=== PATIENT | male | born 1960 | race Caucasian/White ===

== ENCOUNTER 2019-08-08 23:38 | Emergency (ER) | payer MEDICAID, SELFPAY ==
[2019-08-08 23:39] VITALS: BP 172/105; PULSE 100; RESP 15; TEMP 36.2; O2SAT 97; BMI 26.2
--- NOTE | 2019-08-08 23:48 | ED.DCSUM_ITS ---
- ER Visit Summary Date of Service: 08/08/19 Chief Complaint: Fall History of Present Illness: The patient is a 59 M who presents after a fall that occurred tonight. EMS was called to the [facility] where his a found him laying on the floor between 2 sets of stairs. EMS did not see any signs of trauma. E MS reports that the patient reportedly had a lot of alcohol to drink tonight. EMS reports that the patient started vomiting soon after they started to get him up. EMS states that patient was feeling better and was more awake and alert after vomiting. Patient currently denies any symptoms. Patient denies any paresthesias or weakness. Patient denies any abdominal pain or chest pain. Patient denies any shortness of breath. Physical Examination: Vital signs are stable except for an elevated blood pressure of 172/105. Patient is afebrile. Patient is in no acute distress. Pupils are equal, round, and reactive to light bilaterally. Extraocular muscles are intact. Conjunctiva is clear. Oral mucosa is pink and moist. Head is normocephalic. There are no outward signs of trauma. Strength is 5/5 bilateral knee upper and lower extremities. There are no sensory deficits noted. Cranial nerves II through XII are grossly intact. Heart was regular rate and rhythm. Lungs are clear and equal bilaterally. Abdomen is soft. Bowel sounds are normal. There is no tenderness. Emergency Department Course and Treatment: Patient was ordered IV fluids and Zofran here. Patient is refusing any treatment. Patient just wants his sister to come pick him up. His sister was contacted and she is here to grape picker the patient and care for him tonight. She understands and accepts responsibility for the patient. Patient will be discharged. Disposition: Discharge home Impression: 1. Fall 2. Alcohol intoxication This note was generated with [employer] dictation software. It may contain incorrect words, spelling, and punctuation that were not noted in review of the chart prior to signing ED Disposition - Plan for ED Patient: Disposition: Home or Assisted Living Diagnosis: Fall, Alcohol intoxication Instructions: FALL, Mechanical, Alcohol Intoxication Referrals: Clifford Gomez MD [Primary Care Provider] - 3-5 Days
--- NOTE | 2019-08-09 00:06 | ED.RN ---
PT REFUSING IV, BLOOD WORK & MEDICATION. WANTS US TO CALL SISTER TO COME AND GET HIM. DR GRACIA AWARE
--- NOTE | 2019-08-09 00:12 | ED.RN ---
SISTER IS HERE TO TAKE PATIENT HOME. PAPER SCRUBS PROVIDED TO PATIENT
--- NOTE | 2019-08-09 00:32 | ED.RN ---
PT REFUSED CARE.
[2019-08-09 00:35] VITALS: BP 160/75; PULSE 98; RESP 18; O2SAT 96
== END 2019-08-09 00:37 | disposition home or self-care (01) ==
PROVIDERS: Emergency Provider Emergency Medicine; PCP Family Medicine; Referring Provider Family Medicine
DX: Z04.3 Encounter for examination and observation following other accident (principal); W19.XXXA Unspecified fall, initial encounter; F10.129 Alcohol abuse with intoxication, unspecified; Y90.9 Presence of alcohol in blood, level not specified; Z72.0 Tobacco use
CPT/HCPCS: 99284; J2405

== ENCOUNTER → 2020-05-17 15:22 | Outpatient (CLI) | payer MEDICAID, SELFPAY | PROVIDERS: PCP Family Medicine; Referring Provider Physician Assistant; Visit Provider Physician Assistant | DX: L72.0 Epidermal cyst (principal) | CPT/HCPCS: 87070; 87075; 87077; 87186; 87205 ==

== ENCOUNTER 2022-05-08 08:15 | Outpatient (RCR) | payer OTHER, MEDICAID, SELFPAY ==
[2022-04-24 08:03] VITALS: BP 147/94; PULSE 83; RESP 20; TEMP 36.6; BMI 25.9
--- NOTE | 2022-04-24 18:47 | PCM.WC.HP ---
History of Present Illness Date of Service: 04/24/22 Chief Complaint: Thermal burn on the plantar aspect of the left foot History of Wound: This is a 61-year-old diabetic male who presents with a thermal burn on the plantar aspect of his left foot. Approximately 2 weeks ago, while in [facility], he was walking barefoot on concrete. The concrete was extremely hot due to its exposure to the sun. The patient experienced a thermal burn to the plantar aspect of the left foot, which appears to be second-degree in nature. He presents with a large burn eschar on the plantar aspect of his distal left foot, extending up to the the toes, but not involving them. He is currently on a prescription for cephalexin as prescribed by his primary care physician. He is a smoker. His history indicates that he has peripheral arterial occlusive disease with intermittent claudication. His medical history suggests poor control of his diabetes with a history of noncompliance. [facility] Medical History Burn of foot, second degree Hyperlipidemia associated with type 2 diabetes mellitus Intermittent claudication Peripheral arterial occlusive disease Poorly controlled diabetes mellitus Tobacco abuse Tobacco abuse counseling Home Medications cephalexin 500 mg capsule 500 mg PO BID 04/24/22 [History Last Taken Unknown] gabapentin 300 mg tablet 300 mg PO TID 04/24/22 [History Last Taken Unknown] insulin lispro 100 unit/mL subcutaneous solution (Humalog U-100 Insulin) 52 unit subcut DAILY 04/24/22 [History Last Taken Unknown] Allergy/AdvReac Type Severity Reaction Status Date / Time No Known Allergies Allergy Verified 04/24/22 08:30 Social History Smoking Status: Current every day smoker Vital Signs Vital Signs Vital Signs: 04/24/22 08:03 Temperature 97.9 F Temperature Source Temporal Pulse Rate 83 Respiratory Rate 20 H Blood Pressure 147/94 H Blood Pressure Mean 111 Weight Weight: 180 lb 13.313 oz Body Mass Index (BMI) 25.9 Physical Exam Const alert, oriented x3, no apparent distress, average body habitus and well nourished General Appearance: cooperative, comfortable, well kempt and well developed Orientation / Consciousness: awake, oriented to person, oriented to place and oriented to time Exam Limitations: no limitations HEENT normocephalic, head/scalp atraumatic and hearing grossly normal bilaterally Head and Scalp: normal to inspection, normocephalic and atraumatic External Ear: external ears normal Eyes PERRL and EOMs intact bilaterally General Eye: normal appearance of both eyes Resp normal respiratory effort, normal air movement, no retractions and no use of accessory muscles Effort and Inspection: able to speak in complete sentences Extremity no calf tenderness General Extremity: Negative for clubbing or cyanosis Skin Wound Narrative: Internal burn wound is noted on the plantar aspect of the patient's left foot. Dimensions are documented elsewhere. The burn is located distally, extending up to the base of the toes, but not involving the toes themselves. It appears to be a secondary wound, with sensation intact. The wound appearance is that of a large, thick, black eschar. There is no obvious sign of infection or cellulitis. Nails: other Neuro oriented x3, CN's II-XII intact bilaterally and moves all extremities Sensorium / Orientation: awake, alert, oriented to person, oriented to place and oriented to time Psych Appearance: grossly normal and appropriate Attitude: calm Activity / Motor Behavior: appropriate eye contact Speech: normal speech Mood & Affect: euthymic mood Thought Process: normal thought process Thought Content: normal thought content Attention / Concentration: attention grossly intact Debridement Note Debridement Note Wound debrided: Left foot burn wound Laterality: Left Type of Debridement: Excisional debridement Anesthesia Used: 5% Lidocaine Gel and Cetacaine Depth: Down to and including healthy tissue and in the subcutaneous layer Percentage of wound debrided: 100 Instrument Used: 5mm curette, #15 blade and Forceps Tissue Removed: Eschar and nonviable, devitalized tissue Severity: Fat Layer Exposed Amount of bleeding with debridement: Mild Bleeding Controlled with: Compression and gauze Patient tolerated procedure: Patient tolerated procedure well Debridement Free Text: The burn wound eschar was initially debrided using a 5 mm curette. However, due to the resistant and tenacious nature of the thick eschar, removal of the eschar proved to be extremely difficult. To assist in the debridement process, a 15 scalpel blade and forceps were utilized. In this manner, a large portion of the extremely adherent eschar was removed. Approximately 60 to 70% of the eschar was removed in this manner. The remaining eschar was scored using the scalpel blade, in an effort to enhance the effects of collagenase Santyl which is to be used topically. The procedure was well-tolerated. The burn wound appears to be second-degree in nature, as the patient demonstrated some discomfort during the course of the debridement. Post-Debridement Measurements and Additional Note: Post-Debridement Measurements/Treatment WC - Nurse 1 - General Ulcer Assessment Start: 04/24/22 07:51 Freq: Status: Active Protocol: DARWIN.HERI Activity Type Activity Date Activity User E-sign Co-sign Detail Recorded Client Recorded Date Recorded By Document 04/24/22 08:03 DL [id number] 04/24/22 08:27 DL 04/24/22 08:03 - Today's Visit Information Type of service Initial Visit Arrival Mode Ambulatory Transfer Assistance None Patient Identification Verified (Name & Yes ) Patient Requires Transmission-Based No Precautions Finger Stick Blood Sugar(mg/dl) (if not checked indicated): Blood Sugar Stated by Patient Height and Weight Height 5 ft 10 in Weight 180 lb 13.313 oz Weight in Pounds 180.8 lbs Body Mass Index (BMI) 25.9 BMI Classification Overweight BSA - Sophy 2.00 Vital Signs Temperature (97.8 F-99.1 F) 97.9 F Temperature Source Temporal Pulse Rate (60-100) 83 Pulse Location Monitor Respiratory Rate (12-18) 20 H Respiratory rate source Observation Blood Pressure (90/60-120/80) 147/94 H Blood Pressure Mean 111 Pain Scale: 0-10 Numeric Is Patient Pain Free? Yes Lower Extremity Assessment/ Foot Assessment/ Toe Nail Assessment Left -Posterior Tibial Palpable No -Posterior Tibial Doppler Monophasic -Dorsalis Pedis Palpable No -Dorsalis Pedis Doppler Monophasic -Extremity Color Normal -Hair Growth on Legs No -Hair Growth on Toes No -Temperature of Extremity Warm -Capillary Refill Greater than 3 Seconds -Dependent Rubor No -Blanched when Elevated No -Lipodermatosclerosis No -Other Deformity No -Prior Foot Ulcer No -Charcot Joint No -Prior Amputation No -Thick No -Discolored No -Deformed No -Improper Length & Hygeine No Right -Popliteal Doppler Monophasic -Posterior Tibial Palpable No -Posterior Tibial Doppler Monophasic -Dorsalis Pedis Palpable No -Dorsalis Pedis Doppler Monophasic -Extremity Color Normal -Hair Growth on Legs No -Hair Growth on Toes No -Temperature of Extremity Warm -Capillary Refill Greater than 3 Seconds -Dependent Rubor No -Blanched when Elevated No -Lipodermatosclerosis No -Other Deformity No -Prior Foot Ulcer No -Charcot Joint No -Prior Amputation No -Thick No -Discolored No -Deformed No -Improper Length & Hygeine No Neuropathy Assessment Feet - Top Side and Bottom <Entered> (a) Communication Assessment Preferred language [place]er Able to Read Yes Able to Write Yes Right Hearing Abillity Normal Left Hearing Abillity Normal Visual Assistive Devices Glasses Teaching Assessment Preferences Verbal,Written, Demonstration Readiness To Learn Good Willingness to Engage in Self Management Med Activies Readiness to Engage in Self Management Med Activities Anxiety Level Calm Cooperation Cooperative Perception Coherent Interest in Health Problem Asks Questions Does Patient Smoke tobacco or other Yes substances Smoking Status Current every day smoker Is Patient Diabetic Yes Functional Assessment Recent Decline in Ability to Perform Denies Any Declines 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 to contact place of restoration No Teaching: Wound Center Discharge Instructions -Person Taught Patient Dressing Your Wound -Person Taught Patient *Welcome to the Wound Center -Person Taught Patient (a) 1 - + WC - Nurse 1 - General Ulcer Measurement Start: 04/24/22 07:51 Freq: Status: Active Protocol: Activity Type Activity Date Activity User E-sign Co-sign Detail Recorded Client Recorded Date Recorded By Document 04/24/22 08:03 DL [id number] 04/24/22 08:27 DL 04/24/22 08:03 Wound Center Nurse 1 #1 L Plantar -Current Size (cm) - Length 2.3 -Current Size (cm) - Width 5 -Current Size (cm) - Depth 0.1 -Total Square Cm 11.5 -Photo Taken Yes -Classification - Thickness Unclassifiable (Eschar Covered ) -Exudate Amt Small -Exudate Type Serosanguineous -Wound Margin Distinct, Outline Attached -Granulation Amt None Present (0 %) -Granulation Quality N/A -Necrosis Amt Large (67-100%) -Necrotic Tissue Type Eschar -Structure Exposed N/A -Texture (Elizabeth-wound Skin Appearance) Localized Edema -Moisture (Elizabeth-wound Skin Appearance) No Abnormality -Color (Elizabeth-wound Skin Appearance) Erythema -Temperature (Elizabeth-wound Skin No Abnormality Appearance) (Pt Warm) -Tenderness on Palpation (Elizabeth-wound No Skin Appearance) -Ulcer Cleansing Rinsed/ Irrigated with Saline -Foul Odor after Cleansing No -Anesthetic Used 4% Lidocaine Solution WC - Nurse 2 - General Ulcer CM Notes Start: 04/24/22 07:51 Freq: Status: Active Protocol: Activity Type Activity Date Activity User E-sign Co-sign Detail Recorded Client Recorded Date Recorded By Document 04/24/22 11:59 PL [id number] 04/24/22 12:01 PL 04/24/22 11:59 Wound Center Nurse 2 -Time 08:44 -Correct Patient Yes -Correct Side, Site, Position Yes -Correct Procedure Yes -Procedure Performed Yes -Type of Procedure Debridement -Clinical Debridement Subcutaneous -Tissue Removed Subcutaneous -Post Debridement (cm) - Length 2.3 -Post Debridement (cm) - Width 5.0 -Post Debridement (cm) - Depth 0.1 -Total Square (Post) (cm) 11.50 -Area of Debridement (cm) - Length 2.3 -Area of Debridement (cm) - Width 5.0 -Total Square (Area) (cm) 11.50 -Tunneling No -Undermining/Tunneling No -Circular Undermining No -Wound/Ulcer Outcome Not Healed -Ulcer Cleansing Rinsed/ Irrigated with Saline -Foul Odor after Cleansing No -Bioengineered Tissue No -Bleeding Controlled with Pressure -Treatment Response Procedure Tolerated Well -Debridement - Subq, 1st 20sq cm Yes Pain Scale: 0-10 Numeric Is Patient Pain Free? Yes - Nurse 3 - General Ulcer D/C NN Start: 04/24/22 07:51 Freq: Status: Active Protocol: Activity Type Activity Date Activity User E-sign Co-sign Detail Recorded Client Recorded Date Recorded By Document 04/24/22 13:23 KR [id number] 04/24/22 13:24 KR 04/24/22 13:23 Wound Care Nurse 3 #1 L Plantar -Ulcer Cleansing Rinsed/ Irrigated with Saline -Primary Dressing Applied C Hydrogel ($) -Primary Dressing Covered/Secured with Dry Gauze,Dry Gauze & Roll Gauze,Secured with Tape Pain Scale: 0-10 Numeric Is Patient Pain Free? Yes WC - Visit Discharge Discharge Condition Stable Ambulatory Status Ambulatory Transportation Private Auto Assessment/Plan Assessment/Plan (1) Burn of foot, second degree: CODE(S): T25.229A - Burn of second degree of unspecified foot, initial encounter (2) Poorly controlled diabetes mellitus: CODE(S): E11.65 - Type 2 diabetes mellitus with hyperglycemia (3) Peripheral arterial occlusive disease: CODE(S): I77.9 - Disorder of arteries and arterioles, unspecified (4) Hyperlipidemia associated with type 2 diabetes mellitus: CODE(S): E11.69 - Type 2 diabetes mellitus with other specified complication; E78.5 - Hyperlipidemia, unspecified (5) Intermittent claudication: CODE(S): I73.9 - Peripheral vascular disease, unspecified (6) Tobacco abuse: CODE(S): Z72.0 - Tobacco use (7) Tobacco abuse counseling: CODE(S): Z71.6 - Tobacco abuse counseling PLAN: Plan This is a 61-year-old diabetic male who presents with a burn wound on the plantar aspect of his left foot. The burn occurred while walking barefoot on the hot concrete surface while vacationing in [facility]. The burn wound occurred approximately 2 weeks ago. It appears to be a second-degree burn. There is no obvious sign of infection or cellulitis. However, patient is currently on cephalexin as prescribed by his primary care physician, and has been advised to complete the prescription. He is currently generally non-weightbearing, and this has been encouraged to continue. When necessary, he is to ambulate using a cam walker. We are to implement the use of collagenase Santyl topically on a daily basis, to assist in the further debridement of the devitalized and nonviable tissue at the surface of the burn wound. Patient has been instructed in the appropriate means of application, and has been provided a prescription for the medication. He has been encouraged to stop smoking, and counseled appropriately. Good nutrition has been encouraged, and optimization of the patient's glycemic control has been recommended. We are to obtain routine laboratory evaluation, including a CBC, comprehensive metabolic profile, serum prealbumin, and a hemoglobin A1c. We will also obtain a noninvasive lower extremity arterial study to assess the patient's arterial circulation. The patient is to return in 1 week for reevaluation. Total time: 65 minutes
[2022-05-01 08:01] VITALS: BP 142/91; PULSE 85; RESP 20; TEMP 36.4; BMI 25.9
--- NOTE | 2022-05-01 08:27 | PCM.WC.HP ---
History of Present Illness Date of Service: 05/01/22 Chief Complaint: Thermal burn on the plantar aspect of the left foot History of Wound: This is a 61-year-old diabetic male who presented with a thermal burn on the plantar aspect of his left foot. Approximately 2 weeks prior to presentation, while in [facility], he was walking barefoot on concrete. The concrete was extremely hot due to its exposure to the sun. The patient experienced a thermal burn to the plantar aspect of the left foot, which appears to be second-degree in nature. He presented with a large burn eschar on the plantar aspect of his distal left foot, extending up to the the toes, but not involving them. He was on cephalexin as prescribed by his primary care physician. He is a smoker. His history indicates that he has peripheral arterial occlusive disease with intermittent claudication. His medical history suggests poor control of his diabetes with a history of noncompliance. [facility] Medical History Burn of foot, second degree Hyperlipidemia associated with type 2 diabetes mellitus Intermittent claudication Peripheral arterial occlusive disease Poorly controlled diabetes mellitus Tobacco abuse Tobacco abuse counseling Home Medications gabapentin 300 mg tablet 300 mg PO TID 04/24/22 [History Last Taken Unknown] insulin lispro 100 unit/mL subcutaneous solution (Humalog U-100 Insulin) 52 unit subcut DAILY 04/24/22 [History Last Taken Unknown] aspirin 81 mg tablet,delayed release 81 mg PO DAILY 05/01/22 [History Last Taken Unknown] atorvastatin 80 mg tablet 80 mg PO TID 05/01/22 [History Last Taken Unknown] duloxetine 20 mg capsule,delayed release 20 mg PO DAILY 05/01/22 [History Last Taken Unknown] fukul-pygqmygxb-lltdl-caf tablet tab PO 05/01/22 [History Last Taken Unknown] glimepiride 2 mg tablet 2 mg PO DAILY 05/01/22 [History Last Taken Unknown] Allergy/AdvReac Type Severity Reaction Status Date / Time No Known Allergies Allergy Verified 04/24/22 08:30 Social History Smoking Status: Current every day smoker Vital Signs Vital Signs Vital Signs: 05/01/22 08:01 Temperature 97.6 F L Temperature Source Temporal Pulse Rate 85 Respiratory Rate 20 H Blood Pressure 142/91 H Blood Pressure Mean 108 Blood Pressure Source Monitor Weight Weight: 180 lb 13.313 oz Body Mass Index (BMI) 25.9 Physical Exam Const alert, oriented x3, no apparent distress, average body habitus and well nourished General Appearance: cooperative, comfortable, well kempt and well developed Orientation / Consciousness: awake, oriented to person, oriented to place and oriented to time Exam Limitations: no limitations HEENT normocephalic, head/scalp atraumatic and hearing grossly normal bilaterally Head and Scalp: normal to inspection, normocephalic and atraumatic External Ear: external ears normal Eyes PERRL and EOMs intact bilaterally General Eye: normal appearance of both eyes Resp normal respiratory effort, normal air movement, no retractions and no use of accessory muscles Effort and Inspection: able to speak in complete sentences Extremity no calf tenderness General Extremity: Negative for clubbing or cyanosis Skin Wound Narrative: A thermal burn wound is noted on the plantar aspect of the patient's left foot. Dimensions are documented elsewhere. The burn is located distally, extending up to the base of the toes, but not involving the toes themselves. It appears to be a secondary degree burn wound, with sensation intact. The wound appears half pink, healthy granulation tissue, and half necrotic, gangrenous, nonviable eschar. There is no obvious sign of infection or cellulitis. Nails: other Neuro oriented x3, CN's II-XII intact bilaterally and moves all extremities Sensorium / Orientation: awake, alert, oriented to person, oriented to place and oriented to time Psych Appearance: grossly normal and appropriate Attitude: calm Activity / Motor Behavior: appropriate eye contact Speech: normal speech Mood & Affect: euthymic mood Thought Process: normal thought process Thought Content: normal thought content Attention / Concentration: attention grossly intact Debridement Note Debridement Note Wound debrided: Plantar aspect of the left foot Laterality: Left Wound Grade/Stage: Second-degree thermal burn Type of Debridement: Excisional debridement Anesthesia Used: 5% Lidocaine Gel Depth: Down to and including healthy tissue and in the subcutaneous layer Percentage of wound debrided: 100 Instrument Used: 5mm curette, #15 blade and Forceps Tissue Removed: Bioburden and nonviable, necrotic, burn eschar Severity: Fat Layer Exposed Amount of bleeding with debridement: Mild Bleeding Controlled with: Compression and gauze Patient tolerated procedure: Patient tolerated procedure well Debridement Free Text: Upon initial inspection, approximately half of the patient's left foot burn wound appeared to be pink, healthy granulation tissue. The other half of the wound was comprised of residual burn eschar. Due to a prior week of collagenase Santyl, the remaining nonviable tissue/eschar had softened, and was relatively easy to remove by means of a 5 mm curette and a 15 scalpel blade. The procedure was well-tolerated by the patient. A small amount of bleeding was encountered, which was easily controlled with manual pressure. Operative Diagnosis: Second-degree burn wound of the left foot, plantar surface Post-Debridement Measurements and Additional Note: Post-Debridement Measurements/Treatment - Nurse 1 - General Ulcer Assessment Start: 04/24/22 07:51 Freq: Status: Active Protocol: ANDRIA Activity Type Activity Date Activity User E-sign Co-sign Detail Recorded Client Recorded Date Recorded By Document 04/24/22 08:03 DL [id number] 04/24/22 08:27 DL Document 05/01/22 08:01 DL [id number] 05/01/22 08:06 DL 04/24/22 05/01/22 08:03 08:01 - Today's Visit Information Type of service Initial Visit Follow-up Visit (Physician/GENERAL COUNSELOR ) Arrival Mode Ambulatory Ambulatory Transfer Assistance None None Patient Identification Verified (Name & Yes Yes ) Patient Requires Transmission-Based No No Precautions Finger Stick Blood Sugar(mg/dl) (if not checked indicated): Blood Sugar Stated by Patient Height and Weight Height 5 ft 10 in Weight 180 lb 13.313 oz Weight in Pounds 180.8 lbs Body Mass Index (BMI) 25.9 25.9 BMI Classification Overweight Overweight BSA - Sophy 2.00 Vital Signs Temperature (97.8 F-99.1 F) 97.9 F 97.6 F L Temperature Source Temporal Temporal Pulse Rate (60-100) 83 85 Pulse Location Monitor Monitor Respiratory Rate (12-18) 20 H 20 H Respiratory rate source Observation Observation Blood Pressure (90/60-120/80) 147/94 H 142/91 H Blood Pressure Mean 111 108 Source Monitor History Since Last Visit- (Skip if this is Patient's initial visit) Have you changed medications since your No last visit? Any new allergies or adverse reactions No Had a fall/change in ADL's that may No increase risk of falls Signs or symptoms of abuse and/or No neglect since last visit Have you been in the hospital since your No last visit? Has dressing in place as prescribed Yes Has compression in place as prescribed N/A Has offloadiing in place as prescribed Yes Experienced any changes in pain level or No management Pain Scale: 0-10 Numeric Is Patient Pain Free? Yes Yes Lower Extremity Assessment/ Foot Assessment/ Toe Nail Assessment Left -Posterior Tibial Palpable No -Posterior Tibial Doppler Monophasic -Dorsalis Pedis Palpable No -Dorsalis Pedis Doppler Monophasic -Extremity Color Normal -Hair Growth on Legs No -Hair Growth on Toes No -Temperature of Extremity Warm -Capillary Refill Greater than 3 Seconds -Dependent Rubor No -Blanched when Elevated No -Lipodermatosclerosis No -Other Deformity No -Prior Foot Ulcer No -Charcot Joint No -Prior Amputation No -Thick No -Discolored No -Deformed No -Improper Length & Hygeine No Right -Popliteal Doppler Monophasic -Posterior Tibial Palpable No -Posterior Tibial Doppler Monophasic -Dorsalis Pedis Palpable No -Dorsalis Pedis Doppler Monophasic -Extremity Color Normal -Hair Growth on Legs No -Hair Growth on Toes No -Temperature of Extremity Warm -Capillary Refill Greater than 3 Seconds -Dependent Rubor No -Blanched when Elevated No -Lipodermatosclerosis No -Other Deformity No -Prior Foot Ulcer No -Charcot Joint No -Prior Amputation No -Thick No -Discolored No -Deformed No -Improper Length & Hygeine No Neuropathy Assessment Feet - Top Side and Bottom <Entered> (a) Communication Assessment Preferred language Bangladeshi Able to Read Yes Able to Write Yes Right Hearing Abillity Normal Left Hearing Abillity Normal Visual Assistive Devices Glasses Teaching Assessment Preferences Verbal,Written, Demonstration Readiness To Learn Good Willingness to Engage in Self Management Med Activies Readiness to Engage in Self Management Med Activities Anxiety Level Calm Cooperation Cooperative Perception Coherent Interest in Health Problem Asks Questions Does Patient Smoke tobacco or other Yes substances Smoking Status Current every day smoker Is Patient Diabetic Yes Functional Assessment Recent Decline in Ability to Perform Denies Any Declines Culture/Church/Certified Ophthalmic Medical Technician Cultural/Church Needs that may affect No Treatment Plan Would you allow our hospital tailor women's garment alteration to No meet you for the purpose of spiritual/ emotional support? Certified Ophthalmic Medical Technician to contact place of amish No Teaching: Wound Center Discharge Instructions -Person Taught Patient Dressing Your Wound -Person Taught Patient *Welcome to the Wound Center -Person Taught Patient (a) 1 - + WC - Nurse 1 - General Ulcer Measurement Start: 04/24/22 07:51 Freq: Status: Active Protocol: Activity Type Activity Date Activity User E-sign Co-sign Detail Recorded Client Recorded Date Recorded By Document 04/24/22 08:03 DL [id number] 04/24/22 08:27 DL Document 05/01/22 08:01 DL [id number] 05/01/22 08:06 DL 04/24/22 05/01/22 08:03 08:01 Wound Center Nurse 1 #1 L Plantar -Current Size (cm) - Length 2.3 2 -Current Size (cm) - Width 5 5 -Current Size (cm) - Depth 0.1 0.2 -Total Square Cm 11.5 10 -Photo Taken Yes Yes -Classification - Thickness Unclassifiable (Eschar Covered ) -Exudate Amt Small Medium -Exudate Type Serosanguineous Serosanguineous -Wound Margin Distinct, Distinct, Outline Outline Attached Attached -Granulation Amt None Present (0 Large (67-100%) %) -Granulation Quality N/A Red -Necrosis Amt Large (67-100%) Medium (34-66%) -Necrotic Tissue Type Eschar Adherent Slough -Structure Exposed N/A N/A -Texture (Elizabeth-wound Skin Appearance) Localized Edema Scarring -Moisture (Elizabeth-wound Skin Appearance) No Abnormality Maceration -Color (Elizabeth-wound Skin Appearance) Erythema No Abnormality -Temperature (Elizabeth-wound Skin No Abnormality No Abnormality Appearance) (Pt Warm) (Pt Warm) -Tenderness on Palpation (Elizabeth-wound No No Skin Appearance) -Ulcer Cleansing Rinsed/ Rinsed/ Irrigated with Irrigated with Saline Saline -Foul Odor after Cleansing No No -Anesthetic Used 4% Lidocaine 5% Lidocaine Solution Gel WC - Nurse 2 - General Ulcer CM Notes Start: 04/24/22 07:51 Freq: Status: Active Protocol: Activity Type Activity Date Activity User E-sign Co-sign Detail Recorded Client Recorded Date Recorded By Document 04/24/22 11:59 PL [id number] 04/24/22 12:01 PL 04/24/22 11:59 Wound Center Nurse 2 -Time 08:44 -Correct Patient Yes -Correct Side, Site, Position Yes -Correct Procedure Yes -Procedure Performed Yes -Type of Procedure Debridement -Clinical Debridement Subcutaneous -Tissue Removed Subcutaneous -Post Debridement (cm) - Length 2.3 -Post Debridement (cm) - Width 5.0 -Post Debridement (cm) - Depth 0.1 -Total Square (Post) (cm) 11.50 -Area of Debridement (cm) - Length 2.3 -Area of Debridement (cm) - Width 5.0 -Total Square (Area) (cm) 11.50 -Tunneling No -Undermining/Tunneling No -Circular Undermining No -Wound/Ulcer Outcome Not Healed -Ulcer Cleansing Rinsed/ Irrigated with Saline -Foul Odor after Cleansing No -Bioengineered Tissue No -Bleeding Controlled with Pressure -Treatment Response Procedure Tolerated Well -Debridement - Subq, 1st 20sq cm Yes Pain Scale: 0-10 Numeric Is Patient Pain Free? Yes - Nurse 3 - General Ulcer D/C NN Start: 04/24/22 07:51 Freq: Status: Active Protocol: Activity Type Activity Date Activity User E-sign Co-sign Detail Recorded Client Recorded Date Recorded By Document 04/24/22 13:23 OLAF [id number] 04/24/22 13:24 OLAF 04/24/22 13:23 Wound Care Nurse 3 #1 L Plantar -Ulcer Cleansing Rinsed/ Irrigated with Saline -Primary Dressing Applied C Hydrogel ($) -Primary Dressing Covered/Secured with Dry Gauze,Dry Gauze & Roll Gauze,Secured with Tape Pain Scale: 0-10 Numeric Is Patient Pain Free? Yes - Visit Discharge Discharge Condition Stable Ambulatory Status Ambulatory Transportation Private Auto Assessment/Plan Assessment/Plan (1) Burn of foot, second degree: CODE(S): T25.229A - Burn of second degree of unspecified foot, initial encounter QUALIFIERS: Encounter type: subsequent encounter Laterality: left Qualified Code(s): T25.222D - Burn of second degree of left foot, subsequent encounter (2) Poorly controlled diabetes mellitus: CODE(S): E11.65 - Type 2 diabetes mellitus with hyperglycemia (3) Peripheral arterial occlusive disease: CODE(S): I77.9 - Disorder of arteries and arterioles, unspecified (4) Hyperlipidemia associated with type 2 diabetes mellitus: CODE(S): E11.69 - Type 2 diabetes mellitus with other specified complication; E78.5 - Hyperlipidemia, unspecified (5) Intermittent claudication: CODE(S): I73.9 - Peripheral vascular disease, unspecified (6) Tobacco abuse: CODE(S): Z72.0 - Tobacco use (7) Tobacco abuse counseling: CODE(S): Z71.6 - Tobacco abuse counseling PLAN: Plan This is a 61-year-old diabetic male who presented with a burn wound on the plantar aspect of his left foot. The burn occurred while walking barefoot on the hot concrete surface while vacationing in [facility]. The burn wound occurred approximately 2 weeks prior to presentation. It appears to be a second-degree burn. There is no obvious sign of infection or cellulitis. At this juncture, following debridement, the burn wound is generally pink and healthy in appearance, with nearly all of the burn eschar having been eliminated. The patient has completed his course of cephalexin as prescribed by his primary care physician. He is currently generally non-weightbearing, and this has been encouraged to continue. When necessary, he is to ambulate using a cam walker. We are to continue the use of collagenase Santyl topically on a daily basis. The nonviable burn eschar and necrotic tissue has largely been eliminated, and it is anticipated that we may be able to transition to a collagen product within the next week or 2. The patient has been instructed in the appropriate means of application of the collagenase Santyl. He has been encouraged to stop smoking, and counseled appropriately. Good nutrition has been encouraged, and optimization of the patient's glycemic control has been recommended. We are to obtain routine laboratory evaluation, including a CBC, comprehensive metabolic profile, serum prealbumin, and a hemoglobin A1c. We will also obtain a noninvasive lower extremity arterial study to assess the patient's arterial circulation. The patient is to return in 1 week for reevaluation. Total time: 29 minutes
[2022-05-08 08:21] VITALS: BP 185/113; PULSE 74; RESP 18; TEMP 36.1; BMI 25.9
--- NOTE | 2022-05-08 08:39 | HP.PCM_ITS ---
History of Present Illness Date of Service: 05/08/22 Chief Complaint: Thermal burn on the plantar aspect of the left foot History of Wound: This is a 61-year-old diabetic male who presented with a thermal burn on the plantar aspect of his left foot. Approximately 2 weeks prior to presentation, while in [facility], he was walking barefoot on concrete. The concrete was extremely hot due to its exposure to the sun. The patient experienced a thermal burn to the plantar aspect of the left foot, which appears to be second-degree in nature. He presented with a large burn eschar on the plantar aspect of his distal left foot, extending up to the the toes, but not involving them. He was on cephalexin as prescribed by his primary care physician. He is a smoker. His history indicates that he has peripheral arterial occlusive disease with intermittent claudication. His medical history suggests poor control of his diabetes with a history of noncompliance. [facility]LY [facility] Medical History Burn of foot, second degree Hyperlipidemia associated with type 2 diabetes mellitus Intermittent claudication Peripheral arterial occlusive disease Poorly controlled diabetes mellitus Tobacco abuse Tobacco abuse counseling Home Medications gabapentin 300 mg tablet 300 mg PO TID 04/24/22 [History Last Taken Unknown] insulin lispro 100 unit/mL subcutaneous solution (Humalog U-100 Insulin) 52 unit subcut DAILY 04/24/22 [History Last Taken Unknown] aspirin 81 mg tablet,delayed release 81 mg PO DAILY 05/01/22 [History Last Taken Unknown] atorvastatin 80 mg tablet 80 mg PO TID 05/01/22 [History Last Taken Unknown] duloxetine 20 mg capsule,delayed release 20 mg PO DAILY 05/01/22 [History Last Taken Unknown] eqazp-clectffyw-nelhz-caf tablet tab PO 05/01/22 [History Last Taken Unknown] glimepiride 2 mg tablet 2 mg PO DAILY 05/01/22 [History Last Taken Unknown] Allergy/AdvReac Type Severity Reaction Status Date / Time No Known Allergies Allergy Verified 04/24/22 08:30 Social History Smoking Status: Current every day smoker Vital Signs Vital Signs Vital Signs: 05/08/22 08:21 Temperature 96.9 F L Temperature Source Temporal Pulse Rate 74 Respiratory Rate 18 Blood Pressure 185/113 H Blood Pressure Mean 137 Blood Pressure Source Monitor Blood Pressure Position Supine Blood Pressure Location Left Arm Weight Weight: 180 lb 13.313 oz Body Mass Index (BMI) 25.9 Physical Exam Const alert, oriented x3, no apparent distress, average body habitus and well nourished General Appearance: cooperative, comfortable, well kempt and well developed Orientation / Consciousness: awake, oriented to person, oriented to place and oriented to time Exam Limitations: no limitations HEENT normocephalic, head/scalp atraumatic and hearing grossly normal bilaterally Head and Scalp: normal to inspection, normocephalic and atraumatic External Ear: external ears normal Eyes PERRL and EOMs intact bilaterally General Eye: normal appearance of both eyes Resp normal respiratory effort, normal air movement, no retractions and no use of accessory muscles Effort and Inspection: able to speak in complete sentences Extremity no calf tenderness General Extremity: Negative for clubbing or cyanosis Skin Wound Narrative: A thermal burn wound is noted on the plantar aspect of the patient's left foot. Dimensions are documented elsewhere. The burn is located distally, extending up to the base of the toes, but not involving the toes themselves. It appears to be a secondary degree burn wound, with sensation intact. The wound appears pink and healthy in appearance with evidence of granulation tissue. The size of the wound has diminished since the patient's last visit 1 week ago. There is no obvious sign of infection or cellulitis. Nails: other Neuro oriented x3, CN's II-XII intact bilaterally, moves all extremities and no focal motor deficits Sensorium / Orientation: awake, alert, oriented to person, oriented to place and oriented to time Psych Appearance: grossly normal and appropriate Attitude: calm Activity / Motor Behavior: appropriate eye contact Speech: normal speech Mood & Affect: euthymic mood Thought Process: normal thought process Thought Content: normal thought content Attention / Concentration: attention grossly intact Debridement Note Debridement Note Wound debrided: Plantar aspect of the left foot Laterality: Left Wound Grade/Stage: Second-degree thermal burn Type of Debridement: Excisional debridement Anesthesia Used: 5% Lidocaine Gel Depth: Down to and including healthy tissue and in the subcutaneous layer Percentage of wound debrided: 100 Instrument Used: 5mm curette, #15 blade and Forceps Tissue Removed: Bioburden and nonviable, necrotic, burn eschar Severity: Fat Layer Exposed Amount of bleeding with debridement: Mild Bleeding Controlled with: Compression and gauze Patient tolerated procedure: Patient tolerated procedure well Debridement Free Text: The nonviable tissue on the surface of the burn wound is now eliminated. The patient's burn wound is now smaller in size, showing considerable progress over the last several weeks. The base of the wound is pink and healthy in appearance with active granulation tissue. Callus appears to surround the remaining portion of the wound. Operative Diagnosis: Second-degree burn wound of the left foot, plantar surface Post-Debridement Measurements and Additional Note: Post-Debridement Measurements/Treatment - Nurse 1 - General Ulcer Assessment Start: 04/24/22 07:51 Freq: Status: Active Protocol: DARWIN.LOWEXT Activity Type Activity Date Activity User E-sign Co-sign Detail Recorded Client Recorded Date Recorded By Document 04/24/22 08:03 DL [id number] 04/24/22 08:27 DL Document 05/01/22 08:01 DL [id number] 05/01/22 08:06 DL Document 05/08/22 08:21 ML [id number] 05/08/22 08:28 ML 04/24/22 05/01/22 05/08/22 08:03 08:01 08:21 - Today's Visit Information Type of service Initial Visit Follow-up Visit Follow-up Visit (Physician/PROPERTY ECONOMIST (Physician/PROPERTY ECONOMIST ) ) Arrival Mode Ambulatory Ambulatory Ambulatory Transfer Assistance None None None Patient Identification Verified (Name & Yes Yes Yes ) Patient Requires Transmission-Based No No No Precautions Safety Precautions NA Finger Stick Blood Sugar(mg/dl) (if not checked indicated): Blood Sugar Stated by Patient Height and Weight Height 5 ft 10 in Weight 180 lb 13.313 oz Weight in Pounds 180.8 lbs Body Mass Index (BMI) 25.9 25.9 25.9 BMI Classification Overweight Overweight Overweight BSA - Sophy 2.00 Vital Signs Temperature (97.8 F-99.1 F) 97.9 F 97.6 F L 96.9 F L Temperature Source Temporal Temporal Temporal Pulse Rate (60-100) 83 85 74 Pulse Location Monitor Monitor Monitor Respiratory Rate (12-18) 20 H 20 H 18 Respiratory rate source Observation Observation Ausculation Blood Pressure (90/60-120/80) 147/94 H 142/91 H 185/113 H Blood Pressure Mean 111 108 137 Source Monitor Monitor Position Supine Blood Pressure Location Left Arm History Since Last Visit- (Skip if this is Patient's initial visit) Have you changed medications since your No No last visit? Any new allergies or adverse reactions No No Had a fall/change in ADL's that may No No increase risk of falls Signs or symptoms of abuse and/or No No neglect since last visit Have you been in the hospital since your No No last visit? Has dressing in place as prescribed Yes Yes Has compression in place as prescribed N/A Yes Has offloadiing in place as prescribed Yes Yes Experienced any changes in pain level or No No management Left Footwear Removable Cast Walker/Walking Boot Right Footwear Regular Shoe Pain Scale: 0-10 Numeric Is Patient Pain Free? Yes Yes Yes Lower Extremity Assessment/ Foot Assessment/ Toe Nail Assessment Left -Posterior Tibial Palpable No -Posterior Tibial Doppler Monophasic -Dorsalis Pedis Palpable No -Dorsalis Pedis Doppler Monophasic -Extremity Color Normal -Hair Growth on Legs No -Hair Growth on Toes No -Temperature of Extremity Warm -Capillary Refill Greater than 3 Seconds -Dependent Rubor No -Blanched when Elevated No -Lipodermatosclerosis No -Other Deformity No -Prior Foot Ulcer No -Charcot Joint No -Prior Amputation No -Thick No -Discolored No -Deformed No -Improper Length & Hygeine No Right -Popliteal Doppler Monophasic -Posterior Tibial Palpable No -Posterior Tibial Doppler Monophasic -Dorsalis Pedis Palpable No -Dorsalis Pedis Doppler Monophasic -Extremity Color Normal -Hair Growth on Legs No -Hair Growth on Toes No -Temperature of Extremity Warm -Capillary Refill Greater than 3 Seconds -Dependent Rubor No -Blanched when Elevated No -Lipodermatosclerosis No -Other Deformity No -Prior Foot Ulcer No -Charcot Joint No -Prior Amputation No -Thick No -Discolored No -Deformed No -Improper Length & Hygeine No Neuropathy Assessment Feet - Top Side and Bottom <Entered> (a) Communication Assessment Preferred language [place] Able to Read Yes Able to Write Yes Right Hearing Abillity Normal Left Hearing Abillity Normal Visual Assistive Devices Glasses Teaching Assessment Preferences Verbal,Written, Demonstration Readiness To Learn Good Willingness to Engage in Self Management Med Activies Readiness to Engage in Self Management Med Activities Anxiety Level Calm Cooperation Cooperative Perception Coherent Interest in Health Problem Asks Questions Does Patient Smoke tobacco or other Yes substances Smoking Status Current every day smoker Is Patient Diabetic Yes Functional Assessment Recent Decline in Ability to Perform Denies Any Declines Culture/Scientologist/Charge Accounts Audit Clerk Cultural/Scientologist Needs that may affect No Treatment Plan Would you allow our hospital communications field technician to No meet you for the purpose of spiritual/ emotional support? Charge Accounts Audit Clerk to contact place of orthodoxy No Teaching: Wound Center Discharge Instructions -Person Taught Patient Dressing Your Wound -Person Taught Patient *Welcome to the Wound Center -Person Taught Patient (a) 1 - + WC - Nurse 1 - General Ulcer Measurement Start: 04/24/22 07:51 Freq: Status: Active Protocol: Activity Type Activity Date Activity User E-sign Co-sign Detail Recorded Client Recorded Date Recorded By Document 04/24/22 08:03 DL [id number] 04/24/22 08:27 DL Document 05/01/22 08:01 DL [id number] 05/01/22 08:06 DL Document 05/08/22 08:21 ML [id number] 05/08/22 08:28 ML 04/24/22 05/01/22 05/08/22 08:03 08:01 08:21 Wound Center Nurse 1 #1 L Plantar -Combined with other wound No -Current Size (cm) - Length 2.3 2 2.5 -Current Size (cm) - Width 5 5 2 -Current Size (cm) - Depth 0.1 0.2 0.1 -Total Square Cm 11.5 10 5.0 -Photo Taken Yes Yes -Classification - Thickness Unclassifiable (Eschar Covered ) -Exudate Amt Small Medium Small -Exudate Type Serosanguineous Serosanguineous Serous -Wound Margin Distinct, Distinct, Distinct, Outline Outline Outline Attached Attached Attached -Granulation Amt None Present (0 Large (67-100%) Small (1-33%) %) -Granulation Quality N/A Red -Slough/Fibrin Yes -Necrosis Amt Large (67-100%) Medium (34-66%) Small (1-33%) -Necrotic Tissue Type Eschar Adherent Slough Adherent Slough -Structure Exposed N/A N/A -Texture (Elizabeth-wound Skin Appearance) Localized Edema Scarring Assessed -Moisture (Elizabeth-wound Skin Appearance) No Abnormality Maceration Assessed -Color (Elizabeth-wound Skin Appearance) Erythema No Abnormality Assessed -Temperature (Elizabeth-wound Skin No Abnormality No Abnormality No Abnormality Appearance) (Pt Warm) (Pt Warm) (Pt Warm) -Tenderness on Palpation (Elizabeth-wound No No No Skin Appearance) -Ulcer Cleansing Rinsed/ Rinsed/ Rinsed/ Irrigated with Irrigated with Irrigated with Saline Saline Saline -Foul Odor after Cleansing No No No -Anesthetic Used 4% Lidocaine 5% Lidocaine 5% Lidocaine Solution Gel Gel - Nurse 2 - General Ulcer CM Notes Start: 04/24/22 07:51 Freq: Status: Active Protocol: Activity Type Activity Date Activity User E-sign Co-sign Detail Recorded Client Recorded Date Recorded By Document 04/24/22 11:59 PL [id number] 04/24/22 12:01 PL Document 05/01/22 10:57 PL [id number] 05/01/22 10:58 PL 04/24/22 05/01/22 11:59 10:57 Wound Center Nurse 2 #1 L Plantar -Time 08:44 08:18 -Correct Patient Yes Yes -Correct Side, Site, Position Yes Yes -Correct Procedure Yes Yes -Procedure Performed Yes Yes -Type of Procedure Debridement Debridement -Clinical Debridement Subcutaneous Subcutaneous -Tissue Removed Subcutaneous Subcutaneous -Post Debridement (cm) - Length 2.3 2.0 -Post Debridement (cm) - Width 5.0 5.0 -Post Debridement (cm) - Depth 0.1 0.1 -Total Square (Post) (cm) 11.50 10.00 -Area of Debridement (cm) - Length 2.3 2.0 -Area of Debridement (cm) - Width 5.0 5.0 -Total Square (Area) (cm) 11.50 10.00 -Tunneling No No -Undermining/Tunneling No No -Circular Undermining No No -Wound/Ulcer Outcome Not Healed Not Healed -Ulcer Cleansing Rinsed/ Rinsed/ Irrigated with Irrigated with Saline Saline -Foul Odor after Cleansing No No -Bioengineered Tissue No No -Bleeding Controlled with Pressure Pressure -Treatment Response Procedure Procedure Tolerated Well Tolerated Well -Debridement - Subq, 1st 20sq cm Yes Yes Pain Scale: 0-10 Numeric Is Patient Pain Free? Yes Yes - Nurse 3 - General Ulcer D/C NN Start: 04/24/22 07:51 Freq: Status: Active Protocol: Activity Type Activity Date Activity User E-sign Co-sign Detail Recorded Client Recorded Date Recorded By Document 04/24/22 13:23 KR [id number] 04/24/22 13:24 KR Document 05/01/22 08:36 DL [id number] 05/01/22 08:37 DL 04/24/22 05/01/22 13:23 08:36 Wound Care Nurse 3 #1 L Plantar -Ulcer Cleansing Rinsed/ Rinsed/ Irrigated with Irrigated with Saline Saline -Foul Odor after Cleansing No -Primary Dressing Applied C Hydrogel ($) -Other Dressing hydrogel -Primary Dressing Covered/Secured with Dry Gauze,Dry Dry Gauze & Gauze & Roll Roll Gauze, Gauze,Secured Secured with with Tape Tape Treatment Response Procedure Tolerated Well Pain Scale: 0-10 Numeric Is Patient Pain Free? Yes Yes WC - Visit Discharge Discharge Condition Stable Stable Ambulatory Status Ambulatory Ambulatory Transportation Private Auto Private Auto Assessment/Plan Assessment/Plan (1) Burn of foot, second degree: CODE(S): T25.229A - Burn of second degree of unspecified foot, initial encounter QUALIFIERS: Encounter type: subsequent encounter Laterality: left Qualified Code(s): T25.222D - Burn of second degree of left foot, subsequent encounter (2) Poorly controlled diabetes mellitus: CODE(S): E11.65 - Type 2 diabetes mellitus with hyperglycemia (3) Peripheral arterial occlusive disease: CODE(S): I77.9 - Disorder of arteries and arterioles, unspecified (4) Hyperlipidemia associated with type 2 diabetes mellitus: CODE(S): E11.69 - Type 2 diabetes mellitus with other specified complication; E78.5 - Hyperlipidemia, unspecified (5) Intermittent claudication: CODE(S): I73.9 - Peripheral vascular disease, unspecified (6) Tobacco abuse: CODE(S): Z72.0 - Tobacco use (7) Tobacco abuse counseling: CODE(S): Z71.6 - Tobacco abuse counseling PLAN: Plan This is a 61-year-old diabetic male who presented with a burn wound on the plantar aspect of his left foot. The burn occurred while walking barefoot on the hot concrete surface while vacationing in [facility]. The burn wound occurred approximately 2 weeks prior to presentation. It appears to be a second-degree burn. There is no obvious sign of infection or cellulitis. At this juncture, the necrotic and nonviable tissue at the surface of the wound has been eliminated. The wound is much smaller in size, showing very progressive healing. The current wound demonstrates a satisfactory wound bed with pink, healthy granulation tissue. The patient has completed his course of cephalexin as prescribed by his primary care physician. He is currently generally non-weightbearing, and this has been encouraged to continue. When necessary, he is to ambulate using a cam walker. We are to continue the use of collagenase Santyl topically on a daily basis. The patient has been instructed in the appropriate means of application of the collagenase Santyl. Consideration has been given to the use of a collagen product, which would be appropriate, though the patient has shown very significant and satisfactory progress with current management using collagenase Santyl. Due to surrounding callus, the patient has been instructed to use a topical moisturizing skin lotion on the area about the wound itself. He has been encouraged to stop smoking, and counseled appropriately. Good nutrition has been encouraged, and optimization of the patient's glycemic control has been recommended. We are to obtain routine laboratory evaluation, including a CBC, comprehensive metabolic profile, serum prealbumin, and a hemoglobin A1c. We will also obtain a noninvasive lower ext remity arterial study to assess the patient's arterial circulation. The patient is to return in 1 week for reevaluation. Healing has been relatively rapid, and it is anticipated that the patient may be completely healed within the next several weeks. Total time: 28 minutes
== END 2022-05-14 23:59 | disposition home or self-care (01) ==
LOC: WC 08:15
PROVIDERS: PCP Internal Medicine; Visit Provider Surgery
DX: T25.222A Burn of second degree of left foot, initial encounter (principal); E11.51 Type 2 diabetes mellitus with diabetic peripheral angiopathy without gangrene; E11.65 Type 2 diabetes mellitus with hyperglycemia; E11.69 Type 2 diabetes mellitus with other specified complication; Z79.4 Long term (current) use of insulin; F17.200 Nicotine dependence, unspecified, uncomplicated; Z79.82 Long term (current) use of aspirin; E78.5 Hyperlipidemia, unspecified; Z79.899 Other long term (current) drug therapy
CPT/HCPCS: 11042; 99213; G0463

== ENCOUNTER 2022-05-15 08:05 | Outpatient (RCR) | payer OTHER, MEDICAID, SELFPAY ==
[2022-05-15 00:41] VITALS: BP 185/113; PULSE 74; RESP 18; TEMP 36.1; BMI 25.9
[2022-05-15 08:07] VITALS: BP 121/84; PULSE 89; RESP 16; TEMP 35.8; BMI 25.9
--- NOTE | 2022-05-15 08:25 | PCM.WC.HP ---
History of Present Illness Date of Service: 05/15/22 Chief Complaint: Thermal burn on the plantar aspect of the left foot History of Wound: This is a 61-year-old diabetic male who presented with a thermal burn on the plantar aspect of his left foot. Approximately 2 weeks prior to presentation, while in [facility], he was walking barefoot on concrete. The concrete was extremely hot due to its exposure to the sun. The patient experienced a thermal burn to the plantar aspect of the left foot, which appears to be second-degree in nature. He presented with a large burn eschar on the plantar aspect of his distal left foot, extending up to the the toes, but not involving them. He was on cephalexin as prescribed by his primary care physician. He is a smoker. His history indicates that he has peripheral arterial occlusive disease with intermittent claudication. His medical history suggests poor control of his diabetes with a history of noncompliance. [facility] Medical History Burn of foot, second degree Hyperlipidemia associated with type 2 diabetes mellitus Intermittent claudication Peripheral arterial occlusive disease Poorly controlled diabetes mellitus Tobacco abuse Tobacco abuse counseling Home Medications gabapentin 300 mg tablet 300 mg PO TID 04/24/22 [History Last Taken Unknown] insulin lispro 100 unit/mL subcutaneous solution (Humalog U-100 Insulin) 52 unit subcut DAILY 04/24/22 [History Last Taken Unknown] aspirin 81 mg tablet,delayed release 81 mg PO DAILY 05/01/22 [History Last Taken Unknown] atorvastatin 80 mg tablet 80 mg PO TID 05/01/22 [History Last Taken Unknown] duloxetine 20 mg capsule,delayed release 20 mg PO DAILY 05/01/22 [History Last Taken Unknown] vhedq-cqncbrzft-aamst-caf tablet tab PO 05/01/22 [History Last Taken Unknown] glimepiride 2 mg tablet 2 mg PO DAILY 05/01/22 [History Last Taken Unknown] Allergy/AdvReac Type Severity Reaction Status Date / Time No Known Allergies Allergy Verified 04/24/22 08:30 Social History Smoking Status: Current every day smoker Vital Signs Vital Signs Vital Signs: 05/15/22 08:07 05/15/22 00:41 Temperature 96.5 F L 96.9 F L Temperature Source Temporal Pulse Rate 89 74 Respiratory Rate 16 18 Blood Pressure 121/84 H 185/113 H Blood Pressure Mean 96 137 Blood Pressure Source Monitor Blood Pressure Position Sitting Blood Pressure Location Left Arm Left Arm Oxygen Delivery Method Room Air Weight Weight: 180 lb 13.313 oz Body Mass Index (BMI) 25.9 Physical Exam Const alert, oriented x3, no apparent distress, average body habitus and well nourished General Appearance: cooperative, comfortable, well kempt and well developed Orientation / Consciousness: awake, oriented to person, oriented to place and oriented to time Exam Limitations: no limitations HEENT normocephalic, head/scalp atraumatic and hearing grossly normal bilaterally Head and Scalp: normal to inspection, normocephalic and atraumatic External Ear: external ears normal Eyes PERRL and EOMs intact bilaterally General Eye: normal appearance of both eyes Resp normal respiratory effort, normal air movement, no retractions and no use of accessory muscles Effort and Inspection: able to speak in complete sentences Extremity no calf tenderness General Extremity: Negative for clubbing or cyanosis Skin Wound Narrative: The thermal burn wound on the plantar aspect of the patient's left foot is now completely healed and epithelialized. There are no open wounds. Areas of callus are noted. There is no sign of infection or cellulitis. No swelling or edema are noted. Nails: other Neuro oriented x3, CN's II-XII intact bilaterally, moves all extremities and no focal motor deficits Sensorium / Orientation: awake, alert, oriented to person, oriented to place and oriented to time Psych Appearance: grossly normal and appropriate Attitude: calm Activity / Motor Behavior: appropriate eye contact Speech: normal speech Mood & Affect: euthymic mood Thought Process: normal thought process Thought Content: normal thought content Attention / Concentration: attention grossly intact Debridement Note Debridement Note No debridement was completed: No debridement was completed today (There are no open wounds or ulcerations. The patient is completely healed.) Post-Debridement Measurements and Additional Note: Post-Debridement Measurements/Treatment WC - Nurse 1 - General Ulcer Assessment Start: 05/15/22 08:07 Freq: Status: Active Protocol: DARWIN.HERI Activity Type Activity Date Activity User E-sign Co-sign Detail Recorded Client Recorded Date Recorded By Document 05/15/22 08:07 FER [id number] 05/15/22 08:11 05/15/22 08:07 - Today's Visit Information Type of service Follow-up Visit (Physician/[employer] ) Arrival Mode Ambulatory Transfer Assistance None Accompanied by self Patient Identification Verified (Name & Yes ) Patient Requires Transmission-Based No Precautions Height and Weight Body Mass Index (BMI) 25.9 BMI Classification Overweight Vital Signs Temperature (97.8 F-99.1 F) 96.5 F L Temperature Source Temporal Pulse Rate (60-100) 89 Pulse Location Monitor Respiratory Rate (12-18) 16 Respiratory rate source Observation Oxygen Delivery Method Room Air Blood Pressure (90/60-120/80) 121/84 H Blood Pressure Mean 96 Source Monitor Position Sitting Blood Pressure Location Left Arm History Since Last Visit- (Skip if this is Patient's initial visit) Have you changed medications since your No last visit? Any new allergies or adverse reactions No Had a fall/change in ADL's that may No increase risk of falls Signs or symptoms of abuse and/or No neglect since last visit Have you been in the hospital since your No last visit? Has dressing in place as prescribed Yes Has compression in place as prescribed Yes Has offloadiing in place as prescribed Yes Experienced any changes in pain level or No management Left Footwear Removable Cast Walker/Walking Boot Right Footwear Regular Shoe Pain Scale: 0-10 Numeric Is Patient Pain Free? Yes - Nurse 1 - General Ulcer Measurement Start: 05/15/22 08:07 Freq: Status: Active Protocol: Activity Type Activity Date Activity User E-sign Co-sign Detail Recorded Client Recorded Date Recorded By Document 05/15/22 08:07 [id number] 05/15/22 08:11 05/15/22 08:07 Wound Center Nurse 1 #1 L Plantar -Combined with other wound No -Current Size (cm) - Length 0.1 -Current Size (cm) - Width 0.1 -Current Size (cm) - Depth 0.1 -Total Square Cm 0.01 -Photo Taken No -Epithelialization Large 67-100% -Undermining/Tunneling No -Circular Undermining No -Exudate Amt None Present -Wound Margin Flat & Intact -Granulation Amt None Present (0 %) -Granulation Quality N/A -Slough/Fibrin Yes -Necrosis Amt Large (67-100%) -Necrotic Tissue Type Eschar -Structure Exposed N/A -Texture (Elizabeth-wound Skin Appearance) Assessed,Callus -Moisture (Elizabeth-wound Skin Appearance) Assessed,Dry/ Scaly -Color (Elizabeth-wound Skin Appearance) No Abnormality, Assessed -Temperature (Elizabeth-wound Skin No Abnormality Appearance) (Pt Warm) -Tenderness on Palpation (Elizabeth-wound No Skin Appearance) -Ulcer Cleansing Rinsed/ Irrigated with Saline -Foul Odor after Cleansing No -Anesthetic Used 4% Lidocaine Solution Lower Limb Edema Present No Assessment/Plan Assessment/Plan (1) Burn of foot, second degree: CODE(S): T25.229A - Burn of second degree of unspecified foot, initial encounter QUALIFIERS: Encounter type: subsequent encounter Laterality: left Qualified Code(s): T25.222D - Burn of second degree of left foot, subsequent encounter (2) Poorly controlled diabetes mellitus: CODE(S): E11.65 - Type 2 diabetes mellitus with hyperglycemia (3) Peripheral arterial occlusive disease: CODE(S): I77.9 - Disorder of arteries and arterioles, unspecified (4) Hyperlipidemia associated with type 2 diabetes mellitus: CODE(S): E11.69 - Type 2 diabetes mellitus with other specified complication; E78.5 - Hyperlipidemia, unspecified (5) Intermittent claudication: CODE(S): I73.9 - Peripheral vascular disease, unspecified (6) Tobacco abuse: CODE(S): Z72.0 - Tobacco use (7) Tobacco abuse counseling: CODE(S): Z71.6 - Tobacco abuse counseling PLAN: Plan This is a 61-year-old diabetic male who presented with a burn wound on the plantar aspect of his left foot. The burn occurred while walking barefoot on the hot concrete surface while vacationing in [facility]. The burn wound occurred approximately 2 weeks prior to presentation. It appears to be a second-degree burn. At the time of the patient's visit today, the burn wound on the plantar aspect of his left foot is completely healed and epithelialized. He is to be discharged, with follow-up on an as-needed basis. There is some callus in the area of the recent burn, and the patient has been advised to use moisturizing skin lotion topically once or twice a day until the callus resolves. Is a diabetic, he has been reminded to exercise good foot care, and to wear appropriately fitted shoes. He is to inspect his feet regularly. He is return to his normal footwear, and may now bear weight. He has been encouraged to stop smoking, and counseled appropriately. Total time: 22 minutes
== END 2022-05-17 11:35 | disposition home or self-care (01) ==
LOC: WC 08:05
PROVIDERS: PCP Internal Medicine; Visit Provider Surgery
DX: T25.222A Burn of second degree of left foot, initial encounter (principal); E11.51 Type 2 diabetes mellitus with diabetic peripheral angiopathy without gangrene; E11.65 Type 2 diabetes mellitus with hyperglycemia; E11.69 Type 2 diabetes mellitus with other specified complication; F17.200 Nicotine dependence, unspecified, uncomplicated; E78.5 Hyperlipidemia, unspecified; Z79.82 Long term (current) use of aspirin
CPT/HCPCS: 99213; G0463

== ENCOUNTER 2023-04-02 06:36 | Inpatient (IN) | payer OTHER, MEDICAID, SELFPAY ==
[2023-04-02 06:36] VITALS: BP 133/84; PULSE 85; RESP 16; TEMP 35.7; O2SAT 94; BMI 23.5
--- NOTE | 2023-04-02 07:10 | EDS_ITS ---
HPI History of Present Illness Chief Complaint: Abscess PFSH PFS Medical History Burn of foot, second degree Hyperlipidemia associated with type 2 diabetes mellitus Intermittent claudication Peripheral arterial occlusive disease Poorly controlled diabetes mellitus Tobacco abuse Tobacco abuse counseling Home Medications gabapentin 300 mg tablet 300 mg PO TID nerve pain 04/24/22 [History Last Taken Unknown] insulin lispro 100 unit/mL subcutaneous solution (Humalog U-100 Insulin) 52 unit subcut DAILY diabetes 04/24/22 [History Last Taken Unknown] aspirin 81 mg tablet,delayed release 81 mg PO DAILY blood thinner 05/01/22 [History Last Taken Unknown] atorvastatin 80 mg tablet 80 mg PO TID cholesterol 05/01/22 [History Last Taken Unknown] glimepiride 2 mg tablet 2 mg PO DAILY diabetes 05/01/22 [History Last Taken Unknown] cephalexin 500 mg capsule 500 mg PO Q6H atb 04/02/23 [History Last Taken 04/02/23 06:00 500 mg] sulfamethoxazole 800 mg-trimethoprim 160 mg tablet (Bactrim DS) 1 tab PO BID atb 04/02/23 [History Last Taken 04/02/23 06:00 1 TAB] Allergy/AdvReac Type Severity Reaction Status Date / Time No Known Allergies Allergy Verified 04/02/23 06:43 Social History Smoking Status: Current every day smoker tobacco type: cigarettes EXAM Physical Exam Const Vital Signs: 04/02/23 06:36 Temperature 96.3 F L Temperature Source Temporal Pulse Rate 85 Respiratory Rate 16 Blood Pressure 133/84 H Blood Pressure Mean 100 Pulse Ox 94 Oxygen Delivery Method Room Air MDM MDM MDM Narrative Medical decision making narrative: HISTORY OF PRESENT ILLNESS: 62-year-old male here with concern for groin abscess. States he is on oral antibiotics but symptoms have been getting worse. He further states he was seen at [facility] on Saturday prescribed Keflex and Bactrim. States he took 1 day of this. States pain is worsening. Denies any fever chills nausea vomiting but notes exquisite pain mostly in the left groin area. Denies any urinary complaints. Denies any fever. REVIEW OF SYSTEMS: Pertinent positives: Redness, swelling Pertinent negatives: Fever, urinary complaints PHYSICAL EXAM: Nursing triage notes reviewed, Vital signs reviewed Constitutional: please see mdm HENT: MMM Eyes: Pupils equal round and reactive to light, Extraocular muscles intact Neck: No stridor, no JVD, full neck ROM Lungs: Clear to auscultation, No wheezing or rales. No increased work of breathing, no conversational dyspnea, no accessory muscle use, no nasal flaring. No respiratory distress noted Heart: Regular rate and rhythm, No murmurs, No rubs and No gallops, 2+ distal pulses (radial, femoral, posterior tibial) in all extremities Abdomen: Soft, there is no tenderness, rigidity, rebound or guarding, no obvious peritoneal signs, no palpable pulsatile abdominal masses, no auscultated abdominal bruit : No CVAT, normal appearing penis. Scrotum erythematous Extremities: No edema Neuro: No focal neurological deficits, cranial nerves II through XII intact, 5/5 strength in all extremities. Intact sensation to light touch in all extremities, 2+ reflexes bilateral patella tendons. Normal gait. No ataxia. Skin: Erythema noted to the scrotum as well as the perineum, there is a focal area of fluctuance noted most in the left perineum, no obvious crepitus bullae or pain on proportion to exam to suggest Gaudencio's gangrene MEDICAL DECISION MAKING: Chief Complaint: Abscess External records reviewed: No recent ED visits Factors affecting care: Peripheral artery disease, hyperlipidemia, type 2 diabetes Social determinants of health: History of tobacco abuse History obtained from others: Consults: Neurology, internal medicine ALL IMAGES (IF OBTAINED) HAVE BEEN PERSONALLY REVIEWED AND INTERPRETED BY EARLENE REBOLLEDO. CBC with leukocytosis suggestive of systemic inflammation, no severe anemia or thrombocytopenia noted UA without evidence of UTI BMP with pseudohyponatremia, no other significant electrolyte abnormalities, borderline high anion gap as well as decreasing bicarb suggestive of impending metabolic acidosis, no MARILYN Lactate is wnl indicating no end-organ hypoperfusion and/or hypoxia. [facility] Narrative: The patient was hemodynamically stable, afebrile, nontoxic-appearing. Exam consistent with likely scrotal/perineal abscess I considered the following differential diagnosis: Cellulitis, abscess, Gaudencio's gangrene, hernia Obtained a CT scan to further investigate size and extent of physical exam findings are concerning for scrotal/pelvic abscess. CT scan showed evidence of a scrotal abscess. Plan ultrasound scrotum rule out any evidence of testicular involvement such as orchitis epididymitis or testicular mass. Testicular ultrasound was negative. Labs with leukocytosis concerning for systemic inflammation. Lactic acid was negative. Notes of endorgan hypoperfusion. Given location of the patient's scrotal abscess I did consult urology spoke with Dr. Nieto agreed to evaluate the patient in the emergency department and/or as an inpatient. I gave the patient broad-spectrum antibiotics to cover gram- positive and gram-negative causative organisms. I discussed patient case with hospitalist who accepted his case. The patient and/or family, caregivers express understanding. The patient and/or family, caregivers agrees with the plan. Shared decision making: I will have a discussion with the patient and or visitors regarding risk/benefits of further testing or admission. They will be made aware of of the risk/benefits inherent in this decision they will be given the opportunity to voice understanding. Total critical care time today provided was at least 0 [] minutes. This excludes separately billable procedures. Critical care time (if documented) is secondary to the patient having high probability of clinically significant/life threatening deterioration in the patient's condition which required my urgent intervention. Impression: 1. Scrotal abscess 2. Poorly controlled diabetes 3. Hyperglycemia 4. Mild anemia 5. Leukocytosis Dispo: Admit to [facility] Lab Data Labs: Laboratory Results - last 24 hr 04/02/23 04/02/23 06:47 07:42 WBC 12.0 H RBC 5.26 Hgb 15.6 Hct 47.0 MCV 89.4 MCH 29.7 MCHC 33.2 RDW Std Deviation 38.6 RDW Coeff of Charlene 11.9 Plt Count 295 MPV 9.9 Immature Gran % (Auto) 0.600 Neut % (Auto) 77.2 H Lymph % (Auto) 11.3 L Chase % (Auto) 9.3 Eos % (Auto) 1.0 Baso % (Auto) 0.6 Absolute Neuts (auto) 9.3 H Absolute Lymphs (auto) 1.36 Nucleated RBC % 0 Sodium 134 L Potassium 4.1 Chloride 100 Carbon Dioxide 19.0 L Anion Gap 15 BUN 16 Creatinine 1.07 Estim Creat Clear Calc 74.86 Est GFR (MDRD) Af Amer 90 Est GFR (MDRD) Non-Af 75 BUN/Creatinine Ratio 15.0 Glucose 303 H Lactic Acid 1.6 Calcium 9.7 Urine Color Yellow Urine Clarity Clear Urine pH 6.0 Ur Specific [place] 1.020 Urine Protein 30 H Urine Glucose (UA) 1000 H Urine Ketones 150 A* Urine Occult Blood 10 H Urine Nitrite Negative Urine Bilirubin Negative Urine Urobilinogen Normal Ur Leukocyte Esterase Negative Urine RBC 0 SEEN Urine WBC 0-5 SEEN Ur Squamous Epith Cells 0-5 SEEN Urine Bacteria 0 SEEN Urine Mucus 0 SEEN Radiography Diagnostic Testing: Clinical Impression(s) from Imaging Studies Abdomen/Pelvis CT 04/02/23 07:19 IMPRESSION: Increased soft tissue densities with fluid in the inferior aspect of the scrotum in the midline. Focal abscess should be ruled out. Fatty infiltration of the liver. Minimally dilated central intrahepatic biliary ducts. Electronically Signed: Matty Jordan MD at 9:01 EDT , Testicular Ultrasound 04/02/23 07:19 IMPRESSION: Small right epididymal cyst and small right hydrocele. Electronically Signed: Matty Jordan MD at 9:03 EDT , Discharge Plan Disposition Disposition: Acute Care Hospital [facility] Discharge Date/Time: 04/02/23 12:55
--- NOTE | 2023-04-02 07:19 | CT_ITS ---
STUDY: CT ABDOMEN AND PELVIS WITH CONTRAST REASON FOR EXAM: Male, 62 years old. Pelvic pain/perineal abscess RADIATION DOSAGE (If Supplied By Facility): CTDIvol = ( 14.63 ) mGy, DLP = ( 1112.40 ) mGycm TECHNIQUE: Transaxial images were obtained from the dome of the diaphragm to the symphysis pubis without oral contrast. IV 100mL Isovue-300 was administered. Sagittal and coronal images were reconstructed. Individualized dose optimization techniques were used for this CT. COMPARISON: None. FINDINGS: Mild increased linear markings at the lung bases slightly more prominent on the right side in keeping with atelectasis and/or scarring. Coronary artery calcification. There is decreased attenuation of the liver consistent with steatosis. Minimal dilatation of central intrahepatic biliary ducts. Normal gallbladder and extrahepatic biliary system. Normal spleen. Normal pancreas. Normal bilateral adrenal glands. Normal right kidney. Normal left kidney. There is a small hiatal hernia. Normal small intestine. Normal colon. The appendix is visualized and appears normal. There is scattered atherosclerotic calcification of the abdominal aorta, without a demonstrated aneurysm. Normal inferior vena cava. Normal retroperitoneum. Mild degree of diffuse urinary bladder wall thickening. Prostatic calcifications. Increased markings in the soft tissues along the inferior aspect of the scrotum. Low density seen within the suggestive of possible fluid collection. Mild increased interstitial markings are seen in the subcutaneous fat in the medial aspect of both buttocks. There is a right-sided inguinal hernia containing adipose tissue. There are mild degenerative changes of the visualized lumbar spine. CT/Abdomen/Pelvis W IV Cont ONLY IMPRESSION: Increased soft tissue densities with fluid in the inferior aspect of the scrotum in the midline. Focal abscess should be ruled out. Fatty infiltration of the liver. Minimally dilated central intrahepatic biliary ducts. Electronically Signed: Matty Jordan MD at 9:01 EDT ,
--- NOTE | 2023-04-02 07:19 | US_ITS ---
STUDY: SCROTUM ULTRASOUND REASON FOR EXAM: Male, 62 years old. Scrotal erythema r/o orchitis, epididymitis TECHNIQUE: Ultrasound evaluation of the scrotum was performed with color Doppler and static almazan-scale imaging. COMPARISON: None. FINDINGS: RIGHT TESTICLE INTRATESTICULAR: There is a normal size of the right testicle. The right testicle measures 3.4 cm x 2.8 cm x 2.1 cm. There is a homogenous echotexture. There is normal arterial and normal venous vascularity. There is no demonstrated right testicular mass or cyst. EXTRATESTICULAR: The epididymis is normal in size. The epididymis head measures 0.9 cm x 1.3 cm x 1 cm. There is normal vascularity of the epididymis. There is a 5 mm x 10 mm x 7 mm epididymal cyst. There is a small hydrocele. There is no demonstrated varicocele. There is no demonstrated extratesticular mass or cyst. LEFT TESTICLE INTRATESTICULAR: There is a normal size of the left testicle. The left testicle measures 3.6 cm x 2.6 cm x 1.8 cm. There is a homogenous echotexture. There is normal arterial and normal venous vascularity. There is no demonstrated left testicular mass or cyst. EXTRATESTICULAR: The epididymis is normal in size. The epididymis head measures 0.9 cm x 1.1 cm x 1.1 cm. There is normal vascularity of the epididymis. There is no demonstrated epididymal cystic structure. There is no demonstrated hydrocele. There is no demonstrated varicocele. There is no demonstrated extratesticular mass or cyst. US/Testicular with Arterial Flow IMPRESSION: Small right epididymal cyst and small right hydrocele. Electronically Signed: Matty Jordan MD at 9:03 EDT ,
[2023-04-02] MEDS: Ondansetron 4 MG/2 ML Vial IV (07:31)
[2023-04-02] MEDS: Morphine 4 MG/ML Syringe IV (07:32)
[2023-04-02] MEDS: 0.9% Normal Saline (1000mL) 1,000 ML 1000 ML IV (07:32)
[2023-04-02] MEDS: Ketorolac 15 MG/ML Vial IV (07:32)
[2023-04-02] MEDS: Piperacil/Tazobactam 4.5 GM in 0.9% Normal Saline (100mL MB+) 100 ML IV (07:39)
[2023-04-02 07:42] LABS: Absolute Lymphocyte Count 1.36 X10^3/uL (0.83-4.51); Absolute Neutrophil Count 9.3 X10^3/uL (2.0-7.7); Basophil# 0.07 X10^3/uL; Basophil% 0.6 % (0-1); Eosinophil# 0.12 X10^3/uL; Hemoglobin 15.6 g/dL (13.0-16.5); Lymphocyte # 1.36 X10^3/ul (0.83-4.51); Lymphocyte % 11.3 % (19-41); Mean Corp Hgb Conc 33.2 g/dL (32-36); Mean Corpuscular Hgb 29.7 pg (27.0-32.0); Mean Corpuscular Volume 89.4 fL (80-94); Mean Platelet Vol. 9.9 fl (6.2-12.0); Monocyte# 1.11 X10^3/uL; Monocyte% 9.3 % (0-10); NRBC Flagged by Analyzer 0 % (0-5); Neutrophil # 9.27 X10^3/uL (2.7-7.7); Neutrophil % 77.2 % (47-70); Platelet Count 295 K/mm3 (150-450); RBC Distribution Width CV 11.9 % (11.6-14.6); RBC Distribution Width SD 38.6 fl (35.1-43.9); Red Blood Count 5.26 M/mm3 (4.6-6.2)
[2023-04-02 07:53] LABS: Anion Gap 15 (5-15); BUN 16 mg/dL (7-18); Calcium,Total 9.7 mg/dL (8.5-10.1); Chloride 100 mmol/L (98-107); Creatinine, Serum 1.07 mg/dL (0.70-1.30); EST Glomerular Filtration Rate 75 mL/min (>60); Est Glom Filt Rate - Afr Amer 90 mL/min (>60); Estimated Creatinine Clearance 74.86 ml/min; Glucose 303 mg/dL (74-106); Potassium 4.1 mmol/L (3.5-5.1); Sodium Level 134 mmol/L (136-145)
[2023-04-02 07:54] LABS: Bacteria 0 SEEN /hpf (None Seen); Mucous, Urine 0 SEEN /hpf (<or=2+); Red Blood Cells-Urine 0 SEEN /hpf (0-5)
[2023-04-02 07:59] LABS: Color, Urine Yellow (Yellow); Glucose, Dipstick 1000 mg/dl (Normal); Leukocyte Esterase-Dipstick Negative /ul (Negative); Nitrite-Dipstick Negative (Negative); Occult Blood-Urine 10 /ul (Negative); Protein-Dipstick 30 mg/dl (Negative); Urine Bilirubin Dipstick Negative (Negative); Urine Clarity Clear (Clear); Urine Urobilinogen Normal (Normal)
[2023-04-02 08:01] LABS: Ketone-Dipstick 150 mg/dl (Negative)
[2023-04-02 08:01] LABS: Lactic Acid 1.6 mmol/L (0.4-1.9)
[2023-04-02 08:04] LABS: Squamous Epithelial Cells - UA 0-5 SEEN /hpf (0-5); White Blood Cells 0-5 SEEN /hpf (0-5)
[2023-04-02] MEDS: Vancomycin IV 1,000 MG/200 ML BAG 200 MG IV (08:53)
--- NOTE | 2023-04-02 10:42 | NURSING ---
[id number] PAGED JUNIOR [phone] PAGED JUNIOR [phone] LEFT MESSAGE ON CELL [id number] LEFT MESSAGE AT OFFICE
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
[2023-04-02 13:39] VITALS: BP 136/89; PULSE 78; RESP 16; TEMP 36.2; O2SAT 100
[2023-04-02 13:46] LABS: Bedside Glucose 278 mg/dL (74-106)
[2023-04-02 14:00] VITALS: BMI 23.0
--- NOTE | 2023-04-02 14:36 | PCM.RX.CS ---
Consult Antibiotic Management Pharmacy has been consulted to manage selected antiobiotic: Vancomycin Type of Intervention Type of Consult: New start Suspected Infection Suspected Infection: Skin/Soft tissue Labs Labs: Sodium 134 mmol/L (136-145) L 04/02/23 06:47 Potassium 4.1 mmol/L (3.5-5.1) 04/02/23 06:47 Chloride 100 mmol/L (98-107) 04/02/23 06:47 Carbon Dioxide 19.0 mmol/L (21.0-32.0) L 04/02/23 06:47 Anion Gap 15 (5-15) 04/02/23 06:47 BUN 16 mg/dL (7-18) 04/02/23 06:47 Creatinine 1.07 mg/dL (0.70-1.30) 04/02/23 06:47 Est GFR (MDRD) Af Amer 90 mL/min (>60) 04/02/23 06:47 Est GFR (MDRD) Non-Af 75 mL/min (>60) 04/02/23 06:47 BUN/Creatinine Ratio 15.0 RATIO (10-20) 04/02/23 06:47 Glucose 303 mg/dL (74-106) H 04/02/23 06:47 Estimated Creatinine Clearance Estimated Creatinine Clearance: 75mls/min Goal Trough Goal Trough: 10-15 mcg/mL Pharmacy Plan for Drug Dosing Pharmacy Plan for Drug Dosing: NEW START IV VANCOMYCIN Consulting Physician: Dr. Carey Indication: Cellulitis Goal Trough: 10-15 SrCr: 1.07 CrCl: 75 mls/min Comments: pt received a 1000mg dose of Vancomycin in the ER on 04/02/23 at 0853 Vancomycin Dose: based on pts weight and renal function, recommend an initial dose of 750mg q12h starting 04/02/23 at 2100. Trough prior to the 4th dose Pending Level: 04/03/23 at 2030 Pharmacy Service will continue to monitor and adjust dosing as required. Follow-Up Labs Follow-Up Labs: Trough: Vancomycin (04/03/23 @ 2030)
[2023-04-02] MEDS: Ampicillin/Sulbactam 3 GM in 0.9% Normal Saline (100mL MB+) 100 ML IV ×3 (14:40→23:14)
[2023-04-02] MEDS: 0.9% Normal Saline (1000mL) 1,000 ML 150 ML IV ×2 (14:40→21:03)
[2023-04-02 14:44] VITALS: O2SAT 99
[2023-04-02] MEDS: Gabapentin 300 MG Capsule PO ×2 (14:46→23:15)
[2023-04-02] MEDS: Acetaminophen 500 MG Tablet 1000 MG PO ×2 (14:47→23:15)
[2023-04-02] MEDS: Insulin Lispro 100 UNIT/ML INSULN.PEN SC ×2 (16:29→23:13)
[2023-04-02 17:04] LABS: Bedside Glucose 395 mg/dL (74-106)
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
--- NOTE | 2023-04-02 17:14 | PCM.OPRPT ---
Report of Operation Date of Procedure: 04/02/23 Pre-Operative Diagnosis: Scrotal abscess Post-Operative Diagnosis: Scrotal abscess Surgery/Procedure Performed:: Incision and drainage of scrotal abscess Description of Surgical Findings:: Penis and testicles were prepped and draped in usual sterile fashion I shaved the area in the midline of the scrotum I then infiltrated the skin with lidocaine Xylocaine 2% and then made an incision. Medial incision, I went deep until I got to an area that was brownish necrotic fluid and brown smelling fluid cultures were done of this fluid and then the area was packed with dry Kerlix. Gave instructions to the nurses about the change the Curlex 3 times a day with wet-to-dry dressing. And I will come by tomorrow to monitor. Told the patient at this point we just did a drainage of the abscess hopefully will need a deeper drainage of that the possibility want to do this in the operating room but hopefully with just a drainage to the abdomen this will help drain the fluid out and drain this abscess and then we can culture and antibiotics and tailor antibiotics based on the culture results. Surgeon: Winston Nieto Type of Anesthesia: Local
[2023-04-02] MEDS: Insulin Glargine-YFGN 100 UNIT/ML Pen 40 UNIT SC ×2 (17:22→23:14)
[2023-04-02 20:44] VITALS: BP 161/89; PULSE 91; RESP 16; TEMP 37; O2SAT 99
[2023-04-02] MEDS: Vancomycin HCl 750 MG in 0.9% Normal Saline (250mL Bag) 250 ML 250 MG IV (20:59)
[2023-04-02] MEDS: HYDROmorphone 1 MG/ML Syringe IV (21:00)
[2023-04-02] MEDS: Atorvastatin Calcium 80 MG Tablet PO (23:16)
[2023-04-02 23:40] LABS: Bedside Glucose 374 mg/dL (74-106)
[2023-04-03 02:39] VITALS: BP 141/85; PULSE 90; RESP 16; TEMP 36.6; O2SAT 98
[2023-04-03] MEDS: HYDROmorphone 1 MG/ML Syringe IV ×3 (02:42→21:46)
[2023-04-03] MEDS: 0.9% Normal Saline (1000mL) 1,000 ML 150 ML IV (05:27)
[2023-04-03] MEDS: Acetaminophen 500 MG Tablet 1000 MG PO ×3 (05:28→21:40)
[2023-04-03] MEDS: Gabapentin 300 MG Capsule PO ×3 (06:17→21:39)
[2023-04-03] MEDS: Ampicillin/Sulbactam 3 GM in 0.9% Normal Saline (100mL MB+) 100 ML IV ×3 (06:17→18:02)
[2023-04-03 06:46] LABS: Absolute Lymphocyte Count 0.93 X10^3/uL (0.83-4.51); Absolute Neutrophil Count 6.1 X10^3/uL (2.0-7.7); Basophil# 0.03 X10^3/uL; Basophil% 0.4 % (0-1); Eosinophil# 0.08 X10^3/uL; Hematocrit 36.1 % (40-54); Hemoglobin 12.4 g/dL (13.0-16.5); Lymphocyte # 0.93 X10^3/ul (0.83-4.51); Lymphocyte % 11.7 % (19-41); Mean Corp Hgb Conc 34.3 g/dL (32-36); Mean Corpuscular Hgb 30.5 pg (27.0-32.0); Mean Corpuscular Volume 88.7 fL (80-94); Mean Platelet Vol. 9.5 fl (6.2-12.0); Monocyte# 0.81 X10^3/uL; Monocyte% 10.2 % (0-10); NRBC Flagged by Analyzer 0 % (0-5); Neutrophil # 6.05 X10^3/uL (2.7-7.7); Neutrophil % 76.4 % (47-70); Platelet Count 212 K/mm3 (150-450); RBC Distribution Width CV 11.9 % (11.6-14.6); RBC Distribution Width SD 38.6 fl (35.1-43.9); Red Blood Count 4.07 M/mm3 (4.6-6.2); White Blood Count 7.9 K/mm3 (4.4-11.0)
[2023-04-03 07:44] VITALS: BP 138/86; PULSE 77; RESP 16; TEMP 36.5; O2SAT 99
[2023-04-03 07:44] LABS: Anion Gap 5 (5-15); BUN 10 mg/dL (7-18); BUN/Creat Ratio 13.8 RATIO (10-20); Calcium,Total 8.3 mg/dL (8.5-10.1); Chloride 107 mmol/L (98-107); Creatinine, Serum 0.73 mg/dL (0.70-1.30); EST Glomerular Filtration Rate 116 mL/min (>60); Est Glom Filt Rate - Afr Amer 141 mL/min (>60); Estimated Creatinine Clearance 109.42 ml/min; Glucose 211 mg/dL (74-106); Magnesium 1.9 mg/dL (1.6-2.6); Phosphorus 1.6 mg/dL (2.5-4.9); Potassium 3.5 mmol/L (3.5-5.1); Sodium Level 136 mmol/L (136-145)
--- NOTE | 2023-04-03 07:47 | PN.HOSP_ITS ---
Reason for Visit Reason for Visit: Diagnoses Inflammatory disorders of scrotum (04/02/23) Subjective Subjective Patient admitted with scrotal wall cellulitis and abscess. Seen in consultation by Dr Nieto with urology he did perform bedside I&D cultures sent results pending Objective Data Objective Data Vital Signs: Vital Signs Temp Pulse Resp BP Pulse Ox O2 Del Method 98 F 90 16 141/85 H 98 Room Air 04/03/23 02:39 04/03/23 02:39 04/03/23 02:39 04/03/23 02:39 04/03/23 02:39 04/03/23 02:39 Oxygen Delivery Method Room Air Weight: 72.8 kg Body Mass Index (BMI) 23.0 Intake & Output: Intake and Output for Last 24 Hours 04/01/23 04/02/23 04/03/23 23:59 23:59 23:59 Intake Total 2746.5 / 2746.5 3224 / 3224 Output Total 1100 / 1100 Balance 2746.5 / 2746.5 2124 / 2124 Lab / Micro Data 04/03/23 06:05 04/03/23 06:05 Labs: Laboratory Results - last 24 hr 04/02/23 06:47: Sodium 134 L, Potassium 4.1, Chloride 100, Carbon Dioxide 19.0 L , Anion Gap 15, BUN 16, Creatinine 1.07, Estim Creat Clear Calc 74.86, Est GFR (MDRD) Af Amer 90, Est GFR (MDRD) Non-Af 75, BUN/Creatinine Ratio 15.0, Glucose 303 H, Lactic Acid 1.6, Calcium 9.7 04/02/23 07:42: Urine Color Yellow, Urine Clarity Clear, Urine pH 6.0, Ur Specific [place] 1.020, Urine Protein 30 H, Urine Glucose (UA) 1000 H, Urine Ketones 150 A*, Urine Occult Blood 10 H, Urine Nitrite Negative, Urine Bilirubin Negative, Urine Urobilinogen Normal, Ur Leukocyte Esterase Negative, Urine RBC 0 SEEN, Urine WBC 0-5 SEEN, Ur Squamous Epith Cells 0-5 SEEN, Urine Bacteria 0 SEEN, Urine Mucus 0 SEEN 04/02/23 13:24: POC Glucose 278 H 04/02/23 16:17: POC Glucose 395 H 04/02/23 23:13: POC Glucose 374 H 04/03/23 06:05: WBC 7.9, RBC 4.07 L, Hgb 12.4 L, Hct 36.1 L, MCV 88.7, MCH 30.5, MCHC 34.3, RDW Std Deviation 38.6, RDW Coeff of Charlene 11.9, Plt Count 212, MPV 9.5, Immature Gran % (Auto) 0.300, Neut % (Auto) 76.4 H, Lymph % (Auto) 11.7 L, [place] % (Auto) 10.2 H, Eos % (Auto) 1.0, Baso % (Auto) 0.4, Absolute Neuts (auto) 6.1, Absolute Lymphs (auto) 0.93, Nucleated RBC % 0, Sodium 136, Potassium 3.5, Chloride 107, Carbon Dioxide 24.0, Anion Gap 5, BUN 10, Creatinine 0.73, Estim Creat Clear Calc 109.42, Est GFR (MDRD) Af Amer 141, Est GFR (MDRD) Non-Af 116, BUN/Creatinine Ratio 13.8, Glucose 211 H, Calcium 8.3 L, Phosphorus 1.6 L, Magnesium 1.9 Radiography Diagnostic Testing: Radiology Impression Abdomen/Pelvis CT 04/02/23 07:19 IMPRESSION: Increased soft tissue densities with fluid in the inferior aspect of the scrotum in the midline. Focal abscess should be ruled out. Fatty infiltration of the liver. Minimally dilated central intrahepatic biliary ducts. Electronically Signed: Matty Jordan MD at 9:01 EDT , Testicular Ultrasound 04/02/23 07:19 IMPRESSION: Small right epididymal cyst and small right hydrocele. Electronically Signed: Matty Jordan MD at 9:03 EDT , Physical Exam Narrative GENERAL: cooperative HEENT: Atraumatic; normocephalic EYES; Anicteric, Normal Conjunctiva NECK; supple, normal thyroid, RESPIRATORY: Diminished to auscultation CARDIOVASCULAR: Regular S1 S2, GI: soft, normoactive bowel sounds, : An area of induration at the base of the scrotum with surrounding areas of erythema and warmth EXTREMITIES: No edema, no clubbing, MUSCULOSKELETAL: no muscle wasting NEURO: Awake; no lateralizing signs. SKIN: As described above PSYCH; Flat affect Assessment & Plan Assessment/Plan (1) Cellulitis of scrotum: PLAN: Plan ROCHELLE WOOD, is a 62 M who presents with scrotal wall swelling pain and redness.. CT of the abdomen and pelvis did show Increased soft tissue densities with fluid in the inferior aspect of the scrotum in the midline consistent with a focal abscess. 1. Scrotal wall cellulitis with abscess ? Patient did fail outpatient treatment with Bactrim and cephalexin. Admitted to regular nursing floor started on vancomycin as well as Unasyn with consultation placed to urology ? 04/03/2023 Patient admitted with scrotal wall cellulitis and abscess. Seen in consultation by Dr Nieto with urology he did perform bedside I&D cultures sent results pending patient still has significant pain we will continue with current regimen including antibiotic therapy as well as pain regimen 2. Diabetes mellitus type 2 ? Patient presented with hyperglycemia oral agent held please on Accu-Cheks before meals and at bedtime with sliding scale coverage in addition to continuation of patient long-acting insulin. Patient was placed on 1800 ADA diet 3. Dyslipidemia -Patient is on statin therapy, continued at home dose 4. Tobacco dependence - Counseled on cessation, offered nicotine patch for tobacco cravings 5. DVT prophylaxis - On enoxaparin Time spent in the patient's overall evaluation,decision-making process, review of diagnostic data, adjustment of management, discussion with other providers, nursing nursing and ancillary staff involved in patient's care documentation, 50 Minutes Charges/Coding Visit Charges Inpatient E&M: 59701 [facility] Hosp L3
[2023-04-03] MEDS: Insulin Lispro 100 UNIT/ML INSULN.PEN SC ×4 (07:56→21:41)
[2023-04-03] MEDS: Insulin Glargine-YFGN 100 UNIT/ML Pen 40 UNIT SC ×2 (07:57→21:40)
[2023-04-03] MEDS: Aspirin E.C. 81 MG Tablet PO (07:58)
[2023-04-03 08:12] VITALS: O2SAT 96
[2023-04-03 08:17] LABS: Bedside Glucose 182 mg/dL (74-106)
[2023-04-03] MEDS: Vancomycin HCl 750 MG in 0.9% Normal Saline (250mL Bag) 250 ML 250 MG IV (09:07)
[2023-04-03] MEDS: Enoxaparin 40 MG/0.4 ML Syringe SC (09:10)
--- NOTE | 2023-04-03 11:32 | CASEMGMT ---
RN AMARJIT Face to Face with patient for initial transition planning/care coordination assessment. RN CM introduced self and role at [facility]. Patient sitting up in bed with sig other at bedside, Lori, alert and oriented. Patient willing to participate in assessment and is able to answer all questions appropriately.? Care providers, pharmacy, and demographics verified. Patient wishes to discharge home, denies need for home health at this time.?Pt states his sister is a nurse and he will dc to her home or his girlfriend's home. Lori is willing to learn wound care upon dc if needed. Patient states he has no further needs or concerns at this time. CM to follow for discharge planning needs that may arise. PCP:Darío Specialists:Denies Preferred [facility]acy:[facility] Insurance:MMO Prescription Benefit:yes? LNOK:Iveth Romeo, Living Arrangements:Pt lives alone in a single story home with no steps to enter. Pt reports he is I in ADL's and denies concerns at home. Transportation:Pt drives self and denies concerns with transportation. DME/HHC/SNF: Pt has a BGM with sufficient supply of strips and lancets. Pt has sufficient supply of insulin and needles as well. Pt denies hx of HHC or SNF stays. Disposition Plan:Home vs to sister or girlfriend's home in which they will provide wound care if needed.
[2023-04-03 12:18] LABS: Bedside Glucose 189 mg/dL (74-106)
[2023-04-03] MEDS: Lidocaine 1% (20 ml mdv) 20 ML Vial INFILT (12:30)
--- NOTE | 2023-04-03 12:31 | OP.PCM_ITS ---
Report of Operation Date of Procedure: 04/03/23 Pre-Operative Diagnosis: Scrotal abscess Post-Operative Diagnosis: The same Surgery/Procedure Performed:: Incision and drainage of scrotal abscess on the right side Description of Surgical Findings:: Yesterday we drained the scrotal abscess on the left side but it looks like it is going past midline so today and exam is very tender and developing abscess on the right side so I did an incision and drainage of an abscess in the right hemiscrotum yesterday we did the left hemiscrotum. I applied anesthesia to the area with lidocaine and made an incision about 3 cm in size in the lower depen dent portion of the scrotum encountered pus I did not send another culture since this was sent yesterday we will see what the cultures show I then gently probed the area with a Q-tip to the to break up any loculations there was foul-smelling and purulent material coming from the right side I then packed it with gauze and the nurses will continue to pack both sides were wet to dry dressings. The left side looks like it is much better and is less tender and is starting to heal. Surgeon: Winston Nieto
--- NOTE | 2023-04-03 12:33 | PCM.CONS.B ---
Consult Date of Consult: 04/03/23 Reason for Consult Status post incision of a scrotal abscess on the patient's left side yesterday today I did during the abscess on the right side that was loculated on the right side as well hopefully now with both sides drained this would drain out completely no continue to heal we will continue with antibiotics continue to monitor.
--- NOTE | 2023-04-03 12:59 | CHAPLAIN ---
Type of Pastoral Visit _x__ Initial Visit ___ Follow-up Visit ___ On-call Visit ___ General Patient Visit ___ Spiritual Assessment ___ Family Conference ___ Bereavement ___ Rapid Response ___ Code Blue ___ Other (describe below) Pastoral Care Referral From _x__ Patient ___ Family ___ Nurse ___ Physician ___ Painter And Decorator Apprentice ___ Attending Urologist ___ Other (describe below) Sacrament/Intervention ___ Active listening ___ Anointing ___ Yarsanism ___ Bereavement ___ Communion ___ Haylee exploration ___ ___ Life review ___ Prayer ___ Reconciliation ___ Sacrament of Sick _x__ Supportive presence ___ Wedding ___ Other (describe below) Pastoral Comments offer of support given but patient states that he is fine, doing custodial better than yesterday, and not needing any other support
[2023-04-03 14:52] VITALS: BP 138/91; PULSE 82; RESP 17; TEMP 36.4; O2SAT 95
[2023-04-03 19:46] VITALS: BP 177/101; PULSE 88; RESP 18; TEMP 36.6; O2SAT 99
[2023-04-03 20:38] LABS: Bedside Glucose 223 mg/dL (74-106)
[2023-04-03 21:15] LABS: Vancomycin, Trough Level 4.4 ug/mL (5.0-15.0)
[2023-04-03] MEDS: Atorvastatin Calcium 80 MG Tablet PO (21:40)
[2023-04-03] MEDS: Vancomycin HCl 1,250 MG in 0.9% Normal Saline (250mL Bag) 250 ML 167 MG IV (21:46)
[2023-04-03 22:14] LABS: Bedside Glucose 236 mg/dL (74-106)
[2023-04-04] VITALS (9 sets, daily range): BP systolic 114–179; BP diastolic 76–99; PULSE 76–93; RESP 15–18; TEMP 36.3–36.9; O2SAT 96–100
[2023-04-04] MEDS: HYDROmorphone 1 MG/ML Syringe IV ×2 (00:50→09:31)
[2023-04-04] MEDS: Ampicillin/Sulbactam 3 GM in 0.9% Normal Saline (100mL MB+) 100 ML IV ×4 (00:54→18:38)
[2023-04-04] MEDS: Gabapentin 300 MG Capsule PO ×3 (06:42→21:07)
[2023-04-04] MEDS: Acetaminophen 500 MG Tablet 1000 MG PO ×3 (06:42→21:02)
[2023-04-04] MEDS: Insulin Lispro 100 UNIT/ML INSULN.PEN SC ×4 (06:43→21:09)
[2023-04-04 06:53] LABS: Absolute Lymphocyte Count 1.32 X10^3/uL (0.83-4.51); Absolute Neutrophil Count 4.8 X10^3/uL (2.0-7.7); Basophil# 0.03 X10^3/uL; Basophil% 0.4 % (0-1); Eosinophil# 0.13 X10^3/uL; Eosinophils% 1.8 % (0-5); Hemoglobin 12.2 g/dL (13.0-16.5); Lymphocyte # 1.32 X10^3/ul (0.83-4.51); Lymphocyte % 18.8 % (19-41); Mean Corp Hgb Conc 33.9 g/dL (32-36); Mean Corpuscular Hgb 30.2 pg (27.0-32.0); Mean Corpuscular Volume 89.1 fL (80-94); Mean Platelet Vol. 9.3 fl (6.2-12.0); Monocyte# 0.79 X10^3/uL; Monocyte% 11.2 % (0-10); NRBC Flagged by Analyzer 0 % (0-5); Neutrophil # 4.76 X10^3/uL (2.7-7.7); Neutrophil % 67.7 % (47-70); Platelet Count 220 K/mm3 (150-450); RBC Distribution Width CV 11.9 % (11.6-14.6); RBC Distribution Width SD 38.5 fl (35.1-43.9); Red Blood Count 4.04 M/mm3 (4.6-6.2)
[2023-04-04 07:07] LABS: Bedside Glucose 185 mg/dL (74-106)
[2023-04-04 07:24] LABS: Anion Gap 2 (5-15); BUN 10 mg/dL (7-18); BUN/Creat Ratio 17.5 RATIO (10-20); Calcium,Total 8.4 mg/dL (8.5-10.1); Chloride 106 mmol/L (98-107); Creatinine, Serum 0.57 mg/dL (0.70-1.30); EST Glomerular Filtration Rate 154 mL/min (>60); Est Glom Filt Rate - Afr Amer 186 mL/min (>60); Estimated Creatinine Clearance 140.14 ml/min; Glucose 150 mg/dL (74-106); Potassium 3.8 mmol/L (3.5-5.1); Sodium Level 138 mmol/L (136-145)
--- NOTE | 2023-04-04 07:26 | PN.HOSP_ITS ---
Reason for Visit Reason for Visit: Diagnoses Inflammatory disorders of scrotum (04/02/23) Subjective Subjective Patient underwent incision and drainage of his right scrotal wall abscess by Dr Nieto the day prior. Cultures so far positive for 3+ Gram positive diplococci 2+ Gram positive cocci in clusters Rare Gram negative rods Objective Data Objective Data Vital Signs: Vital Signs Temp Pulse Resp BP Pulse Ox O2 Del Method 98.5 F 92 16 156/99 H 98 Room Air 04/04/23 03:25 04/04/23 03:25 04/04/23 03:25 04/04/23 03:25 04/04/23 03:25 04/04/23 03:25 Oxygen Delivery Method Room Air Weight: 72.8 kg Body Mass Index (BMI) 23.0 Intake & Output: Intake and Output for Last 24 Hours 04/02/23 04/03/23 04/04/23 23:59 23:59 23:59 Intake Total 2746.5 / 2746.5 6288 / 6288 2287 / 2287 Output Total 1450 / 1450 1400 / 1400 Balance 2746.5 / 2746.5 4838 / 4838 887 / 887 Lab / Micro Data 04/04/23 06:10 04/04/23 06:10 Labs: Laboratory Results - last 24 hr 04/03/23 06:05: Sodium 136, Potassium 3.5, Chloride 107, Carbon Dioxide 24.0, Anion Gap 5, BUN 10, Creatinine 0.73, Estim Creat Clear Calc 109.42, Est GFR (MDRD) Af Amer 141, Est GFR (MDRD) Non-Af 116, BUN/Creatinine Ratio 13.8, Glucose 211 H, Calcium 8.3 L, Phosphorus 1.6 L, Magnesium 1.9 04/03/23 07:53: POC Glucose 182 H 04/03/23 11:49: POC Glucose 189 H 04/03/23 18:01: POC Glucose 223 H 04/03/23 20:27: Vancomycin Trough 4.4 L 04/03/23 21:39: POC Glucose 236 H 04/04/23 06:10: WBC 7.0, RBC 4.04 L, Hgb 12.2 L, Hct 36.0 L, MCV 89.1, MCH 30.2, MCHC 33.9, RDW Std Deviation 38.5, RDW Coeff of Charlene 11.9, Plt Count 220, MPV 9.3 , Immature Gran % (Auto) 0.100, Neut % (Auto) 67.7, Lymph % (Auto) 18.8 L, [place] % (Auto) 11.2 H, Eos % (Auto) 1.8, Baso % (Auto) 0.4, Absolute Neuts (auto) 4.8, Absolute Lymphs (auto) 1.32, Nucleated RBC % 0, Sodium 138, Potassium 3.8, Chloride 106, Carbon Dioxide 30.0, Anion Gap 2 L, BUN 10, Creatinine 0.57 L, Estim Creat Clear Calc 140.14, Est GFR (MDRD) Af Amer 186, Est GFR (MDRD) Non-Af 154, BUN/Creatinine Ratio 17.5, Glucose 150 H, Calcium 8.4 L 04/04/23 06:41: POC Glucose 185 H Micro: Microbiology 04/02/23 07:42 Blood Culture (Wb) - Right Wrist Blood Culture - Preliminary No growth in 48 hours. 04/02/23 06:47 Blood Culture (Wb) - Anticubital Left Blood Culture - Preliminary No growth in 48 hours. 04/02/23 17:10 Scrotal Abcess Gram Stain - Final Physical Exam Narrative GENERAL: cooperative HEENT: Atraumatic; normocephalic EYES; Anicteric, Normal Conjunctiva NECK; supple, normal thyroid, RESPIRATORY: Diminished to auscultation CARDIOVASCULAR: Regular S1 S2, GI: soft, normoactive bowel sounds, : An area of induration at the base of the scrotum with surrounding areas of erythema and warmth EXTREMITIES: No edema, no clubbing, MUSCULOSKELETAL: no muscle wasting NEURO: Awake; no lateralizing signs. SKIN: As described above PSYCH; Flat affect Assessment & Plan Assessment/Plan (1) Cellulitis of scrotum: PLAN: Plan ROCHELLE WOOD, is a 62 M who presents with scrotal wall swelling pain and redness.. CT of the abdomen and pelvis did show Increased soft tissue densities with fluid in the inferior aspect of the scrotum in the midline consistent with a focal abscess. 1. Scrotal wall cellulitis with abscess ? Patient did fail outpatient treatment with Bactrim and cephalexin. Admitted to regular nursing floor started on vancomycin as well as Unasyn with consultation placed to urology ? 04/03/2023 Patient admitted with scrotal wall cellulitis and abscess. Seen in consultation by Dr Nieto with urology he did perform bedside I&D cultures sent results pending patient still has significant pain we will continue with current regimen including antibiotic therapy as well as pain regimen 04/04/2023: Patient underwent incision and drainage of his right scrotal wall a bscess by Dr Nieto the day prior. Cultures so far positive for 3+ Gram positive diplococci 2+ Gram positive cocci in clusters Rare Gram negative rods 2. Diabetes mellitus type 2 ? Patient presented with hyperglycemia oral agent held please on Accu-Cheks before meals and at bedtime with sliding scale coverage in addition to continuation of patient long-acting insulin. Patient was placed on 1800 ADA diet 3. Dyslipidemia -Patient is on statin therapy, continued at home dose 4. Tobacco dependence - Counseled on cessation, offered nicotine patch for tobacco cravings 5. DVT prophylaxis - On enoxaparin Time spent in the patient's overall evaluation,decision-making process, review of diagnostic data, adjustment of management, discussion with other providers, nursing nursing and ancillary staff involved in patient's care documentation, 35 Minutes Charges/Coding Visit Charges Inpatient E&M: 97263 Subs Hosp L2
[2023-04-04] MEDS: Insulin Glargine-YFGN 100 UNIT/ML Pen 40 UNIT SC ×2 (08:48→21:09)
[2023-04-04] MEDS: Aspirin E.C. 81 MG Tablet PO (08:49)
[2023-04-04] MEDS: Vancomycin HCl 1,250 MG in 0.9% Normal Saline (250mL Bag) 250 ML 167 MG IV ×2 (09:22→20:58)
[2023-04-04] MEDS: Enoxaparin 40 MG/0.4 ML Syringe SC (09:23)
[2023-04-04] MEDS: 0.9% Saline Lock 10 ML Syringe IV (09:31)
[2023-04-04 11:49] LABS: Bedside Glucose 282 mg/dL (74-106)
[2023-04-04] MEDS: oxyCODONE 5 MG Tablet 10 MG PO ×3 (12:06→21:07)
[2023-04-04 16:39] LABS: Bedside Glucose 179 mg/dL (74-106)
[2023-04-04] MEDS: Atorvastatin Calcium 80 MG Tablet PO (21:01)
[2023-04-04 21:43] LABS: Bedside Glucose 171 mg/dL (74-106)
[2023-04-05] MEDS: Ampicillin/Sulbactam 3 GM in 0.9% Normal Saline (100mL MB+) 100 ML IV ×2 (00:07→05:06)
[2023-04-05] MEDS: oxyCODONE 5 MG Tablet 10 MG PO ×2 (04:28→10:06)
[2023-04-05 04:39] VITALS: BP 158/89; PULSE 79; RESP 17; TEMP 36.6; O2SAT 98
[2023-04-05] MEDS: Acetaminophen 500 MG Tablet 1000 MG PO (05:06)
[2023-04-05] MEDS: Gabapentin 300 MG Capsule PO (05:06)
[2023-04-05] MEDS: 0.9% Saline Lock 10 ML Syringe IV (05:56)
--- NOTE | 2023-04-05 06:04 | NURSING ---
dressing changed on scrotum. 2 open area packed with wet to dry. emelia pad appilied.
[2023-04-05 07:52] LABS: Absolute Lymphocyte Count 1.07 X10^3/uL (0.83-4.51); Absolute Neutrophil Count 3.6 X10^3/uL (2.0-7.7); Basophil# 0.04 X10^3/uL; Basophil% 0.7 % (0-1); Eosinophil# 0.13 X10^3/uL; Eosinophils% 2.4 % (0-5); Hematocrit 37.9 % (40-54); Hemoglobin 12.5 g/dL (13.0-16.5); Lymphocyte # 1.07 X10^3/ul (0.83-4.51); Lymphocyte % 19.7 % (19-41); Mean Corpuscular Hgb 29.3 pg (27.0-32.0); Mean Corpuscular Volume 88.8 fL (80-94); Mean Platelet Vol. 9.5 fl (6.2-12.0); Monocyte# 0.58 X10^3/uL; Monocyte% 10.7 % (0-10); NRBC Flagged by Analyzer 0 % (0-5); Neutrophil # 3.59 X10^3/uL (2.7-7.7); Neutrophil % 66.1 % (47-70); Platelet Count 230 K/mm3 (150-450); RBC Distribution Width CV 12.1 % (11.6-14.6); RBC Distribution Width SD 38.9 fl (35.1-43.9); Red Blood Count 4.27 M/mm3 (4.6-6.2); White Blood Count 5.4 K/mm3 (4.4-11.0)
[2023-04-05 08:12] LABS: Anion Gap 4 (5-15); BUN 11 mg/dL (7-18); BUN/Creat Ratio 19.5 RATIO (10-20); Calcium,Total 8.7 mg/dL (8.5-10.1); Chloride 103 mmol/L (98-107); Creatinine, Serum 0.56 mg/dL (0.70-1.30); EST Glomerular Filtration Rate 156 mL/min (>60); Est Glom Filt Rate - Afr Amer 188 mL/min (>60); Estimated Creatinine Clearance 142.64 ml/min; Glucose 118 mg/dL (74-106); Potassium 3.6 mmol/L (3.5-5.1); Sodium Level 138 mmol/L (136-145)
--- NOTE | 2023-04-05 08:14 | DS.PCM_ITS ---
Providers Date of Admission: 04/02/23 Date of Discharge: 04/05/23 Primary Care Physician: Dr. Mario Chanel MD Consultations 04/02/23 12:56 Consult: Urology Routine Consulting Provider: Winston Nieto Reason for Consult: Scrotal wall cellulitis EMERGENT Consult: No MD Notified: Yes Date Notified: 04/02/23 Time Notified: 11:52 Method of Notification: ED Physician Initiated Reason For Visit: SCROTAL WALL CELLULITIS Diagnosis Discharge Diagnosis (1) Cellulitis of scrotum: Status: Acute Code(s): N49.2 - Inflammatory disorders of scrotum Plan ROCHELLE WOOD, is a 62 M who presents with scrotal wall swelling pain and redness.. CT of the abdomen and pelvis did show Increased soft tissue densities with fluid in the inferior aspect of the scrotum in the midline consistent with a focal abscess. 1. Scrotal wall cellulitis with abscess ? Patient did fail outpatient treatment with Bactrim and cephalexin. Admitted to regular nursing floor started on vancomycin as well as Unasyn with consultation placed to urology ? 04/03/2023 Patient admitted with scrotal wall cellulitis and abscess. Seen in consultation by Dr Nieto with urology he did perform bedside I&D cultures sent results pending patient still has significant pain we will continue with current regimen including antibiotic therapy as well as pain regimen 04/04/2023: Patient underwent incision and drainage of his right scrotal wall abscess by Dr Nieto the day prior. Cultures so far positive for 3+ Gram positive diplococci 2+ Gram positive cocci in clusters Rare Gram negative rods 2. Diabetes mellitus type 2 ? Patient presented with hyperglycemia oral agent held please on Accu-Cheks before meals and at bedtime with sliding scale coverage in addition to continuation of patient long-acting insulin. Patient was placed on 1800 ADA diet 3. Dyslipidemia -Patient is on statin therapy, continued at home dose 4. Tobacco dependence - Counseled on cessation, offered nicotine patch for tobacco cravings 5. DVT prophylaxis - On enoxaparin Time spent in the patient's overall evaluation,decision-making process, review of diagnostic data, adjustment of management, discussion with other providers, nursing nursing and ancillary staff involved in patient's care documentation, 35 Minutes Medications at Discharge Home Medications gabapentin 300 mg tablet 300 mg PO TID nerve pain 10/11/22 insulin lispro 100 unit/mL subcutaneous solution (Humalog U-100 Insulin) 52 unit subcut DAILY diabetes 04/24/22 aspirin 81 mg tablet,delayed release 81 mg PO DAILY blood thinner 05/01/22 atorvastatin 80 mg tablet 80 mg PO TID cholesterol 05/01/22 glimepiride 2 mg tablet 2 mg PO DAILY diabetes 05/01/22 amoxicillin 875 mg-potassium clavulanate 125 mg tablet 1 tab PO BID #14 tabs 04/05/23 oxycodone 5 mg tablet 10 mg (2 x 5 mg) PO Q6H PRN PRN Pain Score 4-10 4 days #12 tabs 04/05/23 sulfamethoxazole 800 mg-trimethoprim 160 mg tablet (Bactrim DS) 1 tab PO BID atb #14 tabs 04/05/23 Hospital Course Summary of Care Provided Minutes Spent on Discharge: 35 Physical Exam Narrative GENERAL: cooperative HEENT: Atraumatic; normocephalic EYES; Anicteric, Normal Conjunctiva NECK; supple, normal thyroid, RESPIRATORY: Diminished to auscultation CARDIOVASCULAR: Regular S1 S2, GI: soft, normoactive bowel sounds, EXTREMITIES: No edema, no clubbing, MUSCULOSKELETAL: no muscle wasting NEURO: Awake; no lateralizing signs. SKIN: As described above PSYCH; Flat affect Weight / BMI Weight Weight: 72.8 kg Body Mass Index (BMI) 23.0 ABG / Lab / Microbiology Data 04/05/23 07:20 04/05/23 07:20 Laboratory: Laboratory Results - last 24 hr 04/04/23 11:27: POC Glucose 282 H 04/04/23 16:12: POC Glucose 179 H 04/04/23 21:08: POC Glucose 171 H 04/05/23 07:20: WBC 5.4, RBC 4.27 L, Hgb 12.5 L, Hct 37.9 L, MCV 88.8, MCH 29.3, MCHC 33.0, RDW Std Deviation 38.9, RDW Coeff of Charlene 12.1, Plt Count 230, MPV 9.5, Immature Gran % (Auto) 0.400, Neut % (Auto) 66.1, Lymph % (Auto) 19.7, [place] % (Auto) 10.7 H, Eos % (Auto) 2.4, Baso % (Auto) 0.7, Absolute Neuts (auto) 3.6, Absolute Lymphs (auto) 1.07, Nucleated RBC % 0, Sodium 138, Potassium 3.6, Chloride 103, Carbon Dioxide 31.0, Anion Gap 4 L, BUN 11, Creatinine 0.56 L, Estim Creat Clear Calc 142.64, Est GFR (MDRD) Af Amer 188, Est GFR (MDRD) Non-Af 156, BUN/Creatinine Ratio 19.5, Glucose 118 H, Calcium 8.7 Microbiology: Microbiology 04/02/23 17:10 Scrotal Abcess Gram Stain - Final 04/02/23 17:10 Scrotal Abcess Wound Culture - Final Staphylococcus epidermidis 04/02/23 07:42 Blood Culture (Wb) - Right Wrist Blood Culture - Preliminary No growth in 48 hours. 04/02/23 06:47 Blood Culture (Wb) - Anticubital Left Blood Culture - Preliminary No growth in 48 hours. D/C Instructions Discharge Diet: No restrictions Discharge Activity: Return to Normal Activity Call your doctor if you observe: Fever of 101 or Higher, Shortness of breath, Fainting spells and Chest pain Meaningful Use Info Meaningful Use Diagnoses (Choose all that apply): None applicable Discharge Plan Admission Admit Date/Time: 04/02/23 11:40 Attending Provider: Dylan Carey Primary Care Provider: Mario Chanel Consulting Providers: Winston Nieto Discharge Orders/Prescriptions Prescriptions: New oxycodone 5 mg Tablet 10 mg PO Q6H PRN PRN (Reason: Pain Score 4-10) 4 Days Qty: 12 0RF amoxicillin-pot clavulanate 875-125 mg tablet 1 tab PO BID Qty: 14 0RF Continued insulin lispro [Humalog U-100 Insulin] 100 unit/mL Solution 52 unit SUBCUT DAILY gabapentin 300 mg Tablet 300 mg PO TID atorvastatin 80 mg Tablet 80 mg PO TID aspirin 81 mg Tablet,Delayed Release (Dr/Ec) 81 mg PO DAILY glimepiride 2 mg Tablet 2 mg PO DAILY sulfamethoxazole-trimethoprim [Bactrim DS] 800-160 mg tablet 1 tab PO BID Qty: 14 0RF Discontinued cephalexin 500 mg capsule 500 mg PO Q6H Referrals / Follow Up: Winston Nieto MD [Med Staff - Active Staff] - Within 1 Week Mario Chanel MD [Primary Care Provider] - In 1 Week Disposition Disposition (needs filled in before D/C Order can be placed): Home, Self Care Charges/Coding Visit Charges Inpatient E&M: 14990 Disch Hosp >30min
[2023-04-05 08:19] VITALS: BP 120/77; PULSE 99; RESP 18; TEMP 36.6; O2SAT 93
[2023-04-05] MEDS: Insulin Glargine-YFGN 100 UNIT/ML Pen 40 UNIT SC (08:55)
[2023-04-05] MEDS: Aspirin E.C. 81 MG Tablet PO (08:55)
--- NOTE | 2023-04-05 09:17 | NURSING ---
no vanc for this pt on unit
--- NOTE | 2023-04-05 09:37 | CASEMGMT ---
RN CM into pt room, pt sig other at bedside. She reports she feels comfortable performing dressing changes. She was instructed by the nurse. Pt is comfortable with this plan. Pt is ready for dc.
[2023-04-05 09:47] LABS: Vancomycin, Trough Level 9.1 ug/mL (5.0-15.0)
--- NOTE | 2023-04-05 10:07 | PCM.RX.CS ---
Consult Antibiotic Management Pharmacy has been consulted to manage selected antiobiotic: Vancomycin Type of Intervention Type of Consult: Follow-up Suspected Infection Suspected Infection: Skin/Soft tissue Prior Doses of Antibiotics Prior Doses of Antibiotics Received/Current Regimen: 1250MG IV Q12H Labs Labs: Sodium 138 mmol/L (136-145) 04/05/23 07:20 Potassium 3.6 mmol/L (3.5-5.1) 04/05/23 07:20 Chloride 103 mmol/L (98-107) 04/05/23 07:20 Carbon Dioxide 31.0 mmol/L (21.0-32.0) 04/05/23 07:20 Anion Gap 4 (5-15) L 04/05/23 07:20 BUN 11 mg/dL (7-18) 04/05/23 07:20 Creatinine 0.56 mg/dL (0.70-1.30) L 04/05/23 07:20 Est GFR (MDRD) Af Amer 188 mL/min (>60) 04/05/23 07:20 Est GFR (MDRD) Non-Af 156 mL/min (>60) 04/05/23 07:20 BUN/Creatinine Ratio 19.5 RATIO (10-20) 04/05/23 07:20 Glucose 118 mg/dL (74-106) H 04/05/23 07:20 Vancomycin Trough 9.1 ug/mL (5.0-15.0) 04/05/23 09:07 Microbiology Microbiology: Microbiology 04/02/23 17:10 Scrotal Abcess Gram Stain - Final 04/02/23 17:10 Scrotal Abcess Wound Culture - Final Staphylococcus epidermidis 04/02/23 17:10 Scrotal Abcess Anaerobic Culture - Preliminary 04/02/23 07:42 Blood Culture (Wb) - Right Wrist Blood Culture - Preliminary No growth in 48 hours. 04/02/23 06:47 Blood Culture (Wb) - Anticubital Left Blood Culture - Preliminary No growth in 48 hours. Dosing Weight Weight used for dosin kg Estimated Creatinine Clearance Estimated Creatinine Clearance: >100 Goal Trough Goal Trough: 10-15 mcg/mL Pharmacy Plan for Drug Dosing Pharmacy Plan for Drug Dosing: Tr 9.1. 12hrs post dose.Recommend increasing dose to 1500mg iv q12h. Trough level ordered for 04.06.23 before 3rd dose of new regimen. Pharmacy Service will continue to monitor and adjust dosing as required. Follow-Up Labs Follow-Up Labs: Trough: Vancomycin ([id number])
== END 2023-04-05 10:45 | disposition home or self-care (01) | DRG 718 ==
LOC: ED 07:26 → MS3 12:31
PROVIDERS: Admitting Provider Internal Medicine; Emergency Provider Emergency Medicine; PCP Internal Medicine; Visit Provider Internal Medicine
DX: N49.2 Inflammatory disorders of scrotum (principal); E11.51 Type 2 diabetes mellitus with diabetic peripheral angiopathy without gangrene; E11.65 Type 2 diabetes mellitus with hyperglycemia; E78.5 Hyperlipidemia, unspecified; B95.7 Other staphylococcus as the cause of diseases classified elsewhere; Z79.4 Long term (current) use of insulin; F17.210 Nicotine dependence, cigarettes, uncomplicated; Z79.82 Long term (current) use of aspirin; Z79.84 Long term (current) use of oral hypoglycemic drugs; Z79.899 Other long term (current) drug therapy
CPT/HCPCS: 36415; 74177; 76870; 80048; 80202; 81001; 82962; 83605; 83735; 84100; 85025; 87040; 87070; 87075; 87077; 87186; 87205; 93976; 99252; 99282; J7030; J7050; Q9967; A4216; G0463; J0295; J2405

== ENCOUNTER 2023-04-24 16:44 | Inpatient (IN) | payer OTHER, SELFPAY ==
[2023-04-24] VITALS (13 sets, daily range): BP systolic 77–142; BP diastolic 63–122; PULSE 76–91; RESP 14–21; TEMP 36.7–36.8; O2SAT 95–100; BMI 23.8; BMI 23.9
--- NOTE | 2023-04-24 17:42 | EKG12_ITS ---
Test Reason : Blood Pressure : / mmHG Vent. Rate : 085 BPM Atrial Rate : 085 BPM P-R Int : 180 ms QRS Dur : 088 ms QT Int : 392 ms P-R-T Axes : 042 -36 076 degrees QTc Int : 466 ms Normal sinus rhythm Left axis deviation Minimal voltage criteria for LVH, may be normal variant ( R in aVL ) Anteroseptal infarct , age undetermined Abnormal ECG Confirmed by AIDA ESTRADA MD ([id number]), editorial project manager YURI ANGUIANO ([id number]) on 04/29/2023 2:01:35 PM Referred By: Confirmed By:AIDA ESTRADA MD
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
[2023-04-24] MEDS: 0.9% Normal Saline (1000mL) 1,000 ML 999 ML IV ×2 (18:02→20:07)
[2023-04-24 18:04] LABS: Absolute Lymphocyte Count 1.93 X10^3/uL (0.83-4.51); Absolute Neutrophil Count 4.4 X10^3/uL (2.0-7.7); Basophil# 0.05 X10^3/uL; Basophil% 0.7 % (0-1); Eosinophil# 0.19 X10^3/uL; Eosinophils% 2.7 % (0-5); Hematocrit 45.2 % (40-54); Hemoglobin 15.3 g/dL (13.0-16.5); Lymphocyte # 1.93 X10^3/ul (0.83-4.51); Lymphocyte % 27.3 % (19-41); Mean Corp Hgb Conc 33.8 g/dL (32-36); Mean Corpuscular Volume 88.6 fL (80-94); Mean Platelet Vol. 10.6 fl (6.2-12.0); Monocyte# 0.51 X10^3/uL; Monocyte% 7.2 % (0-10); NRBC Flagged by Analyzer 0 % (0-5); Neutrophil # 4.36 X10^3/uL (2.7-7.7); Neutrophil % 61.7 % (47-70); Platelet Count 283 K/mm3 (150-450); RBC Distribution Width CV 11.8 % (11.6-14.6); RBC Distribution Width SD 37.7 fl (35.1-43.9); White Blood Count 7.1 K/mm3 (4.4-11.0)
[2023-04-24 18:10] LABS: Bacteria 0 SEEN /hpf (None Seen); Mucous, Urine 0 SEEN /hpf (<or=2+); Red Blood Cells-Urine 0 SEEN /hpf (0-5)
[2023-04-24 18:13] LABS: Color, Urine Yellow (Yellow); Glucose, Dipstick 1000 mg/dl (Normal); Ketone-Dipstick Negative (Negative); Leukocyte Esterase-Dipstick Negative /ul (Negative); Nitrite-Dipstick Negative (Negative); Occult Blood-Urine Negative /ul (Negative); Protein-Dipstick Negative (Negative); Urine Bilirubin Dipstick Negative (Negative); Urine Clarity Clear (Clear); Urine Urobilinogen Normal (Normal); Urine pH 6.5 (5.0 - 8.0)
[2023-04-24 18:14] LABS: International Normalized Ratio 0.9; Prothrombin Time (Protime)PT. 12.1 SECONDS (11.7-14.9)
[2023-04-24 18:15] LABS: Partial Thromboplast Time 27.7 Seconds (24.1-36.2)
[2023-04-24 18:27] LABS: Squamous Epithelial Cells - UA 0-5 SEEN /hpf (0-5); White Blood Cells 0-5 SEEN /hpf (0-5)
[2023-04-24 18:31] LABS: ALB/GLOB Ratio 0.9 RATIO (0.9-2.4); AST(SGOT) 7 U/L (15-37); Alanine Aminotransfer ALT/SGPT 26 U/L (16-61); Albumin, Serum 3.5 g/dL (3.2-5.0); Alkaline Phosphatase 176 U/L (45-117); Anion Gap 10 (5-15); BUN 27 mg/dL (7-18); BUN/Creat Ratio 19.7 RATIO (10-20); Calcium,Total 9.3 mg/dL (8.5-10.1); Chloride 91 mmol/L (98-107); Creatinine, Serum 1.37 mg/dL (0.70-1.30); EST Glomerular Filtration Rate 56 mL/min (>60); Est Glom Filt Rate - Afr Amer 68 mL/min (>60); Estimated Creatinine Clearance 58.47 ml/min; Globulin 3.7 g/dL (2.2-4.2); Glucose 632 mg/dL (74-106); Potassium 4.4 mmol/L (3.5-5.1); Protein, Total 7.2 g/dL (6.4-8.2); Sodium Level 127 mmol/L (136-145)
[2023-04-24] MEDS: Vancomycin HCl 2,000 MG in 0.9% Normal Saline (500mL Bag) 500 ML 250 MG IV (18:38)
[2023-04-24 18:44] LABS: Lactic Acid 2.4 mmol/L (0.4-1.9)
--- NOTE | 2023-04-24 19:29 | HP.PCM.HOS_ITS ---
HPI - General General Date of Admission: 04/24/23 Date of Service: 04/24/23 Chief Complaint: Lump under scrotum HPI Narrative ROCHELLE WOOD, is a 62 M with a significant history of former smoker (last time smoke was around April 01, 2023); diabetes mellitus type 2 with polyneuropathy who was admitted from April 01, 2023 to April 05, 2023 with bilateral scrotal abscess that was drained by urology now presenting to the emergency department with a new lump underneath and midline of his scrotum that was concerning to him and his girlfriend. Of note patient has an appointment to see on April 29, 2023. However he thinks that he cannot wait that long. Patient was recently admitted he was placed on IV antibiotics and discharge home on p.o. Levaquin that he took for 5 days. He has noticed increased drainage from his I&D site. He denies any fever. He reports that chronically he feels cold. He reports polyuria; increased frequency of urination and polydipsia. Patient is a diabetic who hardly takes his p.o. and subcutaneous insulin. At the emergency department his blood glucose was severely elevated. Patient s tated that he is not taking his regimen for a while. FORMERLY [facility] Medical History Aftercare following left ankle joint replacement surgery Burn of foot, second degree Hyperlipidemia associated with type 2 diabetes mellitus Intermittent claudication Peripheral arterial occlusive disease Poorly controlled diabetes mellitus Tobacco abuse Tobacco abuse counseling Home Medications gabapentin 300 mg tablet 300 mg PO TID nerve pain 04/24/22 [History Last Taken Unknown] insulin lispro 100 unit/mL subcutaneous solution (Humalog U-100 Insulin) See Pr otocol subcut DAILY diabetes 04/24/22 [History Last Taken Unknown] aspirin 81 mg tablet,delayed release 81 mg PO DAILY blood thinner 05/01/22 [History Last Taken Unknown] atorvastatin 80 mg tablet 80 mg PO TID cholesterol 05/01/22 [History Last Taken Unknown] glimepiride 2 mg tablet 2 mg PO DAILY diabetes 05/01/22 [History Last Taken Unknown] insulin glargine 100 unit/mL (3 mL) subcutaneous pen (Lantus Solostar U-100 Insulin) 52 unit subcut DAILY diabetes 04/24/23 [History Last Taken Unknown] Allergy/AdvReac Type Severity Reaction Status Date / Time No Known Allergies Allergy Verified 04/24/23 16:45 Family History Other Diabetes Heart disease Hypertension Family History no significant family his Surgical History History of ankle surgery History of tonsillectomy Sonya's syndrome Social History household members: spouse current occupational status: employed Smoking Status: Current every day smoker tobacco type: cigarettes ROS ROS Narrative Pertinent positives and pertinent negatives as noted in HPI. All other systems were reviewed and are negative Vital Signs Vital Signs Vital Signs: 04/24/23 16:45 04/24/23 16:48 04/24/23 17:42 Temperature 98.1 F Temperature Source Temporal Pulse Rate 91 Respiratory Rate 16 Blood Pressure 77/63 L 90/73 Blood Pressure Mean 67 78 Pulse Ox 100 98 Oxygen Delivery Method Room Air Room Air 04/24/23 18:46 Temperature 98.1 F Temperature Source Temporal Pulse Rate 80 Respiratory Rate 15 Blood Pressure 138/84 H Blood Pressure Mean 102 Pulse Ox 98 Oxygen Delivery Method Room Air Weight Weight: 75.478 kg Body Mass Index (BMI) 23.8 Physical Exam Narrative Physical exam: General: Well-nourished, well-developed. Head: Normocephalic, atraumatic, no tenderness Eyes: Vision is grossly intact. EOMI ENT, no trauma, moist mucous membranes, no rhinorrhea Neck: Nontender, No thyromegaly. CVS: Regular rate and rhythm. S1-S2 present. No murmur, gallop or rub. Respiratory : clear to auscultation bilaterally, chest wall nontender Abdomen: Soft, nontender, nondistended, normal bowel sounds, no masses : Left-sided scrotum with incised area and quigley pus; right side of scrotum with incised area and pus; lump underneath midline scrotum. Back: Nontender, no CVA tenderness, no midline spinal tenderness, deformities, step-offs Extremities: Nontender full range of motion, no trauma Skin: Normal color, no trauma, abrasions Neuro: Alert, oriented, cranial nerves II through XII grossly intact. Psychiatry: Normal mood. Normal affect. Not depressed. Not anxious. Results Lab / Micro Data 04/25/23 04:30 04/25/23 04:30 Labs: Laboratory Results - last 24 hr 04/24/23 17:30: WBC 7.1, RBC 5.10, Hgb 15.3, Hct 45.2, MCV 88.6, MCH 30.0, MCHC 33.8, RDW Std Deviation 37.7, RDW Coeff of Charlene 11.8, Plt Count 283, MPV 10.6, Immature Gran % (Auto) 0.400, Neut % (Auto) 61.7, Lymph % (Auto) 27.3, [place] % (Auto) 7.2, Eos % (Auto) 2.7, Baso % (Auto) 0.7, Absolute Neuts (auto) 4.4, Absolute Lymphs (auto) 1.93, Nucleated RBC % 0, PT 12.1, INR 0.9, APTT 27.7, Sodium 127 L, Potassium 4.4, Chloride 91 L, Carbon Dioxide 26.0, Anion Gap 10, BUN 27 H, Creatinine 1.37 H, Estim Creat Clear Calc 58.47, Est GFR (MDRD) Af Amer 68, Est GFR (MDRD) Non-Af 56 L, BUN/Creatinine Ratio 19.7, Glucose 632 H*, Lactic Acid 2.4 H*, Calcium 9.3, Total Bilirubin 0.30, AST 7 L, ALT 26, Alkaline Phosphatase 176 H, Total Protein 7.2, Albumin 3.5, Globulin 3.7, Albumin/Globulin Ratio 0.9 04/24/23 18:06: Urine Color Yellow, Urine Clarity Clear, Urine pH 6.5, Ur Specific [place] 1.010, Urine Protein Negative, Urine Glucose (UA) 1000 H, Urine Ketones Negative, Urine Occult Blood Negative, Urine Nitrite Negative, Urine Bilirubin Negative, Urine Urobilinogen Normal, Ur Leukocyte Esterase Negative, Urine RBC 0 SEEN, Urine WBC 0-5 SEEN, Ur Squamous Epith Cells 0-5 SEEN, Urine Bacteria 0 SEEN, Urine Mucus 0 SEEN Rhythm Strip Rhythm Strip: Sinus Rhythm Rate: 85 Ectopy: None Assessment & Plan Assessment/Plan (1) Hyperglycemia due to diabetes mellitus: (2) Acute kidney injury: (3) Cellulitis of scrotum: (4) Scrotal abscess: PLAN: Plan Scrotal abscess/cellulitis Wound culture of scalp on 05/17/2020 showed MRSA. Scrotal abscess on 04/02/2023 showed Staphylococcus epidermis and anaerobic cocci. Started on vancomycin and metronidazole. Urology consult. White count showed normal white counts. Trend. White count of 6.0; trend. Diabetes mellitus with hyperglycemia Glucose of 632 on presentation. Insulin drip started at the emergency department and continued. N.p.o while on insulin drip. Glimepiride and basal insulin held following insulin drip. Serial Accu-Cheks. Hyponatremia Sodium of 127 on CMP. Glucose of 632. Corrected sodium of 136. Trend BMP. Treat hyperglycemia as above. MARILYN Creatinine of 1.37 on presentation. Review of records shows baseline creatinine of less than 1. IV hydration as above. Trend BMP. Avoid nephrotoxics. Time spent in the patient's overall evaluation,decision-making process, review of diagnostic data, adjustment of management, discussion with other providers, nursing nursing and ancillary staff involved in patient's care documentation, 65 minutes. Charges/Coding Visit Charges Inpatient E&M: 25789 Init Hosp L3
[2023-04-24] MEDS: Insulin Lispro 100 UNIT in 0.9% Normal Saline (100mL Bag) 99 ML 7.5 UNIT CONT INF (20:07)
[2023-04-24 20:38] LABS: Bedside Glucose > 500 mg/dL (74-106)
--- NOTE | 2023-04-24 20:49 | PCM.RX.CS ---
Consult Antibiotic Management Pharmacy has been consulted to manage selected antiobiotic: Vancomycin Type of Intervention Type of Consult: New start Suspected Infection Suspected Infection: Skin/Soft tissue Labs Labs: Sodium 127 mmol/L (136-145) L 04/24/23 17:30 Potassium 4.4 mmol/L (3.5-5.1) 04/24/23 17:30 Chloride 91 mmol/L (98-107) L 04/24/23 17:30 Carbon Dioxide 26.0 mmol/L (21.0-32.0) 04/24/23 17:30 Anion Gap 10 (5-15) 04/24/23 17:30 BUN 27 mg/dL (7-18) H 04/24/23 17:30 Creatinine 1.37 mg/dL (0.70-1.30) H 04/24/23 17:30 Est GFR (MDRD) Af Amer 68 mL/min (>60) 04/24/23 17:30 Est GFR (MDRD) Non-Af 56 mL/min (>60) L 04/24/23 17:30 BUN/Creatinine Ratio 19.7 RATIO (10-20) 04/24/23 17:30 Glucose 632 mg/dL (74-106) H* 04/24/23 17:30 Goal Trough Goal Trough: 15-20 mcg/mL Pharmacy Plan for Drug Dosing Pharmacy Plan for Drug Dosing: NEW IV VANCOMYCIN Consulting Physician: Dr. Vicente Indication: Abscess Goal Trough: 15-20 SrCr: 1.37 CrCl: 58 mL/min Comments: Patient had initial ED dose 2000mg IV x1 04/24/23 @1838 Vancomycin Dose: 750mg IV Q12hr to start 04/25/23 @0600 Pending Level: 04/26/23 @0530, prior to 4th total dose of vancomycin per protocol Pharmacy Service will continue to monitor and adjust dosing as required.
[2023-04-24] MEDS: Atorvastatin Calcium 80 MG Tablet PO (21:08)
[2023-04-24] MEDS: metroNIDAZOLE 500 MG/100 ML BAG 100 MG IV (21:08)
[2023-04-24] MEDS: KCL 20MEQ in 0.45%NS 20 MEQ/1,000 ML IV.SOLN. 125 MEQ IV (21:15)
[2023-04-24 22:01] LABS: Reflex Lactate? Y
[2023-04-24 23:18] LABS: Bedside Glucose 307 mg/dL (74-106)
[2023-04-24 23:18] LABS: Bedside Glucose 360 mg/dL (74-106)
[2023-04-24 23:42] LABS: Lactic Acid 1.1 mmol/L (0.4-1.9)
[2023-04-25] VITALS (21 sets, daily range): BP systolic 92–174; BP diastolic 57–93; PULSE 69–92; RESP 12–18; TEMP 36.3–37.3; O2SAT 94–100
--- NOTE | 2023-04-25 | ABS_PTH ---
PATIENT: ROCHELLE WOOD LOC: [facility] U#:[id number] AGE/SX: 62/M ROOM: [facility] RE04/24/[address]: Dr. Dylan Carey MD : 1960 BED: 1 DIS: 04/29/2023 SPEC #: [id number] RECD: 04/25/23 14:10 STATUS: GABRIELLE RENDON #: [id number] JOSLYN: 04/25/23 00:[address]: Winston Nieto DEPT: SURGICAL PATHOLOGY RECD BY: Kevin Willoughby ENTERED: 04/26/23 10:22 SP TYPE: Abscess OTHR DR: MD Dr. Winston Gipson MD Dr. Paige Pierce, MD Dr. Robert Leininger, MD Dr. Victor Velasquez, MD Tissues: Scrotum, NOS Procedures: Surgery Specimen Level III Comments: @ Ordering doctor for SUIII edited from to @ by TAMMI at 04/26/23 1452 @ Submitting doctor edited from to @ by RGOOD at 04/26/23 1453 HEADER OPERATION: Scrotal abscess I & D, rectal exam, cysto, urethral stricture PRE-OP DIAGNOSIS: Cellulitis of scrotum, scrotal abscess TISSUE SUBMITTED: Necrotic tissue MICROSCOPIC DIAGNOSIS Necrotic tissue: Marked acute inflammation and abscess formation. TRISTAN:naomy 04/29/2023 MICROSCOPIC DESCRIPTION Slides are reviewed. GROSS DESCRIPTION Received in fixative is one container labeled with the patient's name and designated necrotic tissue. The specimen consists of two irregular fragments of light to dark quigley soft tissue ranging in size from 1.0 to 2.5 cm. Serial sections do not reveal mass lesions. Machine Heddle Cleaner sections are submitted in one cassette. / AM:naomy 04/26/2023 TC:2 CPT: 19719
[2023-04-25] MEDS: Potassium Chloride 40 MEQ in Dext 5%-0.45% NS 1,000 ML 125 MEQ IV (00:30)
[2023-04-25] MEDS: Insulin Glargine-YFGN 100 UNIT/ML Pen 52 UNIT SC (00:31)
[2023-04-25 04:41] LABS: Absolute Neutrophil Count 3.3 X10^3/uL (2.0-7.7); Basophil# 0.04 X10^3/uL; Basophil% 0.7 % (0-1); Eosinophil# 0.25 X10^3/uL; Eosinophils% 4.2 % (0-5); Hematocrit 36.4 % (40-54); Hemoglobin 12.8 g/dL (13.0-16.5); Lymphocyte % 31.6 % (19-41); Mean Corp Hgb Conc 35.2 g/dL (32-36); Mean Corpuscular Hgb 30.5 pg (27.0-32.0); Mean Corpuscular Volume 86.9 fL (80-94); Mean Platelet Vol. 9.8 fl (6.2-12.0); Monocyte# 0.56 X10^3/uL; Monocyte% 9.3 % (0-10); NRBC Flagged by Analyzer 0 % (0-5); Neutrophil # 3.26 X10^3/uL (2.7-7.7); Platelet Count 222 K/mm3 (150-450); RBC Distribution Width CV 11.9 % (11.6-14.6); RBC Distribution Width SD 37.7 fl (35.1-43.9); Red Blood Count 4.19 M/mm3 (4.6-6.2)
[2023-04-25] MEDS: Vancomycin HCl 750 MG in 0.9% Normal Saline (250mL Bag) 250 ML 250 MG IV (05:00)
[2023-04-25 05:18] LABS: ALB/GLOB Ratio 0.9 RATIO (0.9-2.4); AST(SGOT) 5 U/L (15-37); Alanine Aminotransfer ALT/SGPT 17 U/L (16-61); Albumin, Serum 2.7 g/dL (3.2-5.0); Alkaline Phosphatase 112 U/L (45-117); Anion Gap 2 (5-15); BUN 18 mg/dL (7-18); BUN/Creat Ratio 22.4 RATIO (10-20); Calcium,Total 8.5 mg/dL (8.5-10.1); Chloride 106 mmol/L (98-107); EST Glomerular Filtration Rate 103 mL/min (>60); Est Glom Filt Rate - Afr Amer 125 mL/min (>60); Estimated Creatinine Clearance 100.12 ml/min; Glucose 375 mg/dL (74-106); Potassium 4.5 mmol/L (3.5-5.1); Protein, Total 5.7 g/dL (6.4-8.2); Sodium Level 135 mmol/L (136-145)
[2023-04-25] MEDS: metroNIDAZOLE 500 MG/100 ML BAG 100 MG IV ×3 (06:11→20:19)
--- NOTE | 2023-04-25 07:05 | PCM.CONS.U ---
Assessment & Plan Assessment/Plan (1) Scrotal abscess: PLAN: Plan for surgery to washout scrotal abscess he is got recurrent scrotal abscess poorly controlled diabetes. (2) Sepsis: HPI Consult Data Date of Consult: 04/25/23 HPI Narrative Reason for Consultation: Recurrent scrotal abscess HPI Narrative: ROCHELLE WOOD, is a 62 M who presents back to the hospital we saw him for scrotal abscess and he underwent incision and drainage I saw him in the office and it completely resolved but he does have poorly controlled diabetes came in with blood sugars very high hypotensive with acute hypotension and sepsis he developed an another abscess in the scrotal area below the original area so plan to taken to surgery later today for incision and drainage and washout of the scrotal abscess in the operating room n.p.o. for now nothing to eat he is on the schedule for later this morning [facility] Medical History Aftercare following left ankle joint replacement surgery Burn of foot, second degree Hyperlipidemia associated with type 2 diabetes mellitus Intermittent claudication Peripheral arterial occlusive disease Poorly controlled diabetes mellitus Tobacco abuse Tobacco abuse counseling Home Medications gabapentin 300 mg tablet 300 mg PO TID nerve pain 04/24/22 [History Last Taken Unknown] insulin lispro 100 unit/mL subcutaneous solution (Humalog U-100 Insulin) See Protocol subcut DAILY diabetes 04/24/22 [History Last Taken Unknown] aspirin 81 mg tablet,delayed release 81 mg PO DAILY blood thinner 05/01/22 [History Last Taken Unknown] atorvastatin 80 mg tablet 80 mg PO TID cholesterol 05/01/22 [History Last Taken Unknown] glimepiride 2 mg tablet 2 mg PO DAILY diabetes 05/01/22 [History Last Taken Unknown] insulin glargine 100 unit/mL (3 mL) subcutaneous pen (Lantus Solostar U-100 Insulin) 52 unit subcut DAILY diabetes 04/24/23 [History Last Taken Unknown] Allergy/AdvReac Type Severity Reaction Status Date / Time No Known Allergies Allergy Verified 04/24/23 16:45 Family History Other Diabetes Heart disease Hypertension Family History no significant family his Surgical History History of ankle surgery History of tonsillectomy Sonya's syndrome Social History household members: spouse current occupational status: employed Smoking Status: Current every day smoker tobacco type: cigarettes ROS Eyes Eyes: Denies blurry vision or change in vision ENT HEENT: Reports none Cardiovascular Cardiovascular: Denies chest pain or palpitations Respiratory/Chest Respiratory/Chest: Denies cough or shortness of breath with exertion Gastrointestinal Gastrointestinal: Denies abdominal pain, constipation or diarrhea Musculoskeletal Musculoskeletal: Denies back pain, joint stiffness or joint swelling Integumentary Integumentary: Denies dry skin, jaundice, lesions or rash Neurologic Neurologic: Denies confusion, syncope or weakness Psychiatric Psychiatric: Reports none; Denies anxiety or depression Endocrine Endocrinology: Denies excessive sweating, fatigue or flushing Hematologic/Lymphatic Hematologic/Lymphatic: Denies anemia, easy bleeding or easy bruising Physical Exam Const alert and oriented x3 General Appearance: cooperative HEENT normocephalic, head/scalp atraumatic, EAC's normal and TM's normal bilaterally Eyes PERRL and EOMs intact bilaterally Pupil: sluggish Neck no lymphadenopathy, supple and no JVD General: trachea midline Lymph Lymphatic: no lymphadenopathy noted, lymphedema and lymphadenopathy Resp normal respiratory effort, normal air movement and clear to auscultation bilaterally Cardio regular rate, regular rhythm and peripheral pulses 2+ throughout GI soft to palpation, non-tender and non-distended Extremity normal capillary refill and no clubbing, cyanosis or edema General Extremity: no tenderness to palpation of joints or extremities Skin no rashes or lesions noted General Skin Exam: turgor normal Lesions: no lesions Rashes: no rashes Neuro CN's II-XII intact bilaterally Speech: speech normal Motor Exam: strength 5/5 throughout; Negative for general weakness Psych thought process normal, cooperative and affect normal Appearance: appropriate Lab / Micro Data 04/25/23 04:30 04/25/23 04:30 Labs: Laboratory Results - last 24 hr 04/24/23 17:30: WBC 7.1, RBC 5.10, Hgb 15.3, Hct 45.2, MCV 88.6, MCH 30.0, MCHC 33.8, RDW Std Deviation 37.7, RDW Coeff of Charlene 11.8, Plt Count 283, MPV 10.6, Immature Gran % (Auto) 0.400, Neut % (Auto) 61.7, Lymph % (Auto) 27.3, [place] % (Auto) 7.2, Eos % (Auto) 2.7, Baso % (Auto) 0.7, Absolute Neuts (auto) 4.4, Absolute Lymphs (auto) 1.93, Nucleated RBC % 0, PT 12.1, INR 0.9, APTT 27.7, Sodium 127 L, Potassium 4.4, Chloride 91 L, Carbon Dioxide 26.0, Anion Gap 10, BUN 27 H, Creatinine 1.37 H, Estim Creat Clear Calc 58.47, Est GFR (MDRD) Af Amer 68, Est GFR (MDRD) Non-Af 56 L, BUN/Creatinine Ratio 19.7, Glucose 632 H*, Lactic Acid 2.4 H*, Calcium 9.3, Total Bilirubin 0.30, AST 7 L, ALT 26, Alkaline Phosphatase 176 H, Total Protein 7.2, Albumin 3.5, Globulin 3.7, Albumin/Globulin Ratio 0.9 04/24/23 18:06: Urine Color Yellow, Urine Clarity Clear, Urine pH 6.5, Ur Specific [place] 1.010, Urine Protein Negative, Urine Glucose (UA) 1000 H, Urine Ketones Negative, Urine Occult Blood Negative, Urine Nitrite Negative, Urine Bilirubin Negative, Urine Urobilinogen Normal, Ur Leukocyte Esterase Negative, Urine RBC 0 SEEN, Urine WBC 0-5 SEEN, Ur Squamous Epith Cells 0-5 SEEN, Urine Bacteria 0 SEEN, Urine Mucus 0 SEEN 04/24/23 20:11: POC Glucose > 500 H* 04/24/23 20:59: POC Glucose 360 H 04/24/23 22:03: POC Glucose 307 H 04/24/23 23:05: Lactic Acid 1.1 04/25/23 04:30: WBC 6.0, RBC 4.19 L, Hgb 12.8 L, Hct 36.4 L, MCV 86.9, MCH 30.5, MCHC 35.2, RDW Std Deviation 37.7, RDW Coeff of Charlene 11.9, Plt Count 222, MPV 9.8, Immature Gran % (Auto) 0.200, Neut % (Auto) 54.0, Lymph % (Auto) 31.6, [place] % (Auto) 9.3, Eos % (Auto) 4.2, Baso % (Auto) 0.7, Absolute Neuts (auto) 3.3, Absolute Lymphs (auto) 1.90, Nucleated RBC % 0, Sodium 135 L, Potassium 4.5, Chloride 106, Carbon Dioxide 27.0, Anion Gap 2 L, BUN 18, Creatinine 0.80, Estim Creat Clear Calc 100.12, Est GFR (MDRD) Af Amer 125, Est GFR (MDRD) Non-Af 103, BUN/Creatinine Ratio 22.4 H, Glucose 375 H, Calcium 8.5, Total Bilirubin 0.30, AST 5 L, ALT 17, Alkaline Phosphatase 112, Total Protein 5.7 L, Albumin 2.7 L, Globulin 3.0, Albumin/Globulin Ratio 0.9 Rhythm Strip Rhythm Strip: Sinus Rhythm Rate: 85 Ectopy: None
[2023-04-25] MEDS: Insulin Lispro 100 UNIT/ML INSULN.PEN SC ×3 (08:01→20:27)
[2023-04-25] MEDS: 0.9% Normal Saline (1000mL) 1,000 ML 75 ML IV ×2 (08:02→18:44)
[2023-04-25 08:18] LABS: Bedside Glucose 395 mg/dL (74-106)
--- NOTE | 2023-04-25 08:33 | PCM.PN.HOSP ---
Reason for Visit Reason for Visit: Diagnoses Sepsis, unspecified organism (04/24/23) Type 2 diabetes mellitus with hyperglycemia (04/24/23) Acute kidney failure, unspecified (04/24/23) Inflammatory disorders of scrotum (04/24/23) Subjective Subjective Seen after surgery, reports feeling sore and very hungry no other acute complaints Objective Data Objective Data Vital Signs: Vital Signs Temp Pulse Resp BP Pulse Ox O2 Del Method 98.1 F 73 14 125/81 H 99 Room Air 04/25/23 08:00 04/25/23 08:00 04/25/23 08:00 04/25/23 08:00 04/25/23 08:00 04/25/23 08:00 Oxygen Delivery Method Room Air Weight: 75.6 kg Body Mass Index (BMI) 23.9 Intake & Output: Intake and Output for Last 24 Hours 04/23/23 04/24/23 04/25/23 23:59 23:59 23:59 Intake Total 2650.67 / 2650.67 1425.63 / 1425.63 Output Total 2150 / 2150 Balance 2650.67 / 2175.67 -724.37 / -724.37 Lab / Micro Data 04/25/23 04:30 04/25/23 04:30 Labs: Laboratory Results - last 24 hr 04/24/23 17:30: WBC 7.1, RBC 5.10, Hgb 15.3, Hct 45.2, MCV 88.6, MCH 30.0, MCHC 33.8, RDW Std Deviation 37.7, RDW Coeff of Charlene 11.8, Plt Count 283, MPV 10.6, Immature Gran % (Auto) 0.400, Neut % (Auto) 61.7, Lymph % (Auto) 27.3, [place] % (Auto) 7.2, Eos % (Auto) 2.7, Baso % (Auto) 0.7, Absolute Neuts (auto) 4.4, Absolute Lymphs (auto) 1.93, Nucleated RBC % 0, PT 12.1, INR 0.9, APTT 27.7, Sodium 127 L, Potassium 4.4, Chloride 91 L, Carbon Dioxide 26.0, Anion Gap 10, BUN 27 H, Creatinine 1.37 H, Estim Creat Clear Calc 58.47, Est GFR (MDRD) Af Amer 68, Est GFR (MDRD) Non-Af 56 L, BUN/Creatinine Ratio 19.7, Glucose 632 H*, Lactic Acid 2.4 H*, Calcium 9.3, Total Bilirubin 0.30, AST 7 L, ALT 26, Alkaline Phosphatase 176 H, Total Protein 7.2, Albumin 3.5, Globulin 3.7, Albumin/Globulin Ratio 0.9 04/24/23 18:06: Urine Color Yellow, Urine Clarity Clear, Urine pH 6.5, Ur Specific [place] 1.010, Urine Protein Negative, Urine Glucose (UA) 1000 H, Urine Ketones Negative, Urine Occult Blood Negative, Urine Nitrite Negative, Urine Bilirubin Negative, Urine Urobilinogen Normal, Ur Leukocyte Esterase Negative, Urine RBC 0 SEEN, Urine WBC 0-5 SEEN, Ur Squamous Epith Cells 0-5 SEEN, Urine Bacteria 0 SEEN, Urine Mucus 0 SEEN 04/24/23 20:11: POC Glucose > 500 H* 04/24/23 20:59: POC Glucose 360 H 04/24/23 22:03: POC Glucose 307 H 04/24/23 23:05: Lactic Acid 1.1 04/25/23 04:30: WBC 6.0, RBC 4.19 L, Hgb 12.8 L, Hct 36.4 L, MCV 86.9, MCH 30.5, MCHC 35.2, RDW Std Deviation 37.7, RDW Coeff of Charlene 11.9, Plt Count 222, MPV 9.8, Immature Gran % (Auto) 0.200, Neut % (Auto) 54.0, Lymph % (Auto) 31.6, [place] % (Auto) 9.3, Eos % (Auto) 4.2, Baso % (Auto) 0.7, Absolute Neuts (auto) 3.3, Absolute Lymphs (auto) 1.90, Nucleated RBC % 0, Sodium 135 L, Potassium 4.5, Chloride 106, Carbon Dioxide 27.0, Anion Gap 2 L, BUN 18, Creatinine 0.80, Estim Creat Clear Calc 100.12, Est GFR (MDRD) Af Amer 125, Est GFR (MDRD) Non-Af 103, BUN/Creatinine Ratio 22.4 H, Glucose 375 H, Calcium 8.5, Total Bilirubin 0.30, AST 5 L, ALT 17, Alkaline Phosphatase 112, Total Protein 5.7 L, Albumin 2.7 L, Globulin 3.0, Albumin/Globulin Ratio 0.9 04/25/23 07:56: POC Glucose 395 H Rhythm Strip Rhythm Strip: Sinus Rhythm Rate: 85 Ectopy: None Physical Exam Narrative General: Alert, oriented, no apparent distress HEENT: Atraumatic, normocephalic Eyes: Anicteric, normal conjunctiva, extraocular movements grossly intact Neck: Supple Respiratory: Clear to auscultation bilaterally, normal respiratory effort Cardiovascular: Regular rate and rhythm GI: Soft, nontender, nondistended : Deferred as pt just back from I&D/surgery and presently wound dressed Extremities: No edema Musculoskeletal: Moving all extremities Neuro: No overt focal neurological deficits Skin: No rashes appreciated Psych: Cooperative Assessment & Plan Assessment/Plan (1) Hyperglycemia due to diabetes mellitus: (2) Acute kidney injury: (3) Cellulitis of scrotum: (4) Scrotal abscess: PLAN: Plan #Scrotal abscess/cellulitis -Wound culture of scalp on 05/17/2020 showed MRSA. Scrotal abscess on 04/02/2023 showed Staphylococcus epidermis and anaerobic cocci. Started on vancomycin and metronidazole. Urology consult. -White count showed normal white counts. Trend. -04/25: Urology evaluated, he had been seen in the hospital and underwent I&D and was subsequently followed in the office and found to have abscess completely resolved however he has developed another abscess in the scrotal area so plan today is for I&D and washout in the OR. S/p washout, continue vanc and zosyn and await cx #Diabetes mellitus with hyperglycemia -Glucose of 632 on presentation. -Insulin drip started at the emergency department and continued. -N.p.o while on insulin drip. Glimepiride and basal insulin held following insulin drip. Serial Accu-Cheks. -04/25: Glucose 395, patient started on 52 units of glargine and sliding scale insulin, did report today that hasn't used his insulin in months, will split large into 25 BID so this can be better adjusted acutely in increased sliding scale factor, carb control diet #Pseudo hyponatremia -Sodium of 127 on CMP. Glucose of 632. Corrected sodium of 136. -Trend BMP. Treat hyperglycemia as above. -04/25: Sodium 135 but still hyperglycemic so this would be in normal range #MARILYN?resolved -Creatinine of 1.37 on presentation. Review of records shows baseline creatinine of less than 1. IV hydration as above. Trend BMP. Avoid nephrotoxics. -04/25: Creatinine 0.8 with hydration, continue supportive care #DVT ppx: SCDs Porsche Delaney MD Time spent in the patient's overall evaluation,decision-making process, review of diagnostic data, adjustment of management, discussion with other providers, nursing nursing and ancillary staff involved in patient's care documentation, 37 minutes Charges/Coding Visit Charges Inpatient E&M: 99358 Subs Hosp L2
--- NOTE | 2023-04-25 08:54 | PCM.RX.CS ---
Consult Antibiotic Management Pharmacy has been consulted to manage selected antiobiotic: Vancomycin Type of Intervention Type of Consult: Follow-up Suspected Infection Suspected Infection: Skin/Soft tissue Prior Doses of Antibiotics Prior Doses of Antibiotics Received/Current Regimen: Received 2000mg iv x 1 as loading dose on 04.24.23. Currently on 750mg iv q12h and has received one dose today @0500. Labs Labs: Sodium 135 mmol/L (136-145) L 04/25/23 04:30 Potassium 4.5 mmol/L (3.5-5.1) 04/25/23 04:30 Chloride 106 mmol/L (98-107) 04/25/23 04:30 Carbon Dioxide 27.0 mmol/L (21.0-32.0) 04/25/23 04:30 Anion Gap 2 (5-15) L 04/25/23 04:30 BUN 18 mg/dL (7-18) 04/25/23 04:30 Creatinine 0.80 mg/dL (0.70-1.30) 04/25/23 04:30 Est GFR (MDRD) Af Amer 125 mL/min (>60) 04/25/23 04:30 Est GFR (MDRD) Non-Af 103 mL/min (>60) 04/25/23 04:30 BUN/Creatinine Ratio 22.4 RATIO (10-20) H 04/25/23 04:30 Glucose 375 mg/dL (74-106) H 04/25/23 04:30 Dosing Weight Weight used for dosin kg Estimated Creatinine Clearance Estimated Creatinine Clearance: 103ml/min Goal Trough Goal Trough: 15-20 mcg/mL Pharmacy Plan for Drug Dosing Pharmacy Plan for Drug Dosing: Renal function improved with Cr from 1.37 to 0.80 today. CrCl 58 (10.11) and ~103 today. Recommend a dose change to 1250mg iv q12h starting ~6 hrs from 750mg dose. Trough level ordered for tomorrow. Pharmacy Service will continue to monitor and adjust dosing as required. Follow-Up Labs Follow-Up Labs: Trough: Vancomycin (04.26.23 @1230)
[2023-04-25 09:51] LABS: Hemoglobin A1c 13.5 % (3.8-5.6)
[2023-04-25] MEDS: Lactated Ringers 1,000 ML 15 ML IV (10:22)
--- NOTE | 2023-04-25 12:38 | OP.PCM_ITS ---
Report of Operation Date of Procedure: 04/25/23 Pre-Operative Diagnosis: Scrotal abscess Post-Operative Diagnosis: Scrotal abscess and urethral stricture Surgery/Procedure Performed:: Incision and drainage of a large scrotal abscess and irrigation with Pulsavac, cystoscopy and dilation of a bulbar urethral stricture and placement of Worrell catheter Description of Surgical Findings:: This is a 62-year-old male who recently presented to the hospital with scrotal abscess at the bedside the scrotal abscess was drained and look that he had cured I saw him in the office about a week and a half ago and there was no pain no tenderness no redness whatsoever in my office look like it cleared up completely he is a known diabetic he then presented to the hospital with sepsis hypotension and worsening infection and drainage again from the scrotal abscess so today working to taken the surgery to do a wide debridement and then do a cystoscopy Patient was taken back to the operating room at a smooth induction of general anesthesia he was placed in dorsolithotomy position. Penis testicle perineum and rectal area were prepped and draped in usual sterile fashion using Betadine on inspection he had 2 small 1 cm incisions in the base of the of the scrotum on both sides I then used an 11 blade knife and connected these in the midline and then explored with digital palpation and immediately encountered a large deep pocket of pus that was on the patient's right side of the scrotum with purulent material cultures were taken from this I then had a lot of fibrinous exudate and also a lot of granulomatous and necrotic tissue this was all debrided to remove all this necrotic tissue down to fat. I then did a cystoscopy and the urethra meatus was open the pendulous urethra was clear in the bulbar urethra he had a pinpoint stricture a photograph was taken and printed I then dilated the stricture with sounds over a wire and then we did a cystoscopy and he had minimal obstruction of the prostate was able to go through with the scope thro [facility] the stricture after was dilated and then we placed a 18 [place] catheter [place] tip into the bladder to allow the stricture to heal after dilation. We then back to the scrotum and then with a catheter in place I did more debridement to get all the necrotic tissue out and then I have Pulsavac the area with 3 L of normal saline to 2 irrigated extensively for this infection. After it was widely debrided Pulsavac to then we packed it with Betadine soaked gauze fluffs were placed on top of this and mesh panties patient was taken back to the PACU in good condition and will have to start wet-to-dry dressings tomorrow. Surgeon: Winston Nieto Type of Anesthesia: General Drains: worrell 18 fr [place] tip Admit VTE Documentation VTE Present on Admission: No VTE Mechan Device Prophylaxis: SCD's VTE Pharm Prophylaxis ordered?: No
[2023-04-25 13:23] LABS: Bedside Glucose 248 mg/dL (74-106)
[2023-04-25] MEDS: Acetaminophen 325 MG Tablet 650 MG PO ×2 (13:51→20:19)
[2023-04-25] MEDS: Vancomycin HCl 1,250 MG in 0.9% Normal Saline (250mL Bag) 250 ML 167 MG IV (13:51)
[2023-04-25] MEDS: oxyCODONE 5 MG Tablet PO ×2 (15:56→20:20)
[2023-04-25 16:07] LABS: Bedside Glucose 238 mg/dL (74-106)
[2023-04-25 16:07] LABS: Bedside Glucose 248 mg/dL (74-106)
--- NOTE | 2023-04-25 16:10 | CASEMGMT ---
TROY OCASIO chart review: Patient was admitted 03/28-04/05/23 for scrotal wall cellulitis and abscess. See TROY CM assessment from 04/03/23. Patient was discharged to home with family assisting with wound care, follow-up plans in place, and oral antibiotic. Patient returned on 04/24/23 for increase in scrotal abscess drainage. Patient was also hyperglycemic and started on insulin gtt. TROY CM in to discuss readmission and discharge needs. Patient states that he had follow-up with urologist on 04/11/23, patient has not seen PCP. Patient states he completed his course of ATB, Linezolid. Significant other at bedside and states that dressing changes were going well. RN AMARJIT inquired if patient was taking his DM medications as prescribed and checking blood sugar. Patient states he does not take DM medication consistently as he doesn't feel a difference when he takes it. RN CM educated patient on importance of taking DM medications to maintain blood sugars to promote wound healing. RN CM educated patient importance of checking blood sugar regularly. Patient states he hate poking himself and was denied continuous glucose monitor. Patient voiced understanding of importance of checking blood sugar and taking medications. TROY OCASIO discussed possbility of IV ATBs at discharge, will follow ID recommendation. Patient wishes to discharge home with support from significant other with dressing changes. Will monitor possible IV ATBs and HHC pending course of treatment. CM will continue to follow this patient and plan for a safe discharge.
[2023-04-25 16:11] LABS: Bedside Glucose 215 mg/dL (74-106)
[2023-04-25] MEDS: MELATONIN 3 MG TABLET PO (20:19)
[2023-04-25] MEDS: Atorvastatin Calcium 80 MG Tablet PO (20:20)
[2023-04-25] MEDS: Insulin Glargine-YFGN 100 UNIT/ML Pen 25 UNIT SC (20:28)
[2023-04-26 00:50] LABS: Bedside Glucose 327 mg/dL (74-106)
[2023-04-26] MEDS: oxyCODONE 5 MG Tablet PO ×5 (00:57→23:00)
[2023-04-26] MEDS: Vancomycin HCl 1,250 MG in 0.9% Normal Saline (250mL Bag) 250 ML 167 MG IV ×2 (00:57→14:55)
[2023-04-26 01:00] VITALS: BP 151/82; PULSE 80; RESP 16; TEMP 36.9; O2SAT 96
[2023-04-26 03:49] VITALS: BMI 23.8
[2023-04-26] MEDS: metroNIDAZOLE 500 MG/100 ML BAG 100 MG IV ×3 (05:36→21:04)
[2023-04-26 06:15] LABS: Absolute Lymphocyte Count 0.99 X10^3/uL (0.83-4.51); Absolute Neutrophil Count 6.6 X10^3/uL (2.0-7.7); Basophil# 0.03 X10^3/uL; Basophil% 0.4 % (0-1); Eosinophil# 0.18 X10^3/uL; Eosinophils% 2.1 % (0-5); Hematocrit 42.1 % (40-54); Lymphocyte # 0.99 X10^3/ul (0.83-4.51); Lymphocyte % 11.8 % (19-41); Mean Corp Hgb Conc 33.3 g/dL (32-36); Mean Corpuscular Hgb 29.3 pg (27.0-32.0); Mean Corpuscular Volume 88.1 fL (80-94); Monocyte# 0.56 X10^3/uL; Monocyte% 6.7 % (0-10); NRBC Flagged by Analyzer 0 % (0-5); Neutrophil # 6.61 X10^3/uL (2.7-7.7); Neutrophil % 78.6 % (47-70); Platelet Count 265 K/mm3 (150-450); RBC Distribution Width CV 11.9 % (11.6-14.6); RBC Distribution Width SD 38.1 fl (35.1-43.9); Red Blood Count 4.78 M/mm3 (4.6-6.2); White Blood Count 8.4 K/mm3 (4.4-11.0)
[2023-04-26] MEDS: Insulin Lispro 100 UNIT/ML INSULN.PEN SC ×4 (06:34→21:53)
[2023-04-26 06:40] LABS: Anion Gap 2 (5-15); BUN 13 mg/dL (7-18); BUN/Creat Ratio 16.2 RATIO (10-20); Calcium,Total 8.5 mg/dL (8.5-10.1); Chloride 103 mmol/L (98-107); EST Glomerular Filtration Rate 104 mL/min (>60); Est Glom Filt Rate - Afr Amer 126 mL/min (>60); Estimated Creatinine Clearance 100.12 ml/min; Glucose 238 mg/dL (74-106); Potassium 3.9 mmol/L (3.5-5.1); Sodium Level 134 mmol/L (136-145)
[2023-04-26 06:58] LABS: Bedside Glucose 244 mg/dL (74-106)
--- NOTE | 2023-04-26 07:13 | PCM.CONS.B ---
Consult Date of Consult: 04/26/23 Reason for Consult Status post incision and drainage of scrotal abscess also dilation of urethral stricture and Ledbetter placement He will need to go home with a catheter to let the stricture heal up that was dilated and Ledbetter was placed a half to go home the Ledbetter and leg bag He is got a scrotal abscess and he will need wet-to-dry dressings with Kerlix 3 times a day.
--- NOTE | 2023-04-26 07:57 | PCM.PN.HOSP ---
Reason for Visit Reason for Visit: Diagnoses Sepsis, unspecified organism (04/24/23) Type 2 diabetes mellitus with hyperglycemia (04/24/23) Acute kidney failure, unspecified (04/24/23) Inflammatory disorders of scrotum (04/24/23) Subjective Subjective Still having pain, finally got some rest overnight and pain meds are helpful Objective Data Objective Data Vital Signs: Vital Signs Temp Pulse Resp BP Pulse Ox O2 Del Method O2 Flow Rate 98.5 F 80 16 151/82 H 96 Room Air 2 04/26/23 01:00 04/26/23 01:00 04/26/23 01:00 04/26/23 01:00 04/26/23 01:00 04/26/23 02:00 04/25/23 13:34 Oxygen Flow Rate (L/min) 2 Oxygen Delivery Method Room Air Weight: 75.2 kg Body Mass Index (BMI) 23.8 Intake & Output: Intake and Output for Last 24 Hours 04/24/23 04/25/23 04/26/23 23:59 23:59 23:59 Intake Total 2650.67 / 2650.67 2821.63 / 4021.63 2556.25 / 2556.25 Output Total 3725 / 5525 2300 / 2300 Balance 2650.67 / 2175.67 -903.37 / -1503.37 256.25 / 256.25 Lab / Micro Data 04/26/23 05:38 04/26/23 05:38 Labs: Laboratory Results - last 24 hr 04/24/23 23:09: POC Glucose 238 H 04/25/23 00:29: POC Glucose 248 H 04/25/23 04:30: Hemoglobin A1c 13.5 H 04/25/23 07:56: POC Glucose 395 H 04/25/23 13:05: POC Glucose 248 H 04/25/23 15:51: POC Glucose 215 H 04/25/23 20:25: POC Glucose 327 H 04/26/23 05:38: WBC 8.4, RBC 4.78, Hgb 14.0, Hct 42.1, MCV 88.1, MCH 29.3, MCHC 33.3 D, RDW Std Deviation 38.1, RDW Coeff of Charlene 11.9, Plt Count 265, MPV 10.0, Immature Gran % (Auto) 0.400, Neut % (Auto) 78.6 H, Lymph % (Auto) 11.8 L, [place] % (Auto) 6.7, Eos % (Auto) 2.1, Baso % (Auto) 0.4, Absolute Neuts (auto) 6.6, Absolute Lymphs (auto) 0.99, Nucleated RBC % 0, Sodium 134 L, Potassium 3.9, Chloride 103, Carbon Dioxide 29.0, Anion Gap 2 L, BUN 13, Creatinine 0.80, Estim Creat Clear Calc 100.12, Est GFR (MDRD) Af Amer 126, Est GFR (MDRD) Non-Af 104, BUN/Creatinine Ratio 16.2, Glucose 238 H, Calcium 8.5 04/26/23 06:32: POC Glucose 244 H Rhythm Strip Rhythm Strip: Sinus Rhythm Rate: 85 Ectopy: None Physical Exam Narrative General: Alert, oriented, no apparent distress HEENT: Atraumatic, normocephalic Eyes: Anicteric, normal conjunctiva, extraocular movements grossly intact Neck: Supple Respiratory: Clear to auscultation bilaterally, normal respiratory effort Cardiovascular: Regular rate and rhythm GI: Soft, nontender, nondistended Extremities: No edema Musculoskeletal: Moving all extremities Neuro: No overt focal neurological deficits Skin: No rashes appreciated Psych: Cooperative Assessment & Plan Assessment/Plan (1) Hyperglycemia due to diabetes mellitus: (2) Acute kidney injury: (3) Cellulitis of scrotum: (4) Scrotal abscess: PLAN: Plan #Scrotal abscess/cellulitis and urethral stricture -Wound culture of scalp on 05/17/2020 showed MRSA. Scrotal abscess on 04/02/2023 showed Staphylococcus epidermis and anaerobic cocci. Started on vancomycin and metronidazole. Urology consult. -White count showed normal white counts. Trend. -04/25: Urology evaluated, he had been seen in the hospital and underwent I&D and was subsequently followed in the office and found to have abscess completely resolved however he has developed another abscess in the scrotal area so plan today is for I&D and washout in the OR. S/p washout, continue vanc and zosyn and await cx -04/26: Status post incision and drainage of scrotal abscess also dilation of urethral stricture and Ledbetter placement. Patient will need to go home with Ledbetter catheter due to stricture and follow-up as outpatient. He will need wet-to-dry dressings with Kerlix 3 times a day for his scrotal abscess. Looking at his last culture he grew anaerobic cocci and staph epi and now has had recurrent scrotal abscess, will consult infectious disease. Glucose control moving forward will be imperative for healing and decreasing chances of recurrence #Diabetes mellitus with hyperglycemia -Glucose of 632 on presentation. -Insulin drip started at the emergency department and continued. -N.p.o while on insulin drip. Glimepiride and basal insulin held following insulin drip. Serial Accu-Cheks. -04/25: Glucose 395, patient started on 52 units of glargine and sliding scale insulin, did report today that hasn't used his insulin in months, will split large into 25 BID so this can be better adjusted acutely in increased sliding scale factor, carb control diet -04/26: Increase glargine and increase sliding scale factor. If patient will not take insulin on discharge he may need to discuss with his primary care physician about alternative options like maybe once weekly injections or otherwise #Pseudo hyponatremia -Sodium of 127 on CMP. Glucose of 632. Corrected sodium of 136. -Trend BMP. Treat hyperglycemia as above. -04/25: Sodium 135 but still hyperglycemic so this would be in normal range #MARILYN?resolved -Creatinine of 1.37 on presentation. Review of records shows baseline creatinine of less than 1. IV hydration as above. Trend BMP. Avoid nephrotoxics. -04/25: Creatinine 0.8 with hydration, continue supportive care #DVT ppx: SCDs Porsche Delaney MD Time spent in the patient's overall evaluation,decision-making process, review of diagnostic data, adjustment of management, discussion with other providers, nursing nursing and ancillary staff involved in patient's care documentation, 37 minutes Charges/Coding Visit Charges Inpatient E&M: 65368 Subs Hosp L2
[2023-04-26 08:14] VITALS: BP 140/87; PULSE 85; RESP 18; TEMP 37; O2SAT 97
[2023-04-26 08:16] VITALS: O2SAT 96
[2023-04-26] MEDS: Acetaminophen 325 MG Tablet 650 MG PO ×3 (08:23→22:59)
[2023-04-26] MEDS: Aspirin E.C. 81 MG Tablet PO (08:23)
[2023-04-26] MEDS: Enoxaparin 40 MG/0.4 ML Syringe SC (10:06)
[2023-04-26] MEDS: Insulin Glargine-YFGN 100 UNIT/ML Pen 30 UNIT SC ×2 (10:07→21:52)
[2023-04-26 10:26] VITALS: BP 124/78; PULSE 80; RESP 18; TEMP 36.7; O2SAT 97
[2023-04-26 12:00] LABS: Bedside Glucose 228 mg/dL (74-106)
--- NOTE | 2023-04-26 12:02 | CON.PCM.ID_ITS ---
Assessment & Plan Assessment/Plan (1) Scrotal abscess: PLAN: Surg cx pending s/p I&D by Dr. Nieto. On vanc, will change flagyl to unasyn. Recommend glucose control to help decrease chance of recurrence. A1c is 13.5. Tentative plan for discharge will be one week po linezolid 600mg bid and augmentin 875mg bid, but may need to adjust as cx data comes in. May be able to leave this weekend. Will follow, thank you (2) Hyperglycemia due to diabetes mellitus: HPI Consult Data Date of Consult: 04/26/23 HPI Narrative Reason for Consultation: abscess HPI Narrative: ROCHELLE WOOD, is a 62 M with uncontrolled DM, had scrotal abscess a month ago required I&D, now back with 2 days focal swelling on scrotum, became tender, admitted, taken to OR by Dr. Nieto for I&D. Scrotum is sore, no fever, no n/v/d. On vanc/flagyl. Full ROS performed and neg except as noted above. FORMERLY [facility], [facility] Medical History Aftercare following left ankle joint replacement surgery Burn of foot, second degree Hyperlipidemia associated with type 2 diabetes mellitus Intermittent claudication Peripheral arterial occlusive disease Poorly controlled diabetes mellitus Tobacco abuse Tobacco abuse counseling Home Medications gabapentin 300 mg tablet 300 mg PO TID nerve pain 04/24/22 [History Last Taken Unknown] insulin lispro 100 unit/mL subcutaneous solution (Humalog U-100 Insulin) See Protocol subcut DAILY diabetes 04/24/22 [History Last Taken Unknown] aspirin 81 mg tablet,delayed release 81 mg PO DAILY blood thinner 05/01/22 [History Last Taken Unknown] atorvastatin 80 mg tablet 80 mg PO TID cholesterol 05/01/22 [History Last Taken Unknown] glimepiride 2 mg tablet 2 mg PO DAILY diabetes 05/01/22 [History Last Taken Unkn own] insulin glargine 100 unit/mL (3 mL) subcutaneous pen (Lantus Solostar U-100 Insulin) 52 unit subcut DAILY diabetes 04/24/23 [History Last Taken Unknown] Allergy/AdvReac Type Severity Reaction Status Date / Time No Known Allergies Allergy Verified 04/24/23 16:45 Family History Other Diabetes Heart disease Hypertension Family History no significant family his Surgical History History of ankle surgery History of tonsillectomy Sonya's syndrome Social History household members: spouse current occupational status: employed Smoking Status: Current every day smoker tobacco type: cigarettes Physical Exam Const alert, oriented x3 and no apparent distress General Appearance: cooperative HEENT normocephalic and head/scalp atraumatic Eyes PERRL and EOMs intact bilaterally Neck supple and No nodes Resp normal air movement and clear to auscultation bilaterally Cardio regular rate and regular rhythm GI soft to palpation, non-tender and non-distended Extremity General Extremity: Negative for edema Skin Skin Narrative: scrotal dressing in place, no drainage Neuro CN's II-XII intact bilaterally Lab / Micro Data Attestation: I reviewed the patient's lab results. 04/26/23 05:38 04/26/23 05:38 Labs: Laboratory Results - last 24 hr 04/24/23 23:09: POC Glucose 238 H 04/25/23 00:29: POC Glucose 248 H 04/25/23 13:05: POC Glucose 248 H 04/25/23 15:51: POC Glucose 215 H 04/25/23 20:25: POC Glucose 327 H 04/26/23 05:38: WBC 8.4, RBC 4.78, Hgb 14.0, Hct 42.1, MCV 88.1, MCH 29.3, MCHC 33.3 D, RDW Std Deviation 38.1, RDW Coeff of Charlene 11.9, Plt Count 265, MPV 10.0, Immature Gran % (Auto) 0.400, Neut % (Auto) 78.6 H, Lymph % (Auto) 11.8 L, [place] % (Auto) 6.7, Eos % (Auto) 2.1, Baso % (Auto) 0.4, Absolute Neuts (auto) 6.6, Absolute Lymphs (auto) 0.99, Nucleated RBC % 0, Sodium 134 L, Potassium 3.9, Chloride 103, Carbon Dioxide 29.0, Anion Gap 2 L, BUN 13, Creatinine 0.80, Estim Creat Clear Calc 100.12, Est GFR (MDRD) Af Amer 126, Est GFR (MDRD) Non-Af 104, BUN/Creatinine Ratio 16.2, Glucose 238 H, Calcium 8.5 04/26/23 06:32: POC Glucose 244 H 04/26/23 11:38: POC Glucose 228 H Rhythm Strip Rhythm Strip: Sinus Rhythm Rate: 85 Ectopy: None
--- NOTE | 2023-04-26 14:08 | PHA.PHARE_ITS ---
Consult Antibiotic Management Pharmacy has been consulted to manage selected antiobiotic: Vancomycin Type of Intervention Type of Consult: Follow-up Suspected Infection Suspected Infection: Skin/Soft tissue Prior Doses of Antibiotics Prior Doses of Antibiotics Received/Current Regimen: [place] order [place] 1250mg iv q12h. Labs Labs: Sodium 134 mmol/L (136-145) L 04/26/23 05:38 Potassium 3.9 mmol/L (3.5-5.1) 04/26/23 05:38 Chloride 103 mmol/L (98-107) 04/26/23 05:38 Carbon Dioxide 29.0 mmol/L (21.0-32.0) 04/26/23 05:38 Anion Gap 2 (5-15) L 04/26/23 05:38 BUN 13 mg/dL (7-18) 04/26/23 05:38 Creatinine 0.80 mg/dL (0.70-1.30) 04/26/23 05:38 Est GFR (MDRD) Af Amer 126 mL/min (>60) 04/26/23 05:38 Est GFR (MDRD) Non-Af 104 mL/min (>60) 04/26/23 05:38 BUN/Creatinine Ratio 16.2 RATIO (10-20) 04/26/23 05:38 Glucose 238 mg/dL (74-106) H 04/26/23 05:38 Microbiology Microbiology: Microbiology 04/25/23 12:53 Wound - Other Wound 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 Continue same dose. Trough level ordered for before next dose on 04.27.23. Pharmacy Service will continue to monitor and adjust dosing as required. Follow-Up Labs Follow-Up Labs: Trough: Vancomycin (04.27.23 @0030)
[2023-04-26] MEDS: Ampicillin/Sulbactam 3 GM in 0.9% Normal Saline (100mL MB+) 100 ML IV ×2 (14:54→19:59)
[2023-04-26 15:01] VITALS: BP 174/95; PULSE 88; RESP 18; TEMP 36.7; O2SAT 97
[2023-04-26 16:56] LABS: Bedside Glucose 243 mg/dL (74-106)
[2023-04-26] MEDS: 0.9% Saline Lock 10 ML Syringe IV (19:59)
[2023-04-26 21:50] VITALS: BP 148/85; PULSE 88; RESP 18; TEMP 37.7; O2SAT 98
[2023-04-26] MEDS: Atorvastatin Calcium 80 MG Tablet PO (21:54)
[2023-04-26 22:11] LABS: Bedside Glucose 199 mg/dL (74-106)
[2023-04-27] VITALS (8 sets, daily range): BP systolic 147–168; BP diastolic 80–94; PULSE 74–80; RESP 16–18; TEMP 36.6–37; O2SAT 96–100; BMI 24.7
[2023-04-27 01:37] LABS: Vancomycin, Trough Level 11.5 ug/mL (5.0-15.0)
--- NOTE | 2023-04-27 01:55 | PHA.PHARE_ITS ---
Consult Antibiotic Management Pharmacy has been consulted to manage selected antiobiotic: Vancomycin Type of Intervention Type of Consult: Follow-up Labs Labs: Sodium 134 mmol/L (136-145) L 04/26/23 05:38 Potassium 3.9 mmol/L (3.5-5.1) 04/26/23 05:38 Chloride 103 mmol/L (98-107) 04/26/23 05:38 Carbon Dioxide 29.0 mmol/L (21.0-32.0) 04/26/23 05:38 Anion Gap 2 (5-15) L 04/26/23 05:38 BUN 13 mg/dL (7-18) 04/26/23 05:38 Creatinine 0.80 mg/dL (0.70-1.30) 04/26/23 05:38 Est GFR (MDRD) Af Amer 126 mL/min (>60) 04/26/23 05:38 Est GFR (MDRD) Non-Af 104 mL/min (>60) 04/26/23 05:38 BUN/Creatinine Ratio 16.2 RATIO (10-20) 04/26/23 05:38 Glucose 238 mg/dL (74-106) H 04/26/23 05:38 Vancomycin Trough 11.5 ug/mL (5.0-15.0) 04/27/23 00:43 Microbiology Microbiology: Microbiology 04/25/23 12:53 Wound - Other Gram Stain - Final 04/25/23 12:53 Wound - 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 This was drawn just 9.75hrs post-dose. Per aminoglycoside dosing calculator, a new dose of 2000mg q12h will give an estimated new trough of 15.3. This will be initiated now, and another trough will be drawn prior to fourth dose. Pharmacy Service will continue to monitor and adjust dosing as required. Follow-Up Labs Follow-Up Labs: Trough: Vancomycin Date/Time Labs Ordered Labs to be done on [date and time ordered]: 04/28/23 @3033
[2023-04-27] MEDS: Vancomycin HCl 2,000 MG in 0.9% Normal Saline (500mL Bag) 500 ML 250 MG IV ×2 (02:00→15:07)
[2023-04-27] MEDS: 0.9% Saline Lock 10 ML Syringe IV (03:54)
[2023-04-27] MEDS: hydrALAZINE 20 MG/ML Vial 5 MG IV (03:54)
[2023-04-27] MEDS: Ampicillin/Sulbactam 3 GM in 0.9% Normal Saline (100mL MB+) 100 ML IV ×3 (05:01→21:20)
--- NOTE | 2023-04-27 06:22 | PCM.CONS.B ---
Consult Date of Consult: 04/27/23 Reason for Consult Status post open incision and drainage of scrotal abscess and washout. Less redness around the wound he has been tolerating wet-to-dry dressings dressing okay continue with a diet dressing also had to place a Ledbetter catheter for urethral stricture he will need to go home with a catheter but looks like everything is healing up nicely continue wet-to-dry dressings and antibiotics
[2023-04-27] MEDS: metroNIDAZOLE 500 MG/100 ML BAG 100 MG IV ×3 (06:29→21:20)
[2023-04-27] MEDS: Insulin Lispro 100 UNIT/ML INSULN.PEN SC ×4 (06:32→21:24)
[2023-04-27 06:34] LABS: Absolute Lymphocyte Count 1.17 X10^3/uL (0.83-4.51); Absolute Neutrophil Count 3.4 X10^3/uL (2.0-7.7); Basophil# 0.03 X10^3/uL; Basophil% 0.5 % (0-1); Eosinophil# 0.18 X10^3/uL; Eosinophils% 3.3 % (0-5); Hematocrit 39.2 % (40-54); Hemoglobin 13.6 g/dL (13.0-16.5); Lymphocyte # 1.17 X10^3/ul (0.83-4.51); Lymphocyte % 21.4 % (19-41); Mean Corp Hgb Conc 34.7 g/dL (32-36); Mean Corpuscular Hgb 30.2 pg (27.0-32.0); Mean Corpuscular Volume 86.9 fL (80-94); Mean Platelet Vol. 9.5 fl (6.2-12.0); Monocyte# 0.64 X10^3/uL; Monocyte% 11.7 % (0-10); NRBC Flagged by Analyzer 0 % (0-5); Neutrophil # 3.43 X10^3/uL (2.7-7.7); Neutrophil % 62.7 % (47-70); Platelet Count 218 K/mm3 (150-450); RBC Distribution Width SD 38.4 fl (35.1-43.9); Red Blood Count 4.51 M/mm3 (4.6-6.2); White Blood Count 5.5 K/mm3 (4.4-11.0)
[2023-04-27 07:05] LABS: Bedside Glucose 211 mg/dL (74-106)
[2023-04-27 07:08] LABS: Anion Gap 6 (5-15); BUN 14 mg/dL (7-18); BUN/Creat Ratio 21.9 RATIO (10-20); Calcium,Total 8.4 mg/dL (8.5-10.1); Chloride 107 mmol/L (98-107); Creatinine, Serum 0.64 mg/dL (0.70-1.30); EST Glomerular Filtration Rate 135 mL/min (>60); Est Glom Filt Rate - Afr Amer 163 mL/min (>60); Estimated Creatinine Clearance 125.15 ml/min; Glucose 233 mg/dL (74-106); Potassium 3.9 mmol/L (3.5-5.1); Sodium Level 139 mmol/L (136-145)
[2023-04-27] MEDS: oxyCODONE 5 MG Tablet PO ×3 (07:44→22:44)
[2023-04-27] MEDS: Acetaminophen 325 MG Tablet 650 MG PO ×3 (07:45→22:45)
--- NOTE | 2023-04-27 07:57 | PCM.PN.HOSP ---
Reason for Visit Reason for Visit: Diagnoses Sepsis, unspecified organism (04/24/23) Type 2 diabetes mellitus with hyperglycemia (04/24/23) Acute kidney failure, unspecified (04/24/23) Inflammatory disorders of scrotum (04/24/23) Subjective Subjective Patient is a 62-year-old gentleman with recent hospitalization for scrotal wall cellulitis with abscess who underwent bedside I&D discharged on antibiotics based on cultures presented back with worsening symptoms. Patient was found to have recurrent scrotal wall abscess admitted for subsequent inpatient management Objective Data Objective Data Vital Signs: Vital Signs Temp Pulse Resp BP Pulse Ox O2 Del Method O2 Flow Rate 98.6 F 80 16 168/94 H 96 Room Air 2 04/27/23 03:40 04/27/23 03:54 04/27/23 03:40 04/27/23 03:54 04/27/23 07:32 04/27/23 07:32 04/25/23 13:34 Oxygen Flow Rate (L/min) 2 Oxygen Delivery Method Room Air Weight: 78.4 kg Body Mass Index (BMI) 24.7 Intake & Output: Intake and Output for Last 24 Hours 04/25/23 04/26/23 04/27/23 23:59 23:59 23:59 Intake Total 2821.63 / 4021.63 3855.25 / 4255.25 1652 / 1652 Output Total 3725 / 5525 3100 / 5250 3625 / 3625 Balance -903.37 / -1503.37 755.25 / -994.75 -1972 / Lab / Micro Data 04/27/23 06:21 04/27/23 06:21 Labs: Laboratory Results - last 24 hr 04/26/23 11:38: POC Glucose 228 H 04/26/23 16:36: POC Glucose 243 H 04/26/23 21:52: POC Glucose 199 H 04/27/23 00:43: Vancomycin Trough 11.5 04/27/23 06:21: WBC 5.5, RBC 4.51 L, Hgb 13.6, Hct 39.2 L, MCV 86.9, MCH 30.2, MCHC 34.7, RDW Std Deviation 38.4, RDW Coeff of Charlene 12.0, Plt Count 218, MPV 9.5, Immature Gran % (Auto) 0.400, Neut % (Auto) 62.7, Lymph % (Auto) 21.4, [place] % (Auto) 11.7 H, Eos % (Auto) 3.3, Baso % (Auto) 0.5, Absolute Neuts (auto) 3.4, Absolute Lymphs (auto) 1.17, Nucleated RBC % 0, Sodium 139, Potassium 3.9, Chloride 107, Carbon Dioxide 26.0, Anion Gap 6, BUN 14, Creatinine 0.64 L, Estim Creat Clear Calc 125.15, Est GFR (MDRD) Af Amer 163, Est GFR (MDRD) Non-Af 135, BUN/Creatinine Ratio 21.9 H, Glucose 233 H, Calcium 8.4 L 04/27/23 06:31: POC Glucose 211 H Micro: Microbiology 04/25/23 12:53 Wound - Other Gram Stain - Final 04/25/23 12:53 Wound - Other Wound Culture - Preliminary Escherichia coli Alpha hemolytic organism Gram positive organism Presumptive C albicans Rhythm Strip Rhythm Strip: Sinus Rhythm Rate: 85 Ectopy: None Physical Exam Narrative GENERAL: cooperative HEENT: Atraumatic; normocephalic EYES; Anicteric, Normal Conjunctiva NECK; supple, normal thyroid, RESPIRATORY: Diminished to auscultation CARDIOVASCULAR: Regular S1 S2, GI: soft, normoactive bowel sounds, : Ledbetter catheter in place, patient incision clean and granulating EXTREMITIES: No edema, no clubbing, MUSCULOSKELETAL: no muscle wasting NEURO: Awake; no lateralizing signs. SKIN: As described above PSYCH; Flat affect appreciated Psych: Cooperative Assessment & Plan Assessment/Plan (1) Hyperglycemia due to diabetes mellitus: (2) Acute kidney injury: (3) Cellulitis of scrotum: (4) Scrotal abscess: PLAN: Plan Patient is a 62-year-old gentleman with recent hospitalization for scrotal wall cellulitis with abscess who underwent bedside I&D discharged on antibiotics based on cultures presented back with worsening symptoms. Patient was found to have recurrent scrotal wall abscess admitted for subsequent inpatient management 1. Scrotal wall abscess/cellulitis ? Status postIncision and drainage of a large scrotal abscess and irrigation with Pulsavac on 04/25/2023. Cultures so far positive for E. coli in addition to alphahemolytic organism, gram-positive organism and presented C. albicans. Patient remains on vancomycin and ampicillin. Also seen by ID notes and recommendations reviewed 2. Urethral stricture ? Status post cystoscopy and dilation of a bulbar urethral stricture and placement of Ledbetter catheter on 04/25/2023 3. Diabetes mellitus type 2 ? Patient presented with hyperglycemia oral agent held placed on Accu-Cheks before meals and at bedtime with sliding scale coverage in addition to continuation of patient long-acting insulin. Patient was placed on 1800 ADA diet 4. Dyslipidemia -Patient is on statin therapy, continued at home dose 5. Pseudo hyponatremia -Sodium of 127 on CMP. Glucose of 632. Corrected sodium of 136. 6. MARILYN?resolved -Creatinine of 1.37 on presentation. Review of records shows baseline creatinine of less than 1. IV hydration as above. Trend BMP. Avoid nephrotoxics. -04/25: Creatinine 0.8 with hydration, continue supportive care 7. Tobacco dependence - Counseled on cessation, offered nicotine patch for tobacco cravings 6. DVT prophylaxis - On enoxaparin Time spent in the patient's overall evaluation,decision-making process, review of diagnostic data, adjustment of management, discussion with other providers, nursing nursing and ancillary staff involved in patient's care documentation, 50 Minutes Charges/Coding Visit Charges Inpatient E&M: 88232 [facility] Hosp L3
[2023-04-27] MEDS: Aspirin E.C. 81 MG Tablet PO (08:40)
[2023-04-27] MEDS: Enoxaparin 40 MG/0.4 ML Syringe SC (08:41)
[2023-04-27] MEDS: Insulin Glargine-YFGN 100 UNIT/ML Pen 30 UNIT SC ×2 (08:41→21:23)
[2023-04-27 11:48] LABS: Bedside Glucose 220 mg/dL (74-106)
[2023-04-27 16:58] LABS: Bedside Glucose 251 mg/dL (74-106)
[2023-04-27] MEDS: Atorvastatin Calcium 80 MG Tablet PO (21:24)
[2023-04-27 21:51] LABS: Bedside Glucose 311 mg/dL (74-106)
[2023-04-28] VITALS (7 sets, daily range): BP systolic 142–178; BP diastolic 90–92; PULSE 72–82; RESP 16–18; TEMP 36.2–36.7; O2SAT 96–99; BMI 24.5
[2023-04-28] MEDS: Vancomycin HCl 2,000 MG in 0.9% Normal Saline (500mL Bag) 500 ML 250 MG IV ×2 (02:30→15:50)
[2023-04-28 06:02] LABS: Absolute Lymphocyte Count 1.76 X10^3/uL (0.83-4.51); Absolute Neutrophil Count 3.3 X10^3/uL (2.0-7.7); Basophil# 0.05 X10^3/uL; Basophil% 0.8 % (0-1); Eosinophil# 0.38 X10^3/uL; Eosinophils% 5.9 % (0-5); Hematocrit 39.5 % (40-54); Hemoglobin 13.1 g/dL (13.0-16.5); Lymphocyte # 1.76 X10^3/ul (0.83-4.51); Lymphocyte % 27.3 % (19-41); Mean Corp Hgb Conc 33.2 g/dL (32-36); Mean Corpuscular Hgb 29.3 pg (27.0-32.0); Mean Corpuscular Volume 88.4 fL (80-94); Mean Platelet Vol. 9.9 fl (6.2-12.0); Monocyte# 0.91 X10^3/uL; Monocyte% 14.1 % (0-10); NRBC Flagged by Analyzer 0 % (0-5); Neutrophil # 3.33 X10^3/uL (2.7-7.7); Neutrophil % 51.7 % (47-70); Platelet Count 225 K/mm3 (150-450); RBC Distribution Width CV 11.9 % (11.6-14.6); RBC Distribution Width SD 38.3 fl (35.1-43.9); Red Blood Count 4.47 M/mm3 (4.6-6.2); White Blood Count 6.4 K/mm3 (4.4-11.0)
[2023-04-28] MEDS: metroNIDAZOLE 500 MG/100 ML BAG 100 MG IV ×3 (06:11→21:52)
[2023-04-28] MEDS: Ampicillin/Sulbactam 3 GM in 0.9% Normal Saline (100mL MB+) 100 ML IV ×3 (06:11→21:51)
[2023-04-28] MEDS: Insulin Lispro 100 UNIT/ML INSULN.PEN SC ×4 (06:11→21:53)
[2023-04-28 07:06] LABS: Bedside Glucose 243 mg/dL (74-106)
[2023-04-28 07:07] LABS: Anion Gap 7 (5-15); BUN 13 mg/dL (7-18); BUN/Creat Ratio 22.4 RATIO (10-20); Calcium,Total 8.5 mg/dL (8.5-10.1); Chloride 108 mmol/L (98-107); Creatinine, Serum 0.58 mg/dL (0.70-1.30); EST Glomerular Filtration Rate 151 mL/min (>60); Est Glom Filt Rate - Afr Amer 182 mL/min (>60); Glucose 236 mg/dL (74-106); Potassium 3.9 mmol/L (3.5-5.1); Sodium Level 138 mmol/L (136-145)
[2023-04-28] MEDS: Aspirin E.C. 81 MG Tablet PO (07:36)
[2023-04-28] MEDS: Acetaminophen 325 MG Tablet 650 MG PO ×3 (07:37→23:11)
[2023-04-28] MEDS: oxyCODONE 5 MG Tablet PO ×3 (07:37→23:12)
[2023-04-28] MEDS: Insulin Glargine-YFGN 100 UNIT/ML Pen 30 UNIT SC ×2 (07:38→21:53)
[2023-04-28] MEDS: Enoxaparin 40 MG/0.4 ML Syringe SC (07:38)
--- NOTE | 2023-04-28 07:55 | PCM.PN.HOSP ---
Reason for Visit Reason for Visit: Diagnoses Sepsis, unspecified organism (04/24/23) Type 2 diabetes mellitus with hyperglycemia (04/24/23) Acute kidney failure, unspecified (04/24/23) Inflammatory disorders of scrotum (04/24/23) Subjective Subjective Patient final wound cultures as below. Plan is to continue with current antibiotic therapy in anticipation of possible discharge on 04/29/2023 Escherichia coli Amount Growth 1+ Organism 2 Streptococcus sanguinis Amount Growth 2+ Organism 3 Enterococcus faecalis Amount Growth 2+ Organism 4 Presumptive C albicans Amount Growth Rare Objective Data Objective Data Vital Signs: Vital Signs Temp Pulse Resp BP Pulse Ox O2 Del Method O2 Flow Rate 98.0 F 79 18 157/91 H 98 Room Air 2 04/28/23 04:15 04/28/23 04:15 04/28/23 04:15 04/28/23 04:15 04/28/23 04:15 04/28/23 04:15 04/25/23 13:34 Oxygen Flow Rate (L/min) 2 Oxygen Delivery Method Room Air Weight: 77.7 kg Body Mass Index (BMI) 24.5 Intake & Output: Intake and Output for Last 24 Hours 04/26/23 04/27/23 04/28/23 23:59 23:59 23:59 Intake Total 3855.25 / 4255.25 3876 / 4116 1472 / 1472 Output Total 3100 / 5250 7475 / 8975 2150 / 2150 Balance 755.25 / -994.75 -3599 / -4859 -678 / -678 Lab / Micro Data 04/28/23 05:02 04/28/23 05:02 Labs: Laboratory Results - last 24 hr 04/27/23 11:18: POC Glucose 220 H 04/27/23 16:27: POC Glucose 251 H 04/27/23 21:22: POC Glucose 311 H 04/28/23 05:02: WBC 6.4, RBC 4.47 L, Hgb 13.1, Hct 39.5 L, MCV 88.4, MCH 29.3, MCHC 33.2, RDW Std Deviation 38.3, RDW Coeff of Charlene 11.9, Plt Count 225, MPV 9.9, Immature Gran % (Auto) 0.200, Neut % (Auto) 51.7, Lymph % (Auto) 27.3, Collin % (Auto) 14.1 H, Eos % (Auto) 5.9 H, Baso % (Auto) 0.8, Absolute Neuts (auto) 3.3, Absolute Lymphs (auto) 1.76, Nucleated RBC % 0, Sodium 138, Potassium 3.9, Chloride 108 H, Carbon Dioxide 23.0, Anion Gap 7, BUN 13, Creatinine 0.58 L, Estim Creat Clear Calc 138.10, Est GFR (MDRD) Af Amer 182, Est GFR (MDRD) Non-Af 151, BUN/Creatinine Ratio 22.4 H, Glucose 236 H, Calcium 8.5 04/28/23 06:10: POC Glucose 243 H Micro: Microbiology 04/25/23 12:53 Wound - Other Gram Stain - Final 04/25/23 12:53 Wound - Other Wound Culture - Final Escherichia coli Streptococcus sanguinis Enterococcus faecalis Presumptive C albicans 04/24/23 18:03 Blood Culture (Wb) - Right Forearm Blood Culture - Preliminary No growth in 48 hours. 04/24/23 17:30 Blood Culture (Wb) - Venous Blood Culture - Preliminary No growth in 48 hours. Rhythm Strip Rhythm Strip: Sinus Rhythm Rate: 85 Ectopy: None Physical Exam Narrative GENERAL: cooperative HEENT: Atraumatic; normocephalic EYES; Anicteric, Normal Conjunctiva NECK; supple, normal thyroid, RESPIRATORY: Diminished to auscultation CARDIOVASCULAR: Regular S1 S2, GI: soft, normoactive bowel sounds, : Ledbetter catheter in place, patient incision clean and granulating EXTREMITIES: No edema, no clubbing, MUSCULOSKELETAL: no muscle wasting NEURO: Awake; no lateralizing signs. SKIN: As described above PSYCH; Flat affect appreciated Psych: Cooperative Assessment & Plan Assessment/Plan (1) Scrotal abscess: PLAN: Plan Patient is a 62-year-old gentleman with recent hospitalization for scrotal wall cellulitis with abscess who underwent bedside I&D discharged on antibiotics based on cultures presented back with worsening symptoms. Patient was found to have recurrent scrotal wall abscess admitted for subsequent inpatient management 1. Scrotal wall abscess/cellulitis ? Status postIncision and drainage of a large scrotal abscess and irrigation with Pulsavac on 04/25/2023. Cultures so far positive for E. coli in addition to alphahemolytic organism, gram-positive organism and presented C. albicans. Patient remains on vancomycin and ampicillin. Also seen by ID notes and recommendations reviewed -04/28/2023 7 patient final wound cultures as below. Plan is to continue with current antibiotic therapy in anticipation of possible discharge on 04/29/2023 Escherichia coli Amount Growth 1+ Organism 2 Streptococcus sanguinis Amount Growth 2+ Organism 3 Enterococcus faecalis Amount Growth 2+ Organism 4 Presumptive C albicans Amount Growth Rare 2. Urethral stricture ? Status post cystoscopy and dilation of a bulbar urethral stricture and placement of Ledbetter catheter on 04/25/2023 3. Diabetes mellitus type 2 ? Patient presented with hyperglycemia oral agent held placed on Accu-Cheks before meals and at bedtime with sliding scale coverage in addition to continuation of patient long-acting insulin. Patient was placed on 1800 ADA diet 4. Dyslipidemia -Patient is on statin therapy, continued at home dose 5. Pseudo hyponatremia -Sodium of 127 on CMP. Glucose of 632. Corrected sodium of 136. 6. MARILYN?resolved -Creatinine of 1.37 on presentation. Review of records shows baseline creatinine of less than 1. IV hydration as above. Trend BMP. Avoid nephrotoxics. -04/25: Creatinine 0.8 with hydration, continue supportive care 7. Tobacco dependence - Counseled on cessation, offered nicotine patch for tobacco cravings 6. DVT prophylaxis - On enoxaparin Time spent in the patient's overall evaluation,decision-making process, review of diagnostic data, adjustment of management, discussion with other providers, nursing nursing and ancillary staff involved in patient's care documentation, 35 Minutes Charges/Coding Visit Charges Inpatient E&M: 00829 Subs Hosp L2
[2023-04-28 11:34] LABS: Bedside Glucose 207 mg/dL (74-106)
[2023-04-28 14:27] LABS: Vancomycin, Trough Level 16.5 ug/mL (5.0-15.0)
--- NOTE | 2023-04-28 14:54 | PCM.RX.CS ---
Consult Antibiotic Management Pharmacy has been consulted to manage selected antiobiotic: Vancomycin Type of Intervention Type of Consult: Follow-up Labs Labs: Sodium 138 mmol/L (136-145) 04/28/23 05:02 Potassium 3.9 mmol/L (3.5-5.1) 04/28/23 05:02 Chloride 108 mmol/L (98-107) H 04/28/23 05:02 Carbon Dioxide 23.0 mmol/L (21.0-32.0) 04/28/23 05:02 Anion Gap 7 (5-15) 04/28/23 05:02 BUN 13 mg/dL (7-18) 04/28/23 05:02 Creatinine 0.58 mg/dL (0.70-1.30) L 04/28/23 05:02 Est GFR (MDRD) Af Amer 182 mL/min (>60) 04/28/23 05:02 Est GFR (MDRD) Non-Af 151 mL/min (>60) 04/28/23 05:02 BUN/Creatinine Ratio 22.4 RATIO (10-20) H 04/28/23 05:02 Glucose 236 mg/dL (74-106) H 04/28/23 05:02 Vancomycin Trough 16.5 ug/mL (5.0-15.0) H 04/28/23 13:20 Microbiology Microbiology: Microbiology 04/25/23 12:53 Wound - Other Gram Stain - Final 04/25/23 12:53 Wound - Other Wound Culture - Final Escherichia coli Streptococcus sanguinis Enterococcus faecalis Presumptive C albicans 04/24/23 18:03 Blood Culture (Wb) - Right Forearm Blood Culture - Preliminary No growth in 48 hours. 04/24/23 17:30 Blood Culture (Wb) - Venous Blood Culture - Preliminary No growth in 48 hours. Pharmacy Plan for Drug Dosing Pharmacy Plan for Drug Dosing: VANCOMYCIN LEVEL RECEIVED Current Vancomycin Dose: 2000mg IV Q12hr Number of Doses Received: 3 (of current regimen) Vancomycin Level: 16.5 Hours Since Last Dose: 11.25hr Renal Function: 0.58 Renal Function Trend: stable Lab/Micro: Cultures growing multiple organisms, including enterococcus Vancomycin Plan/Comments: Patient had a trough drawn which resulted in a value of 16.5 (goal 15-20). patient is within therapeutic goal. Will continue current dose and recheck a trough in 2 days to assess dosing at that time. Pending Level: 04/30/23 @4848 Pharmacy Service will continue to monitor and adjust dosing as required.
[2023-04-28 16:48] LABS: Bedside Glucose 173 mg/dL (74-106)
[2023-04-28] MEDS: 0.9% Saline Lock 10 ML Syringe IV (18:24)
[2023-04-28] MEDS: hydrALAZINE 20 MG/ML Vial 5 MG IV (18:24)
[2023-04-28] MEDS: Atorvastatin Calcium 80 MG Tablet PO (21:52)
[2023-04-28 21:57] LABS: Bedside Glucose 167 mg/dL (74-106)
[2023-04-29] MEDS: Vancomycin HCl 2,000 MG in 0.9% Normal Saline (500mL Bag) 500 ML 250 MG IV (01:35)
[2023-04-29 03:32] VITALS: BMI 24.6
[2023-04-29 03:45] VITALS: BP 145/82; PULSE 74; RESP 18; TEMP 36.7; O2SAT 97
[2023-04-29] MEDS: Ampicillin/Sulbactam 3 GM in 0.9% Normal Saline (100mL MB+) 100 ML IV ×2 (06:05→14:07)
[2023-04-29] MEDS: metroNIDAZOLE 500 MG/100 ML BAG 100 MG IV ×2 (06:06→14:07)
[2023-04-29] MEDS: Insulin Lispro 100 UNIT/ML INSULN.PEN SC ×3 (06:06→16:57)
[2023-04-29 06:44] LABS: Bedside Glucose 198 mg/dL (74-106)
[2023-04-29 06:46] LABS: Absolute Lymphocyte Count 1.79 X10^3/uL (0.83-4.51); Absolute Neutrophil Count 2.9 X10^3/uL (2.0-7.7); Basophil# 0.03 X10^3/uL; Basophil% 0.5 % (0-1); Eosinophil# 0.47 X10^3/uL; Hematocrit 39.6 % (40-54); Hemoglobin 13.2 g/dL (13.0-16.5); Lymphocyte # 1.79 X10^3/ul (0.83-4.51); Lymphocyte % 30.4 % (19-41); Mean Corp Hgb Conc 33.3 g/dL (32-36); Mean Corpuscular Hgb 29.5 pg (27.0-32.0); Mean Corpuscular Volume 88.6 fL (80-94); Mean Platelet Vol. 9.6 fl (6.2-12.0); Monocyte# 0.71 X10^3/uL; Monocyte% 12.1 % (0-10); NRBC Flagged by Analyzer 0 % (0-5); Neutrophil # 2.86 X10^3/uL (2.7-7.7); Neutrophil % 48.7 % (47-70); Platelet Count 256 K/mm3 (150-450); RBC Distribution Width CV 12.3 % (11.6-14.6); RBC Distribution Width SD 39.7 fl (35.1-43.9); Red Blood Count 4.47 M/mm3 (4.6-6.2); White Blood Count 5.9 K/mm3 (4.4-11.0)
[2023-04-29 07:11] LABS: Anion Gap 5 (5-15); BUN 21 mg/dL (7-18); BUN/Creat Ratio 32.2 RATIO (10-20); Calcium,Total 8.5 mg/dL (8.5-10.1); Chloride 108 mmol/L (98-107); Creatinine, Serum 0.65 mg/dL (0.70-1.30); EST Glomerular Filtration Rate 132 mL/min (>60); Est Glom Filt Rate - Afr Amer 160 mL/min (>60); Estimated Creatinine Clearance 123.23 ml/min; Glucose 197 mg/dL (74-106); Potassium 4.2 mmol/L (3.5-5.1); Sodium Level 138 mmol/L (136-145)
[2023-04-29 09:05] VITALS: BP 159/86; PULSE 72; RESP 16; TEMP 36.6; O2SAT 98
[2023-04-29] MEDS: Acetaminophen 325 MG Tablet 650 MG PO ×2 (09:09→16:15)
[2023-04-29] MEDS: oxyCODONE 5 MG Tablet PO ×2 (09:09→16:14)
[2023-04-29] MEDS: Enoxaparin 40 MG/0.4 ML Syringe SC (09:11)
[2023-04-29] MEDS: Aspirin E.C. 81 MG Tablet PO (09:11)
--- NOTE | 2023-04-29 10:00 | CASEMGMT ---
TROY OCASIO in to discuss needs at discharge. Patient and significant other concerned about third dressing change tomorrow evening as significant other will be out of town. RN CM encouraged patient to discuss with Dr. Nieto about missing dressing change. Patient and significant other had no further questions or concerns.
[2023-04-29] MEDS: Insulin Glargine-YFGN 100 UNIT/ML Pen 30 UNIT SC (11:24)
[2023-04-29 11:46] LABS: Bedside Glucose 281 mg/dL (74-106)
--- NOTE | 2023-04-29 13:33 | PCM.DC.SUM ---
Providers Date of Admission: 04/24/23 Date of Discharge: 04/29/23 Primary Care Physician: Dr. Mario Chanel MD Consultations 04/24/23 20:39 Consult: Urology Routine Consulting Provider: Winston Nieto Reason for Consult: Infected draining abscess of scrotum EMERGENT Consult: No MD Notified: Yes Date Notified: 04/24/23 Time Notified: 19:24 Method of Notification: ED Physician Initiated 04/26/23 07:50 Consult: Infectious Disease Routine Consulting Provider: Sam To Reason for Consult: recurrent scrotal abscesses, recently w/ staph epi and anaerobic cocci EMERGENT Consult: No MD Notified: Yes Date Notified: 04/26/23 Time Notified: 07:50 Method of Notification: Text Comments:: Repeat I&D and repeat cx pending Reason For Visit: DRAINING ABSCESS OF SCROTUM Diagnosis Discharge Diagnosis (1) Scrotal abscess: Status: Acute Code(s): N49.2 - Inflammatory disorders of scrotum Plan Patient is a 62-year-old gentleman with recent hospitalization for scrotal wall cellulitis with abscess who underwent bedside I&D discharged on antibiotics based on cultures presented back with worsening symptoms. Patient was found to have recurrent scrotal wall abscess admitted for subsequent inpatient management 1. Scrotal wall abscess/cellulitis ? Status postIncision and drainage of a large scrotal abscess and irrigation with Pulsavac on 04/25/2023. Cultures so far positive for E. coli in addition to alphahemolytic organism, gram-positive organism and presented C. albicans. Patient remains on vancomycin and ampicillin. Also seen by ID notes and recommendations reviewed -04/28/2023 7 patient final wound cultures as below. Plan is to continue with current antibiotic therapy in anticipation of possible discharge on 04/29/2023 Escherichia coli Amount Growth 1+ Organism 2 Streptococcus sanguinis Amount Growth 2+ Organism 3 Enterococcus faecalis Amount Growth 2+ Organism 4 Presumptive C albicans Amount Growth Rare -Discharge antibiotics as recommended by infectious disease-discharged on Augmentin 2. Urethral stricture ? Status post cystoscopy and dilation of a bulbar urethral stricture and placement of Ledbetter catheter on 04/25/2023 3. Diabetes mellitus type 2 ? Patient presented with hyperglycemia oral agent held placed on Accu-Cheks before meals and at bedtime with sliding scale coverage in addition to continuation of patient long-acting insulin. Patient was placed on 1800 ADA diet 4. Dyslipidemia -Patient is on statin therapy, continued at home dose 5. Pseudo hyponatremia -Sodium of 127 on CMP. Glucose of 632. Corrected sodium of 136. 6. MARILYN?resolved -Creatinine of 1.37 on presentation. Review of records shows baseline creatinine of less than 1. IV hydration as above. Trend BMP. Avoid nephrotoxics. -04/25: Creatinine 0.8 with hydration, continue supportive care 7. Tobacco dependence - Counseled on cessation, offered nicotine patch for tobacco cravings 6. DVT prophylaxis - On enoxaparin Time spent in the patient's overall evaluation,decision-making process, review of diagnostic data, adjustment of management, discussion with other providers, nursing nursing and ancillary staff involved in patient's care documentation, 35 Minutes Medications at Discharge Home Medications gabapentin 300 mg tablet 300 mg PO TID nerve pain 04/24/22 insulin lispro 100 unit/mL subcutaneous solution (Humalog U-100 Insulin) See Protocol subcut DAILY diabetes 04/24/22 aspirin 81 mg tablet,delayed release 81 mg PO DAILY blood thinner 05/01/22 atorvastatin 80 mg tablet 80 mg PO TID cholesterol 05/01/22 glimepiride 2 mg tablet 2 mg PO DAILY diabetes 05/01/22 insulin glargine 100 unit/mL (3 mL) subcutaneous pen (Lantus Solostar U-100 Insulin) 52 unit subcut DAILY diabetes 04/24/23 amoxicillin 875 mg-potassium clavulanate 125 mg tablet 1 tab PO BID #10 tabs 04/29/23 Hospital Course Summary of Care Provided Minutes Spent on Discharge: 35 Physical Exam Narrative GENERAL: cooperative HEENT: Atraumatic; normocephalic EYES; Anicteric, Normal Conjunctiva NECK; supple, normal thyroid, RESPIRATORY: Diminished to auscultation CARDIOVASCULAR: Regular S1 S2, GI: soft, normoactive bowel sounds, : Ledbetter catheter in place, patient incision clean and granulating EXTREMITIES: No edema, no clubbing, MUSCULOSKELETAL: no muscle wasting NEURO: Awake; no lateralizing signs. SKIN: As described above PSYCH; Flat affect appreciated Psych: Cooperative Weight / BMI Weight Weight: 77.9 kg Body Mass Index (BMI) 24.6 ABG / Lab / Microbiology Data 04/29/23 05:27 04/29/23 05:27 Laboratory: Laboratory Results - last 24 hr 04/28/23 13:20: Vancomycin Trough 16.5 H 04/28/23 16:26: POC Glucose 173 H 04/28/23 21:11: POC Glucose 167 H 04/29/23 05:27: WBC 5.9, RBC 4.47 L, Hgb 13.2, Hct 39.6 L, MCV 88.6, MCH 29.5, MCHC 33.3, RDW Std Deviation 39.7, RDW Coeff of Charlene 12.3, Plt Count 256, MPV 9.6, Immature Gran % (Auto) 0.300, Neut % (Auto) 48.7, Lymph % (Auto) 30.4, Haskell % (Auto) 12.1 H, Eos % (Auto) 8.0 H, Baso % (Auto) 0.5, Absolute Neuts (auto) 2.9, Absolute Lymphs (auto) 1.79, Nucleated RBC % 0, Sodium 138, Potassium 4.2, Chloride 108 H, Carbon Dioxide 25.0, Anion Gap 5, BUN 21 H, Creatinine 0.65 L, Estim Creat Clear Calc 123.23, Est GFR (MDRD) Af Amer 160, Est GFR (MDRD) Non-Af 132, BUN/Creatinine Ratio 32.2 H, Glucose 197 H, Calcium 8.5 04/29/23 06:04: POC Glucose 198 H 04/29/23 11:23: POC Glucose 281 H Microbiology: Microbiology 04/25/23 12:53 Wound - Other Gram Stain - Final 04/25/23 12:53 Wound - Other Wound Culture - Final Escherichia coli Streptococcus sanguinis Enterococcus faecalis Presumptive C albicans 04/25/23 12:53 Wound - Other Anaerobic Culture - Preliminary Gram positive brian 04/24/23 18:03 Blood Culture (Wb) - Right Forearm Blood Culture - Preliminary No growth in 48 hours. 04/24/23 17:30 Blood Culture (Wb) - Venous Blood Culture - Preliminary No growth in 48 hours. D/C Instructions Discharge Diet: 1800 Calorie Control Diet Discharge Activity: Return to Normal Activity Call your doctor if your incision/area has: Continuous Slow Oozing, Sudden Increased Bleeding, Increased Pain/ Swelling, Increased Redness, Foul Smelling Discharge and Swelling at the incision site Call your doctor if you observe: Fever of 101 or Higher, Shortness of breath, Fainting spells and Chest pain Meaningful Use Info Meaningful Use Diagnoses (Choose all that apply): None applicable Discharge Plan Admission Admit Date/Time: 04/24/23 19:15 Attending Provider: Dylan Carey Primary Care Provider: Mario Chanel Consulting Providers: Jabari Vicente; Winston Nieto; Sam To; Porsche Delaney Discharge Orders/Prescriptions Prescriptions: New amoxicillin-pot clavulanate 875-125 mg tablet 1 tab PO BID Qty: 10 0RF Continued insulin lispro [Humalog U-100 Insulin] 100 unit/mL Solution See Protocol SUBCUT DAILY Protocol: 1. Sliding Scale Insulin Low Dosing Condition: 150-224 mg/dl = 1 unit Condition: 225-299 mg/dl = 2 units Condition: 300-374 mg/dl = 3 units Condition: 375-499 mg/dl = 4 units Condition: Greater than 449 call physician Protocol Text: - Use for Total Daily Dose of Insulin 15-27 units - Thin, elderly, renal patients LOW DOSING ALGORITHM gabapentin 300 mg Tablet 300 mg PO TID Hold Instructions: product no longer available atorvastatin 80 mg Tablet 80 mg PO TID aspirin 81 mg Tablet,Delayed Release (Dr/Ec) 81 mg PO DAILY glimepiride 2 mg Tablet 2 mg PO DAILY insulin glargine [Lantus Solostar U-100 Insulin] 100 unit/mL (3 mL) insulin pen 52 unit SUBCUT DAILY Referrals / Follow Up: Mario Chanel MD [Primary Care Provider] - 05/06/23 2:20 am (Please arrive at 2:05. Bring insurance cards and ID.) Disposition Disposition (needs filled in before D/C Order can be placed): Home, Self Care Charges/Coding Visit Charges Inpatient E&M: 86838 Disch Hosp >30min
[2023-04-29 13:54] VITALS: BP 150/85; PULSE 77; RESP 16; TEMP 36.4; O2SAT 98
[2023-04-29 16:09] VITALS: BP 144/81; PULSE 69; RESP 16; TEMP 36.7; O2SAT 95
--- NOTE | 2023-04-29 16:57 | PCM.PN.ID ---
Physical Exam Narrative Feeling better, no fever, no n/v/d. Const alert and no apparent distress General Appearance: cooperative Resp normal air movement and clear to auscultation bilaterally Cardio regular rate and regular rhythm Skin no rashes or lesions noted ID ID: Route of nutrition/ use of supplements: [] Nutritional Intake: [] IV Site: [] Ledbetter Catheter: [] Assessment & Plan Assessment/Plan (1) Scrotal abscess: PLAN: Surg cx with polymicrobial growth s/p I&D by Dr. Nieto. On vanc, will change flagyl to unasyn. Recommend glucose control to help decrease chance of recurrence. A1c is 13.5. Ok for home with 5 more days po augmentin, wrote rx. Will sign off (2) Hyperglycemia due to diabetes mellitus:
[2023-04-29 17:49] LABS: Bedside Glucose 180 mg/dL (74-106)
== END 2023-04-29 18:11 | disposition home or self-care (01) | DRG 717 ==
LOC: ED 19:23 → ICU 19:41 → PCU 04-25 20:17
PROVIDERS: Internal Medicine; Urology; Admitting Provider Hospitalist; Emergency Provider Emergency Medicine; PCP Internal Medicine; Visit Provider Internal Medicine
PROC: 0V950ZZ Drainage of Scrotum, Open Approach (ICD-10-PCS; principal; 2023-04-25 10:40)
DX: N49.2 Inflammatory disorders of scrotum (principal); N17.9 Acute kidney failure, unspecified; E87.1 Hypo-osmolality and hyponatremia; E11.42 Type 2 diabetes mellitus with diabetic polyneuropathy; B95.7 Other staphylococcus as the cause of diseases classified elsewhere; B95.2 Enterococcus as the cause of diseases classified elsewhere; E11.51 Type 2 diabetes mellitus with diabetic peripheral angiopathy without gangrene; I95.9 Hypotension, unspecified; E11.65 Type 2 diabetes mellitus with hyperglycemia; Z79.4 Long term (current) use of insulin; F17.210 Nicotine dependence, cigarettes, uncomplicated; E78.5 Hyperlipidemia, unspecified; B96.89 Other specified bacterial agents as the cause of diseases classified elsewhere; N35.912 Unspecified bulbous urethral stricture, male; Z79.82 Long term (current) use of aspirin; Z79.899 Other long term (current) drug therapy; Z79.84 Long term (current) use of oral hypoglycemic drugs; B96.20 Unspecified Escherichia coli [E. coli] as the cause of diseases classified elsewhere; Z86.14 Personal history of Methicillin resistant Staphylococcus aureus infection
CPT/HCPCS: 36415; 80048; 80053; 80202; 81001; 82962; 83036; 83605; 85025; 85610; 85730; 87040; 87070; 87075; 87077; 87186; 87205; 88304; 93005; 94762; 97803; 99285; J7030; J7040; J7050; J7120; A4216; C1769; J0295; J2405; J7799

== ENCOUNTER → 2024-04-30 | Outpatient (CLI) | payer OTHER, SELFPAY ==
[2024-04-30 08:12] LABS: ALB/GLOB Ratio 1.1 RATIO (0.9-2.4); AST(SGOT) 21 U/L (15-37); Alanine Aminotransfer ALT/SGPT 25 U/L (16-61); Albumin, Serum 3.8 g/dL (3.2-5.0); Alkaline Phosphatase 107 U/L (45-117); Anion Gap 5 (5-15); BUN 17 mg/dL (7-18); BUN/Creat Ratio 15.6 RATIO (10-20); Calcium,Total 9.4 mg/dL (8.5-10.1); Chloride 105 mmol/L (98-107); Cholesterol 121 mg/dL (200); Creatinine, Serum 1.09 mg/dL (0.70-1.30); EST Glomerular Filtration Rate 73 mL/min (>60); Est Glom Filt Rate - Afr Amer 88 mL/min (>60); Globulin 3.6 g/dL (2.2-4.2); Glucose 124 mg/dL (74-106); High Density Lipoprotein 43 mg/dL; Potassium 3.9 mmol/L (3.5-5.1); Protein, Total 7.4 g/dL (6.4-8.2); Sodium Level 139 mmol/L (136-145); Triglycerides 122 mg/dL; Very Low Density Lipoprotein 24 mg/dL (5-40)
[2024-04-30 10:27] LABS: Microalbumin:Creatinine Ratio 216.8 mg/g CRE (<30 mg/g CRE)
== END | disposition home or self-care (01) ==
LOC: LAB 06:46
PROVIDERS: PCP Internal Medicine; Referring Provider Nurse Practitioner Family; Visit Provider Nurse Practitioner Family
DX: E11.65 Type 2 diabetes mellitus with hyperglycemia (principal); Z79.4 Long term (current) use of insulin; E11.42 Type 2 diabetes mellitus with diabetic polyneuropathy
CPT/HCPCS: 36415; 80053; 80061; 82043; 82306; 82570; 82607; 84443

== ENCOUNTER 2024-07-25 09:21 | Emergency (ER) | payer OTHER, SELFPAY ==
[2024-07-25 09:21] VITALS: BP 81/60; PULSE 93; RESP 20; TEMP 36.7; O2SAT 95
[2024-07-25 09:23] VITALS: BMI 27.3
[2024-07-25 09:35] VITALS: BMI 27.3
--- NOTE | 2024-07-25 09:36 | ED.VIS.FALL ---
HPI HPI - Fall History of Present Illness Chief Complaint: Fall Informant: patient Occured/Mechanism Occurred: Today Mechanism/Context: Yes same level fall and Yes slip Pain/Injury Pain Location: chest (Left posterior ribs) and back Quality of Pain: Stabbing (With movement) and Throbbing Worsened by: Movement, deep breathing Relieved by: Rest Associated Symptoms Associated Symptoms: Negative for Parasthesias, Weakness, Loss of function, Inability to ambulate, Loss of consciousness or Amnesia Narrative Narrative: Patient presents with left posterior rib pain that began after a fall this morning. Patient states he slipped and fell. Patient states he landed on the edge of the bathtub. Patient states his pain is mainly over the left posterior lower ribs. Patient states it is worse with any movement or deep breathing. Patient states nothing seems to help with it. Patient states he used ice. Patient states he took 1 oxycodone at home this morning. The patient denies any head injury or loss of consciousness. Patient denies any other injuries. [facility] Medical History Aftercare following left ankle joint replacement surgery Burn of foot, second degree Tobacco abuse counseling Tobacco abuse Intermittent claudication Peripheral arterial occlusive disease Hyperlipidemia associated with type 2 diabetes mellitus Poorly controlled diabetes mellitus Home Medications ?Medication ?Instructions ?Recorded ?Last Taken ?Type gabapentin 300 mg tablet 300 mg PO TID nerve pain 04/24/22 Unknown History insulin glargine 100 unit/mL (3 52 unit subcut DAILY diabetes 04/24/23 Unknown History mL) subcutaneous pen (Lantus Solostar U-100 Insulin) atorvastatin 80 mg tablet 80 mg PO DAILY cholesterol 07/24/23 Unknown History duloxetine 20 mg capsule,delayed 20 mg PO DAILY 07/24/23 Unknown History release blood-glucose sensor (FreeStyle #2 ea 08/05/23 Unknown Rx Silvina 3 Sensor device) cilostazol 50 mg tablet 50 mg PO DAILY 01/23/24 Unknown History ergocalciferol (vitamin D2) 1,250 1,250 mcg PO QWEEK 01/23/24 Unknown History mcg (50,000 unit) capsule semaglutide 2 mg/dose (8 mg/3 mL) 2 mg (0.75 mL) subcut QWEEK #3 mL 04/23/24 Unknown Rx subcutaneous pen injector (Ozempic) desipramine 50 mg tablet 50 mg PO QHS #90 tabs 05/05/24 Unknown Rx oxycodone-acetaminophen 5 mg-325 1 tab PO Q6H PRN PRN Pain 3 days 07/25/24 Unknown Rx mg tablet #12 TABLETS Allergy/AdvReac Type Severity Reaction Status Date / Time No Known Allergies Allergy Verified 07/25/24 09:55 Family History Other Diabetes Heart disease Hypertension Surgical History Sonya's syndrome History of ankle surgery History of tonsillectomy Social History household members: spouse current occupational status: employed Smoking Status: Former smoker alcohol intake: current details: socially what type of physical activity do you participate in: walking ROS ROS ED Constitutional Constitutional ED: Denies chills or fever(s) Eyes Eyes: Denies blurry vision or change in vision ENT ENT ED: Reports rhinorrhea; Denies sore throat Cardiovascular Cardiovascular: Reports chest pain; Denies palpitations Respiratory/Chest Respiratory/Chest: Denies cough or dyspnea Gastrointestinal Gastrointestinal: Denies nausea or vomiting Genitourinary Genitourinary ED: Denies dysuria or hematuria Musculoskeletal Musculoskeletal: Reports back pain; Denies neck pain Integumentary Denies abscess or rash Neurologic Neurologic: Denies headache(s) or weakness Allergic/Immunologic Allergic/Immunologic ED: Denies mouth swelling or urticaria EXAM Physical Exam Const Vital Signs: 07/25/24 09:21 07/25/24 09:52 07/25/24 11:21 Temperature 98.0 F Temperature Source Temporal Pulse Rate 93 Respiratory Rate 20 H Respiratory Effort Normal Splinting Respiratory Depth Normal Respiratory Pattern Normal Blood Pressure 81/60 L 119/79 Blood Pressure Mean 67 92 Pulse Ox 95 Oxygen Delivery Method Room Air Room Air Positive well nourished and well developed General Appearance ED: well developed and NAD HEENT Reports normocephalic atraumatic Chest Wall Chest Narrative: There is tenderness over the left posterior ribs. There is no bony crepitance or step-off. There is no subcutaneous emphysema noted. Resp clear to auscultation bilaterally Resp Narrative: Respiratory effort was limited due to pain. Effort and Inspection: pain with movement Cardio regular rate and regular rhythm GI non-tender and non-distended Neuro oriented x3, CN's II-XII intact bilaterally, moves all extremities, no focal motor deficits and no sensory deficits noted [place] Coma Scale: document GCS findings Spontaneous Obeys Commands Oriented 15 Sensorium / Orientation: alert Motor Exam: strength 5/5 throughout Psych mental status grossly normal and thought process normal MDM MDM MDM Narrative Medical decision making narrative: Differential diagnosis includes rib fracture, contusion, and pneumothorax. X-rays of the ribs and chest will be obtained to assess for rib fracture and pneumothorax. Radiography Diagnostic Testing: Clinical Impression(s) from Imaging Studies Ribs w/Chest X-Ray 07/25/24 10:15 IMPRESSION: RIBS: Normal x-ray examination of the ribs. CHEST: Normal x-ray examination of the chest. Electronically Signed: Brian Vides MD at 11:20 EST Reading Location ID and State: [facility] / [place] , Service support , X-rays of the left ribs were obtained. There are 5 views. On my independent interpretation, there is no acute fracture. There is no pneumothorax. There is no acute cardiopulmonary process. Radiologist also interpreted the x-rays and agrees. Treatment and Re-Evaluation Narrative: Patient was given IV fluids. Patient was given a dose of fentanyl here. Patient was feeling better on reevaluation. Patient's blood pressure improved after IV fluids. Patient was given a prescription for Percocet. Patient was instructed to take 10-15 deep breaths every hour while awake to prevent atelectasis and pneumonia. Patient was instructed to follow-up with his primary care physician in 5 to 7 days. Patient understood and was agreeable with the plan. All questions were answered. Discharge Plan Triage Chief Complaint: Fall ED Provider: Tacho Rodriguez Dx/Rx/DC Orders Clinical Impression: Chest wall contusion, Fall Instructions: ED Chest Wall Contusion, ED Bruise, Rib Prescriptions: New oxycodone-acetaminophen 5-325 mg tablet 1 tab PO Q6H PRN PRN (Reason: Pain) 3 Days Qty: 12 0RF No Action duloxetine 20 mg capsule,delayed release(DR/EC) 20 mg PO DAILY ergocalciferol (vitamin D2) 1,250 mcg (50,000 unit) capsule 1,250 mcg PO QWEEK cilostazol 50 mg tablet 50 mg PO DAILY Ozempic 2 mg/dose (8 mg/3 mL) pen injector 2 mg subcut QWEEK Qty: 3 5RF gabapentin 300 mg Tablet 300 mg PO TID atorvastatin 80 mg tablet 80 mg PO DAILY insulin glargine [Lantus Solostar U-100 Insulin] 100 unit/mL (3 mL) insulin pen 52 unit SUBCUT DAILY (DME) FreeStyle Silvina 3 Sensor Device See Rx Instructions .Route Qty: 2 5RF Rx Instructions: 1 sensor q 14 days desipramine 50 mg tablet 50 mg PO QHS Qty: 90 1RF Primary Care Provider: Mario Chanel Referrals: Mario Chanel MD [Primary Care Provider] - 5-7 Days Print Language: Indonesian Disposition Disposition: Home, Self Care
[2024-07-25] MEDS: 0.9% Normal Saline (1000mL) 1,000 ML 1000 ML IV (09:50)
[2024-07-25] MEDS: fentaNYL 100 MCG/2 ML Ampul 50 MCG IV (10:07)
--- NOTE | 2024-07-25 10:15 | RAD_ITS ---
STUDY: X-RAY - UNILATERAL RIBS ( LEFT ) WITH CHEST REASON FOR EXAM: Male, 64 years old. Chest pain after trauma TECHNIQUE - RIBS: 4 view(s) of the ribs. TECHNIQUE - CHEST: Single PA view of the chest. COMPARISON: None. FINDINGS - RIBS: Normal visualized ribs without a demonstrated fracture. FINDINGS - CHEST: The lungs are clear and expanded. There is no demonstrated pleural abnormality. Normal size heart. Normal mediastinum and carter. Normal visualized pulmonary arteries. Normal visualized aortic arch and descending thoracic aorta. Normal visualized thoracic spine. Normal visualized ribs, clavicles, and shoulders. There is no demonstrated abnormality of the visualized soft tissue structures of the upper abdomen. RAD/Ribs Uni Min 3V w/PA Chest IMPRESSION: RIBS: Normal x-ray examination of the ribs. CHEST: Normal x-ray examination of the chest. Electronically Signed: Brian Vides MD at 11:20 EST ,
[2024-07-25 11:21] VITALS: BP 119/79
[2024-07-25 11:57] VITALS: BP 108/73; PULSE 84; RESP 16; TEMP 36.6; O2SAT 100
== END 2024-07-25 11:58 | disposition home or self-care (01) ==
PROVIDERS: Emergency Provider Emergency Medicine; PCP Internal Medicine; Visit Provider Emergency Medicine
DX: S20.212A Contusion of left front wall of thorax, initial encounter (principal); E11.69 Type 2 diabetes mellitus with other specified complication; Z79.4 Long term (current) use of insulin; W01.190A Fall on same level from slipping, tripping and stumbling with subsequent striking against furniture, initial encounter; I73.9 Peripheral vascular disease, unspecified; E78.5 Hyperlipidemia, unspecified; Z79.899 Other long term (current) drug therapy; Z87.891 Personal history of nicotine dependence
CPT/HCPCS: 71101; 96361; 96374; 99283; A4216

== ENCOUNTER 2024-08-11 15:15 | Outpatient (RCR) | payer OTHER, SELFPAY ==
[2024-08-04 15:27] VITALS: BP 122/81; PULSE 103; RESP 18; TEMP 36.8; BMI 27.2
--- NOTE | 2024-08-05 11:47 | WC ---
PHOTO 07/24/24
--- NOTE | 2024-08-05 11:48 | WC ---
PHOTO 08/04/24 SUZY
--- NOTE | 2024-08-05 11:49 | WC ---
PHOTO 08/04/24 ERAN CALVILLO
--- NOTE | 2024-08-05 11:49 | WC ---
PHOTO 08/04/24 [facility]ER[facility]
--- NOTE | 2024-08-06 14:20 | HP.PCM_ITS ---
History of Present Illness Date of Service: 08/04/24 Chief Complaint: Multiple ulcerations of the lower extremities bilaterally History of Wound: This is a 64-year-old diabetic male with multiple pre-existing medical conditions, listed herein. He presented with multiple ulcerations in his lower extremities, some of which have been present for more than 1 year. The patient is uncertain as to the etiology. Some have been traumatic in origin, but others have been spontaneous. The patient has been using Neosporin ointment topically on an intermittent basis. The patient is a poorly controlled diabetic, with diabetic neuropathy and retinopathy. He also has a history of atherosclerotic peripheral arterial occlusive disease, with symptoms of intermittent claudication at short distances of ambulation. The patient has recently been evaluated by a Vascular Surgeon, Dr. Dougherty, at the [facility]. He is scheduled for an endovascular revascularization procedure on his left lower extremity on August 13, 2024. The patient's recent hemoglobin A1c on July 30, 2024, was 8.5. The patient has a history of skin cancers, most of which have been on his scalp. 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 The patient admits to being a potato picker, a tendency which we have discouraged. Patient is of relatively normal body habitus, with a BMI of 27.2. Patient has a history of MRSA involving a wound on his scalp in 2019. He denies a history of swelling in his lower extremities. He was formerly a smoker, but claims to have discontinued his tobacco habit. [facility] Medical History Diabetes mellitus type 2, insulin dependent Hypertension Family history of factor V Leiden mutation History of tobacco use disorder History of skin cancer Cerebrovascular disease Diabetic retinopathy Non-pressure ulcer of left lower extremity with fat layer exposed Non-pressure ulcer of right lower extremity with fat layer exposed Aftercare following left ankle joint replacement surgery Burn of foot, second degree Tobacco abuse counseling Tobacco abuse Intermittent claudication Peripheral arterial occlusive disease Hyperlipidemia associated with type 2 diabetes mellitus Poorly controlled diabetes mellitus Home Medications ?Medication ?Instructions ?Recorded ?Last Taken ?Type gabapentin 300 mg tablet 600 mg PO Q12H nerve pain 04/24/22 Unknown History insulin glargine 100 unit/mL (3 18 unit subcut DAILY diabetes 04/24/23 Unknown History mL) subcutaneous pen (Lantus Solostar U-100 Insulin) atorvastatin 80 mg tablet 80 mg PO DAILY cholesterol 07/24/23 Unknown History duloxetine 20 mg capsule,delayed 20 mg PO DAILY 07/24/23 Unknown History release blood-glucose sensor (FreeStyle #2 ea 08/05/23 Unknown Rx Silvina 3 Sensor device) ergocalciferol (vitamin D2) 1,250 1,250 mcg PO QWEEK 01/23/24 Unknown History mcg (50,000 unit) capsule semaglutide 2 mg/dose (8 mg/3 mL) 2 mg (0.75 mL) subcut QWEEK #3 mL 04/23/24 U nknown Rx subcutaneous pen injector (Ozempic) oxycodone-acetaminophen 5 mg-325 1 tab PO Q6H PRN PRN Pain 3 days 07/25/24 Unknown Rx mg tablet #12 TABLETS aspirin 81 mg tablet,delayed 81 mg PO QDAY 07/30/24 Unknown History release (Adult Low Dose Aspirin) glimepiride 1 mg tablet 2 mg PO DAILY 08/04/24 Unknown History Allergy/AdvReac Type Severity Reaction Status Date / Time No Known Allergies Allergy Verified 07/30/24 15:12 Family History Other Diabetes Heart disease Hypertension Surgical History Sonya's syndrome History of ankle surgery History of tonsillectomy Social History household members: spouse current occupational status: employed Smoking Status: Former smoker alcohol intake: current details: socially what type of physical activity do you participate in: walking Vital Signs Vital Signs Vital Signs: Weight Weight: 190 lb Body Mass Index (BMI) 27.2 Physical Exam Const alert, oriented x3, no apparent distress, average body habitus, no limitations, healthy appearing and well nourished Constitutional Narrative: The patient is of normal body habitus, with a BMI of 27.2. General Appearance: cooperative, comfortable, well kempt and well developed Orientation / Consciousness: awake, oriented to person, oriented to place and oriented to time Exam Limitations: no limitations HEENT normocephalic HEENT Narrative: The patient is bald, by a combination of shaving and normal male-pattern hair loss. Multiple scars are noted on the patient's scalp from previous cancer excisions. Head and Scalp: normal to inspection and normocephalic Face and Sinus: normal facial exam External Ear: external ears normal Eyes EOMs intact bilaterally General Eye: normal appearance of both eyes Sclera: sclera normal Neck full ROM General: normal visual inspection Resp normal respiratory effort, normal air movement, no retractions and no use of accessory muscles Effort and Inspection: able to speak in complete sentences Extremity no calf tenderness General Extremity: Negative for clubbing or cyanosis Skin Wound Narrative: Multiple small ulcerations are noted in the patient's lower extremities. These are located in the following areas: left pretibial, left lateral malleolus, right pretibial x 2, right lateral knee, and right lateral calf. Each of the ulcerations demonstrate the presence of eschar, bioburden, and nonviable tissue. There is no obvious sign of infection or cellulitis. The ulcerations appear to be full-thickness, extending through all layers of the dermis and into the subcutaneous adipose tissue. Dimensions of each ulceration are documented elsewhere. Ulcer margins are well beveled. Hair: male pattern alopecia Neuro oriented x3, CN's II-XII intact bilaterally, moves all extremities and no focal motor deficits Sensorium / Orientation: awake, alert, oriented to person, oriented to place and oriented to time Cranial Nerves: CN normal except as noted Speech: speech normal Psych Appearance: grossly normal and appropriate Attitude: calm Activity / Motor Behavior: appropriate eye contact Speech: normal speech Mood & Affect: euthymic mood Thought Process: normal thought process Thought Content: normal thought content Attention / Concentration: attention grossly intact Debridement Note Debridement Note Wound debrided: Right leg ulcerations: Pretibial x 2, lateral knee, and lateral calf Laterality: Right Type of Debridement: Excisional debridement Anesthesia Used: 5% Lidocaine Gel Depth: Down to and including healthy tissue and in the subcutaneous layer Percentage of wound debrided: 100 Instrument Used: 5mm curette Tissue Removed: Eschar, bioburden, and nonviable tissue Severity: Fat Layer Exposed Amount of bleeding with debridement: Mild Bleeding Controlled with: Compression and gauze Patient tolerated procedure: Patient tolerated procedure well Post-Debridement Measurements and Additional Note: Post-Debridement Measurements/Treatment WC - Nurse 1 - General Ulcer Assessment Start: 08/04/24 15:24 Freq: Status: Active Protocol: WC.LOWEXT Activity Type Activity Date Activity User E-sign Co-sign Detail Recorded Client Recorded Date Recorded By Document 08/04/24 15:27 RB [id number] 08/04/24 15:43 RB 08/04/24 15:27 WC - Today's Visit Information Type of service Initial Visit Arrival Mode Ambulatory Transfer Assistance None Patient Identification Verified (Name & Yes ) Patient Requires Transmission-Based No Precautions Height and Weight Height 5 ft 10 in Weight 190 lb Weight in Pounds 190.0 lbs Body Mass Index (BMI) 27.2 BMI Classification Overweight BSA - Sophy 2.04 Vital Signs Temperature (97.8 F-99.1 F) 98.3 F Temperature Source Temporal Pulse Rate (60-100) 103 H Pulse Location Monitor Respiratory Rate (12-18) 18 Respiratory rate source Observation Blood Pressure (90/60-120/80) 122/81 H Blood Pressure Mean 94 Source Monitor Position Semi-Fowlers Blood Pressure Location Right Arm History Since Last Visit- (Skip if this is Patient's initial visit) Left Footwear Regular Shoe Right Footwear Regular Shoe Pain Scale: 0-10 Numeric Is Patient Pain Free? No LE -Description Throbbing, Burning, Pressure -Intensity 10 -Duration (hours) Acute -Pain Behavior Withdrawal from Touch -Pain Aggravating Factors Sitting -Alleviating Factors/Interventions Medication -Effectiveness of Alleviating Factor/ Minimally Intervention effective Lower Extremity Assessment/ Foot Assessment/ Toe Nail Assessment Right -Posterior Tibial Palpable No -Posterior Tibial Doppler Monophasic -Dorsalis Pedis Palpable No -Dorsalis Pedis Doppler Monophasic -Extremity Color Normal -Hair Growth on Legs Yes -Hair Growth on Toes No -Temperature of Extremity Cool -Capillary Refill Less than 3 Seconds -Dependent Rubor No -Blanched when Elevated No -Lipodermatosclerosis No -Other Deformity No -Prior Foot Ulcer No -Charcot Joint No -Prior Amputation No -Thick No -Discolored No -Deformed No -Improper Length & Hygeine Yes Left -Posterior Tibial Palpable Yes -Posterior Tibial Doppler Multiphasic -Dorsalis Pedis Palpable Yes -Dorsalis Pedis Doppler Multiphasic -Extremity Color Normal -Hair Growth on Legs Yes -Hair Growth on Toes No -Temperature of Extremity Warm -Capillary Refill Less than 3 Seconds -Dependent Rubor No -Blanched when Elevated No -Lipodermatosclerosis No -Other Deformity No -Prior Foot Ulcer No -Charcot Joint No -Prior Amputation No -Thick No -Discolored No -Deformed No -Improper Length & Hygeine Yes Neuropathy Assessment Feet - Top Side and Bottom <Entered> (a) Communication Assessment Preferred language Bermudian Suture Gauger Required No Able to Read Yes Able to Write Yes Communication Tools None Right Hearing Abillity Normal Left Hearing Abillity Normal Visual Assistive Devices Glasses Teaching Assessment Preferences Verbal,Written Barriers to Learning None Readiness To Learn Good Willingness to Engage in Self Management Med Activies Readiness to Engage in Self Management Med Activities Anxiety Level Calm Cooperation Cooperative Perception Coherent Interest in Health Problem Asks Questions Education Importance Acknowledges Need Does Patient Smoke tobacco or other No substances Smoking Status Former smoker Is Patient Diabetic Yes Functional Assessment Recent Decline in Ability to Perform Denies Any Declines Assistive Device With Patient No Culture/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 Reel And Rewinder Operator to contact place of jainism No Teaching: Wound Center *Welcome to the Wound Center -Person Taught Patient -Teaching Method Discussion, Demonstration -Response to teaching Verbalize Understanding (a) 1 - _- THROUGHTOUT WC - Nurse 1 - General Ulcer Measurement Start: 08/04/24 15:24 Freq: Status: Active Protocol: Activity Type Activity Date Activity User E-sign Co-sign Detail Recorded Client Recorded Date Recorded By Document 08/04/24 15:27 RB [id number] 08/04/24 15:43 RB 08/04/24 15:27 Wound Center Nurse 1 6. L ankle lateral -Combined with other wound No -Current Size (cm) - Length 0.1 -Current Size (cm) - Width 0.1 -Current Size (cm) - Depth 0.1 -Total Square Cm 0.01 -Photo Taken Yes -Tunneling No -Undermining/Tunneling No -Circular Undermining No -Exudate Amt Medium -Exudate Type Serosanguineous -Wound Margin Distinct, Outline Attached -Granulation Amt Medium (34-66%) -Granulation Quality Hunt -Slough/Fibrin Yes -Necrosis Amt Medium (34-66%) -Necrotic Tissue Type Adherent Slough -Structure Exposed N/A -Texture (Elizabeth-wound Skin Appearance) Assessed, Scarring -Moisture (Elizabeth-wound Skin Appearance) Assessed -Color (Elizabeth-wound Skin Appearance) Assessed -Temperature (Elizabeth-wound Skin No Abnormality Appearance) (Pt Warm) -Tenderness on Palpation (Elizabeth-wound No Skin Appearance) -Ulcer Cleansing Wound Cleanser -Foul Odor after Cleansing No -Anesthetic Used 5% Lidocaine Gel 5. LLe -Combined with other wound No -Current Size (cm) - Length 1.7 -Current Size (cm) - Width 2 -Current Size (cm) - Depth 0.1 -Total Square Cm 3.4 -Photo Taken Yes -Tunneling No -Undermining/Tunneling No -Circular Undermining No -Exudate Amt Medium -Exudate Type Serosanguineous -Wound Margin Distinct, Outline Attached -Granulation Amt Medium (34-66%) -Granulation Quality Hunt -Slough/Fibrin Yes -Necrosis Amt Medium (34-66%) -Necrotic Tissue Type Adherent Slough -Structure Exposed N/A -Texture (Elizabeth-wound Skin Appearance) Assessed, Scarring -Moisture (Elizabeth-wound Skin Appearance) Assessed -Color (Elizabeth-wound Skin Appearance) Assessed -Temperature (Elizabeth-wound Skin No Abnormality Appearance) (Pt Warm) -Tenderness on Palpation (Elizabeth-wound No Skin Appearance) -Ulcer Cleansing Wound Cleanser -Foul Odor after Cleansing No -Anesthetic Used 5% Lidocaine Gel 4. RLE newton inferior -Combined with other wound No -Current Size (cm) - Length 1 -Current Size (cm) - Width 1 -Current Size (cm) - Depth 0.1 -Total Square Cm 1 -Photo Taken Yes -Tunneling No -Undermining/Tunneling No -Circular Undermining No -Exudate Amt Medium -Exudate Type Serosanguineous -Wound Margin Distinct, Outline Attached -Granulation Amt Medium (34-66%) -Granulation Quality Hunt -Slough/Fibrin Yes -Necrosis Amt Medium (34-66%) -Necrotic Tissue Type Adherent Slough -Structure Exposed N/A -Texture (Elizabeth-wound Skin Appearance) Assessed -Moisture (Elizabeth-wound Skin Appearance) Assessed -Color (Elizabeth-wound Skin Appearance) Assessed -Temperature (Elizabeth-wound Skin No Abnormality Appearance) (Pt Warm) -Tenderness on Palpation (Elizabeth-wound No Skin Appearance) -Ulcer Cleansing Wound Cleanser -Foul Odor after Cleansing No -Anesthetic Used 5% Lidocaine Gel 3. RLE lateral medial -Combined with other wound No -Current Size (cm) - Length 1.4 -Current Size (cm) - Width 1 -Current Size (cm) - Depth 0.1 -Total Square Cm 1.4 -Photo Taken Yes -Tunneling No -Undermining/Tunneling No -Circular Undermining No -Exudate Amt Medium -Exudate Type Serosanguineous -Wound Margin Distinct, Outline Attached -Granulation Amt Medium (34-66%) -Granulation Quality Hunt -Slough/Fibrin Yes -Necrosis Amt Medium (34-66%) -Necrotic Tissue Type Adherent Slough -Structure Exposed N/A -Texture (Elizabeth-wound Skin Appearance) Assessed, Scarring -Moisture (Elizabeth-wound Skin Appearance) Assessed -Color (Elizabeth-wound Skin Appearance) Assessed -Temperature (Elizabeth-wound Skin No Abnormality Appearance) (Pt Warm) -Tenderness on Palpation (Elizabeth-wound No Skin Appearance) -Ulcer Cleansing Wound Cleanser -Foul Odor after Cleansing No -Anesthetic Used 5% Lidocaine Gel 2. RLE superior -Combined with other wound No -Current Size (cm) - Length 0.6 -Current Size (cm) - Width 0.8 -Current Size (cm) - Depth 0.1 -Total Square Cm 0.48 -Photo Taken Yes -Tunneling No -Undermining/Tunneling No -Circular Undermining No -Exudate Amt Medium -Exudate Type Serosanguineous -Wound Margin Distinct, Outline Attached -Granulation Amt Medium (34-66%) -Granulation Quality Hunt -Slough/Fibrin Yes -Necrosis Amt Medium (34-66%) -Necrotic Tissue Type Adherent Slough -Structure Exposed N/A -Texture (Elizabeth-wound Skin Appearance) Assessed, Scarring -Moisture (Elizabeth-wound Skin Appearance) Assessed -Color (Elizabeth-wound Skin Appearance) Assessed -Temperature (Elizabeth-wound Skin No Abnormality Appearance) (Pt Warm) -Tenderness on Palpation (Elizabeth-wound No Skin Appearance) -Ulcer Cleansing Wound Cleanser -Foul Odor after Cleansing No -Anesthetic Used 5% Lidocaine Gel Lower Limb Edema Present Yes Right Calf (cm) 34 Right Ankle (cm) 20.2 Left Calf (cm) 33.2 Left Ankle (cm) 20.5 WC - Nurse 2 - General Ulcer CM Notes Start: 08/04/24 15:24 Freq: Status: Active Protocol: Activity Type Activity Date Activity User E-sign Co-sign Detail Recorded Client Recorded Date Recorded By Document 08/04/24 16:19 DS [id number] 08/04/24 16:35 DS 08/04/24 16:19 Wound Center Nurse 2 #7 RLE medial medial -Time 16:16 -Correct Patient Yes -Correct Side, Site, Position Yes -Correct Procedure Yes -Procedure Performed Yes -Type of Procedure Debridement -Clinical Debridement Subcutaneous -Tissue Removed Subcutaneous -Post Debridement (cm) - Length 0.4 -Post Debridement (cm) - Width 0.8 -Post Debridement (cm) - Depth 0.1 -Total Square (Post) (cm) 0.32 -Area of Debridement (cm) - Length 0.4 -Area of Debridement (cm) - Width 0.8 -Total Square (Area) (cm) 0.32 -Tunneling No -Undermining/Tunneling No -Circular Undermining No -Wound/Ulcer Outcome Not Healed -Ulcer Cleansing Rinsed/ Irrigated with Saline -Foul Odor after Cleansing No -Bioengineered Tissue No -Bleeding Controlled with Pressure -Treatment Response Procedure Tolerated Well -Debridement - Subq, 1st 20sq cm No 6. L ankle lateral -Time 16:19 -Correct Patient Yes -Correct Side, Site, Position Yes -Correct Procedure Yes -Procedure Performed Yes -Type of Procedure Debridement -Clinical Debridement Subcutaneous -Tissue Removed Subcutaneous -Post Debridement (cm) - Length 0.8 -Post Debridement (cm) - Width 0.8 -Post Debridement (cm) - Depth 0.1 -Total Square (Post) (cm) 0.64 -Area of Debridement (cm) - Length 0.8 -Area of Debridement (cm) - Width 0.8 -Total Square (Area) (cm) 0.64 -Tunneling No -Undermining/Tunneling No -Circular Undermining No -Wound/Ulcer Outcome Not Healed -Ulcer Cleansing Rinsed/ Irrigated with Saline -Foul Odor after Cleansing No -Bioengineered Tissue No -Bleeding Controlled with Pressure -Treatment Response Procedure Tolerated Well -Debridement - Subq, 1st 20sq cm Yes 5. LLe -Time 16:20 -Correct Patient Yes -Correct Side, Site, Position Yes -Correct Procedure Yes -Procedure Performed Yes -Type of Procedure Debridement -Clinical Debridement Subcutaneous -Tissue Removed Subcutaneous -Post Debridement (cm) - Length 3.2 -Post Debridement (cm) - Width 1.1 -Post Debridement (cm) - Depth 0.1 -Total Square (Post) (cm) 3.52 -Area of Debridement (cm) - Length 3.2 -Area of Debridement (cm) - Width 1.0 -Total Square (Area) (cm) 3.20 -Tunneling No -Undermining/Tunneling No -Wound/Ulcer Outcome Not Healed -Ulcer Cleansing Rinsed/ Irrigated with Saline -Foul Odor after Cleansing No -Bioengineered Tissue No -Bleeding Controlled with Pressure -Treatment Response Procedure Tolerated Well -Debridement - Subq, 1st 20sq cm No 4. RLE newton inferior -Time 16:20 -Correct Patient Yes -Correct Side, Site, Position Yes -Correct Procedure Yes -Procedure Performed Yes -Type of Procedure Debridement -Clinical Debridement Subcutaneous -Tissue Removed Subcutaneous -Post Debridement (cm) - Length 1.5 -Post Debridement (cm) - Width 1.0 -Post Debridement (cm) - Depth 0.1 -Total Square (Post) (cm) 1.50 -Area of Debridement (cm) - Length 1.5 -Area of Debridement (cm) - Width 1.0 -Total Square (Area) (cm) 1.50 -Tunneling No -Undermining/Tunneling No -Circular Undermining No -Wound/Ulcer Outcome Not Healed -Ulcer Cleansing Rinsed/ Irrigated with Saline -Foul Odor after Cleansing No -Bioengineered Tissue No -Bleeding Controlled with Pressure -Treatment Response Procedure Tolerated Well -Debridement - Subq, 1st 20sq cm No 3. RLE lateral medial -Time 16:20 -Correct Patient Yes -Correct Side, Site, Position Yes -Correct Procedure Yes -Procedure Performed Yes -Type of Procedure Debridement -Clinical Debridement Subcutaneous -Tissue Removed Subcutaneous -Post Debridement (cm) - Length 1.0 -Post Debridement (cm) - Width 1.0 -Post Debridement (cm) - Depth 0.1 -Total Square (Post) (cm) 1.00 -Area of Debridement (cm) - Length 1.0 -Area of Debridement (cm) - Width 1.0 -Total Square (Area) (cm) 1.00 -Tunneling No -Undermining/Tunneling No -Circular Undermining No -Wound/Ulcer Outcome Not Healed -Ulcer Cleansing Rinsed/ Irrigated with Saline -Foul Odor after Cleansing No -Bioengineered Tissue No -Bleeding Controlled with Pressure -Treatment Response Procedure Tolerated Well -Debridement - Subq, 1st 20sq cm No 2. RLE superior -Time 16:20 -Correct Patient Yes -Correct Side, Site, Position Yes -Correct Procedure Yes -Procedure Performed Yes -Type of Procedure Debridement -Clinical Debridement Subcutaneous -Tissue Removed Subcutaneous -Post Debridement (cm) - Length 0.5 -Post Debridement (cm) - Width 0.8 -Post Debridement (cm) - Depth 0.1 -Total Square (Post) (cm) 0.40 -Area of Debridement (cm) - Length 0.5 -Area of Debridement (cm) - Width 0.8 -Total Square (Area) (cm) 0.40 -Tunneling No -Undermining/Tunneling No -Circular Undermining No -Wound/Ulcer Outcome Not Healed -Ulcer Cleansing Rinsed/ Irrigated with Saline -Foul Odor after Cleansing No -Bioengineered Tissue No -Bleeding Controlled with Pressure -Treatment Response Procedure Tolerated Well -Debridement - Subq, 1st 20sq cm No Pain Scale: 0-10 Numeric Is Patient Pain Free? Yes WC - Nurse 3 - General Ulcer D/C NN Start: 08/04/24 15:24 Freq: Status: Active Protocol: Activity Type Activity Date Activity User E-sign Co-sign Detail Recorded Client Recorded Date Recorded By Document 08/04/24 16:35 RB [id number] 08/04/24 16:38 RB 08/04/24 16:35 Wound Care Center Nurse 3 #7 RLE medial medial -Ulcer Cleansing Rinsed/ Irrigated with Saline -Primary Dressing Applied C Hydrogel ($) -Other Dressing abd -Primary Dressing Covered/Secured with Dry Gauze,Dry Gauze & Roll Gauze,Secured with Tape 6. L ankle lateral -Ulcer Cleansing Rinsed/ Irrigated with Saline -Other Dressing HYDROGEL -Primary Dressing Covered/Secured with Dry Gauze,Dry Gauze & Roll Gauze,Secured with Tape 5. LLe -Ulcer Cleansing Rinsed/ Irrigated with Saline -Other Dressing HYDROGEL -Primary Dressing Covered/Secured with Dry Gauze,Dry Gauze & Roll Gauze,Secured with Tape 4. RLE newton inferior -Ulcer Cleansing Rinsed/ Irrigated with Saline -Other Dressing HYDROGEL -Primary Dressing Covered/Secured with Dry Gauze,Dry Gauze & Roll Gauze,Secured with Tape 3. RLE lateral medial -Ulcer Cleansing Rinsed/ Irrigated with Saline -Other Dressing HYDROGEL -Primary Dressing Covered/Secured with Dry Gauze,Dry Gauze & Roll Gauze,Secured with Tape 2. RLE superior -Other Dressing HYDROGEL -Primary Dressing Covered/Secured with Dry Gauze,Dry Gauze & Roll Gauze,Secured with Tape Treatment Response Procedure Tolerated Well Pain Scale: 0-10 Numeric Is Patient Pain Free? Yes Teaching: Wound Center Dressing Your Wound -Person Taught Patient, Significant Other -Teaching Method Discussion, Demonstration -Response to teaching Verbalize Understanding WC - Visit Discharge Discharge Condition Stable Ambulatory Status Ambulatory Transportation Private Auto Medication Reconcilliation completed & No provided to patient/care provider Clinical Summary of Care Provided Yes Additional Wound Wound debrided: Left leg ulcerations: Pretibial and lateral malleolus Laterality: Left Type of Debridement: Excisional debridement Anesthesia Used: 5% Lidocaine Gel Depth: Down to and including healthy tissue and in the subcutaneous layer Percentage of wound debrided: 100 Instrument Used: 5mm curette Tissue Removed: Bioburden, eschar, and nonviable tissue Severity: Fat Layer Exposed Amount of bleeding with debridement: Mild Bleeding Controlled with: Compression and gauze Patient tolerated procedure: Patient tolerated procedure well Charges/Coding Multi Select Codes Visit Charges Office Visit/Consults: 12593 OV L4 New 45 min Integumentary Integumentary CPT Codes: 79592 Aruna subq tissue 20 sq cm/< Assessment/Plan Assessment/Plan (1) Non-pressure ulcer of right lower extremity with fat layer exposed: CODE(S): L97.912 - Non-pressure chronic ulcer of unspecified part of right lower leg with fat layer exposed (2) Non-pressure ulcer of left lower extremity with fat layer exposed: CODE(S): L97.922 - Non-pressure chronic ulcer of unspecified part of left lower leg with fat layer exposed (3) Diabetes mellitus type 2, insulin dependent: CODE(S): E11.9 - Type 2 diabetes mellitus without complications; Z79.4 - MCC (current) use of insulin (4) Peripheral arterial occlusive disease: CODE(S): I77.9 - Disorder of arteries and arterioles, unspecified (5) Intermittent claudication: CODE(S): I73.9 - Peripheral vascular disease, unspecified (6) Neuropathy: CODE(S): G62.9 - Polyneuropathy, unspecified (7) Diabetes: CODE(S): E11.9 - Type 2 diabetes mellitus without complications QUALIFIERS: Diabetes mellitus type: type 2 Diabetes mellitus halfway insulin use: with superintendent terminal use Diabetes mellitus complication status: with hyperglycemia Qualified Code(s): E11.65 - Type 2 diabetes mellitus with hyperglycemia; Z79.4 - ferry terminal agent (current) use of insulin (8) Hyperlipidemia associated with type 2 diabetes mellitus: CODE(S): E11.69 - Type 2 diabetes mellitus with other specified complication; E78.5 - Hyperlipidemia, unspecified (9) Poorly controlled diabetes mellitus: CODE(S): E11.65 - Type 2 diabetes mellitus with hyperglycemia (10) Diabetic retinopathy: CODE(S): E11.319 - Type 2 diabetes mellitus with unspecified diabetic retinopathy without macular edema (11) Cerebrovascular disease: CODE(S): I67.9 - Cerebrovascular disease, unspecified (12) History of skin cancer: CODE(S): Z85.828 - Personal history of other malignant neoplasm of skin (13) History of tobacco use disorder: CODE(S): Z87.891 - Personal history of nicotine dependence (14) Family history of factor V Leiden mutation: CODE(S): Z83.2 - Family history of diseases of the blood and blood-forming organs and certain disorders involving the immune mechanism (15) Hypertension: CODE(S): I10 - Essential (primary) hypertension PLAN: Plan This is a 64-year-old male with multiple pre-existing medical problems. He presented with multiple ulcerations in his lower extremities bilaterally. He is known to be a poorly controlled diabetic, with his recent hemoglobin A1c of 8.5. He is also known to have peripheral arterial occlusive disease, and suffers from short-distance intermittent claudication. The etiology of his ulcerations is uncertain, though some appear to be traumatic. Because the patient has a history of MRSA infection, wounds in both lower extremities have been cultured for aerobic and anaerobic bacterial growth. Culture results will be awaited. The patient has been encouraged to optimize his nutritional intake. He has also been advised to optimize his diabetic control in collaboration with his primary care physician. Because of the multiple nature of his ulcerations, a systemic cause may be considered. At present, however, we are to implement care by means of collagen hydrogel which will be applied topically to the patient's ulcerations on a daily basis. The patient has been instructed in the appropriate means of application. He has been urged to refrain from picking and has ulcerations, as is his habit. It is noted that the patient is scheduled for left lower extremity endovascular revascularization at the [facility] on August 13, 2024. The patient is to return for reevaluation in 1 week. Total time: 48 minutes
[2024-08-11 15:18] VITALS: BP 100/74; PULSE 87; RESP 16; TEMP 35.7; BMI 27.2
--- NOTE | 2024-08-12 18:07 | HP.PCM_ITS ---
History of Present Illness Date of Service: 08/11/24 Chief Complaint: Multiple ulcerations of the lower extremities bilaterally History of Wound: This is a 64-year-old diabetic male with multiple pre-existing medical conditions, listed herein. He presented with multiple ulcerations in his lower extremities, some of which had been present for more than 1 year. The patient was uncertain as to the etiology. Some had been traumatic in origin, but others had been spontaneous. The patient had been using Neosporin ointment topically on an intermittent basis. The patient is a poorly controlled diabetic, with diabetic neuropathy and retinopathy. He also has a history of atherosclerotic peripheral arterial occlusive disease, with symptoms of intermittent claudication at short distances of ambulation. The patient was recently evaluated by a Vascular Surgeon, Dr. Dougherty, at the [facility]. He is scheduled for an endovascular revascularization procedure on his left lower extremity on August 13, 2024. The patient's recent hemoglobin A1c on July 30, 2024, was 8.5. The patient has a history of skin cancers, most of which have been on his scalp. These have been treated by a clinical informatics spec. 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 The patient is of relatively normal body habitus, with a BMI of 27.2. 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 He denies a history of swelling in his lower extremities. He was formerly a smoker, but claims to have discontinued his tobacco habit. [facility] Medical History Diabetes mellitus type 2, insulin dependent Hypertension Family history of factor V Leiden mutation History of tobacco use disorder History of skin cancer Cerebrovascular disease Diabetic retinopathy Non-pressure ulcer of left lower extremity with fat layer exposed Non-pressure ulcer of right lower extremity with fat layer exposed Aftercare following left ankle joint replacement surgery Burn of foot, second degree Tobacco abuse counseling Tobacco abuse Intermittent claudication Peripheral arterial occlusive disease Hyperlipidemia associated with type 2 diabetes mellitus Poorly controlled diabetes mellitus Home Medications ?Medication ?Instructions ?Recorded ?Last Taken ?Type gabapentin 300 mg tablet 600 mg PO Q12H nerve pain 04/24/22 Unknown History insulin glargine 100 unit/mL (3 18 unit subcut DAILY diabetes 04/24/23 Unknown History mL) subcutaneous pen (Lantus Solostar U-100 Insulin) atorvastatin 80 mg tablet 80 mg PO DAILY cholesterol 07/24/23 Unknown History duloxetine 20 mg capsule,delayed 20 mg PO DAILY 07/24/23 Unknown History release blood-glucose sensor (FreeStyle #2 ea 08/05/23 Unknown Rx Silvina 3 Sensor device) ergocalciferol (vitamin D2) 1,250 1,250 mcg PO QWEEK 01/23/24 Unknown History mcg (50,000 unit) capsule semaglutide 2 mg/dose (8 mg/3 mL) 2 mg (0.75 mL) subcut QWEEK #3 mL 04/23/24 Unknown Rx subcutaneous pen injector (Ozempic) oxycodone-acetaminophen 5 mg-325 1 tab PO Q6H PRN PRN Pain 3 days 07/25/24 Unknown Rx mg tablet #12 TABLETS aspirin 81 mg tablet,delayed 81 mg PO QDAY 07/30/24 Unknown History release (Adult Low Dose Aspirin) glimepiride 1 mg tablet 2 mg PO DAILY 08/04/24 Unknown History cephalexin 500 mg capsule 500 mg PO TID #20 caps 08/12/24 Unknown Rx Allergy/AdvReac Type Severity Reaction Status Date / Time No Known Allergies Allergy Verified 07/30/24 15:12 Family History Other Diabetes Heart disease Hypertension Surgical History Sonya's syndrome History of ankle surgery History of tonsillectomy Social History household members: spouse current occupational status: employed Smoking Status: Former smoker alcohol intake: current details: socially what type of physical activity do you participate in: walking Vital Signs Vital Signs Vital Signs: Weight Weight: 190 lb Body Mass Index (BMI) 27.2 Debridement Note Debridement Note Post-Debridement Measurements and Additional Note: Post-Debridement Measurements/Treatment WC - Nurse 1 - General Ulcer Assessment Start: 08/04/24 15:24 Freq: Status: Active Protocol: ANDRIA Activity Type Activity Date Activity User E-sign Co-sign Detail Recorded Client Recorded Date Recorded By Document 08/04/24 15:27 RB [id number] 08/04/24 15:43 RB Document 08/11/24 15:18 KW [id number] 08/11/24 15:31 KW 08/04/24 08/11/24 15:27 15:18 WC - Today's Visit Information Type of service Initial Visit Follow-up Visit (Physician/CUSTOMER SUPPORT ASSISTANT ) Arrival Mode Ambulatory Ambulatory Transfer Assistance None Patient Identification Verified (Name & Yes Yes ) Patient Requires Transmission-Based No Precautions Height and Weight Height 5 ft 10 in Weight 190 lb Weight in Pounds 190.0 lbs Body Mass Index (BMI) 27.2 27.2 BMI Classification Overweight Overweight BSA - Sophy 2.04 Vital Signs Temperature (97.8 F-99.1 F) 98.3 F 96.2 F L Temperature Source Temporal Temporal Pulse Rate (60-100) 103 H 87 Pulse Location Monitor Monitor Respiratory Rate (12-18) 18 16 Respiratory rate source Observation Observation Oxygen Delivery Method Room Air Blood Pressure (90/60-120/80) 122/81 H 100/74 Blood Pressure Mean 94 82 Source Monitor Monitor Position Semi-Fowlers Sitting Blood Pressure Location Right Arm Left Arm History Since Last Visit- (Skip if this is Patient's initial visit) Have you changed medications since your No last visit? Any new allergies or adverse reactions No Had a fall/change in ADL's that may No increase risk of falls Signs or symptoms of abuse and/or No neglect since last visit Have you been in the hospital since your No last visit? Has dressing in place as prescribed Yes Has compression in place as prescribed Yes Has offloadiing in place as prescribed N/A Experienced any changes in pain level or No management Left Footwear Regular Shoe Regular Shoe Right Footwear Regular Shoe Regular Shoe Pain Scale: 0-10 Numeric Is Patient Pain Free? No Yes LE -Description Throbbing, Burning, Pressure -Intensity 10 -Duration (hours) Acute -Pain Behavior Withdrawal from Touch -Pain Aggravating Factors Sitting -Alleviating Factors/Interventions Medication -Effectiveness of Alleviating Factor/ Minimally Intervention effective Lower Extremity Assessment/ Foot Assessment/ Toe Nail Assessment Right -Posterior Tibial Palpable No -Posterior Tibial Doppler Monophasic -Dorsalis Pedis Palpable No -Dorsalis Pedis Doppler Monophasic -Extremity Color Normal -Hair Growth on Legs Yes -Hair Growth on Toes No -Temperature of Extremity Cool -Capillary Refill Less than 3 Seconds -Dependent Rubor No -Blanched when Elevated No -Lipodermatosclerosis No -Other Deformity No -Prior Foot Ulcer No -Charcot Joint No -Prior Amputation No -Thick No -Discolored No -Deformed No -Improper Length & Hygeine Yes Left -Posterior Tibial Palpable Yes -Posterior Tibial Doppler Multiphasic -Dorsalis Pedis Palpable Yes -Dorsalis Pedis Doppler Multiphasic -Extremity Color Normal -Hair Growth on Legs Yes -Hair Growth on Toes No -Temperature of Extremity Warm -Capillary Refill Less than 3 Seconds -Dependent Rubor No -Blanched when Elevated No -Lipodermatosclerosis No -Other Deformity No -Prior Foot Ulcer No -Charcot Joint No -Prior Amputation No -Thick No -Discolored No -Deformed No -Improper Length & Hygeine Yes Neuropathy Assessment Feet - Top Side and Bottom <Entered> (a) Communication Assessment Preferred language Mongolian Informatics Consultant Required No Able to Read Yes Able to Write Yes Communication Tools None Right Hearing Abillity Normal Left Hearing Abillity Normal Visual Assistive Devices Glasses Teaching Assessment Preferences Verbal,Written Barriers to Learning None Readiness To Learn Good Willingness to Engage in Self Management Med Activies Readiness to Engage in Self Management Med Activities Anxiety Level Calm Cooperation Cooperative Perception Coherent Interest in Health Problem Asks Questions Education Importance Acknowledges Need Does Patient Smoke tobacco or other No substances Smoking Status Former smoker Is Patient Diabetic Yes Functional Assessment Recent Decline in Ability to Perform Denies Any Declines Assistive Device With Patient No Culture/Gnosticist/Gas Flow Regulator Cultural/Gnosticist Needs that may affect No Treatment Plan Would you allow our hospital solutions architect consultant to No meet you for the purpose of spiritual/ emotional support? Gas Flow Regulator to contact [facility] No Teaching: Wound Center *Welcome to the Wound Center -Person Taught Patient -Teaching Method Discussion, Demonstration -Response to teaching Verbalize Understanding (a) 1 - _- THROUGHTOUT WC - Nurse 1 - General Ulcer Measurement Start: 08/04/24 15:24 Freq: Status: Active Protocol: Activity Type Activity Date Activity User E-sign Co-sign Detail Recorded Client Recorded Date Recorded By Document 08/04/24 15:27 RB [id number] 08/04/24 15:43 RB Document 08/11/24 15:18 KW [id number] 08/11/24 15:31 KW 08/04/24 08/11/24 15:27 15:18 Wound Center Nurse 1 4. RLE newton inferior -Combined with other wound No -Current Size (cm) - Length 1 0.1 -Current Size (cm) - Width 1 0.1 -Current Size (cm) - Depth 0.1 0.1 -Total Square Cm 1 0.01 -Photo Taken Yes -Tunneling No -Undermining/Tunneling No -Circular Undermining No -Exudate Amt Medium Small -Exudate Type Serosanguineous Serosanguineous -Wound Margin Distinct, Distinct, Outline Outline Attached Attached -Granulation Amt Medium (34-66%) -Granulation Quality [place] -Slough/Fibrin Yes -Necrosis Amt Medium (34-66%) Large (67-100%) -Necrotic Tissue Type Adherent Slough Eschar -Structure Exposed N/A -Texture (Elizabeth-wound Skin Appearance) Assessed Assessed -Moisture (Elizabeth-wound Skin Appearance) Assessed Assessed -Color (Elizabeth-wound Skin Appearance) Assessed Assessed -Temperature (Elizabeth-wound Skin No Abnormality No Abnormality Appearance) (Pt Warm) (Pt Warm) -Tenderness on Palpation (Elizabeth-wound No No Skin Appearance) -Ulcer Cleansing Wound Cleanser Soap and Water -Foul Odor after Cleansing No No -Anesthetic Used 5% Lidocaine 4% Lidocaine Gel Solution -Wound Comment(s) SCABBED #7 RLE medial medial -Current Size (cm) - Length 0.1 -Current Size (cm) - Width 0.1 -Current Size (cm) - Depth 0.1 -Total Square Cm 0.01 -Necrosis Amt Large (67-100%) -Necrotic Tissue Type Eschar -Texture (Elizabeth-wound Skin Appearance) Assessed -Moisture (Elizabeth-wound Skin Appearance) Assessed -Color (Elizabeth-wound Skin Appearance) Assessed -Temperature (Elizabeth-wound Skin No Abnormality Appearance) (Pt Warm) -Tenderness on Palpation (Elizabeth-wound No Skin Appearance) -Ulcer Cleansing Soap and Water -Foul Odor after Cleansing No -Wound Comment(s) SCABBED 6. L ankle lateral -Combined with other wound No -Current Size (cm) - Length 0.1 0.1 -Current Size (cm) - Width 0.1 0.1 -Current Size (cm) - Depth 0.1 0.1 -Total Square Cm 0.01 0.01 -Photo Taken Yes -Tunneling No -Undermining/Tunneling No -Circular Undermining No -Exudate Amt Medium -Exudate Type Serosanguineous -Wound Margin Distinct, Outline Attached -Granulation Amt Medium (34-66%) -Granulation Quality [place] -Slough/Fibrin Yes -Necrosis Amt Medium (34-66%) Large (67-100%) -Necrotic Tissue Type Adherent Slough Eschar -Structure Exposed N/A -Texture (Elizabeth-wound Skin Appearance) Assessed, Assessed Scarring -Moisture (Elizabeth-wound Skin Appearance) Assessed Assessed -Color (Elizabeth-wound Skin Appearance) Assessed Assessed -Temperature (Elizabeth-wound Skin No Abnormality No Abnormality Appearance) (Pt Warm) (Pt Warm) -Tenderness on Palpation (Elizabeth-wound No No Skin Appearance) -Ulcer Cleansing Wound Cleanser Soap and Water -Foul Odor after Cleansing No No -Anesthetic Used 5% Lidocaine Gel -Wound Comment(s) SCABBED 5. LLe -Combined with other wound No -Current Size (cm) - Length 1.7 0.5 -Current Size (cm) - Width 2 0.8 -Current Size (cm) - Depth 0.1 0.1 -Total Square Cm 3.4 0.40 -Photo Taken Yes -Tunneling No -Undermining/Tunneling No -Circular Undermining No -Exudate Amt Medium Small -Exudate Type Serosanguineous Serosanguineous -Wound Margin Distinct, Distinct, Outline Outline Attached Attached -Granulation Amt Medium (34-66%) Large (67-100%) -Granulation Quality [place] Red -Slough/Fibrin Yes -Necrosis Amt Medium (34-66%) -Necrotic Tissue Type Adherent Slough -Structure Exposed N/A -Texture (Elizabeth-wound Skin Appearance) Assessed, Assessed Scarring -Moisture (Elizabeth-wound Skin Appearance) Assessed Assessed -Color (Elizabeth-wound Skin Appearance) Assessed Assessed -Temperature (Elizabeth-wound Skin No Abnormality No Abnormality Appearance) (Pt Warm) (Pt Warm) -Tenderness on Palpation (Elizabeth-wound No No Skin Appearance) -Ulcer Cleansing Wound Cleanser Soap and Water -Foul Odor after Cleansing No No -Anesthetic Used 5% Lidocaine 4% Lidocaine Gel Solution 3. RLE lateral medial -Combined with other wound No -Current Size (cm) - Length 1.4 0.3 -Current Size (cm) - Width 1 0.4 -Current Size (cm) - Depth 0.1 0.1 -Total Square Cm 1.4 0.12 -Photo Taken Yes -Tunneling No -Undermining/Tunneling No -Circular Undermining No -Exudate Amt Medium Small -Exudate Type Serosanguineous Serosanguineous -Wound Margin Distinct, Distinct, Outline Outline Attached Attached -Granulation Amt Medium (34-66%) Large (67-100%) -Granulation Quality [place],Red -Slough/Fibrin Yes -Necrosis Amt Medium (34-66%) -Necrotic Tissue Type Adherent Slough -Structure Exposed N/A -Texture (Elizabeth-wound Skin Appearance) Assessed, Assessed Scarring -Moisture (Elizabeth-wound Skin Appearance) Assessed Assessed -Color (Elizabeth-wound Skin Appearance) Assessed Assessed -Temperature (Elizabeth-wound Skin No Abnormality No Abnormality Appearance) (Pt Warm) (Pt Warm) -Tenderness on Palpation (Elizabeth-wound No No Skin Appearance) -Ulcer Cleansing Wound Cleanser Soap and Water -Foul Odor after Cleansing No No -Anesthetic Used 5% Lidocaine 4% Lidocaine Gel Solution 2. RLE superior -Combined with other wound No -Current Size (cm) - Length 0.6 0.4 -Current Size (cm) - Width 0.8 0.5 -Current Size (cm) - Depth 0.1 0.1 -Total Square Cm 0.48 0.20 -Photo Taken Yes -Tunneling No -Undermining/Tunneling No -Circular Undermining No -Exudate Amt Medium Small -Exudate Type Serosanguineous Serosanguineous -Wound Margin Distinct, Distinct, Outline Outline Attached Attached -Granulation Amt Medium (34-66%) Large (67-100%) -Granulation Quality [place],Red -Slough/Fibrin Yes -Necrosis Amt Medium (34-66%) -Necrotic Tissue Type Adherent Slough -Structure Exposed N/A -Texture (Elizabeth-wound Skin Appearance) Assessed, Assessed Scarring -Moisture (Elizabeth-wound Skin Appearance) Assessed Assessed -Color (Elizabeth-wound Skin Appearance) Assessed Assessed -Temperature (Elizabeth-wound Skin No Abnormality No Abnormality Appearance) (Pt Warm) (Pt Warm) -Tenderness on Palpation (Elizabeth-wound No No Skin Appearance) -Ulcer Cleansing Wound Cleanser Soap and Water -Foul Odor after Cleansing No No -Anesthetic Used 5% Lidocaine 4% Lidocaine Gel Solution Lower Limb Edema Present Yes Right Calf (cm) 34 Right Ankle (cm) 20.2 Left Calf (cm) 33.2 Left Ankle (cm) 20.5 WC - Nurse 2 - General Ulcer CM Notes Start: 08/04/24 15:24 Freq: Status: Active Protocol: Activity Type Activity Date Activity User E-sign Co-sign Detail Recorded Client Recorded Date Recorded By Document 08/04/24 16:19 DS [id number] 08/04/24 16:35 DS Document 08/11/24 15:46 JF [id number] 08/11/24 15:56 JF 08/04/24 08/11/24 16:19 15:46 Wound Center Nurse 2 4. RLE newton inferior -Time 16:20 -Correct Patient Yes No -Correct Side, Site, Position Yes No -Correct Procedure Yes No -Procedure Performed Yes No -Type of Procedure Debridement -Clinical Debridement Subcutaneous -Tissue Removed Subcutaneous -Post Debridement (cm) - Length 1.5 0 -Post Debridement (cm) - Width 1.0 0 -Post Debridement (cm) - Depth 0.1 0 -Total Square (Post) (cm) 1.50 0 -Area of Debridement (cm) - Length 1.5 0 -Area of Debridement (cm) - Width 1.0 0 -Total Square (Area) (cm) 1.50 0 -Tunneling No -Undermining/Tunneling No -Circular Undermining No -Wound/Ulcer Outcome Not Healed Healed- Epithelialized -Ulcer Cleansing Rinsed/ Irrigated with Saline -Foul Odor after Cleansing No -Bioengineered Tissue No -Bleeding Controlled with Pressure -Treatment Response Procedure Tolerated Well -Debridement - Subq, 1st 20sq cm No #7 RLE medial medial -Time 16:16 15:49 -Correct Patient Yes Yes -Correct Side, Site, Position Yes Yes -Correct Procedure Yes Yes -Procedure Performed Yes Yes -Type of Procedure Debridement Debridement -Clinical Debridement Subcutaneous Subcutaneous -Tissue Removed Subcutaneous Subcutaneous -Post Debridement (cm) - Length 0.4 0.2 -Post Debridement (cm) - Width 0.8 0.5 -Post Debridement (cm) - Depth 0.1 0.1 -Total Square (Post) (cm) 0.32 0.10 -Area of Debridement (cm) - Length 0.4 0.2 -Area of Debridement (cm) - Width 0.8 0.5 -Total Square (Area) (cm) 0.32 0.10 -Tunneling No No -Undermining/Tunneling No No -Circular Undermining No No -Wound/Ulcer Outcome Not Healed Not Healed -Ulcer Cleansing Rinsed/ Rinsed/ Irrigated with Irrigated with Saline Saline -Foul Odor after Cleansing No No -Bioengineered Tissue No No -Bleeding Controlled with Pressure Pressure -Treatment Response Procedure Procedure Tolerated Well Tolerated Well -Offloading No -Debridement - Subq, 1st 20sq cm No No 6. L ankle lateral -Time 16:19 15:52 -Correct Patient Yes Yes -Correct Side, Site, Position Yes Yes -Correct Procedure Yes Yes -Procedure Performed Yes Yes -Type of Procedure Debridement Debridement -Clinical Debridement Subcutaneous Subcutaneous -Tissue Removed Subcutaneous Subcutaneous -Post Debridement (cm) - Length 0.8 0.7 -Post Debridement (cm) - Width 0.8 0.6 -Post Debridement (cm) - Depth 0.1 0.1 -Total Square (Post) (cm) 0.64 0.42 -Area of Debridement (cm) - Length 0.8 0.7 -Area of Debridement (cm) - Width 0.8 0.6 -Total Square (Area) (cm) 0.64 0.42 -Tunneling No No -Undermining/Tunneling No No -Circular Undermining No No -Wound/Ulcer Outcome Not Healed Not Healed -Ulcer Cleansing Rinsed/ Rinsed/ Irrigated with Irrigated with Saline Saline -Foul Odor after Cleansing No No -Bioengineered Tissue No No -Bleeding Controlled with Pressure Pressure -Treatment Response Procedure Procedure Tolerated Well Tolerated Well -Offloading No -Debridement - Subq, 1st 20sq cm Yes No 5. LLe -Time 16:20 15:53 -Correct Patient Yes Yes -Correct Side, Site, Position Yes Yes -Correct Procedure Yes Yes -Procedure Performed Yes Yes -Type of Procedure Debridement Debridement -Clinical Debridement Subcutaneous Subcutaneous -Tissue Removed Subcutaneous Subcutaneous -Post Debridement (cm) - Length 3.2 0.8 -Post Debridement (cm) - Width 1.1 0.6 -Post Debridement (cm) - Depth 0.1 0.1 -Total Square (Post) (cm) 3.52 0.48 -Area of Debridement (cm) - Length 3.2 0.8 -Area of Debridement (cm) - Width 1.0 0.6 -Total Square (Area) (cm) 3.20 0.48 -Tunneling No No -Undermining/Tunneling No No -Circular Undermining No -Wound/Ulcer Outcome Not Healed Not Healed -Ulcer Cleansing Rinsed/ Rinsed/ Irrigated with Irrigated with Saline Saline -Foul Odor after Cleansing No No -Bioengineered Tissue No No -Bleeding Controlled with Pressure Pressure -Treatment Response Procedure Procedure Tolerated Well Tolerated Well -Offloading No -Debridement - Subq, 1st 20sq cm No No 3. RLE lateral medial -Time 16:20 15:54 -Correct Patient Yes Yes -Correct Side, Site, Position Yes Yes -Correct Procedure Yes Yes -Procedure Performed Yes Yes -Type of Procedure Debridement Debridement -Clinical Debridement Subcutaneous Subcutaneous -Tissue Removed Subcutaneous Subcutaneous -Post Debridement (cm) - Length 1.0 0.7 -Post Debridement (cm) - Width 1.0 0.5 -Post Debridement (cm) - Depth 0.1 0.1 -Total Square (Post) (cm) 1.00 0.35 -Area of Debridement (cm) - Length 1.0 0.7 -Area of Debridement (cm) - Width 1.0 0.5 -Total Square (Area) (cm) 1.00 0.35 -Tunneling No No -Undermining/Tunneling No No -Circular Undermining No No -Wound/Ulcer Outcome Not Healed Not Healed -Ulcer Cleansing Rinsed/ Rinsed/ Irrigated with Irrigated with Saline Saline -Foul Odor after Cleansing No No -Bioengineered Tissue No No -Bleeding Controlled with Pressure Pressure -Treatment Response Procedure Procedure Tolerated Well Tolerated Well -Offloading No -Debridement - Subq, 1st 20sq cm No No 2. RLE superior -Time 16:20 15:55 -Correct Patient Yes Yes -Correct Side, Site, Position Yes Yes -Correct Procedure Yes Yes -Procedure Performed Yes Yes -Type of Procedure Debridement Debridement -Clinical Debridement Subcutaneous Subcutaneous -Tissue Removed Subcutaneous Subcutaneous -Post Debridement (cm) - Length 0.5 0.5 -Post Debridement (cm) - Width 0.8 0.8 -Post Debridement (cm) - Depth 0.1 0.1 -Total Square (Post) (cm) 0.40 0.40 -Area of Debridement (cm) - Length 0.5 0.5 -Area of Debridement (cm) - Width 0.8 0.8 -Total Square (Area) (cm) 0.40 0.40 -Tunneling No No -Undermining/Tunneling No No -Circular Undermining No No -Wound/Ulcer Outcome Not Healed Not Healed -Ulcer Cleansing Rinsed/ Rinsed/ Irrigated with Irrigated with Saline Saline -Foul Odor after Cleansing No No -Bioengineered Tissue No No -Bleeding Controlled with Pressure Pressure -Treatment Response Procedure Procedure Tolerated Well Tolerated Well -Offloading No -Debridement - Subq, 1st 20sq cm No Yes Pain Scale: 0-10 Numeric Is Patient Pain Free? Yes Yes WC - Nurse 3 - General Ulcer D/C NN Start: 08/04/24 15:24 Freq: Status: Active Protocol: Activity Type Activity Date Activity User E-sign Co-sign Detail Recorded Client Recorded Date Recorded By Document 08/04/24 16:35 RB [id number] 08/04/24 16:38 RB Document 08/11/24 16:03 KW [id number] 08/11/24 16:09 KW 08/04/24 08/11/24 16:35 16:03 Wound Care Center Nurse 3 4. RLE newton inferior -Ulcer Cleansing Rinsed/ Irrigated with Saline -Other Dressing HYDROGEL -Primary Dressing Covered/Secured with Dry Gauze,Dry Gauze & Roll Gauze,Secured with Tape #7 RLE medial medial -Ulcer Cleansing Rinsed/ Irrigated with Saline -Primary Dressing Applied C Hydrogel ($) C Hydrogel ($) -Other Dressing abd -Primary Dressing Covered/Secured with Dry Gauze,Dry Dry Gauze & Gauze & Roll Roll Gauze, Gauze,Secured Secured with with Tape Tape 6. L ankle lateral -Ulcer Cleansing Rinsed/ Irrigated with Saline -Other Dressing HYDROGEL HYDROGEL -Primary Dressing Covered/Secured with Dry Gauze,Dry Dry Gauze Gauze & Roll Gauze,Secured with Tape 5. LLe -Ulcer Cleansing Rinsed/ Irrigated with Saline -Primary Dressing Applied C Hydrogel ($) -Other Dressing HYDROGEL -Primary Dressing Covered/Secured with Dry Gauze,Dry Dry Gauze & Gauze & Roll Roll Gauze, Gauze,Secured Secured with with Tape Tape 3. RLE lateral medial -Ulcer Cleansing Rinsed/ Irrigated with Saline -Other Dressing HYDROGEL HYDROGEL -Primary Dressing Covered/Secured with Dry Gauze,Dry Dry Gauze Gauze & Roll Gauze,Secured with Tape 2. RLE superior -Other Dressing HYDROGEL HYDROGEL -Primary Dressing Covered/Secured with Dry Gauze,Dry Dry Gauze, Gauze & Roll Secured with Gauze,Secured Tape with Tape Treatment Response Procedure Tolerated Well Pain Scale: 0-10 Numeric Is Patient Pain Free? Yes Yes Teaching: Wound Center Dressing Your Wound -Person Taught Patient, Significant Other -Teaching Method Discussion, Demonstration -Response to teaching Verbalize Understanding WC - Visit Discharge Discharge Condition Stable Stable Ambulatory Status Ambulatory Ambulatory Transportation Private Auto Private Auto Medication Reconcilliation completed & No No provided to patient/care provider Clinical Summary of Care Provided Yes Yes
--- NOTE | 2024-08-12 18:11 | HP.PCM_ITS ---
History of Present Illness Date of Service: 08/11/24 Chief Complaint: Multiple ulcerations of the lower extremities bilaterally History of Wound: This is a 64-year-old diabetic male with multiple pre-existing medical conditions, listed herein. He presented with multiple ulcerations in his lower extremities, some of which had been present for more than 1 year. The patient was uncertain as to the etiology. Some had been traumatic in origin, but others had been spontaneous. The patient had been using Neosporin ointment topically on an intermittent basis. The patient is a poorly controlled diabetic, with diabetic neuropathy and retinopathy. He also has a history of atherosclerotic peripheral arterial occlusive disease, with symptoms of intermittent claudication at short distances of ambulation. The patient was recently evaluated by a Vascular Surgeon, Dr. Dougherty, at the [facility]. He is scheduled for an endovascular revascularization procedure on his left lower extremity on August 13, 2024. The patient's recent hemoglobin A1c on July 30, 2024, was 8.5. The patient has a history of skin cancers, most of which have been on his scalp. These have been treated by a fuse maker. 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 The patient is of relatively normal body habitus, with a BMI of 27.2. 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 He denies a history of swelling in his lower extremities. He was formerly a smoker, but claims to have discontinued his tobacco habit. [facility] Medical History Diabetes mellitus type 2, insulin dependent Hypertension Family history of factor V Leiden mutation History of tobacco use disorder History of skin cancer Cerebrovascular disease Diabetic retinopathy Non-pressure ulcer of left lower extremity with fat layer exposed Non-pressure ulcer of right lower extremity with fat layer exposed Aftercare following left ankle joint replacement surgery Burn of foot, second degree Tobacco abuse counseling Tobacco abuse Intermittent claudication Peripheral arterial occlusive disease Hyperlipidemia associated with type 2 diabetes mellitus Poorly controlled diabetes mellitus Home Medications ?Medication ?Instructions ?Recorded ?Last Taken ?Type gabapentin 300 mg tablet 600 mg PO Q12H nerve pain 04/24/22 Unknown History insulin glargine 100 unit/mL (3 18 unit subcut DAILY diabetes 04/24/23 Unknown History mL) subcutaneous pen (Lantus Solostar U-100 Insulin) atorvastatin 80 mg tablet 80 mg PO DAILY cholesterol 07/24/23 Unknown History duloxetine 20 mg capsule,delayed 20 mg PO DAILY 07/24/23 Unknown History release blood-glucose sensor (FreeStyle #2 ea 08/05/23 Unknown Rx Silvina 3 Sensor device) ergocalciferol (vitamin D2) 1,250 1,250 mcg PO QWEEK 01/23/24 Unknown History mcg (50,000 unit) capsule semaglutide 2 mg/dose (8 mg/3 mL) 2 mg (0.75 mL) subcut QWEEK #3 mL 04/23/24 Unknown Rx subcutaneous pen injector (Ozempic) oxycodone-acetaminophen 5 mg-325 1 tab PO Q6H PRN PRN Pain 3 days 07/25/24 Unknown Rx mg tablet #12 TABLETS aspirin 81 mg tablet,delayed 81 mg PO QDAY 07/30/24 Unknown History release (Adult Low Dose Aspirin) glimepiride 1 mg tablet 2 mg PO DAILY 08/04/24 Unknown History cephalexin 500 mg capsule 500 mg PO TID #20 caps 08/12/24 Unknown Rx Allergy/AdvReac Type Severity Reaction Status Date / Time No Known Allergies Allergy Verified 07/30/24 15:12 Family History Other Diabetes Heart disease Hypertension Surgical History Sonya's syndrome History of ankle surgery History of tonsillectomy Social History household members: spouse current occupational status: employed Smoking Status: Former smoker alcohol intake: current details: socially what type of physical activity do you participate in: walking Vital Signs Vital Signs Vital Signs: Weight Weight: 190 lb Body Mass Index (BMI) 27.2 Physical Exam Const alert, oriented x3, no apparent distress, average body habitus, no limitations, healthy appearing and well nourished Constitutional Narrative: The patient is of normal body habitus, with a BMI of 27.2. General Appearance: cooperative, comfortable, well kempt and well developed Orientation / Consciousness: awake, oriented to person, oriented to place and oriented to time Exam Limitations: no limitations HEENT normocephalic HEENT Narrative: The patient is bald, by a combination of shaving and normal male-pattern hair loss. Multiple scars are noted on the patient's scalp from previous cancer excisions. Head and Scalp: normal to inspection and normocephalic Face and Sinus: normal facial exam External Ear: external ears normal Eyes EOMs intact bilaterally General Eye: normal appearance of both eyes Sclera: sclera normal Neck full ROM General: normal visual inspection Resp normal respiratory effort, normal air movement, no retractions and no use of accessory muscles Effort and Inspection: able to speak in complete sentences Extremity no calf tenderness General Extremity: Negative for clubbing or cyanosis Skin Wound Narrative: Multiple small ulcerations are noted in the patient's lower extremities. These are located in the following areas: left pretibial, left lateral calf, right pretibial, right lateral knee, and right lateral calf. Each of the ulcerations demonstrates the presence of bioburden and nonviable tissue. One ulceration, located on the right pretibial surface and noted last week, has completely healed and epithelialized. There is no obvious sign of infection or cellulitis. The ulcerations appear to be full-thickness, extending through all layers of the dermis and into the subcutaneous adipose tissue. Dimensions of each ulceration are documented elsewhere. Ulcer margins are well beveled. Hair: male pattern alopecia Neuro oriented x3, CN's II-XII intact bilaterally, moves all extremities and no focal motor deficits Sensorium / Orientation: awake, alert, oriented to person, oriented to place and oriented to time Cranial Nerves: CN normal except as noted Speech: speech normal Psych Appearance: grossly normal and appropriate Attitude: calm Activity / Motor Behavior: appropriate eye contact Speech: normal speech Mood & Affect: euthymic mood Thought Process: normal thought process Thought Content: normal thought content Attention / Concentration: attention grossly intact Debridement Note Debridement Note Wound debrided: Bilateral ulcerations in the gaiter areas Laterality: Not Applicable (Bilateral) Type of Debridement: Excisional debridement Anesthesia Used: 5% Lidocaine Gel Depth: Down to and including healthy tissue and in the subcutaneous layer Percentage of wound debrided: 100 Instrument Used: 5mm curette Tissue Removed: Bioburden and nonviable tissue Severity: Fat Layer Exposed Amount of bleeding with debridement: Mild Bleeding Controlled with: Compression and gauze Patient tolerated procedure: Patient tolerated procedure well Debridement Free Text: The ulcerations which underwent excisional debridement were located on the right pretibial surface, the right lateral knee, the right lateral calf, the left pretibial surface, and the left lateral calf. The dimensions of each are documented elsewhere. Post-Debridement Measurements and Additional Note: Post-Debridement Measurements/Treatment WC - Nurse 1 - General Ulcer Assessment Start: 08/04/24 15:24 Freq: Status: Active Protocol: WC.LOWEXT Activity Type Activity Date Activity User E-sign Co-sign Detail Recorded Client Recorded Date Recorded By Document 08/04/24 15:27 RB [id number] 08/04/24 15:43 RB Document 08/11/24 15:18 KW [id number] 08/11/24 15:31 KW 08/04/24 08/11/24 15:27 15:18 WC - Today's Visit Information Type of service Initial Visit Follow-up Visit (Physician/CUT OUT MARKER ) Arrival Mode Ambulatory Ambulatory Transfer Assistance None Patient Identification Verified (Name & Yes Yes ) Patient Requires Transmission-Based No Precautions Height and Weight Height 5 ft 10 in Weight 190 lb Weight in Pounds 190.0 lbs Body Mass Index (BMI) 27.2 27.2 BMI Classification Overweight Overweight BSA - Sophy 2.04 Vital Signs Temperature (97.8 F-99.1 F) 98.3 F 96.2 F L Temperature Source Temporal Temporal Pulse Rate (60-100) 103 H 87 Pulse Location Monitor Monitor Respiratory Rate (12-18) 18 16 Respiratory rate source Observation Observation Oxygen Delivery Method Room Air Blood Pressure (90/60-120/80) 122/81 H 100/74 Blood Pressure Mean 94 82 Source Monitor Monitor Position Semi-Fowlers Sitting Blood Pressure Location Right Arm Left Arm History Since Last Visit- (Skip if this is Patient's initial visit) Have you changed medications since your No last visit? Any new allergies or adverse reactions No Had a fall/change in ADL's that may No increase risk of falls Signs or symptoms of abuse and/or No neglect since last visit Have you been in the hospital since your No last visit? Has dressing in place as prescribed Yes Has compression in place as prescribed Yes Has offloadiing in place as prescribed N/A Experienced any changes in pain level or No management Left Footwear Regular Shoe Regular Shoe Right Footwear Regular Shoe Regular Shoe Pain Scale: 0-10 Numeric Is Patient Pain Free? No Yes LE -Description Throbbing, Burning, Pressure -Intensity 10 -Duration (hours) Acute -Pain Behavior Withdrawal from Touch -Pain Aggravating Factors Sitting -Alleviating Factors/Interventions Medication -Effectiveness of Alleviating Factor/ Minimally Intervention effective Lower Extremity Assessment/ Foot Assessment/ Toe Nail Assessment Right -Posterior Tibial Palpable No -Posterior Tibial Doppler Monophasic -Dorsalis Pedis Palpable No -Dorsalis Pedis Doppler Monophasic -Extremity Color Normal -Hair Growth on Legs Yes -Hair Growth on Toes No -Temperature of Extremity Cool -Capillary Refill Less than 3 Seconds -Dependent Rubor No -Blanched when Elevated No -Lipodermatosclerosis No -Other Deformity No -Prior Foot Ulcer No -Charcot Joint No -Prior Amputation No -Thick No -Discolored No -Deformed No -Improper Length & Hygeine Yes Left -Posterior Tibial Palpable Yes -Posterior Tibial Doppler Multiphasic -Dorsalis Pedis Palpable Yes -Dorsalis Pedis Doppler Multiphasic -Extremity Color Normal -Hair Growth on Legs Yes -Hair Growth on Toes No -Temperature of Extremity Warm -Capillary Refill Less than 3 Seconds -Dependent Rubor No -Blanched when Elevated No -Lipodermatosclerosis No -Other Deformity No -Prior Foot Ulcer No -Charcot Joint No -Prior Amputation No -Thick No -Discolored No -Deformed No -Improper Length & Hygeine Yes Neuropathy Assessment Feet - Top Side and Bottom <Entered> (a) Communication Assessment Preferred language Portuguese Rd Manager Required No Able to Read Yes Able to Write Yes Communication Tools None Right Hearing Abillity Normal Left Hearing Abillity Normal Visual Assistive Devices Glasses Teaching Assessment Preferences Verbal,Written Barriers to Learning None Readiness To Learn Good Willingness to Engage in Self Management Med Activies Readiness to Engage in Self Management Med Activities Anxiety Level Calm Cooperation Cooperative Perception Coherent Interest in Health Problem Asks Questions Education Importance Acknowledges Need Does Patient Smoke tobacco or other No substances Smoking Status Former smoker Is Patient Diabetic Yes Functional Assessment Recent Decline in Ability to Perform Denies Any Declines Assistive Device With Patient No Culture/Jewish/Assistant Chief Train Dispatcher Cultural/Jewish Needs that may affect No Treatment Plan Would you allow our hospital machine operator helper to No meet you for the purpose of spiritual/ emotional support? Assistant Chief Train Dispatcher to contact place of protestant No Teaching: Wound Center *Welcome to the Wound Center -Person Taught Patient -Teaching Method Discussion, Demonstration -Response to teaching Verbalize Understanding (a) 1 - _- THROUGHTOUT WC - Nurse 1 - General Ulcer Measurement Start: 08/04/24 15:24 Freq: Status: Active Protocol: Activity Type Activity Date Activity User E-sign Co-sign Detail Recorded Client Recorded Date Recorded By Document 08/04/24 15:27 RB [id number] 08/04/24 15:43 RB Document 08/11/24 15:18 KW [id number] 08/11/24 15:31 KW 08/04/24 08/11/24 15:27 15:18 Wound Center Nurse 1 4. RLE newton inferior -Combined with other wound No -Current Size (cm) - Length 1 0.1 -Current Size (cm) - Width 1 0.1 -Current Size (cm) - Depth 0.1 0.1 -Total Square Cm 1 0.01 -Photo Taken Yes -Tunneling No -Undermining/Tunneling No -Circular Undermining No -Exudate Amt Medium Small -Exudate Type Serosanguineous Serosanguineous -Wound Margin Distinct, Distinct, Outline Outline Attached Attached -Granulation Amt Medium (34-66%) -Granulation Quality [place] -Slough/Fibrin Yes -Necrosis Amt Medium (34-66%) Large (67-100%) -Necrotic Tissue Type Adherent Slough Eschar -Structure Exposed N/A -Texture (Elizabeth-wound Skin Appearance) Assessed Assessed -Moisture (Elizabeth-wound Skin Appearance) Assessed Assessed -Color (Elizabeth-wound Skin Appearance) Assessed Assessed -Temperature (Elizabeth-wound Skin No Abnormality No Abnormality Appearance) (Pt Warm) (Pt Warm) -Tenderness on Palpation (Elizabeth-wound No No Skin Appearance) -Ulcer Cleansing Wound Cleanser Soap and Water -Foul Odor after Cleansing No No -Anesthetic Used 5% Lidocaine 4% Lidocaine Gel Solution -Wound Comment(s) SCABBED #7 RLE medial medial -Current Size (cm) - Length 0.1 -Current Size (cm) - Width 0.1 -Current Size (cm) - Depth 0.1 -Total Square Cm 0.01 -Necrosis Amt Large (67-100%) -Necrotic Tissue Type Eschar -Texture (Elizabeth-wound Skin Appearance) Assessed -Moisture (Elizabeth-wound Skin Appearance) Assessed -Color (Elizabeth-wound Skin Appearance) Assessed -Temperature (Elizabeth-wound Skin No Abnormality Appearance) (Pt Warm) -Tenderness on Palpation (Elizabeth-wound No Skin Appearance) -Ulcer Cleansing Soap and Water -Foul Odor after Cleansing No -Wound Comment(s) SCABBED 6. L ankle lateral -Combined with other wound No -Current Size (cm) - Length 0.1 0.1 -Current Size (cm) - Width 0.1 0.1 -Current Size (cm) - Depth 0.1 0.1 -Total Square Cm 0.01 0.01 -Photo Taken Yes -Tunneling No -Undermining/Tunneling No -Circular Undermining No -Exudate Amt Medium -Exudate Type Serosanguineous -Wound Margin Distinct, Outline Attached -Granulation Amt Medium (34-66%) -Granulation Quality [place] -Slough/Fibrin Yes -Necrosis Amt Medium (34-66%) Large (67-100%) -Necrotic Tissue Type Adherent Slough Eschar -Structure Exposed N/A -Texture (Elizabeth-wound Skin Appearance) Assessed, Assessed Scarring -Moisture (Elizabeth-wound Skin Appearance) Assessed Assessed -Color (Elizabeth-wound Skin Appearance) Assessed Assessed -Temperature (Elizabeth-wound Skin No Abnormality No Abnormality Appearance) (Pt Warm) (Pt Warm) -Tenderness on Palpation (Elizabeth-wound No No Skin Appearance) -Ulcer Cleansing Wound Cleanser Soap and Water -Foul Odor after Cleansing No No -Anesthetic Used 5% Lidocaine Gel -Wound Comment(s) SCABBED 5. LLe -Combined with other wound No -Current Size (cm) - Length 1.7 0.5 -Current Size (cm) - Width 2 0.8 -Current Size (cm) - Depth 0.1 0.1 -Total Square Cm 3.4 0.40 -Photo Taken Yes -Tunneling No -Undermining/Tunneling No -Circular Undermining No -Exudate Amt Medium Small -Exudate Type Serosanguineous Serosanguineous -Wound Margin Distinct, Distinct, Outline Outline Attached Attached -Granulation Amt Medium (34-66%) Large (67-100%) -Granulation Quality [place] Red -Slough/Fibrin Yes -Necrosis Amt Medium (34-66%) -Necrotic Tissue Type Adherent Slough -Structure Exposed N/A -Texture (Elizabeth-wound Skin Appearance) Assessed, Assessed Scarring -Moisture (Elizabeth-wound Skin Appearance) Assessed Assessed -Color (Elizabeth-wound Skin Appearance) Assessed Assessed -Temperature (Elizabeth-wound Skin No Abnormality No Abnormality Appearance) (Pt Warm) (Pt Warm) -Tenderness on Palpation (Elizabeth-wound No No Skin Appearance) -Ulcer Cleansing Wound Cleanser Soap and Water -Foul Odor after Cleansing No No -Anesthetic Used 5% Lidocaine 4% Lidocaine Gel Solution 3. RLE lateral medial -Combined with other wound No -Current Size (cm) - Length 1.4 0.3 -Current Size (cm) - Width 1 0.4 -Current Size (cm) - Depth 0.1 0.1 -Total Square Cm 1.4 0.12 -Photo Taken Yes -Tunneling No -Undermining/Tunneling No -Circular Undermining No -Exudate Amt Medium Small -Exudate Type Serosanguineous Serosanguineous -Wound Margin Distinct, Distinct, Outline Outline Attached Attached -Granulation Amt Medium (34-66%) Large (67-100%) -Granulation Quality [place],Red -Slough/Fibrin Yes -Necrosis Amt Medium (34-66%) -Necrotic Tissue Type Adherent Slough -Structure Exposed N/A -Texture (Elizabeth-wound Skin Appearance) Assessed, Assessed Scarring -Moisture (Elizabeth-wound Skin Appearance) Assessed Assessed -Color (Elizabeth-wound Skin Appearance) Assessed Assessed -Temperature (Elizabeth-wound Skin No Abnormality No Abnormality Appearance) (Pt Warm) (Pt Warm) -Tenderness on Palpation (Elizabeth-wound No No Skin Appearance) -Ulcer Cleansing Wound Cleanser Soap and Water -Foul Odor after Cleansing No No -Anesthetic Used 5% Lidocaine 4% Lidocaine Gel Solution 2. RLE superior -Combined with other wound No -Current Size (cm) - Length 0.6 0.4 -Current Size (cm) - Width 0.8 0.5 -Current Size (cm) - Depth 0.1 0.1 -Total Square Cm 0.48 0.20 -Photo Taken Yes -Tunneling No -Undermining/Tunneling No -Circular Undermining No -Exudate Amt Medium Small -Exudate Type Serosanguineous Serosanguineous -Wound Margin Distinct, Distinct, Outline Outline Attached Attached -Granulation Amt Medium (34-66%) Large (67-100%) -Granulation Quality [place],Red -Slough/Fibrin Yes -Necrosis Amt Medium (34-66%) -Necrotic Tissue Type Adherent Slough -Structure Exposed N/A -Texture (Elizabeth-wound Skin Appearance) Assessed, Assessed Scarring -Moisture (Elizabeth-wound Skin Appearance) Assessed Assessed -Color (Elizabeth-wound Skin Appearance) Assessed Assessed -Temperature (Elizabeth-wound Skin No Abnormality No Abnormality Appearance) (Pt Warm) (Pt Warm) -Tenderness on Palpation (Elizabeth-wound No No Skin Appearance) -Ulcer Cleansing Wound Cleanser Soap and Water -Foul Odor after Cleansing No No -Anesthetic Used 5% Lidocaine 4% Lidocaine Gel Solution Lower Limb Edema Present Yes Right Calf (cm) 34 Right Ankle (cm) 20.2 Left Calf (cm) 33.2 Left Ankle (cm) 20.5 WC - Nurse 2 - General Ulcer CM Notes Start: 08/04/24 15:24 Freq: Status: Active Protocol: Activity Type Activity Date Activity User E-sign Co-sign Detail Recorded Client Recorded Date Recorded By Document 08/04/24 16:19 DS [id number] 08/04/24 16:35 DS Document 08/11/24 15:46 JF [id number] 08/11/24 15:56 JF 08/04/24 08/11/24 16:19 15:46 Wound Center Nurse 2 4. RLE newton inferior -Time 16:20 -Correct Patient Yes No -Correct Side, Site, Position Yes No -Correct Procedure Yes No -Procedure Performed Yes No -Type of Procedure Debridement -Clinical Debridement Subcutaneous -Tissue Removed Subcutaneous -Post Debridement (cm) - Length 1.5 0 -Post Debridement (cm) - Width 1.0 0 -Post Debridement (cm) - Depth 0.1 0 -Total Square (Post) (cm) 1.50 0 -Area of Debridement (cm) - Length 1.5 0 -Area of Debridement (cm) - Width 1.0 0 -Total Square (Area) (cm) 1.50 0 -Tunneling No -Undermining/Tunneling No -Circular Undermining No -Wound/Ulcer Outcome Not Healed Healed- Epithelialized -Ulcer Cleansing Rinsed/ Irrigated with Saline -Foul Odor after Cleansing No -Bioengineered Tissue No -Bleeding Controlled with Pressure -Treatment Response Procedure Tolerated Well -Debridement - Subq, 1st 20sq cm No #7 RLE medial medial -Time 16:16 15:49 -Correct Patient Yes Yes -Correct Side, Site, Position Yes Yes -Correct Procedure Yes Yes -Procedure Performed Yes Yes -Type of Procedure Debridement Debridement -Clinical Debridement Subcutaneous Subcutaneous -Tissue Removed Subcutaneous Subcutaneous -Post Debridement (cm) - Length 0.4 0.2 -Post Debridement (cm) - Width 0.8 0.5 -Post Debridement (cm) - Depth 0.1 0.1 -Total Square (Post) (cm) 0.32 0.10 -Area of Debridement (cm) - Length 0.4 0.2 -Area of Debridement (cm) - Width 0.8 0.5 -Total Square (Area) (cm) 0.32 0.10 -Tunneling No No -Undermining/Tunneling No No -Circular Undermining No No -Wound/Ulcer Outcome Not Healed Not Healed -Ulcer Cleansing Rinsed/ Rinsed/ Irrigated with Irrigated with Saline Saline -Foul Odor after Cleansing No No -Bioengineered Tissue No No -Bleeding Controlled with Pressure Pressure -Treatment Response Procedure Procedure Tolerated Well Tolerated Well -Offloading No -Debridement - Subq, 1st 20sq cm No No 6. L ankle lateral -Time 16:19 15:52 -Correct Patient Yes Yes -Correct Side, Site, Position Yes Yes -Correct Procedure Yes Yes -Procedure Performed Yes Yes -Type of Procedure Debridement Debridement -Clinical Debridement Subcutaneous Subcutaneous -Tissue Removed Subcutaneous Subcutaneous -Post Debridement (cm) - Length 0.8 0.7 -Post Debridement (cm) - Width 0.8 0.6 -Post Debridement (cm) - Depth 0.1 0.1 -Total Square (Post) (cm) 0.64 0.42 -Area of Debridement (cm) - Length 0.8 0.7 -Area of Debridement (cm) - Width 0.8 0.6 -Total Square (Area) (cm) 0.64 0.42 -Tunneling No No -Undermining/Tunneling No No -Circular Undermining No No -Wound/Ulcer Outcome Not Healed Not Healed -Ulcer Cleansing Rinsed/ Rinsed/ Irrigated with Irrigated with Saline Saline -Foul Odor after Cleansing No No -Bioengineered Tissue No No -Bleeding Controlled with Pressure Pressure -Treatment Response Procedure Procedure Tolerated Well Tolerated Well -Offloading No -Debridement - Subq, 1st 20sq cm Yes No 5. LLe -Time 16:20 15:53 -Correct Patient Yes Yes -Correct Side, Site, Position Yes Yes -Correct Procedure Yes Yes -Procedure Performed Yes Yes -Type of Procedure Debridement Debridement -Clinical Debridement Subcutaneous Subcutaneous -Tissue Removed Subcutaneous Subcutaneous -Post Debridement (cm) - Length 3.2 0.8 -Post Debridement (cm) - Width 1.1 0.6 -Post Debridement (cm) - Depth 0.1 0.1 -Total Square (Post) (cm) 3.52 0.48 -Area of Debridement (cm) - Length 3.2 0.8 -Area of Debridement (cm) - Width 1.0 0.6 -Total Square (Area) (cm) 3.20 0.48 -Tunneling No No -Undermining/Tunneling No No -Circular Undermining No -Wound/Ulcer Outcome Not Healed Not Healed -Ulcer Cleansing Rinsed/ Rinsed/ Irrigated with Irrigated with Saline Saline -Foul Odor after Cleansing No No -Bioengineered Tissue No No -Bleeding Controlled with Pressure Pressure -Treatment Response Procedure Procedure Tolerated Well Tolerated Well -Offloading No -Debridement - Subq, 1st 20sq cm No No 3. RLE lateral medial -Time 16:20 15:54 -Correct Patient Yes Yes -Correct Side, Site, Position Yes Yes -Correct Procedure Yes Yes -Procedure Performed Yes Yes -Type of Procedure Debridement Debridement -Clinical Debridement Subcutaneous Subcutaneous -Tissue Removed Subcutaneous Subcutaneous -Post Debridement (cm) - Length 1.0 0.7 -Post Debridement (cm) - Width 1.0 0.5 -Post Debridement (cm) - Depth 0.1 0.1 -Total Square (Post) (cm) 1.00 0.35 -Area of Debridement (cm) - Length 1.0 0.7 -Area of Debridement (cm) - Width 1.0 0.5 -Total Square (Area) (cm) 1.00 0.35 -Tunneling No No -Undermining/Tunneling No No -Circular Undermining No No -Wound/Ulcer Outcome Not Healed Not Healed -Ulcer Cleansing Rinsed/ Rinsed/ Irrigated with Irrigated with Saline Saline -Foul Odor after Cleansing No No -Bioengineered Tissue No No -Bleeding Controlled with Pressure Pressure -Treatment Response Procedure Procedure Tolerated Well Tolerated Well -Offloading No -Debridement - Subq, 1st 20sq cm No No 2. RLE superior -Time 16:20 15:55 -Correct Patient Yes Yes -Correct Side, Site, Position Yes Yes -Correct Procedure Yes Yes -Procedure Performed Yes Yes -Type of Procedure Debridement Debridement -Clinical Debridement Subcutaneous Subcutaneous -Tissue Removed Subcutaneous Subcutaneous -Post Debridement (cm) - Length 0.5 0.5 -Post Debridement (cm) - Width 0.8 0.8 -Post Debridement (cm) - Depth 0.1 0.1 -Total Square (Post) (cm) 0.40 0.40 -Area of Debridement (cm) - Length 0.5 0.5 -Area of Debridement (cm) - Width 0.8 0.8 -Total Square (Area) (cm) 0.40 0.40 -Tunneling No No -Undermining/Tunneling No No -Circular Undermining No No -Wound/Ulcer Outcome Not Healed Not Healed -Ulcer Cleansing Rinsed/ Rinsed/ Irrigated with Irrigated with Saline Saline -Foul Odor after Cleansing No No -Bioengineered Tissue No No -Bleeding Controlled with Pressure Pressure -Treatment Response Procedure Procedure Tolerated Well Tolerated Well -Offloading No -Debridement - Subq, 1st 20sq cm No Yes Pain Scale: 0-10 Numeric Is Patient Pain Free? Yes Yes - Nurse 3 - General Ulcer D/C NN Start: 08/04/24 15:24 Freq: Status: Active Protocol: Activity Type Activity Date Activity User E-sign Co-sign Detail Recorded Client Recorded Date Recorded By Document 08/04/24 16:35 RB [id number] 08/04/24 16:38 RB Document 08/11/24 16:03 KW [id number] 08/11/24 16:09 KW 08/04/24 08/11/24 16:35 16:03 [facility] Nurse 3 4. RLE [place]ton inferior -Ulcer Cleansing Rinsed/ Irrigated with Saline -Other Dressing HYDROGEL -Primary Dressing Covered/Secured with Dry Gauze,Dry Gauze & Roll Gauze,Secured with Tape #7 RLE medial medial -Ulcer Cleansing Rinsed/ Irrigated with Saline -Primary Dressing Applied C Hydrogel ($) C Hydrogel ($) -Other Dressing abd -Primary Dressing Covered/Secured with Dry Gauze,Dry Dry Gauze & Gauze & Roll Roll Gauze, Gauze,Secured Secured with with Tape Tape 6. L ankle lateral -Ulcer Cleansing Rinsed/ Irrigated with Saline -Other Dressing HYDROGEL HYDROGEL -Primary Dressing Covered/Secured with Dry Gauze,Dry Dry Gauze Gauze & Roll Gauze,Secured with Tape 5. LLe -Ulcer Cleansing Rinsed/ Irrigated with Saline -Primary Dressing Applied C Hydrogel ($) -Other Dressing HYDROGEL -Primary Dressing Covered/Secured with Dry Gauze,Dry Dry Gauze & Gauze & Roll Roll Gauze, Gauze,Secured Secured with with Tape Tape 3. RLE lateral medial -Ulcer Cleansing Rinsed/ Irrigated with Saline -Other Dressing HYDROGEL HYDROGEL -Primary Dressing Covered/Secured with Dry Gauze,Dry Dry Gauze Gauze & Roll Gauze,Secured with Tape 2. RLE superior -Other Dressing HYDROGEL HYDROGEL -Primary Dressing Covered/Secured with Dry Gauze,Dry Dry Gauze, Gauze & Roll Secured with Gauze,Secured Tape with Tape Treatment Response Procedure Tolerated Well Pain Scale: 0-10 Numeric Is Patient Pain Free? Yes Yes Teaching: Wound Center Dressing Your Wound -Person Taught Patient, Significant Other -Teaching Method Discussion, Demonstration -Response to teaching Verbalize Understanding WC - Visit Discharge Discharge Condition Stable Stable Ambulatory Status Ambulatory Ambulatory Transportation Private Auto Private Auto Medication Reconcilliation completed & No No provided to patient/care provider Clinical Summary of Care Provided Yes Yes Charges/Coding Procedures Integumentary [id number]: [id number] Aruna subq tissue 20 sq cm/< Assessment/Plan Assessment/Plan (1) Non-pressure ulcer of right lower extremity with fat layer exposed: CODE(S): L97.912 - Non-pressure chronic ulcer of unspecified part of right lower leg with fat layer exposed (2) Non-pressure ulcer of left lower extremity with fat layer exposed: CODE(S): L97.922 - Non-pressure chronic ulcer of unspecified part of left lower leg with fat layer exposed (3) Diabetes mellitus type 2, insulin dependent: CODE(S): E11.9 - Type 2 diabetes mellitus without complications; Z79.4 - intermediate (current) use of insulin (4) Peripheral arterial occlusive disease: CODE(S): I77.9 - Disorder of arteries and arterioles, unspecified (5) Intermittent claudication: CODE(S): I73.9 - Peripheral vascular disease, unspecified (6) Neuropathy: CODE(S): G62.9 - Polyneuropathy, unspecified (7) Diabetes: CODE(S): E11.9 - Type 2 diabetes mellitus without complications QUALIFIERS: Diabetes mellitus type: type 2 Diabetes mellitus skilled nursing insulin use: with skilled nursing use Diabetes mellitus complication status: with hyperglycemia Qualified Code(s): E11.65 - Type 2 diabetes mellitus with hyperglycemia; 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 of 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 (8) Hyperlipidemia associated with type 2 diabetes mellitus: CODE(S): E11.69 - Type 2 diabetes mellitus with other specified complication; E78.5 - Hyperlipidemia, unspecified (9) Poorly controlled diabetes mellitus: CODE(S): E11.65 - Type 2 diabetes mellitus with hyperglycemia (10) Diabetic retinopathy: CODE(S): E11.319 - Type 2 diabetes mellitus with unspecified diabetic retinopathy without macular edema (11) Cerebrovascular disease: CODE(S): I67.9 - Cerebrovascular disease, unspecified (12) History of skin cancer: CODE(S): Z85.828 - Personal history of other malignant neoplasm of skin (13) History of tobacco use disorder: CODE(S): Z87.891 - Personal history of nicotine dependence (14) Family history of factor V Leiden mutation: CODE(S): Z83.2 - Family history of diseases of the blood and blood-forming organs and certain disorders involving the immune mechanism (15) Hypertension: CODE(S): I10 - Essential (primary) hypertension PLAN: Plan This is a 64-year-old male with multiple pre-existing medical problems. He presented with multiple ulcerations in his lower extremities bilaterally. He is known to be a poorly controlled diabetic, with his recent hemoglobin A1c of 8.5. He is also known to have peripheral arterial occlusive disease, and suffers from short-distance intermittent claudication. The etiology of his ulcerations is uncertain, though some appear to be traumatic. Because the patient has a history of MRSA infection, wounds in both lower extremities have been cultured for aerobic and anaerobic bacterial growth. Culture results revealed the presence of Staphylococcus aureus. Based upon sensitivity results, the patient has been placed on cephalexin 500 mg p.o. 3 times daily for a total of 7 days. The patient has been encouraged to optimize his nutritional intake. He has also been advised to optimize his diabetic control in collaboration with his primary care physician. Because of the multiple nature of his ulcerations, a systemic cause may be considered. At present, however, we are to continue care by means of collagen hydrogel which will be applied topically to the patient's ulcerations on a daily basis. The patient has been instructed in the appropriate means of application. He has been urged to refrain from picking at his ulcerations, as is his habit. Thus far, he has been able to avoid this habit. It is noted that the patient is scheduled for left lower extremity endovascular revascularization at the [facility] on August 13, 2024. The patient is to return for reevaluation in 2 weeks. Total time: 26 minutes
== END 2024-08-14 23:59 | disposition home or self-care (01) ==
LOC: WC 15:15
PROVIDERS: PCP Internal Medicine; Referring Provider Internal Medicine; Visit Provider Surgery
DX: E11.622 Type 2 diabetes mellitus with other skin ulcer (principal); L97.922 Non-pressure chronic ulcer of unspecified part of left lower leg with fat layer exposed; L97.912 Non-pressure chronic ulcer of unspecified part of right lower leg with fat layer exposed; E11.65 Type 2 diabetes mellitus with hyperglycemia; E11.69 Type 2 diabetes mellitus with other specified complication; E11.51 Type 2 diabetes mellitus with diabetic peripheral angiopathy without gangrene; E11.319 Type 2 diabetes mellitus with unspecified diabetic retinopathy without macular edema; E11.42 Type 2 diabetes mellitus with diabetic polyneuropathy; Z79.4 Long term (current) use of insulin; Z79.85 Long-term (current) use of injectable non-insulin antidiabetic drugs; Z79.82 Long term (current) use of aspirin; I10 Essential (primary) hypertension; Z79.84 Long term (current) use of oral hypoglycemic drugs; Z87.891 Personal history of nicotine dependence; E78.5 Hyperlipidemia, unspecified; Z83.2 Family history of diseases of the blood and blood-forming organs and certain disorders involving the immune mechanism; Z85.828 Personal history of other malignant neoplasm of skin
CPT/HCPCS: 11042; 99213; G0463

== ENCOUNTER 2024-08-25 14:43 | Outpatient (RCR) | payer OTHER, SELFPAY ==
[2024-08-15 02:39] VITALS: BP 100/74; PULSE 87; RESP 16; TEMP 35.7; BMI 27.2
[2024-08-25 15:08] VITALS: BP 122/84; PULSE 87; RESP 14; TEMP 36.5; BMI 27.2
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
== END 2024-09-11 23:59 | disposition home or self-care (01) ==
LOC: WC 14:43
PROVIDERS: PCP Internal Medicine; Referring Provider Internal Medicine; Visit Provider Surgery
DX: E11.622 Type 2 diabetes mellitus with other skin ulcer (principal); L97.322 Non-pressure chronic ulcer of left ankle with fat layer exposed; E11.65 Type 2 diabetes mellitus with hyperglycemia; E11.51 Type 2 diabetes mellitus with diabetic peripheral angiopathy without gangrene; Z79.4 Long term (current) use of insulin; E11.319 Type 2 diabetes mellitus with unspecified diabetic retinopathy without macular edema; E11.42 Type 2 diabetes mellitus with diabetic polyneuropathy; E11.69 Type 2 diabetes mellitus with other specified complication; E78.5 Hyperlipidemia, unspecified; Z79.84 Long term (current) use of oral hypoglycemic drugs; Z79.85 Long-term (current) use of injectable non-insulin antidiabetic drugs; I10 Essential (primary) hypertension; Z87.891 Personal history of nicotine dependence; Z79.82 Long term (current) use of aspirin; Z86.14 Personal history of Methicillin resistant Staphylococcus aureus infection; Z79.899 Other long term (current) drug therapy
CPT/HCPCS: 11042

== ENCOUNTER 2024-09-15 15:07 | Outpatient (RCR) | payer OTHER, SELFPAY ==
[2024-09-12 01:21] VITALS: BP 122/84; PULSE 87; RESP 14; TEMP 36.5; BMI 27.2
[2024-09-15 15:14] VITALS: BP 174/87; PULSE 86; RESP 15; TEMP 36.1; BMI 27.2
--- NOTE | 2024-09-16 14:20 | WC ---
PHOTO 09/15/24 HEALED
--- NOTE | 2024-09-16 14:21 | WC ---
PHOTO 09/15/24 HEALED
--- NOTE | 2024-09-17 20:24 | PCM.WC.HP ---
History of Present Illness Date of Service: 09/15/24 Chief Complaint: Multiple ulcerations of the lower extremities bilaterally History of Wound: This is a 64-year-old diabetic male with multiple pre-existing medical conditions, listed herein. He presented with multiple ulcerations in his lower extremities, some of which had been present for more than 1 year. The patient was uncertain as to the etiology. Some had been traumatic in origin, but others had been spontaneous. The patient had been using Neosporin ointment topically on an intermittent basis. The patient is a poorly controlled diabetic, with diabetic neuropathy and retinopathy. He also has a history of atherosclerotic peripheral arterial occlusive disease, with symptoms of intermittent claudication at short distances of ambulation. The patient was recently evaluated by a Vascular Surgeon, Dr. Dougherty, at the [facility]. He is scheduled for an endovascular revascularization procedure on his left lower extremity on August 13, 2024. The patient's recent hemoglobin A1c on July 30, 2024, was 8.5. The patient has a history of skin cancers, most of which have been on his scalp. These have been treated by a cross tie tram loader. 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 The patient is of relatively normal body habitus, with a BMI of 27.2. 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 He denies a history of swelling in his lower extremities. He was formerly a smoker, but claims to have discontinued his tobacco habit. [facility] Medical History PVD (peripheral vascular disease) with claudication Transient neurological symptoms Urinary incontinence without sensory awareness Primary hypertension Mixed hyperlipidemia Diabetes mellitus type 2, insulin dependent Hypertension Family history of factor V Leiden mutation History of tobacco use disorder History of skin cancer Cerebrovascular disease Diabetic retinopathy Non-pressure ulcer of left lower extremity with fat layer exposed Non-pressure ulcer of right lower extremity with fat layer exposed Aftercare following left ankle joint replacement surgery Burn of foot, second degree Tobacco abuse counseling Tobacco abuse Intermittent claudication Peripheral arterial occlusive disease Hyperlipidemia associated with type 2 diabetes mellitus Poorly controlled diabetes mellitus Home Medications ?Medication ?Instructions ?Recorded ?Last Taken ?Type gabapentin 300 mg tablet 600 mg PO Q12H nerve pain 04/24/22 Unknown History duloxetine 20 mg capsule,delayed 20 mg PO DAILY 07/24/23 Unknown History release blood-glucose sensor (FreeStyle #2 ea 08/05/23 Unknown Rx Silvina 3 Sensor device) ergocalciferol (vitamin D2) 1,250 1,250 mcg PO QWEEK 01/23/24 Unknown History mcg (50,000 unit) capsule semaglutide 2 mg/dose (8 mg/3 mL) 2 mg (0.75 mL) subcut QWEEK #3 mL 04/23/24 Unknown Rx subcutaneous pen injector (Ozempic) oxycodone-acetaminophen 5 mg-325 1 tab PO Q6H PRN PRN Pain 3 days 07/25/24 Unknown Rx mg tablet #12 TABLETS aspirin 81 mg tablet,delayed 81 mg PO QDAY 07/30/24 Unknown History release (Adult Low Dose Aspirin) glimepiride 1 mg tablet 2 mg PO DAILY 08/04/24 Unknown History cephalexin 500 mg capsule 500 mg PO TID #20 caps 08/12/24 Unknown Rx doxycycline hyclate 100 mg tablet 100 mg PO BID #7 tabs 08/17/24 Unknown Rx insulin glargine 100 unit/mL (3 20 unit subcut DAILY diabetes 09/14/24 Unknown History mL) subcutaneous pen (Lantus Solostar U-100 Insulin) rosuvastatin 20 mg tablet 20 mg PO QDAY 09/14/24 Unknown History Allergy/AdvReac Type Severity Reaction Status Date / Time No Known Allergies Allergy Verified 07/30/24 15:12 Family History Father Diabetes Heart disease Myocardial infarction Hyperlipidemia Mother Hypertension Lung cancer Sister Generalized headaches Grandfather Prostate cancer Surgical History History of removal of cyst Sonya's syndrome History of ankle surgery History of tonsillectomy Social History household members: spouse current occupational status: employed Smoking Status: Former smoker quit date: 03/31/23 pack-years: 12 Tobacco: How many years used: 25 alcohol intake: current alcohol intake frequency: a few times a week Alcohol type: beer details: socially what type of physical activity do you participate in: walking Vital Signs Vital Signs Vital Signs: Weight Weight: 190 lb Body Mass Index (BMI) 27.2 Physical Exam Const alert, oriented x3, no apparent distress, average body habitus, no limitations, healthy appearing and well nourished Constitutional Narrative: The patient is of normal body habitus, with a BMI of 27.2. General Appearance: cooperative, comfortable, well kempt and well developed Orientation / Consciousness: awake, oriented to person, oriented to place and oriented to time Exam Limitations: no limitations HEENT normocephalic HEENT Narrative: The patient is bald, by a combination of shaving and normal male-pattern hair loss. Multiple scars are noted on the patient's scalp from previous cancer excisions. Head and Scalp: normal to inspection and normocephalic Face and Sinus: normal facial exam External Ear: external ears normal Eyes EOMs intact bilaterally General Eye: normal appearance of both eyes Sclera: sclera normal Neck full ROM General: normal visual inspection Resp normal respiratory effort, normal air movement, no retractions and no use of accessory muscles Effort and Inspection: able to speak in complete sentences Extremity no calf tenderness General Extremity: Negative for clubbing or cyanosis Skin Wound Narrative: All of the patient's lower extremity ulcerations are now completely healed and epithelialized. The skin is all sites. There is no sign of infection or cellulitis. No significant swelling or edema are noted. Hair: male pattern alopecia Neuro oriented x3, CN's II-XII intact bilaterally, moves all extremities and no focal motor deficits Sensorium / Orientation: awake, alert, oriented to person, oriented to place and oriented to time Cranial Nerves: CN normal except as noted Speech: speech normal Psych Appearance: grossly normal and appropriate Attitude: calm Activity / Motor Behavior: appropriate eye contact Speech: normal speech Mood & Affect: euthymic mood Thought Process: normal thought process Thought Content: normal thought content Attention / Concentration: attention grossly intact Debridement Note Debridement Note No debridement was completed: No debridement was completed today (No open wounds or ulcerations are noted.) Post-Debridement Measurements and Additional Note: Post-Debridement Measurements/Treatment WC - Nurse 1 - General Ulcer Assessment Start: 09/15/24 15:14 Freq: Status: Active Protocol: ANDRIA Activity Type Activity Date Activity User E-sign Co-sign Detail Recorded Client Recorded Date Recorded By Document 09/15/24 15:14 ML [id number] 09/15/24 15:17 ML 09/15/24 15:14 WC - Today's Visit Information Type of service Follow-up Visit (Physician/WIRE [employer]AM[employer]ER ) Arrival Mode Ambulatory Transfer Assistance None Patient Identification Verified (Name & Yes ) Patient Requires Transmission-Based No Precautions Height and Weight Body Mass Index (BMI) 27.2 BMI Classification Overweight Vital Signs Temperature (97.8 F-99.1 F) 97 F L Temperature Source Temporal Pulse Rate (60-100) 86 Pulse Location Monitor Respiratory Rate (12-18) 15 Respiratory rate source Observation Blood Pressure (90/60-120/80) 174/87 H Blood Pressure Mean 116 Source Monitor Position Sitting Blood Pressure Location Right Arm History Since Last Visit- (Skip if this is Patient's initial visit) Have you changed medications since your No last visit? Any new allergies or adverse reactions No Had a fall/change in ADL's that may No increase risk of falls Signs or symptoms of abuse and/or No neglect since last visit Have you been in the hospital since your No last visit? Has dressing in place as prescribed No Has compression in place as prescribed N/A Has offloadiing in place as prescribed N/A Experienced any changes in pain level or No management Pain Scale: 0-10 Numeric Is Patient Pain Free? Yes WC - Nurse 1 - General Ulcer Measurement Start: 09/15/24 15:14 Freq: Status: Active Protocol: Activity Type Activity Date Activity User E-sign Co-sign Detail Recorded Client Recorded Date Recorded By Document 09/15/24 15:14 ML [id number] 09/15/24 15:17 ML 09/15/24 15:14 Wound Center Nurse 1 6. L ankle lateral -Current Size (cm) - Length 0.1 -Current Size (cm) - Width 0.1 -Current Size (cm) - Depth 0.1 -Total Square Cm 0.01 -Photo Taken Yes -Exudate Amt None Present -Granulation Amt None Present (0 %) -Slough/Fibrin No -Necrosis Amt None Present (0 %) -Texture (Elizabeth-wound Skin Appearance) Assessed -Color (Elizabeth-wound Skin Appearance) Assessed -Temperature (Elizabteh-wound Skin No Abnormality Appearance) (Pt Warm) -Tenderness on Palpation (Elizabeth-wound No Skin Appearance) -Foul Odor after Cleansing No WC - Nurse 2 - General Ulcer CM Notes Start: 09/15/24 15:14 Freq: Status: Active Protocol: Activity Type Activity Date Activity User E-sign Co-sign Detail Recorded Client Recorded Date Recorded By Document 09/15/24 15:25 DS [id number] 09/15/24 15:25 DS 09/15/24 15:25 Wound Center Nurse 2 -Time 15:25 -Correct Patient Yes -Procedure Performed No -Wound/Ulcer Outcome Healed- Epithelialized Pain Scale: 0-10 Numeric Is Patient Pain Free? Yes Charges/Coding Visit Charges Office Visits / Consults: 24058 OV L2 Est 10min Assessment/Plan Assessment/Plan (1) Non-pressure ulcer of left lower extremity with fat layer exposed: CODE(S): L97.922 - Non-pressure chronic ulcer of unspecified part of left lower leg with fat layer exposed (2) Diabetes mellitus type 2, insulin dependent: CODE(S): E11.9 - Type 2 diabetes mellitus without complications; Z79.4 - FPC (current) use of insulin (3) Peripheral arterial occlusive disease: CODE(S): I77.9 - Disorder of arteries and arterioles, unspecified (4) Intermittent claudication: CODE(S): I73.9 - Peripheral vascular disease, unspecified (5) Neuropathy: CODE(S): G62.9 - Polyneuropathy, unspecified (6) Diabetes: CODE(S): E11.9 - Type 2 diabetes mellitus without complications QUALIFIERS: Diabetes mellitus type: type 2 Diabetes mellitus retirement insulin use: with retirement use Diabetes mellitus complication status: with hyperglycemia Qualified Code(s): E11.65 - Type 2 diabetes mellitus with hyperglycemia; Z79.4 - FPC (current) use of insulin (7) Hyperlipidemia associated with type 2 diabetes mellitus: CODE(S): E11.69 - Type 2 diabetes mellitus with other specified complication; E78.5 - Hyperlipidemia, unspecified (8) Poorly controlled diabetes mellitus: CODE(S): E11.65 - Type 2 diabetes mellitus with hyperglycemia (9) Diabetic retinopathy: CODE(S): E11.319 - Type 2 diabetes mellitus with unspecified diabetic retinopathy without macular edema (10) Cerebrovascular disease: CODE(S): I67.9 - Cerebrovascular disease, unspecified (11) History of skin cancer: CODE(S): Z85.828 - Personal history of other malignant neoplasm of skin (12) History of tobacco use disorder: CODE(S): Z87.891 - Personal history of nicotine dependence (13) Family history of factor V Leiden mutation: CODE(S): Z83.2 - Family history of diseases of the blood and blood-forming organs and certain disorders involving the immune mechanism (14) Hypertension: CODE(S): I10 - Essential (primary) hypertension PLAN: Plan This is a 64-year-old male with multiple pre-existing medical problems. He presented with multiple ulcerations in his lower extremities bilaterally. All ulcerations have healed, and the patient is now to be discharged. He will follow-up henceforth on an as-needed basis. Total time: 18 minutes
== END 2024-10-12 23:59 | disposition home or self-care (01) ==
LOC: WC 15:07
PROVIDERS: PCP Internal Medicine; Referring Provider Internal Medicine; Visit Provider Surgery
DX: Z09 Encounter for follow-up examination after completed treatment for conditions other than malignant neoplasm (principal); E11.622 Type 2 diabetes mellitus with other skin ulcer; E11.51 Type 2 diabetes mellitus with diabetic peripheral angiopathy without gangrene; E11.65 Type 2 diabetes mellitus with hyperglycemia; E11.42 Type 2 diabetes mellitus with diabetic polyneuropathy; E11.69 Type 2 diabetes mellitus with other specified complication; Z79.4 Long term (current) use of insulin; E11.319 Type 2 diabetes mellitus with unspecified diabetic retinopathy without macular edema; Z79.84 Long term (current) use of oral hypoglycemic drugs; Z79.82 Long term (current) use of aspirin; I10 Essential (primary) hypertension; E78.5 Hyperlipidemia, unspecified; Z87.891 Personal history of nicotine dependence; Z79.85 Long-term (current) use of injectable non-insulin antidiabetic drugs
CPT/HCPCS: 99212; 99213; G0463

== ENCOUNTER → 2024-10-05 | Outpatient (CLI) | payer OTHER, SELFPAY ==
--- NOTE | 2024-10-05 09:27 | STRESSREP_ITS ---
Stress Test Report Date: 10/05/2024 Procedure: Pharmacologic stress nuclear imaging study Indications: Dyspnea on exertion Consent: Per the patient Procedure: The patient underwent pharmacologic (Regadenoson 0.4mg ) evaluation with a peak heart rate of 97 beats per minute (61%predicted maximal heart rate) and a peak blood pressure of 122/82 mmHg. The baseline ECG demonstrated sinus rhythm. Nonspecific T wave changes. Prior septal SC. The peak pharmacologic ECG no diagnostic ischemic changes. There were no cardiac dysrhythmias pretest, during pharmacologic infusion, or recovery. There was no complaint of chest discomfort during pharmacologic infusion or recovery. The patient was injected with 14.3 millicuries of technetium 99m Cardiolite and subsequently rest SPECT Cardiolite nuclear imaging was obtained in the horizontal long, vertical long, and short axis views. The patient underwent pharmacologic (Regadenoson) evaluation. The patient was injected with 44.1 millicuries of technetium 99m Cardiolite and subsequently stress SPECT Cardiolite nuclear imaging was obtained in the horizontal long, vertical long, and short axis views. A gated Cardiolite study at peak stress was obtained. The examination was stopped secondary to completion of protocol. Rest and stress SPECT Cardiolite nuclear imaging status post realignment, normalization, and attenuation correction demonstrate a fixed perfusion defect of the apex suggestive of prior apical infarct. There is moderate emelia-infarct ischemia. There is end systolic thickening and brightening. The gated studies show anterior hypokinesis. The reported LVEF is 36%. Impression: 1. Pharmacologic (Regadenoson) evaluation 2. Peak pharmacologic ECG with no diagnostic ischemic changes. 3. There were no cardiac dysrhythmias pretest, during pharmacologic infusion, or recovery. 5. Fixed apical perfusion defect suggestive of prior myocardial infarction with moderate emelia-infarct ischemia. 6. The gated Cardiolite study reports an LVEF of 36%. This note was generated with [employer] software. It may contain incorrect words, spelling, and punctuation that were not noted in checking the note before signing.
== END | disposition home or self-care (01) ==
LOC: CVS 06:03
PROVIDERS: PCP Internal Medicine; Referring Provider Internal Medicine Cardiovascular Disease; Visit Provider Internal Medicine Cardiovascular Disease
DX: R06.09 Other forms of dyspnea (principal); I10 Essential (primary) hypertension; E78.2 Mixed hyperlipidemia
CPT/HCPCS: 78452; 93017; A9500; A4216; J2785

== ENCOUNTER → 2024-10-19 | Outpatient (CLI) | payer OTHER, SELFPAY ==
[2024-10-19 16:27] LABS: Hematocrit 42.2 % (40-54); Hemoglobin 14.2 g/dL (13.0-16.5); Mean Corp Hgb Conc 33.6 g/dL (32-36); Mean Corpuscular Hgb 28.7 pg (27.0-32.0); Mean Corpuscular Volume 85.4 fL (80-94); Mean Platelet Vol. 9.3 fl (6.2-12.0); Platelet Count 260 K/mm3 (150-450); RBC Distribution Width SD 40.7 fl (35.1-43.9); Red Blood Count 4.94 M/mm3 (4.6-6.2); White Blood Count 6.5 K/mm3 (4.4-11.0)
[2024-10-19 17:59] LABS: International Normalized Ratio 0.9; Prothrombin Time (Protime)PT. 12.7 SECONDS (11.7-14.9)
[2024-10-19 18:43] LABS: Anion Gap 11 (5-15); BUN 19 mg/dL (4-19); BUN/Creat Ratio 21.2 RATIO (10-20); Calcium,Total 9.8 mg/dL (7.6-11.0); Carbon Dioxide 25.5 mmol/L (21.0-32.0); Chloride 103 mmol/L (98-108); Creatinine, Serum 0.87 mg/dL (0.70-1.20); EST Glomerular Filtration Rate 97 (>60); Glucose 103 mg/dL (70-99); Potassium 4.2 mmol/L (3.3-5.1); Sodium Level 139 mmol/L (133-145)
== END | disposition home or self-care (01) ==
LOC: LAB 15:18
PROVIDERS: PCP Internal Medicine; Referring Provider Internal Medicine Cardiovascular Disease; Visit Provider Internal Medicine Cardiovascular Disease
DX: I10 Essential (primary) hypertension (principal); E11.65 Type 2 diabetes mellitus with hyperglycemia; R06.09 Other forms of dyspnea
CPT/HCPCS: 36415; 80048; 85027; 85610

== ENCOUNTER 2024-10-21 09:21 | Day surgery (SDC) | payer OTHER, SELFPAY ==
[2024-10-20 10:45] VITALS: BMI 28.5
--- NOTE | 2024-10-21 11:01 | CL.D_ITS ---
Patient Name: ROCHELLE WOOD Study Date: 10/21/2024 Performing: Jean Hogan MD Ht: 70 inches 177.8 cm : 1960 Wt: 198.99 lbs 90.26 kg Age: 64 Gender: male BSA: 2.08 PROCEDURE(S) PERFORMED DC01-(35161)LHC/COR/LV CLINICAL PROFILE AND INDICATIONS Indications: Suspected CAD Heart Failure: None Stress/Imaging Stress Test w/SPECT MPI: Yes Result: Positive High RiskStress Test with SPECT MPI: Positive High Risk CAD Presentations: No Sxs, no angina. CONCLUSIONS 95-99% Mid LAD, heavily calcified 70% Prox RCA, 95% Prox RPDA LVEF 45% with apical akinesis RECOMMENDATIONS Surgery consult for coronary revascularization DESCRIPTION OF PROCEDURE The patient arrived to the procedure lab. The risks and benefits of the procedure as well as a full description of our services here and current unavailability of surgical backup were fully explained to the patient and/or their significant other prior to the catheterization. The Timeout was completed, verifying the correct patient and procedure. The patient's procedural site was prepped and draped in the usual fashion. Local anesthetic was given subcutaneously to right radial region with Lidocaine 2%. Using a modified Seldinger technique, arterial access was obtained via the right radial artery, a 6Fr sheath was inserted. Left Coronary Artery selective angiography was performed in multiple views using a 5 Fr. 4.0 [place] catheter. Right Coronary Artery selective angiography was then performed in multiple views using a 5 Fr. 4.0 [place] catheter. Left Ventriculography was performed in SILVER projection using a 5 Fr. [place] catheter. LV to AO pullback pressures were then recorded.The arterial sheath was pulled and a TR Band was applied for hemostasis CORONARY ANGIOGRAPHY DOMINANCE: Right Dominant LEFT HEART ASSESSMENT Left Ventricular Ejection Fraction: by LV Gram 45 % Apical Akinesis LVEDP: 25 mmHg LEFT MAIN: Luminal Irregularities 30% Ostial lesion in LMCA LEFT ANTERIOR DESCENDING ARTERY: LAD: Calcified 95% Proximal lesion in LAD OM 1: Calcified 80% Proximal lesion in MARG1 Tubular 70% Mid lesion in MARG1 OM 2: Calcified 80% Proximal lesion in MARG1 Tubular 70% Mid lesion in MARG1 RIGHT CORONARY ARTERY: RCA: Calcified 70% Proximal lesion in RCA RT PDA: Tubular 95% Ostial lesion in RT PDA Tubular 90% Mid lesion in RT PDA COMPLICATIONS No Complications PROCEDURE MEDICATIONS Versed 1 mg IV Fentanyl 50 mcg IV Oxygen: 2 L/min via nasal cannula Baby Aspirin (81mg) 1 Tabs PO @ 10/21/2024 09:47:25 SUMMARY OF HEMODYNAMIC DATA Time AIR REST AO 119/80 (97) SA 10:34:01 LV 172/16, 25 10:40:19 LV 166/17, 25 10:40:28 LVp 169/25, 39 10:41:53 AOp 168/98 (128) 10:42:00 ECG 10:54:07 AIR REST 11:00:12 Signed By Jean Hogan MD On 10/21/2024 11:00:49 Jean Hogan MD
== END 2024-10-21 12:35 | disposition home or self-care (01) ==
PROVIDERS: PCP Internal Medicine; Referring Provider Internal Medicine Cardiovascular Disease; Visit Provider Internal Medicine Cardiovascular Disease
DX: I25.10 Atherosclerotic heart disease of native coronary artery without angina pectoris (principal); E11.51 Type 2 diabetes mellitus with diabetic peripheral angiopathy without gangrene; E11.65 Type 2 diabetes mellitus with hyperglycemia; Z79.4 Long term (current) use of insulin; Z79.84 Long term (current) use of oral hypoglycemic drugs; Z86.73 Personal history of transient ischemic attack (TIA), and cerebral infarction without residual deficits; Z79.82 Long term (current) use of aspirin; Z79.899 Other long term (current) drug therapy; Z87.891 Personal history of nicotine dependence
CPT/HCPCS: 93458; 99152; 99153; Q9967; C1769; C1894

== ENCOUNTER → 2024-12-10 | Outpatient (CLI) | payer OTHER, SELFPAY ==
[2024-12-10 10:39] LABS: Hematocrit 39.4 % (40-54); Hemoglobin 12.9 g/dL (13.0-16.5); Mean Corp Hgb Conc 32.7 g/dL (32-36); Mean Corpuscular Hgb 27.9 pg (27.0-32.0); Mean Corpuscular Volume 85.1 fL (80-94); Mean Platelet Vol. 9.6 fl (6.2-12.0); Platelet Count 255 K/mm3 (150-450); RBC Distribution Width CV 12.6 % (11.6-14.6); RBC Distribution Width SD 39.1 fl (35.1-43.9); Red Blood Count 4.63 M/mm3 (4.6-6.2); White Blood Count 7.5 K/mm3 (4.4-11.0)
[2024-12-10 11:40] LABS: ALB/GLOB Ratio 1.5 RATIO (0.9-2.4); AST(SGOT) 30 U/L (<=37); Alanine Aminotransfer ALT/SGPT 28 U/L (<=46); Albumin, Serum 4.5 g/dL (3.4-4.8); Alkaline Phosphatase 159 U/L (40-129); Anion Gap 10 (5-15); BUN 27 mg/dL (4-19); Calcium,Total 10.2 mg/dL (7.6-11.0); Carbon Dioxide 25.2 mmol/L (21.0-32.0); Chloride 104 mmol/L (98-108); Creatinine, Serum 1.09 mg/dL (0.70-1.20); EST Glomerular Filtration Rate 76 (>60); Glucose 132 mg/dL (70-99); Potassium 6.1 mmol/L (3.3-5.1); Protein, Total 7.5 g/dL (5.9-8.4); Sodium Level 140 mmol/L (133-145); Total Bilirubin 0.38 mg/dL (0.00-1.30)
[2024-12-10 13:25] LABS: Potassium 5.3 mmol/L (3.3-5.1)
== END | disposition home or self-care (01) ==
PROVIDERS: PCP Internal Medicine; Referring Provider Internal Medicine Cardiovascular Disease; Visit Provider Internal Medicine Cardiovascular Disease
DX: I95.9 Hypotension, unspecified (principal); E87.5 Hyperkalemia
CPT/HCPCS: 36415; 80053; 84132; 84443; 85027

== ENCOUNTER → 2024-12-10 | Outpatient (CLI) | payer OTHER, SELFPAY ==
--- NOTE | 2024-12-10 10:47 | ECHOCS_ITS ---
Reason For Study Reason For Study: S/P CABG Procedure This was a 2D Doppler, Color Flow transthoracic echocardiogram. The study was technically difficult. Contrast injection was performed. Exam performed in department. Left Ventricle Normal LV size. Moderate concentric left ventricular hypertrophy. Severe apical hypokinesis. Mid to distal septal hypokinesis. Estimated LVEF 45%. Stage I diastolic dysfunction. Right Ventricle Normal right ventricle. Atria The left atrium is mildly enlarged. Normal right atrium. Mitral Valve Trivial mitral valve insufficiency. Tricuspid Valve Normal tricuspid valve. Aortic Valve Trisinus/trileaflet aortic valve. Pulmonic Valve The pulmonic valve is not well visualized. Great Vessels Normal sized aortic root. Pericardium/Pleural No pericardial effusion. Medication 22 gauge I.V. with prn adaptor inserted into right arm. Diluted definity 2ml given slow IV push to enhance endocardial definition. MMode/2D Measurements & Calculations LVIDd: 4.5 cm IVSd: 1.5 cm LVOT diam: 2.0 cm LVIDs: 3.1 cm LVPWd: 1.5 cm FS: 30.8 % LVOT area: 3.1 cm2 Ao root diam: 3.9 cm LAV(MOD-bp): 35.7 ml LVAd ap4: 37.7 cm2 LA dimension: 4.4 cm LAV(MOD-bp) Indexed: 17.6 ml/m2 LVLd ap4: 8.7 cm LAV(MOD-sp2): 41.8 ml EDV(MOD-sp4): 132.9 ml LAV(MOD-sp4): 30.5 ml EDV(sp4-el): 139.4 ml LVAs ap4: 27.6 cm2 LVLs ap4: 8.2 cm ESV(MOD-sp4): 77.8 ml ESV(sp4-el): 79.0 ml EF(MOD-sp4): 41.4 % EF(sp4-el): 43.4 % SV(MOD-sp4): 55.1 ml SV(sp4-el): 60.5 ml LA A4 area: 13.6 cm2 SI(MOD-sp4): 27.1 ml/m2 LA dimension(2D): 3.7 cm RA A4 area: 7.2 cm2 Time Measurements MV dec time: 0.05 sec Doppler Measurements & Calculations MV E max phil: 54.1 cm/sec Lat Peak E' Phil: 6.8 cm/sec MV V2 max: 86.4 cm/sec MV A max phil: 79.8 cm/sec E/E' lat: 7.9 MV max P.0 mmHg MV E/A: 0.68 MV V2 mean: 60.0 cm/sec MV mean P.6 mmHg MV V2 VTI: 18.0 cm MVA(VTI): 3.4 cm2 MV dec slope: 1196 cm/sec2 Ao V2 max: 119.4 cm/sec LV V1 max: 104.2 cm/sec Ao max P.7 mmHg LV V1 max P.3 mmHg Ao V2 mean: 80.3 cm/sec LV V1 mean P.4 mmHg Ao mean P.0 mmHg LV V1 mean: 71.9 cm/sec Ao V2 VTI: 22.4 cm LV V1 VTI: 19.7 cm AV (velocity ratio): 0.88 MATILDA(I,D): 2.7 cm2 MATILDA(V,D): 2.7 cm2 SV(LVOT): 61.3 ml PA V2 max: 81.7 cm/sec PA V2 mean: 56.2 cm/sec ECHO/Echo Complete W/ Contrast Interpretation Summary Moderate concentric left ventricular hypertrophy. Severe apical hypokinesis. Mid to distal septal hypokinesis. Estimated LVEF 45% . Stage I diastolic dysfunction. The left atrium is mildly enlarged. Ordering Physician: Jean Hogan Referring Physician: Jean Hogan Performed By: Marina Alarcon and Student
== END | disposition home or self-care (01) ==
LOC: CVS 10:47
PROVIDERS: PCP Internal Medicine; Referring Provider Internal Medicine Cardiovascular Disease; Visit Provider Internal Medicine Cardiovascular Disease
DX: R06.02 Shortness of breath (principal); Z95.1 Presence of aortocoronary bypass graft
CPT/HCPCS: 93306; Q9957; A4216; C8929

== ENCOUNTER → 2024-12-14 | Outpatient (CLI) | payer OTHER, SELFPAY ==
[2024-12-14 12:50] LABS: Anion Gap 11 (5-15); BUN 25 mg/dL (4-19); BUN/Creat Ratio 23.1 RATIO (10-20); Calcium,Total 9.8 mg/dL (7.6-11.0); Carbon Dioxide 22.7 mmol/L (21.0-32.0); Chloride 103 mmol/L (98-108); Creatinine, Serum 1.08 mg/dL (0.70-1.20); EST Glomerular Filtration Rate 77 (>60); Glucose 182 mg/dL (70-99); Potassium 5.1 mmol/L (3.3-5.1); Sodium Level 136 mmol/L (133-145)
== END | disposition home or self-care (01) ==
PROVIDERS: PCP Internal Medicine; Referring Provider Nurse Practitioner Gerontology; Visit Provider Nurse Practitioner Gerontology
DX: E87.5 Hyperkalemia (principal)
CPT/HCPCS: 36415; 80048

== ENCOUNTER → 2024-12-16 | Outpatient (CLI) | payer OTHER, SELFPAY ==
--- NOTE | 2024-12-16 14:00 | PCM.CR.HP2 ---
CR - History & Physical General Arrival date:: 12/16/24 Arrival time:: 14:02 Date of Referral:: 12/09/24 Date of CR Evaluation:: 12/16/24 Referring Physician: Dr. Hogan Primary Diagnosis: CABG History of Present Cardiac Event Onset Date Coronary Artery Bypass Graft:: Yes (onset 11/06/24) Vessel: CLARK to LAD, radial artery graft to obtuse marginal and vein graft to R PDA Medications Ambulatory Orders ?Medication ?Instructions ?Recorded gabapentin 300 mg tablet 600 mg PO Q12H nerve pain 04/24/22 duloxetine 20 mg capsule,delayed 20 mg PO DAILY 07/24/23 release blood-glucose sensor (FreeStyle #2 ea 08/05/23 Silvina 3 Sensor device) ergocalciferol (vitamin D2) 1,250 1,250 mcg PO QWEEK 01/23/24 mcg (50,000 unit) capsule aspirin 81 mg tablet,delayed 81 mg PO QDAY 07/30/24 release (Adult Low Dose Aspirin) glimepiride 1 mg tablet 2 mg PO DAILY 08/04/24 insulin glargine 100 unit/mL (3 18 unit subcut DAILY diabetes 09/22/24 mL) subcutaneous pen (Lantus Solostar U-100 Insulin) atorvastatin 80 mg tablet (Lipitor) 80 mg PO QDAY 12/09/24 semaglutide 1 mg/0.2 mL mg subcut .weekly 12/09/24 subcutaneous syringe dapagliflozin propanediol 10 mg 10 mg PO QDAY #90 tabs 12/10/24 tablet (Farxiga) Allergies Allergies No Known Allergies Allergy (Verified 09/22/24 08:59) Sleep Disorder Evaluation Hx of Sleep Apnea: No Do you snore loudly (louder than talking or can be heard through closed doors)?: No Do you often feel tired/ fatigued/ sleepy during daytime?: No Has anyone observed you stop breathing during sleep?: No History of Hypertension (for STOP score): Yes (currently off of BP meds) STOP Results: Negative Advanced Directives Advanced Directives Do you have a Healthcare Power of [employer]?: Yes Living Will: Yes Advance Directives Information Provided: No Advance Directives on File: No Past Medical History Covid-19 Screening Physicial Symptoms Other Clinical Concerns Exposure Risk Pertinent Comorbidities Has a serious heart condition:: Yes Diabetic:: Yes Past Medical Illness Medical History Aftercare following left ankle joint replacement surgery Burn of foot, second degree Cerebrovascular disease Diabetes mellitus type 2, insulin dependent Diabetic retinopathy Family history of factor V Leiden mutation History of skin cancer History of tobacco use disorder Hyperlipidemia associated with type 2 diabetes mellitus Hypertension Intermittent claudication Mixed hyperlipidemia Non-pressure ulcer of left lower extremity with fat layer exposed Non-pressure ulcer of right lower extremity with fat layer exposed Peripheral arterial occlusive disease Poorly controlled diabetes mellitus Primary hypertension PVD (peripheral vascular disease) with claudication Tobacco abuse Tobacco abuse counseling Transient neurological symptoms Urinary incontinence without sensory awareness Past Surgical History Surgical History History of ankle surgery History of removal of cyst History of tonsillectomy Sonya's syndrome S/P CABG x 4 Family History Summary Family History Father Diabetes Heart disease Myocardial infarction Hyperlipidemia Mother Hypertension Lung cancer Sister Generalized headaches Grandfather Prostate cancer Social History Smoking History Smoking Status: Former smoker Years Smokin (stopped 3 years ago) Packs Smoked per Day: 0.5 Alcohol Use Alcohol Usage: Yes (socially) Substance Abuse Hx Substance Use: No Occupation Occupation (List type of work in comments):: Employed Hours worked per day:: 8 Social Environment Status Marital Status: Single Current Living Arrangements Living Environment:: Family Children How many children do you have?: 2 Do any of your children live nearby?: Yes Safety Do you feel safe in your surroundings?: Yes Assistance Do you need any assistance at home?: no Review of Systems Review of Systems Hints Review of Present Symptoms: Reports Shortness of Breath with Exertion, PVD, Operative Discomfort, Wound Healing, Dizziness/Lightheadedness, Fatigue, Appetite - Normal and Appetite - Special Diet; Denies Shortness of Breath at Rest, Angina, Heart Arrhythmia/Irregularities, Sleep - Normal or Sexual Changes Pain Is Patient Pain Free?: No Pain Location: chest and lower extremity Pain Level: 3/10 Risk Factor Assessment Chief Complaint Chief Complaint: CABG Vital Signs Pulse Ox: 99 Blood Pressure: 114/76 Pulse Pulse Rate: 87 Pulse Rhythm: Regular Hypertension How long have you been treated?: was on for 5-10 years but has been taken off of lisinopril Blood Pressure Sitting - Right Arm: 114/76 Diabetes Diabetic History: Type II Nutrition Referral for Diabetes: No Obesity Height: 5 ft 10 in Weight:: 188 lb Weight in Pounds: 188.0 lbs Body Mass Index (BMI): 26.9 Physical Inactivity Physical Inactivity: Reg Exercise 30 min/day Risk Stratification Risk Guidelines: Moderate Risk: Risk Factor for Obesity, Risk Factor for Hypertension, Risk Factor for Sedentary Lifestyle and Risk Factor for Depression and Highest Risk: Risk Factor for Smoking, Risk Factor for Dyslipidemia and Risk Factor for Diabetes For Smoking Smoking Risk Guidelines For Dyslipidemia Dyslipidemia Risk Guidelines For Diabetes Mellitus Diabetes Risk Guidelines For Obesity/Overweight Obesity/Overweight Risk Guidelines For Hypertension Hypertension Risk Guidelines For Sedentary Lifestyle Sedentary Lifestyle Risk Guidelines For Depression Depression Risk Guidelines Family History Family History Father Diabetes Heart disease Myocardial infarction Hyperlipidemia Mother Hypertension Lung cancer Sister Generalized headaches Grandfather Prostate cancer Motivation Motivation to Participate On a scale of 1 to 10, how prepared are you to commit to attending program?: 9 What do you see as barriers to successfully being able to complete the program?: hip pain What do you see as the benefits of succesfully completing the program? In other words, what do you hope to get out of participating in the program?: less fatigue, less dizziness, stamina Are there issues you are dealing with that will interfere with completing the program?: no Do you have a spouse or signficant other, family or friends who will help support you to complete the program?: yes
[2024-12-16 14:25] VITALS: BP 114/76; PULSE 87; O2SAT 99
--- NOTE | 2024-12-16 14:51 | CR.ITP_ITS ---
Diagnosis General Information Admitting Diagnosis: CABG Personal Learning Style:: Audio/Visual Barriers to Learning: No Barriers Stage of change r/t lifestyle modifications:: Contemplation Gave educational material for:: Treating Heart Disease, How The Heart Works, What it means to have Heart Disease, How Coronary Artery Disease is Diagnosed, Heart Procedures, What Heart Medications Do, Risk Factors & Modifications, Living an Active Life, Nutrition, Emotions & Heart Disease, Stress Management & Relaxation and Sleep Disorders & Heart Disease Education/Goals Cardiac Rehabilitation Goals Personal Goals: Initial Assessment: Improve management of stress and emotions, Improve energy level, Get back to work, or to resume activities faster, Improve knowledge of cardiac disease, Improve muscle strength and endurance and Control risk factors (learn risk factor modification) Scale for measuring improvement of personal goals Diagnosis & Disease Process Outcomes/Goals: Pt IDs own risk factors & lifestyle modifications by Session 10, Verbalizes symptoms of angina & response by session 3., Pt independently manages and Other Additional Outcomes/Goals: Plan/Interventions: Assist Pt to ID & engage in lifestyle modification to reduce CVD risk, Instruct on individual risk factors, Review symptoms of angina & emergency actions, Review secondary diagnosis & identify educational needs. and Other see comment 30 day Reassessments:: Not Met 30 day Reassessments:: Not Met 30 day Reassessments:: Not Met 30 day Reassessments:: Not Met Final Reassessments:: Not Met Safety Referral to Physical Therapy: No Referral to [facility] Case Management: No Fall Risk Assessed:: Yes Assistive Devices:: None Exercise - Initial Assessment Visit Date of Eval: 12/16/24 (initial eval ) Mets: Pre-: >3 METS for 30 minutes by discharge, >5 METS for 30 minutes by discharge, >7 METS for 30 minutes by discharge and Unable to meet goal due to: (see comment below) Physician Prescribed Exercise Modalities: Treadmill, Schwinn Airdyne AD-7, SciFit Stepper, SciFit Pro-II Ergometer and SciFit Lateral [place] Frequency: 3x/week for 12 weeks [36 sessions] Intensity: 60-80% of age predicted maximum heart rate reserve Duration: 30 - 45 minutes Current METSs:: 3 Target Heart Rate:: 94-118 Resting Blood Pressure: 114/76 EKG Type: NSR Outcomes & Goals Goals:: Verbalizes understanding of THR, RPE & goal METS by session 6, Documents in home exercise log/reports 30 min aerobic 5 day/wk by DC, Demonstrates accurate pulse taking by DC and Other additional outcome/goals: see below Intervention & Plan Exercise Program Goals: Instruct on personal THR & RPE, Instruct on MET level & personal MET goal, Show patient to take own pulse /validate performance until accurate, Instruct on home exercise and Other additional plan/int Physical Activity Home Exercise Physical Activity - Home Exercise: Safe Exercise, Warm-up, Self-monitoring, Cool-Down, Home Exercise > 30 min Daily and Sitting Time <3 hours/daily Outcomes & Goals Outcomes/Goals: Demonstrates correct Warm-up/exercise Cool-Down (S3) if = 2.5 METs, Verbalizes symptoms of exercise intolerance by Session 3 (S3), Demonstrate safe equipment use (S3) & follows exercise prescrition (6) and Other: See below Intervention & Plan Plan/Intervention: Instruct warm-up & cool-down if exercising at > 2 METs, Instruct on symptoms of exercise intolerance & actions to take, Instruct & monitor on saf, Assess intial functional capacity & safety risk and Other See below Nutrition - Initial Assessment Program Goals Nutrition Program Goals Patient has diagnosis of Hyperlipidemia (ICD E78)?: Yes Visit Date of Eval: 12/16/24 (initial eval ) Cholesterol/Lipids (Other Core Measures) Determine presence & major risk factors that modify LDL goal: Cigarette smoking, Hypertension or hypertensive medication, Low HDL cholesterol <40 mg/dL*, Family history of premature CHD in Male < 55 years: female <65 yearsFa and Age men > 45 years; women >/= 55 years Outcomes/Goals: Pt IDs own risk factors & lifestyle modifications by Session 10, Verbalizes symptoms of angina & response by session 3., Pt independently manages and Other Additional Outcomes/Goals: Intervention/Plan: Advocate for lipid panel cholesterol medication if applicable, Instruct on personal lipid levels & lipid goals/NCEP guidelines, Instruct on cholesterol and Other additional plan/int Diabetes (Other Core Measures) Diabetes Type: Diagnosis Type II ICD-10 E11 Insulin dependent injection/pump?: Yes Non-Insulin Dependent?: Yes Do you monitor your blood sugar at home?: Yes Referral to Diabetic Clinic:: No Weight Mgt (Other Care) Height: 5 ft 10 in Weight:: 188 lb BMI: 26.9 Diagnosis Overweight/Obesity BMI> 30% ICD-10 E66: No Diagnosis High BMI/Morbid Obesity BMI> 35% ICD-10 Z68: No Outcomes/Goals: Pt sets, maintains & shows weight loss goal & trend during rehab and Other additional outcomes/goals Intervention/Plan: Instruct on ideal BMI & set weight loss goal w/patient, Assist pt to ID & incorporate diet changes for weight loss by S9, Refer to Structured Weight Loss program as appropriate, Encourage goal of using 250- 300dcal per session for weight loss and Other additional plan/interventions Healthy Eating Habits Will attend diet classes:: Yes Outcomes/Goals:: Consume diet rich in vegs,fruits,whole grain/high fiber,fish,lean meat, Limit sat/trans fats,cholesterol & added salts & sugars and Other additional outcome/goals: Intervention/Plan:: Assess current eating habits and Other Additional plan/interventions Education Gave educational materials for:: Signs & symptoms of hypoglycemia, Signs & symptoms of hyperglycemia, Relate diabetes to coronary artery disease and Healthy eating Core - Initial Assessment Visit Date of Eval: 12/16/24 (initial eval ) Medication Compliance Preventative Medication(s):: Aspirin and Statin/lipid H/O mental health issues: depression, anxiety, or addiction?: No Doesn?t believe in the benefits of treatment?: No Believes medications are unnecessary or harmful?: No Has a concern about medication side effects?: No Expresses concern over the cost of medications?: No Outcomes/Goals: Verbalizes medications,desired effect & common side effects @ DC, Pt self-reports following medication regimen, Keeps card in wallet w/medications listed by DC and Other additional outcome/goals: Interventions/plans: Instruct on medication effects & side effects, Review medication list w/patient every two weeks, Instruct importance of taking meds as ordered & assist problem solving and Other additional Tobacco Use Tobacco Use: Non-smoker How long ago did you quit using tobacco products?: Greater than or equal to 6 months ago (Pt stopped 3 years ago) Years Smokin Outcomes/Goals: Smoking cessation achieved or maintained by discharge, Identify aids/strategies for achieving smoking cessation by session 6 and Other additional outcome/goals Interventions/plan: Instruct on effects of smoking & provide smoking cessation resource, Assist pt to set quit date & provide encouragement, Assist pt to develop strategies to achieve/maintain quit date, Assist pt w/nicotine re placement & medication for cessation success and Other additional plan/interventions Hypertension Hypertension Diagnosis:: Hypertension ICD-10 I10 (pt currently off of his BP meds) Resting Blood Pressure:: 114/76 [place] [employer] Hypertension Guidelines Outcomes/Goals: Able to verbalize/achieve optimal blood pressure <130/80, Incorporates diet changes & exercise for blood pressure control by DC and Other additional outcomes/goals Interventions/plan: Instruct on optimal blood pressure, hypertension & medications, Instruct on effects of sodium, alcohol, stress, exercise &hypertension and Other additional plan/interventions Tobacco Cessation Referral Smoking Cessation Referral:: No Individual Education/Counseling:: No Education Schedule Given:: Yes Psychosocial - Initial Assess VIsit Date of Eval: 12/16/24 (initial eval ) History of previous Mental disease:: No Target Goals Target Goals Psychosocial Test Tool Used:: PHQ-9 Questionnaire phq-9 Severity See PHQ-9 Score: 9 Referral to Behavioral Health PS - Interventions: Yes: Attend Stress Management Classes Outcomes/Goals: See list Psychosocial Outcomes/Goals:: ID's personal stressors & 2 strategies to manage stress by discharge and Other Additional outcome/goals: Intervention/Plan: See List Interventions/Plan:: Assess stressors,coping strategies & signs of derpression on admission, Instruct/assist pt to develop coping & personal stress Mgt strategies, Refer to Behavioral Health if appropriate, Refer to Physician if appropriate, Instruct patient to recognize signs & symptoms of depression, Instruct patient to recog and Other additional plan/intervention Patient Health Questionnaire PHQ-9 Screening Initial Assessment: 1. Little interest or pleasure in doing things: Several days 2. Feeling down, depressed, or hopeless: Several days 3. Trouble falling or staying asleep, or sleeping too much: More than half the days 4. Feeling tired or having little energy: More than half the days 5. Poor appetite or overeating: Not at all 6. Feeling bad about yourself -- or that you are a failure or have let yourself or your family down: Several days 7. Trouble concentrating on things, such as reading the newspaper or watching television: Not at all 8. Moving or speaking so slowly that other people could have noticed. Or the opposite - being so fidgety or restless that you have been moving around a lot more than usual: More than half the days 9. Thoughts that you would be better off , or of hurting yourself in some way: Not at all How difficult have these problems made it for you to do your work, take care of things at home, or get along with other people?: Very difficult Total Score: 9 EZE-Q SV Test Statements CAD is a disease of the arteries in the heart: False Examples of risk factors for heart disease: True Angina is chest pain or discomfort: True The benefits of resistance training include: True Eating more meat and dairy products: False Anti-platelet medications such as aspirin are important: True The only effective way to manage stress: False An exercise warm-up slowly increases heart rate: True Prepared, processed foods usually have high sodium: True Depression is common after a heart attack: True The statin medications lower cholesterol: True To control blood pressure, lower the amount of sodium: True If someone gets chest discomfort during walking: False Transfats are partially hydrogenated vegetable oils: True Sleep apnea that is not treated increases the risk: False To control cholesterol, one should become a vegetarian: False Someone knows if he/she is exercising at the right level: True Diabetes cannot be prevented with exercise & health eating: False Stress is a large risk for heart attack: True A diet that can help lower blood pressure is rich in: True Total Score Total Correct Responses: 20 Self-Efficacy 6-Item Scale Initial Assessment: We would like to know how confident you are in doing certain activities. Please select your confidence level for: Fatigue Select Number: 3 Physical Discomfort or Pain Select Number: 3 Emotional Distress Select Number: 5 Other Symptoms or Health Problems Select Number: 5 Different Tasks and Activities Select Number: 2 Medication Select Number: 7 Total Score:: 4 Nutrition Survey Nutrition Survey Instructions Scoring Instructions Nutrition Survey Initial: Have you lost >10 lbs over the past 2 months without trying?: Yes Are you following a special diet at home for diabetes, low fat, or low salt?: Yes Are you interested in meeting with a dietitian for help understanding your diet?: No Do you eat less than 3 meals a day?: Yes Do you eat fatty meats (thomas, sausage, ribs, etc), fried foods, desserts, large amounts of salad dressings, margarine, butter, or cheese most days?: No Do you have food allergies? [Enter types in comment field]: No Do you eat in restaurants more than 3 times a week?: No Do you season food with salt, seasoning salt, or garlic salt?: Yes Do you used canned, boxed, frozen meals, or soups, seasoning packets?: Yes Total Score:: 5 Exercise - 30-day Assessment Physician Prescribed Exercise Modalities: Treadmill, Schwinn Airdyne AD-7, SciFit Stepper, SciFit Pro-II Ergometer and SciFit Lateral [place] Exercise - 60-day Assessment Physician Prescribed Exercise Modalities: Treadmill, Schwinn Airdyne AD-7, SciFit Stepper, SciFit Pro-II Ergometer and SciFit Lateral [place] Exercise - 90-day Assessment Physician Prescribed Exercise Modalities: Treadmill, Schwinn Airdyne AD-7, SciFit Stepper, SciFit Pro-II Ergometer and SciFit Lateral [place] Exercise - Final/Discharge Physician Prescribed Exercise Modalities: Treadmill, Schwinn Airdyne AD-7, SciFit Stepper, SciFit Pro-II Ergometer and SciFit Lateral [place] Frequency: 3x/week for 12 weeks [36 sessions] Intensity: 60-80% of age predicted maximum heart rate reserve Current METSs:: 3 Target Heart Rate:: 94-118 Nutrition - 30-Day Assessment Weight Mgt (Other Care) Height: 5 ft 10 in Weight:: 188 lb BMI: 26.9 Nutrition - 60-Day Assessment Weight Mgt (Other Care) Height: 5 ft 10 in Weight:: 188 lb BMI: 26.9 Core - 30-Day Assessment Tobacco Use Years Smokin Core - Final Assessment Hypertension Resting Blood Pressure:: 114/76 [place] [employer] Hypertension Guidelines Core - 60-Day Assessment Hypertension Resting Blood Pressure:: 114/76 [place] [employer] Hypertension Guidelines Psychosocial - 30-Day Assess Target Goals Target Goals Referral to Behavioral Health PS - Interventions: Yes: Attend Stress Management Classes Psychosocial - 60-Day Assess Target Goals Target Goals Referral to Behavioral Health PS - Interventions: Yes: Attend Stress Management Classes Psychosocial - 90-Day Assess Target Goals Target Goals Referral to Behavioral Health PS - Interventions: Yes: Attend Stress Management Classes Psychosocial - Final Assessmen Target Goals Target Goals Psychosocial Test phq-9 Severity See PHQ-9 Score: 9 Referral to Behavioral Health PS - Interventions: Yes: Attend Stress Management Classes Nutrition - 90-Day Assessment Weight Mgt (Other Care) Height: 5 ft 10 in Weight:: 188 lb BMI: 26.9 Nutrition - Final Assessment Program Goals Patient has diagnosis of Hyperlipidemia (ICD E78)?: Yes Weight Mgt (Other Care) Height: 5 ft 10 in Weight:: 188 lb BMI: 26.9
[2024-12-16 14:56] VITALS: BP 114/76
[2024-12-16 15:09] VITALS: BP 114/76; BMI 26.9
[2024-12-16 15:11] VITALS: BMI 26.9
== END | disposition home or self-care (01) ==
PROVIDERS: PCP Internal Medicine; Referring Provider Internal Medicine Cardiovascular Disease; Visit Provider Internal Medicine Cardiovascular Disease
DX: I25.10 Atherosclerotic heart disease of native coronary artery without angina pectoris (principal); Z95.1 Presence of aortocoronary bypass graft

== ENCOUNTER 2025-01-11 09:15 | Outpatient (RCR) | payer OTHER, SELFPAY ==
[2024-12-16 15:09] VITALS: BMI 26.9
== END 2025-01-11 23:59 ==
LOC: CR 09:15
PROVIDERS: PCP Internal Medicine; Referring Provider Internal Medicine Cardiovascular Disease; Visit Provider Internal Medicine Cardiovascular Disease
DX: Z95.1 Presence of aortocoronary bypass graft (principal)
CPT/HCPCS: 93798

== ENCOUNTER → 2025-02-03 | Outpatient (CLI) | payer OTHER, SELFPAY ==
[2025-01-14 07:43] VITALS: BMI 28.0
[2025-02-03 17:47] LABS: Anion Gap 12 (5-15); BUN 25 mg/dL (4-19); BUN/Creat Ratio 24.8 RATIO (10-20); Calcium,Total 9.8 mg/dL (7.6-11.0); Carbon Dioxide 24.3 mmol/L (21.0-32.0); Chloride 106 mmol/L (98-108); Glucose 78 mg/dL (70-99); Potassium 5.1 mmol/L (3.3-5.1)
[2025-02-08 16:08] LABS: Albumin 4.0 g/dL (2.9-4.4); Gamma Globulin 0.7 g/dL (0.4-1.8); Immunoglobulin A 251 mg/dL (61-437); Immunoglobulin G 823 mg/dL (603-1613); Immunoglobulin M 52 mg/dL (20-172); PROEL- TOTAL PROTEIN 6.8 g/dL (6.0-8.5); PROELU- Albumin, Urine 59.9 % (.); PROELU- Alpha-1-Globulin,Ur 3.8 % (.); PROELU- Alpha-2-Globulin,Ur 10.1 % (.); PROELU- Beta Globulin, Ur 16.1 % (.); PROELU- Gamma Globulin, Ur 10.1 % (.); Total Protein, Ur 36.5 mg/dL (Not Estab.)
== END | disposition home or self-care (01) ==
LOC: LAB 14:52
PROVIDERS: PCP Internal Medicine; Referring Provider Student in an Organized Health Care Education/Training Program; Visit Provider Student in an Organized Health Care Education/Training Program
DX: I11.9 Hypertensive heart disease without heart failure (principal); I95.9 Hypotension, unspecified
CPT/HCPCS: 36415; 80048; 82784; 83883; 84165; 84166; 86334

== ENCOUNTER 2025-02-10 09:15 | Outpatient (RCR) | payer OTHER, SELFPAY ==
[2024-12-16 15:09] VITALS: BMI 26.9
--- NOTE | 2025-01-14 07:28 | PCM.CR.ITP ---
Exercise - Initial Assessment Visit Session #:: 10 Physician Prescribed Exercise Modalities: SciFit Stepper, SciFit Pro-II Ergometer and SciFit Lateral [place] Nutrition - Initial Assessment Weight Mgt (Other Care) Height: 5 ft 10 in Weight:: 195 lb 8 oz BMI: 28.0 Psychosocial - Initial Assess Target Goals Target Goals Referral to Behavioral Health PS - Interventions: Yes: Attend Stress Management Classes Patient Health Questionnaire PHQ-9 Screening 30-Day Re-eval Assessment: 1. Little interest or pleasure in doing things: Several days 2. Feeling down, depressed, or hopeless: Several days 3. Trouble falling or staying asleep, or sleeping too much: More than half the days 4. Feeling tired or having little energy: More than half the days 5. Poor appetite or overeating: Not at all 6. Feeling bad about yourself -- or that you are a failure or have let yourself or your family down: Several days 7. Trouble concentrating on things, such as reading the newspaper or watching television: Not at all 8. Moving or speaking so slowly that other people could have noticed. Or the opposite - being so fidgety or restless that you have been moving around a lot more than usual: More than half the days 9. Thoughts that you would be better off , or of hurting yourself in some way: Not at all How difficult have these problems made it for you to do your work, take care of things at home, or get along with other people?: Very difficult Total Score: 9 Self-Efficacy 6-Item Scale 30-Day Re-eval Assessment: We would like to know how confident you are in doing certain activities. Please select your confidence level for: Fatigue Select Number: 3 Physical Discomfort or Pain Select Number: 3 Emotional Distress Select Number: 5 Other Symptoms or Health Problems Select Number: 5 Different Tasks and Activities Select Number: 2 Medication Select Number: 7 Total Score:: 4 Nutrition Survey Nutrition Survey Instructions Scoring Instructions Exercise - 30-day Assessment Visit Date of Eval: 01/14/25 Session #:: 10 Physician Prescribed Exercise Modalities: SciFit Stepper, SciFit Pro-II Ergometer and SciFit Lateral Offset Second Press Operator Frequency: 3x/week for 12 weeks [36 sessions] Intensity: 60-80% of age predicted maximum heart rate reserve Duration: 30 - 45 minutes Current METSs:: 5.1 Target Heart Rate:: 94-118 Current RPE:: 12 Maximum Excercise HR:: 104 Resting Blood Pressure: 88/50 Maximum Exercise Blood Pressure: 108/72 EKG Type: NSR to ST w/Twave inversion. Rare PAC/PVC Outcomes & Goals Goals:: Verbalizes understanding of THR, RPE & goal METS by session 6, Documents in home exercise log/reports 30 min aerobic 5 day/wk by DC, Demonstrates accurate pulse taking by DC and Other additional outcome/goals: see below Intervention & Plan Exercise Program Goals: Instruct on personal THR & RPE, Instruct on MET level & personal MET goal, Show patient to take own pulse /validate performance until accurate, Instruct on home exercise and Other additional plan/int Physical Activity Home Exercise Physical Activity - Home Exercise: Safe Exercise, Warm-up, Self-monitoring, Cool-Down, Home Exercise > 30 min Daily and Sitting Time <3 hours/daily Outcomes & Goals Outcomes/Goals: Demonstrates correct Warm-up/exercise Cool-Down (S3) if = 2.5 METs, Verbalizes symptoms of exercise intolerance by Session 3 (S3), Demonstrate safe equipment use (S3) & follows exercise prescrition (6) and Other: See below Intervention & Plan Plan/Intervention: Instruct warm-up & cool-down if exercising at > 2 METs, Instruct on symptoms of exercise intolerance & actions to take, Instruct & monitor on saf, Assess intial functional capacity & safety risk and Other See below 30-day Reassessments 30 day Reassessments:: Progressing Reassessment Notes & Comments:: RPE explained to pt. Pt demonstrates understanding in his daily sessions. Exercise - 60-day Assessment Physician Prescribed Exercise Modalities: SciFit Stepper, SciFit Pro-II Ergometer and SciFit Lateral [place] Exercise - 90-day Assessment Physician Prescribed Exercise Modalities: SciFit Stepper, SciFit Pro-II Ergometer and SciFit Lateral Offset Second Press Operator Exercise - Final/Discharge Physician Prescribed Exercise Modalities: SciFit Stepper, SciFit Pro-II Ergometer and SciFit Lateral [place] Nutrition - 30-Day Assessment Program Goals Nutrition Program Goals Patient has diagnosis of Hyperlipidemia (ICD E78)?: Yes Visit Date of Eval: 01/14/25 Session #:: 10 Cholesterol/Lipids (Other Core Measures) Determine presence & major risk factors that modify LDL goal: Cigarette smoking, Hypertension or hypertensive medication, Low HDL cholesterol <40 mg/dL*, Family history of premature CHD in Male < 55 years: female <65 yearsFa and Age men > 45 years; women >/= 55 years Outcomes/Goals: Pt IDs own risk factors & lifestyle modifications by Session 10, Verbalizes symptoms of angina & response by session 3., Pt independently manages and Other Additional Outcomes/Goals: Intervention/Plan: Advocate for lipid panel cholesterol medication if applicable, Instruct on personal lipid levels & lipid goals/NCEP guidelines, Instruct on cholesterol and Other additional plan/int Diabetes (Other Core Measures) Diabetes Type: Diagnosis Type II ICD-10 E11 Insulin dependent injection/pump?: Yes Non-Insulin Dependent?: Yes Do you monitor your blood sugar at home?: Yes Referral to Diabetic Clinic:: No Weight Mgt (Other Care) Height: 5 ft 10 in Weight:: 195 lb 8 oz BMI: 28.0 Diagnosis Overweight/Obesity BMI> 30% ICD-10 E66: No Diagnosis High BMI/Morbid Obesity BMI> 35% ICD-10 Z68: No Outcomes/Goals: Pt sets, maintains & shows weight loss goal & trend during rehab and Other additional outcomes/goals Intervention/Plan: Instruct on ideal BMI & set weight loss goal w/patient, Assist pt to ID & incorporate diet changes for weight loss by S9, Refer to Structured Weight Loss program as appropriate, Encourage goal of using 250-300dcal per session for weight loss and Other additional plan/interventions Healthy Eating Habits Will attend diet classes:: Yes Outcomes/Goals:: Consume diet rich in vegs,fruits,whole grain/high fiber,fish,lean meat, Limit sat/trans fats,cholesterol & added salts & sugars and Other additional outcome/goals: Intervention/Plan:: Assess current eating habits and Other Additional plan/interventions 30-day Reassessments:: Progressing Reassessment Notes & Comments:: Pt is scheduled to attend nutrition class. Pt also has the option of seeing a in flight crew member 1 on . Heart healthy diet encouraged. Education Gave educational materials for:: Signs & symptoms of hypoglycemia, Signs & symptoms of hyperglycemia, Relate diabetes to coronary artery disease and Healthy eating Nutrition - 60-Day Assessment Weight Mgt (Other Care) Height: 5 ft 10 in Weight:: 195 lb 8 oz BMI: 28.0 Core - 30-Day Assessment Visit Date of Eval: 01/14/25 Session #:: 10 Medication Compliance Preventative Medication(s):: Aspirin and Statin/lipid H/O mental health issues: depression, anxiety, or addiction?: No Doesn?t believe in the benefits of treatment?: No Believes medications are unnecessary or harmful?: No Has a concern about medication side effects?: No Expresses concern over the cost of medications?: No Outcomes/Goals: Verbalizes medications,desired effect & common side effects @ DC, Pt self-reports following medication regimen, Keeps card in wallet w/medications listed by DC and Other additional outcome/goals: Interventions/plans: Instruct on medication effects & side effects, Review medication list w/patient every two weeks, Instruct importance of taking meds as ordered & assist problem solving and Other additional 30-day Reassessments:: Progressing Reassessment Notes & Comments:: 12/18 off Lisinopril due to low BP. 01/04 started Farxiga. Tobacco Use Tobacco Use: Non-smoker Hypertension Hypertension Diagnosis:: Hypertension ICD-10 I10 (12/18 Pt off of BP meds. ) Resting Blood Pressure:: 88/50 [place] [employer] Hypertension Guidelines Peak Exercise Blood Pressure:: 108/72 Outcomes/Goals: Able to verbalize/achieve optimal blood pressure <130/80, Incorporates diet changes & exercise for blood pressure control by DC and Other additional outcomes/goals Interventions/plan: Instruct on optimal blood pressure, hypertension & medications, Instruct on effects of sodium, alcohol, stress, exercise &hypertension and Other additional plan/interventions 30 day Reassessments:: Progressing (Post exercise BP was 76/54. 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.) Tobacco Cessation Referral Smoking Cessation Referral:: No Individual Education/Counseling:: No Education Schedule Given:: Yes Psychosocial - 30-Day Assess VIsit Date of Eval: 01/14/25 Session #:: 10 History of previous Mental disease:: No Target Goals Target Goals Psychosocial Test Tool Used:: PHQ-9 Questionnaire phq-9 Severity See PHQ-9 Score: 9 Referral to Behavioral Health PS - Interventions: Yes: Attend Stress Management Classes Outcomes/Goals: See list Psychosocial Outcomes/Goals:: ID's personal stressors & 2 strategies to manage stress by discharge and Other Additional outcome/goals: Intervention/Plan: See List Interventions/Plan:: Assess stressors,coping strategies & signs of derpression on admission, Instruct/assist pt to develop coping & personal stress Mgt strategies, Refer to Behavioral Health if appropriate, Refer to Physician if appropriate, Instruct patient to recognize signs & symptoms of depression, Instruct patient to recog and Other additional plan/intervention 30-day Reassessments: 30 day Reassessments:: Progressing Reassessment Notes & Comments:: Pt is scheduled to attend stress management class. Psychosocial - 60-Day Assess Target Goals Target Goals Referral to Behavioral Health PS - Interventions: Yes: Attend Stress Management Classes Outcomes/Goals: See list Psychosocial Outcomes/Goals:: ID's personal stressors & 2 strategies to manage stress by discharge and Other Additional outcome/goals: Psychosocial - 90-Day Assess Target Goals Target Goals Referral to Behavioral Health PS - Interventions: Yes: Attend Stress Management Classes Psychosocial - Final Assessmen Target Goals Target Goals Referral to Behavioral Health PS - Interventions: Yes: Attend Stress Management Classes Nutrition - 90-Day Assessment Weight Mgt (Other Care) Height: 5 ft 10 in Weight:: 195 lb 8 oz BMI: 28.0 Nutrition - Final Assessment Weight Mgt (Other Care) Height: 5 ft 10 in Weight:: 195 lb 8 oz BMI: 28.0
[2025-01-14 07:43] VITALS: BP 88/50; BMI 28.0
== END 2025-02-11 23:59 ==
LOC: CR 09:15
PROVIDERS: PCP Internal Medicine; Referring Provider Internal Medicine Cardiovascular Disease; Visit Provider Internal Medicine Cardiovascular Disease
DX: Z95.1 Presence of aortocoronary bypass graft (principal)
CPT/HCPCS: 93798

== ENCOUNTER → 2025-02-22 | Outpatient (CLI) | payer OTHER, SELFPAY ==
[2025-01-14 07:43] VITALS: BMI 28.0
[2025-02-12 10:32] VITALS: BMI 27.8
--- NOTE | 2025-02-22 11:02 | ECHOLC_ITS ---
Reason For Study Reason For Study: CHF Procedure This was a limited 2D transthoracic echocardiogram. Contrast injection was performed. Exam performed in department. Left Ventricle Normal LV size. Moderate concentric left ventricular hypertrophy. Left ventricular systolic function is normal. The left ventricular ejection fraction is 60 %. [place] : Hypokinetic. Right Ventricle Normal RV size. Normal systolic function. Atria Normal left atrium. Normal right atrium. Mitral Valve Normal mitral valve. Tricuspid Valve Normal tricuspid valve. Aortic Valve Trisinus/trileaflet aortic valve. Pulmonic Valve Normal pulmonic valve. Great Vessels Mildly dilated aortic root. The pulmonary artery is normal size. Inferior vena cava collapse with respiration. Pericardium/Pleural No pericardial effusion. Medication Diluted definity 2ml given slow IV push to enhance endocardial definition. MMode/2D Measurements & Calculations LVIDd: 4.0 cm IVSd: 1.7 cm Ao root diam: 4.1 cm LVIDs: 3.0 cm LVPWd: 1.4 cm FS: 26.7 % LVAd ap4: 26.9 cm2 SV(MOD-sp4): 45.3 ml SV(sp4-el): 48.2 ml LVLd ap4: 8.1 cm SI(MOD-sp4): 22.1 ml/m2 EDV(MOD-sp4): 72.5 ml EDV(sp4-el): 76.0 ml LVAs ap4: 16.1 cm2 LVLs ap4: 7.9 cm ESV(MOD-sp4): 27.2 ml ESV(sp4-el): 27.8 ml EF(MOD-sp4): 62.5 % EF(sp4-el): 63.4 % ECHO/Echo Limited w/Contrast Interpretation Summary Normal LV size. Left ventricular systolic function is normal. The left ventricular ejection fraction is 60 %. Moderate concentric left ventricular hypertrophy. Mildly dilated aortic root. Contrast injection was performed. Ordering Physician: Abhijeet Roque Referring Physician: Mario Chanel Performed By: Chinyere Branch RDCS, RVT
== END | disposition home or self-care (01) ==
LOC: CVS 11:00
PROVIDERS: PCP Internal Medicine; Referring Provider Student in an Organized Health Care Education/Training Program; Visit Provider Student in an Organized Health Care Education/Training Program
DX: I50.9 Heart failure, unspecified (principal)
CPT/HCPCS: 93308; Q9957; A4216; C8924

== ENCOUNTER 2025-03-10 09:15 | Outpatient (RCR) | payer OTHER, SELFPAY ==
[2025-01-14 07:43] VITALS: BMI 28.0
--- NOTE | 2025-02-12 10:11 | PCM.CR.ITP ---
Exercise - Initial Assessment Physician Prescribed Exercise Modalities: SciFit Stepper, SciFit Pro-II Ergometer and SciFit Lateral Official Court Reporter Nutrition - Initial Assessment Weight Mgt (Other Care) Height: 5 ft 10 in Weight:: 194 lb 8 oz BMI: 27.8 Core - Initial Assessment Hypertension Resting Blood Pressure:: 90/62 [place] [employer] Hypertension Guidelines Psychosocial - Initial Assess Target Goals Target Goals Referral to Behavioral Health PS - Interventions: Yes: Attend Stress Management Classes Patient Health Questionnaire PHQ-9 Screening 60-Day Re-eval Assessment: 1. Little interest or pleasure in doing things: Several days 2. Feeling down, depressed, or hopeless: Several days 3. Trouble falling or staying asleep, or sleeping too much: More than half the days 4. Feeling tired or having little energy: More than half the days 5. Poor appetite or overeating: Not at all 6. Feeling bad about yourself -- or that you are a failure or have let yourself or your family down: Several days 7. Trouble concentrating on things, such as reading the newspaper or watching television: Not at all 8. Moving or speaking so slowly that other people could have noticed. Or the opposite - being so fidgety or restless that you have been moving around a lot more than usual: More than half the days 9. Thoughts that you would be better off , or of hurting yourself in some way: Not at all How difficult have these problems made it for you to do your work, take care of things at home, or get along with other people?: Very difficult Total Score: 9 Self-Efficacy 6-Item Scale 60-Day Re-eval Assessment: We would like to know how confident you are in doing certain activities. Please select your confidence level for: Fatigue Select Number: 3 Physical Discomfort or Pain Select Number: 3 Emotional Distress Select Number: 5 Other Symptoms or Health Problems Select Number: 5 Different Tasks and Activities Select Number: 2 Medication Select Number: 7 Total Score:: 4 Nutrition Survey Nutrition Survey Instructions Scoring Instructions Exercise - 30-day Assessment Physician Prescribed Exercise Modalities: SciFit Stepper, SciFit Pro-II Ergometer and SciFit Lateral [place] Exercise - 60-day Assessment Visit Date of Eval: 02/12/25 Session #:: 19 Physician Prescribed Exercise Modalities: SciFit Stepper, SciFit Pro-II Ergometer and SciFit Lateral [place] Frequency: 3x/week for 12 weeks [36 sessions] Intensity: 60-80% of age predicted maximum heart rate reserve Duration: 30 - 45 minutes Current METSs:: 6.8 Target Heart Rate:: 94-118 Current RPE:: 11-14 Maximum Excercise HR:: 104 Resting Blood Pressure: 94/64 Maximum Exercise Blood Pressure: 124/78 EKG Type: NSR to ST w/rare PAC, PVC Outcomes & Goals Goals:: Verbalizes understanding of THR, RPE & goal METS by session 6, Documents in home exercise log/reports 30 min aerobic 5 day/wk by DC, Demonstrates accurate pulse taking by DC and Other additional outcome/goals: see below Intervention & Plan Exercise Program Goals: Instruct on personal THR & RPE, Instruct on MET level & personal MET goal, Show patient to take own pulse /validate performance until accurate, Instruct on home exercise and Other additional plan/int Physical Activity Home Exercise Physical Activity - Home Exercise: Safe Exercise, Warm-up, Self-monitoring, Cool-Down, Home Exercise > 30 min Daily and Sitting Time <3 hours/daily Outcomes & Goals Outcomes/Goals: Demonstrates correct Warm-up/exercise Cool-Down (S3) if = 2.5 METs, Verbalizes symptoms of exercise intolerance by Session 3 (S3), Demonstrate safe equipment use (S3) & follows exercise prescrition (6) and Other: See below Intervention & Plan Plan/Intervention: Instruct warm-up & cool-down if exercising at > 2 METs, Instruct on symptoms of exercise intolerance & actions to take, Instruct & monitor on saf, Assess intial functional capacity & safety risk and Other See below 30-day Reassessments 30 day Reassessments:: Progressing Reassessment Notes & Comments:: Proper warm up and cool down explained and demonstrated to pt. Pt is able to return demonstration in his daily sessions. Exercise - 90-day Assessment Physician Prescribed Exercise Modalities: SciFit Stepper, SciFit Pro-II Ergometer and SciFit Lateral [place] Exercise - Final/Discharge Physician Prescribed Exercise Modalities: SciFit Stepper, SciFit Pro-II Ergometer and SciFit Lateral Official Court Reporter Nutrition - 30-Day Assessment Weight Mgt (Other Care) Height: 5 ft 10 in Weight:: 194 lb 8 oz BMI: 27.8 Nutrition - 60-Day Assessment Program Goals Nutrition Program Goals Patient has diagnosis of Hyperlipidemia (ICD E78)?: Yes Visit Date of Eval: 02/12/25 Session #:: 19 Cholesterol/Lipids (Other Core Measures) Determine presence & major risk factors that modify LDL goal: Cigarette smoking, Hypertension or hypertensive medication, Low HDL cholesterol <40 mg/dL*, Family history of premature CHD in Male < 55 years: female <65 yearsFa and Age men > 45 years; women >/= 55 years Outcomes/Goals: Pt IDs own risk factors & lifestyle modifications by Session 10, Verbalizes symptoms of angina & response by session 3., Pt independently manages and Other Additional Outcomes/Goals: Intervention/Plan: Advocate for lipid panel cholesterol medication if applicable, Instruct on personal lipid levels & lipid goals/NCEP guidelines, Instruct on cholesterol and Other additional plan/int Diabetes (Other Core Measures) Diabetes Type: Diagnosis Type II ICD-10 E11 Insulin dependent injection/pump?: Yes Non-Insulin Dependent?: Yes Do you monitor your blood sugar at home?: Yes Referral to Diabetic Clinic:: No 30-day Reassessments:: Met Reassessment Notes & Comments:: Pt controls his sugars with the help of his physician Weight Mgt (Other Care) Height: 5 ft 10 in Weight:: 194 lb 8 oz BMI: 27.8 Diagnosis Overweight/Obesity BMI> 30% ICD-10 E66: No Diagnosis High BMI/Morbid Obesity BMI> 35% ICD-10 Z68: No Outcomes/Goals: Pt sets, maintains & shows weight loss goal & trend during rehab and Other additional outcomes/goals Intervention/Plan: Instruct on ideal BMI & set weight loss goal w/patient, Assist pt to ID & incorporate diet changes for weight loss by S9, Refer to Structured Weight Loss program as appropriate, Encourage goal of using 250-300dcal per session for weight loss and Other additional plan/interventions Healthy Eating Habits Will attend diet classes:: Yes Outcomes/Goals:: Consume diet rich in vegs,fruits,whole grain/high fiber,fish,lean meat, Limit sat/trans fats,cholesterol & added salts & sugars and Other additional outcome/goals: Intervention/Plan:: Assess current eating habits and Other Additional plan/interventions 30-day Reassessments:: Progressing Reassessment Notes & Comments:: Pt has attended nutrition class. Low sodium heart healthy diet encouraged. Will continue to encourage pt. Education Gave educational materials for:: Signs & symptoms of hypoglycemia, Signs & symptoms of hyperglycemia, Relate diabetes to coronary artery disease and Healthy eating Core - Final Assessment Hypertension Resting Blood Pressure:: 90/62 [place] [employer] Hypertension Guidelines Core - 60-Day Assessment Visit Date of Eval: 02/12/25 Session #:: 19 Medication Compliance Preventative Medication(s):: Aspirin and Statin/lipid H/O mental health issues: depression, anxiety, or addiction?: No Doesn?t believe in the benefits of treatment?: No Believes medications are unnecessary or harmful?: No Has a concern about medication side effects?: No Expresses concern over the cost of medications?: No Outcomes/Goals: Verbalizes medications,desired effect & common side effects @ DC, Pt self-reports following medication regimen, Keeps card in wallet w/medications listed by DC and Other additional outcome/goals: Interventions/plans: Instruct on medication effects & side effects, Review medication list w/patient every two weeks, Instruct importance of taking meds as ordered & assist problem solving and Other additional 30-day Reassessments:: Progressing Reassessment Notes & Comments:: 01/20 Pt taken off of ga. 02/03 BP's sent to patient financial rep. 02/08 pt started on Midodrine 2.5 mg TID due to low BP's. Tobacco Use Tobacco Use: Non-smoker Hypertension Resting Blood Pressure:: 94/64 Resting Blood Pressure:: 90/62 [place] [employer] Hypertension Guidelines Peak Exercise Blood Pressure:: 124/78 Outcomes/Goals: Able to verbalize/achieve optimal blood pressure <130/80, Incorporates diet changes & exercise for blood pressure control by DC and Other additional outcomes/goals Interventions/plan: Instruct on optimal blood pressure, hypertension & medications, Instruct on effects of sodium, alcohol, stress, exercise &hypertension and Other additional plan/interventions 30 day Reassessments:: Progressing Reassessment Notes & Comments:: 02/08 pt started on Midodrine 2.5 mg TID due to low BP's. Tobacco Cessation Referral Smoking Cessation Referral:: No Individual Education/Counseling:: No Education Schedule Given:: Yes Psychosocial - 30-Day Assess Target Goals Target Goals Referral to Behavioral Health PS - Interventions: Yes: Attend Stress Management Classes Outcomes/Goals: See list Psychosocial Outcomes/Goals:: ID's personal stressors & 2 strategies to manage stress by discharge and Other Additional outcome/goals: Psychosocial - 60-Day Assess VIsit Date of Eval: 02/12/25 Session #:: 19 History of previous Mental disease:: No Target Goals Target Goals Psychosocial Test Tool Used:: PHQ-9 Questionnaire phq-9 Severity See PHQ-9 Score: 9 Referral to Behavioral Health PS - Interventions: Yes: Attend Stress Management Classes Outcomes/Goals: See list Psychosocial Outcomes/Goals:: ID's personal stressors & 2 strategies to manage stress by discharge and Other Additional outcome/goals: Intervention/Plan: See List Interventions/Plan:: Assess stressors,coping strategies & signs of derpression on admission, Instruct/assist pt to develop coping & personal stress Mgt strategies, Refer to Behavioral Health if appropriate, Refer to Physician if appropriate, Instruct patient to recognize signs & symptoms of depression, Instruct patient to recog and Other additional plan/intervention 30-day Reassessments: 30 day Reassessments:: Progressing Reassessment Notes & Comments:: ?Pt denies any psychosocial issues at this time. Pt to attend stress management class. Psychosocial - 90-Day Assess Target Goals Target Goals Referral to Behavioral Health PS - Interventions: Yes: Attend Stress Management Classes Psychosocial - Final Assessmen Target Goals Target Goals Referral to Behavioral Health PS - Interventions: Yes: Attend Stress Management Classes Nutrition - 90-Day Assessment Weight Mgt (Other Care) Height: 5 ft 10 in Weight:: 194 lb 8 oz BMI: 27.8 Nutrition - Final Assessment Weight Mgt (Other Care) Height: 5 ft 10 in Weight:: 194 lb 8 oz BMI: 27.8
[2025-02-12 10:18] VITALS: BP 94/64
[2025-02-12 10:32] VITALS: BP 90/62; BP 94/64; BMI 27.8
--- NOTE | 2025-03-10 11:23 | PCM.CR.ITP ---
Exercise - Initial Assessment Physician Prescribed Exercise Modalities: Active Endpoints Stepper, Active Endpoints Pro-II Ergometer and Active Endpoints Lateral [employer] Nutrition - Initial Assessment Weight Mgt (Other Care) Height: 5 ft 10 in Weight:: 199 lb BMI: 28.5 BMI (Report if calculated above): 28 Psychosocial - Initial Assess Target Goals Target Goals Referral to Behavioral Health PS - Interventions: Yes: Attend Stress Management Classes Patient Health Questionnaire PHQ-9 Screening 90-Day Re-eval Assessment: 1. Little interest or pleasure in doing things: Several days 2. Feeling down, depressed, or hopeless: Several days 3. Trouble falling or staying asleep, or sleeping too much: More than half the days 4. Feeling tired or having little energy: More than half the days 5. Poor appetite or overeating: Not at all 6. Feeling bad about yourself -- or that you are a failure or have let yourself or your family down: Several days 7. Trouble concentrating on things, such as reading the newspaper or watching television: Not at all 8. Moving or speaking so slowly that other people could have noticed. Or the opposite - being so fidgety or restless that you have been moving around a lot more than usual: More than half the days 9. Thoughts that you would be better off , or of hurting yourself in some way: Not at all How difficult have these problems made it for you to do your work, take care of things at home, or get along with other people?: Very difficult Total Score: 9 Self-Efficacy 6-Item Scale 90-Day Re-eval Assessment: We would like to know how confident you are in doing certain activities. Please select your confidence level for: Fatigue Select Number: 3 Physical Discomfort or Pain Select Number: 3 Emotional Distress Select Number: 5 Other Symptoms or Health Problems Select Number: 5 Different Tasks and Activities Select Number: 2 Medication Select Number: 7 Total Score:: 4 Nutrition Survey Nutrition Survey Instructions Scoring Instructions Nutrition Survey Discharge: Have you lost >10 lbs over the past 2 months without trying?: Yes Are you following a special diet at home for diabetes, low fat, or low salt?: Yes Are you interested in meeting with a dietitian for help understanding your diet?: No Do you eat less than 3 meals a day?: Yes Do you eat fatty meats (thomas, sausage, ribs, etc), fried foods, desserts, large amounts of salad dressings, margarine, butter, or cheese most days?: No Do you have food allergies? [Enter types in comment field]: No Do you eat in restaurants more than 3 times a week?: No Do you season food with salt, seasoning salt, or garlic salt?: Yes Do you used canned, boxed, frozen meals, or soups, seasoning packets?: Yes Total Score:: 5 Exercise - 30-day Assessment Physician Prescribed Exercise Modalities: SciFit Stepper, SciFit Pro-II Ergometer and SciFit Lateral [employer] Manager Exercise - 60-day Assessment Physician Prescribed Exercise Modalities: SciFit Stepper, SciFit Pro-II Ergometer and SciFit Lateral [place] Exercise - 90-day Assessment Visit Date of Eval: 03/10/25 Session #:: 29 Physician Prescribed Exercise Modalities: SciFit Stepper, SciFit Pro-II Ergometer and SciFit Lateral [place] Frequency: 3x/week for 12 weeks [36 sessions] Intensity: 60-80% of age predicted maximum heart rate reserve Duration: 30 - 45 minutes METs - Progression 0.5-1.0 weekly:: 0.5-1.0 Current METSs:: 8 Target Heart Rate:: 94-126 Target RPE 12-16:: 12-16 Current RPE:: 12 Maximum Excercise HR:: 99 Resting Blood Pressure: 112/62 Maximum Exercise Blood Pressure: 132/72 EKG Type: NSR with rare pac Current Physical Activity or Exercising minutes: 30-45 Outcomes & Goals Goals:: Verbalizes understanding of THR, RPE & goal METS by session 6, Documents in home exercise log/reports 30 min aerobic 5 day/wk by DC and Demonstrates accurate pulse taking by DC Intervention & Plan Exercise Program Goals: Instruct on personal THR & RPE, Instruct on MET level & personal MET goal, Show patient to take own pulse /validate performance until accurate and Instruct on home exercise 30-day Reassessments 30 day Reassessments:: Met Physical Activity Home Exercise Physical Activity - Home Exercise: Safe Exercise, Warm-up, Self-monitoring, Cool-Down, Home Exercise > 30 min Daily and Sitting Time <3 hours/daily Outcomes & Goals Outcomes/Goals: Demonstrates correct Warm-up/exercise Cool-Down (S3) if = 2.5 METs, Verbalizes symptoms of exercise intolerance by Session 3 (S3) and Demonstrate safe equipment use (S3) & follows exercise prescrition (6) Intervention & Plan Plan/Intervention: Instruct warm-up & cool-down if exercising at > 2 METs, Instruct on symptoms of exercise intolerance & actions to take, Instruct & monitor on saf and Assess intial functional capacity & safety risk 30-day Reassessments 30 day Reassessments:: Met Exercise - Final/Discharge Physician Prescribed Exercise Modalities: SciFit Stepper, Active Endpoints Pro-II Ergometer and Active Endpoints Lateral [place] Nutrition - 30-Day Assessment Weight Mgt (Other Care) Height: 5 ft 10 in Weight:: 199 lb BMI: 28.5 BMI (Report if calculated above): 28 Nutrition - 60-Day Assessment Weight Mgt (Other Care) Height: 5 ft 10 in Weight:: 199 lb BMI: 28.5 BMI (Report if calculated above): 28 Core - 90 Day Assessment Visit Date of Eval: 03/10/25 Session #:: 29 Medication Compliance Preventative Medication(s):: Aspirin and Statin/lipid H/O mental health issues: depression, anxiety, or addiction?: No Doesn?t believe in the benefits of treatment?: No Believes medications are unnecessary or harmful?: No Has a concern about medication side effects?: No Expresses concern over the cost of medications?: No Outcomes/Goals: Verbalizes medications,desired effect & common side effects @ DC, Pt self-reports following medication regimen and Keeps card in wallet w/medications listed by DC Interventions/plans: Instruct on medication effects & side effects, Review medication list w/patient every two weeks and Instruct importance of taking meds as ordered & assist problem solving 30-day Reassessments:: Met Tobacco Use Tobacco Use: Non-smoker Hypertension Resting Blood Pressure:: 112/62 [place] [employer] Hypertension Guidelines Peak Exercise Blood Pressure:: 132/72 Outcomes/Goals: Able to verbalize/achieve optimal blood pressure <130/80 and Incorporates diet changes & exercise for blood pressure control by DC Interventions/plan: Instruct on optimal blood pressure, hypertension & medications and Instruct on effects of sodium, alcohol, stress, exercise &hypertension 30 day Reassessments:: Met Tobacco Cessation Referral Education Schedule Given:: Yes Psychosocial - 30-Day Assess Target Goals Target Goals Referral to Behavioral Health PS - Interventions: Yes: Attend Stress Management Classes Psychosocial - 60-Day Assess Target Goals Target Goals Referral to Behavioral Health PS - Interventions: Yes: Attend Stress Management Classes Psychosocial - 90-Day Assess VIsit Date of Eval: 03/10/25 Session #:: 29 History of previous Mental disease:: No History of Emotional Disorders: None Target Goals Target Goals Psychosocial Test Tool Used:: PHQ-9 Questionnaire phq-9 Severity See PHQ-9 Score: 9 Referral to Behavioral Health PS - Interventions: Yes: Attend Stress Management Classes Outcomes/Goals: See list Psychosocial Outcomes/Goals:: ID's personal stressors & 2 strategies to manage stress by discharge Intervention/Plan: See List Interventions/Plan:: Assess stressors,coping strategies & signs of derpression on admission, Instruct/assist pt to develop coping & personal stress Mgt strategies, Refer to Behavioral Health if appropriate, Refer to Physician if appropriate and Instruct patient to recognize signs & symptoms of depression 30-day Reassessments: 30 day Reassessments:: Progressing Reassessment Notes & Comments:: Pt denies any psychosocial needs at this time. Psychosocial - Final Assessmen Target Goals Target Goals Referral to Behavioral Health PS - Interventions: Yes: Attend Stress Management Classes Nutrition - 90-Day Assessment Visit Date of Eval: 03/10/25 Session #:: 29 Cholesterol/Lipids (Other Core Measures) Triglycerides (mg/dL): 122 Total Cholesterol (mg/dL): 121 LDL Cholesterol (mg/dL): 54 HDL Cholesterol (mg/dL): 43 Lipid Medication: atorvastatin 80mg QHS Determine presence & major risk factors that modify LDL goal: Cigarette smoking, Hypertension or hypertensive medication, Low HDL cholesterol <40 mg/dL*, Family history of premature CHD in Male < 55 years: female <65 yearsFa and Age men > 45 years; women >/= 55 years Outcomes/Goals: Pt IDs own risk factors & lifestyle modifications by Session 10, Verbalizes symptoms of angina & response by session 3. and Pt independently manages Intervention/Plan: Advocate for lipid panel cholesterol medication if applicable, Instruct on personal lipid levels & lipid goals/NCEP guidelines and Instruct on cholesterol 30-day Reassessments:: Progressing Diabetes (Other Core Measures) Diabetes Type: Diagnosis Type II ICD-10 E11 Insulin dependent injection/pump?: Yes Non-Insulin Dependent?: Yes Do you monitor your blood sugar at home?: Yes 30-day Reassessments:: Met Reassessment Notes & Comments:: Pt self monitors blood sugars and working with physician to optimize a1c and bs control. Weight Mgt (Other Care) Height: 5 ft 10 in Weight:: 199 lb BMI: 28.5 BMI (Report if calculated above): 28 Diagnosis Overweight/Obesity BMI> 30% ICD-10 E66: No Diagnosis High BMI/Morbid Obesity BMI> 35% ICD-10 Z68: No Outcomes/Goals: Pt sets, maintains & shows weight loss goal & trend during rehab Intervention/Plan: Instruct on ideal BMI & set weight loss goal w/patient, Assist pt to ID & incorporate diet changes for weight loss by S9, Refer to Structured Weight Loss program as appropriate and Encourage goal of using 250-300dcal per session for weight loss 30 day Reassessments:: Met Healthy Eating Habits Will attend diet classes:: Yes Outcomes/Goals:: Consume diet rich in vegs,fruits,whole grain/high fiber,fish,lean meat and Limit sat/trans fats,cholesterol & added salts & sugars Intervention/Plan:: Assess current eating habits 30-day Reassessments:: Met Education Gave educational materials for:: Signs & symptoms of hypoglycemia, Signs & symptoms of hyperglycemia, Relate diabetes to coronary artery disease and Healthy eating Nutrition - Final Assessment Weight Mgt (Other Care) Height: 5 ft 10 in Weight:: 199 lb BMI: 28.5 BMI (Report if calculated above): 28
[2025-03-10 11:27] VITALS: BP 112/62
[2025-03-10 12:12] VITALS: BMI 28.5
[2025-03-10 12:15] VITALS: BMI 28.0
[2025-03-10 12:18] VITALS: BP 112/62
== END 2025-03-14 23:59 ==
LOC: CR 09:15
PROVIDERS: PCP Internal Medicine; Referring Provider Internal Medicine Cardiovascular Disease; Visit Provider Internal Medicine Cardiovascular Disease
DX: Z95.1 Presence of aortocoronary bypass graft (principal)
CPT/HCPCS: 93798

== ENCOUNTER → 2025-03-18 | Outpatient (CLI) | payer OTHER, SELFPAY ==
[2025-02-12 10:32] VITALS: BMI 27.8
[2025-03-10 12:12] VITALS: BMI 28.5
--- NOTE | 2025-03-18 09:37 | NM_ITS ---
PROCEDURE: P[facility] LTD IMAGES CARDIAC AMYLOID REASON FOR EXAM: ABNORMAL FLC RATIO, REDUCED EF Amyloid imaging. TECHNIQUE: 21.3 mCi of technetium labeled pyrophosphate injected intravenously for assessment of possible cardiac amyloid. COMPARISON: None FINDINGS: Imaging open of the heart as well as the base of the right lung was performed. The ratio of the heart uptake to the lung uptake is 1.21. This is within normal limits. Ratio of greater than 1.5 signifies pathology. NM/[facility] Images Cardiac Amyloid IMPRESSION: Normal pyrophosphate scan for assessment of cardiac amyloid. Ratio of 1.21. Reading Location: [place] [id number]
== END | disposition home or self-care (01) ==
LOC: NM 09:35
PROVIDERS: PCP Internal Medicine; Referring Provider Student in an Organized Health Care Education/Training Program; Visit Provider Student in an Organized Health Care Education/Training Program
DX: I51.9 Heart disease, unspecified (principal)
CPT/HCPCS: 78800; 78803; A9538

== ENCOUNTER → 2025-03-19 | Outpatient (CLI) | payer OTHER, SELFPAY ==
[2025-03-10 12:12] VITALS: BMI 28.5
[2025-03-19 10:40] LABS: Hematocrit 44.5 % (40-54); Hemoglobin 14.9 g/dL (13.0-16.5); Mean Corp Hgb Conc 33.5 g/dL (32-36); Mean Corpuscular Volume 82.9 fL (80-94); Mean Platelet Vol. 10.0 fl (6.2-12.0); Platelet Count 260 K/mm3 (150-450); RBC Distribution Width CV 13.5 % (11.6-14.6); RBC Distribution Width SD 40.7 fl (35.1-43.9); Red Blood Count 5.37 M/mm3 (4.6-6.2); White Blood Count 5.6 K/mm3 (4.4-11.0)
[2025-03-19 11:31] LABS: AST(SGOT) 40 U/L (<=37); Alanine Aminotransfer ALT/SGPT 69 U/L (<=46); Albumin, Serum 4.5 g/dL (3.4-4.8); Alkaline Phosphatase 135 U/L (40-129); Anion Gap 12 (5-15); BUN 22 mg/dL (4-19); BUN/Creat Ratio 19.5 RATIO (10-20); Calcium,Total 10.2 mg/dL (7.6-11.0); Carbon Dioxide 25.9 mmol/L (21.0-32.0); Chloride 102 mmol/L (98-108); Globulin 2.8 g/dL (2.2-4.2); Glucose 194 mg/dL (70-99); Magnesium 1.9 mg/dL (1.5-2.2); Potassium 5.2 mmol/L (3.3-5.1); Vitamin B12 486 pg/mL (180-914)
[2025-03-22 14:08] LABS: Vitamin D 1,25-Dihydroxy 80.1 pg/mL (24.8-81.5)
[2025-03-29 10:08] LABS: Folate, Hemolysate Test 391.0 ng/mL (Not Estab.); Vitamin B1, Thiamine 125.7 nmol/L (66.5-200.0)
== END | disposition home or self-care (01) ==
LOC: LAB 09:57
PROVIDERS: PCP Nurse Practitioner Family; Referring Provider Psychiatry & Neurology Neurology; Visit Provider Psychiatry & Neurology Neurology
DX: G62.9 Polyneuropathy, unspecified (principal); G54.0 Brachial plexus disorders
CPT/HCPCS: 36415; 80053; 82607; 82652; 82747; 83735; 84207; 84425; 84443; 85014; 85027

== ENCOUNTER 2025-03-29 09:15 | Outpatient (RCR) | payer OTHER, SELFPAY | END 2025-04-13 23:59 | LOC: CR 09:15 | PROVIDERS: PCP Internal Medicine; Referring Provider Internal Medicine Cardiovascular Disease; Visit Provider Internal Medicine Cardiovascular Disease | DX: Z95.1 Presence of aortocoronary bypass graft (principal) | CPT/HCPCS: 93798 ==

== ENCOUNTER → 2025-04-07 | Outpatient (CLI) | payer OTHER, SELFPAY ==
[2025-03-10 12:12] VITALS: BMI 28.5
--- NOTE | 2025-04-07 09:06 | ART_ITS ---
Reason For Study Reason For Study: Absent pedal pulses Procedure A bilateral lower extremity continuous wave Doppler with analog waveform analysis and ankle brachial indexes. Left Segmental Pressures Left brachial= 124mmHg. Left posterior tibial artery = 101mmHg. Left dorsalis pedis artery = 106mmHg. Left digit = 90 mmHg. The left dorsalis pedis waveforms are triphasic. The left posterior tibial artery waveforms are triphasic. Right Segmental Pressures Right brachial= 125mmHg. Right posterior tibial artery = 101mmHg. Right dorsalis pedis artery = 92mmHg. Right digit = 57 mmHg. The right dorsalis pedis waveforms are biphasic. The right posterior tibial artery waveforms are biphasic. Indices The right ankle brachial index by the dorsalis pedis is 0.74. The right ankle brachial index by the posterior tibial artery is 0.81. The right digital-brachial index is 0.46. The left ankle brachial index by the dorsalis pedis is 0.85. The left ankle brachial index by the posterior tibial artery is 0.81. The left digital-brachial index is 0.72. VL/Ankle Brachial Index Interpretation Summary Right ESTELA 0.81, moderate arterial insufficiency. Doppler/PVR waveforms of the r ight ankle moderately diminished at rest. Left ESTELA 0.85, moderate arterial insufficiency. Doppler/PVR waveforms of the le ft leg normal at rest. Ordering Physician: Gael Dunne Referring Physician: Clifford Montez Performed By: Cinthya Carroll RVT
--- NOTE | 2025-04-07 09:41 | MRI_ITS ---
PROCEDURE: SPINE CERVICAL (ROUTINE) 04/07/2025 REASON FOR EXAM: NECK PAIN; L BRACHIAL PLEXOPATHY;? L CERV RADICUL TECHNIQUE: Procedure Code: MRISP Modality: MR Procedure: SPINE CERVICAL (ROUTINE) Multiplanar and multisequence images were obtained without IV contrast administration. FINDINGS: Normal cervical vertebral body height and alignment. No compression deformity or subluxation. Normal marrow signal. No compression deformity. No Chiari deformity. C2-3 is unremarkable. At C3-4 uncinate spurring produces mild left C3 foraminal stenosis. At C4-5, there is no central stenosis. There is no foraminal narrowing. At C5-6, no central stenosis. Asymmetric moderate left C6 foraminal narrowing from uncinate spur. At C6-7 disc osteophyte complex results in mild canal narrowing. Uncinate spurring produces moderate to severe right and severe left C7 foraminal stenosis with potential nerve root impingement on the left. C7-T1 is unremarkable. There is no cord compression or abnormal cord signal MRI/Spine Cervical (Routine) IMPRESSION: Multilevel foraminal stenosis which is most severe on the left at C6-7 Reading [facility]
--- NOTE | 2025-04-07 09:41 | MRI_ITS ---
PROCEDURE: BRAIN W/WO CONTRAST 04/07/2025 REASON FOR EXAM: HISTORY OF TIA 2023 TECHNIQUE: Procedure Code: [id number] Modality: MR Procedure: BRAIN W/WO CONTRAST Multiplanar and multisequence images were obtained. CONTRAST: Clariscan VOLUME: 17 mL COMPARISON: None. FINDINGS: There is a small chronic cortical infarction in the left occipital lobe. There are 2 small chronic cortical infarctions in the left cerebellar hemisphere, and 1 small chronic cortical infarction in the right cerebellar hemisphere. There is a dilated perivascular space in the right basal ganglia. There is a normal sulcal pattern and gyral configuration. There is no evidence of acute intracranial hemorrhage or infarction. The almazan-white differentiation is well preserved. There is no evidence of restricted diffusion. The ventricles and basilar cisterns are normal. There are normal flow voids demonstrated in the recognized intracranial vessels. The cerebellum and brainstem demonstrate no acute abnormality. The cerebellar pontine angles are normal. The craniovertebral junction is normal. The sella and suprasellar regions are normal. The orbits and retro-orbital regions are unremarkable. There is nasal septal deviation to the left. There is thickening of the nasal mucosa consistent with rhinitis. There is no significant paranasal sinus disease. The mastoid air cells are clear. There is normal bone marrow signal in the skull base and calvarium. MRI/Brain W/WO Contrast IMPRESSION: 1. There is no evidence of acute intracranial pathology. 2. There are multiple small cortical infarctions in the cerebral and cerebella r hemispheres, as described. 3. Other findings as noted. Reading Location: [id number]
== END | disposition home or self-care (01) ==
LOC: MRI 08:57
PROVIDERS: PCP Nurse Practitioner Family; Referring Provider Psychiatry & Neurology Neurology; Visit Provider Psychiatry & Neurology Neurology
DX: I73.9 Peripheral vascular disease, unspecified (principal); I95.9 Hypotension, unspecified; M54.2 Cervicalgia; G54.0 Brachial plexus disorders; G45.9 Transient cerebral ischemic attack, unspecified
CPT/HCPCS: 70553; 72141; 93788; 93922; A9575; A4216

== ENCOUNTER → 2025-04-28 | Outpatient (CLI) | payer OTHER, SELFPAY ==
--- NOTE | 2025-04-28 12:34 | NEURO ---
NCS and/or EMG Patient Report Ordering Doctor: Gael Dunne DATE OF SERVICE: 04/28/25 Dannie presents complaints of pain and numbness in the left arm since a sternotomy procedure in October 2024. Electrodiagnostic findings: Left median motor nerve demonstrates prolonged distal latency with normal amplitude and reduced conduction velocity. Left ulnar motor nerve demonstrates reduced conduction velocity, without evidence of conduction block across the elbow. Normal left median and left ulnar F–waves. Prolonged left median sensory latency at the wrist. Decreased median and ulnar sensory amplitudes. Needle EMG testing was performed in the left upper limb. The left first dorsal interosseous demonstrated decreased recruitment pattern with 1+ fibrillations. 1+ fibrillations noted in the flexor carpi ulnaris. No denervation was noted in the cervical paraspinals. Electrodiagnostic impression: This is an abnormal study in the left upper limb. 1. Electrodiagnostic findings are suggestive of a left-sided lower trunk brachial plexopathy. Consider repeat study in 4 to 6 months to evaluate for improvement. 2. No electrodiagnostic evidence is noted for cervical radiculopathy Multi Select Codes Neurology Neurology Interp Codes: 08369-82 Musc test done w/n test comp (interp) and 84348-51 Nrv cndj tst 5-6 studies (interp)
== END | disposition home or self-care (01) ==
LOC: PSN 10:04
PROVIDERS: PCP Nurse Practitioner Family; Referring Provider Psychiatry & Neurology Neurology; Visit Provider Psychiatry & Neurology Neurology
DX: G54.0 Brachial plexus disorders (principal); M54.2 Cervicalgia
CPT/HCPCS: 95886; 95909